=== PATIENT | female | born 1965 | race Caucasian/White ===

== ENCOUNTER 2016-06-22 09:59 | Emergency (ER) | payer MEDICAID ==
[2016-06-22] MEDS ORDERED: MAG HYDROX/AL HYDROX/SIMETH 30 ML, HYOSCYAMINE ELIXIR 10 ML, CIMETIDINE HCL 300 MG, LID... PO STA ×4 (10:24)
[2016-06-22] MEDS ORDERED: PANTOPRAZOLE 40 MG/10 ML VIAL IVP STA (10:24)
[2016-06-22] MEDS ORDERED: SODIUM CHLORIDE 0.9% 1,000 ML IV STA (10:24)
--- NOTE | 2016-06-22 10:50 | ED ---
General Adult HPI - General Chief complaint: Abdominal Pain Stated complaint: heartburn, ulcer hx, sent by dr alcaraz Time Seen by Provider: 06/22/16 10:13 Source: patient, family, RN notes reviewed Mode of arrival: ambulatory Limitations: no limitations - History of Present Illness Initial comments: Chief complaint history of present illness is a 51-year-old female complaint of epigastric pain ongoing for 24 hours without relief. She has been taking omeprazole. She also has a history of arthritis she's been taking Motrin very frequently. No nausea no vomiting. - Related Data Home Medications Medication Instructions Recorded Confirmed Albuterol Sulfate [Proair Hfa] 1 - 2 puff INHALATION RT-Q6H PRN 02/04/14 Omeprazole [PriLOSEC] 20 mg PO BID 02/04/14 06/22/16 Bismuth Subsalicylate 524 mg PO BID PRN 06/22/16 06/22/16 [Pepto-Bismol] Calcium Carbonate [Tums Ultra 4,708 mg PO BID PRN 06/22/16 06/22/16 Strength] Sodium Bicarbonate Tab 650 mg PO BID PRN 06/22/16 06/22/16 Allergies Allergy/AdvReac Type Severity Reaction Status Date / Time oxycodone HCl [From Percocet] Allergy Rash/Hives Verified 06/22/16 10:07 peanut Allergy Wheezing Verified 06/22/16 12:08 Review of Systems ROS Statement: Those systems with pertinent positive or pertinent negative responses have been documented in the HPI. Review of systems. No complaint of headache or visual acuity changes no chest pain or shortness of breath. She has epigastric discomfort and pain with palpation. States she wasn't able to sleep last night. No back pain. No nausea no vomiting. She has not noticed any change in the color of the stool but she also admits she has not looked directly to find it. She is also taking Pepto-Bismol which could make the stool black. Patient denying any numbness or tingling to the extremities. All systems are reviewed. Past medical problems include asthma, GERD and history of ulcers she was told she has 3 ulcers on scoping. She has osteoarthritis for which she is taking Motrin. I explained to her this could be causing part of the problem as well. The patient's surgeries include breast reductions, arthroscopic surgery to her knee. And surgical device placed in her toes because of fractures. The patient 's family history significant for breast cancer. The patient has ALLERGIES to oxycodone. She does smoke 2-3 cigarettes per day strongly encouraged to stop. Also drinks alcohol socially. Increased risk of gastritis and ulcers discussed with patient including alcohol and smoking and nonsteroidal anti-inflammatories ROS Other: All systems not noted in ROS Statement are negative. Past Medical History Past Medical History: Asthma, GERD/Reflux, Osteoarthritis (OA) Additional Past Medical History / Comment(s): ulcers History of Any Multi-Drug Resistant Organisms: None Reported Past Surgical History: Orthopedic Surgery Additional Past Surgical History / Comment(s): LEFT KNEE ARTHROSCOPIC, LEFT FOOT SURGERY Past Anesthesia/Blood Transfusion Reactions: No Reported Reaction Past Psychological History: No Psychological Hx Reported Smoking Status: Former smoker Past Alcohol Use History: Occasional Past Drug Use History: None Reported General Exam - General Exam Comments Initial Comments: General: The patient is awake and alert, pain in the epigastric region for 24 hours. Vital signs shows temperature 97.6 pulse 92 respiratory rate 16 pulse ox 96% room air blood pressure 132/77. Eye: Pupils are equal, round and reactive to light, extra-ocular movements are intact ; there is normal conjunctiva bilaterally. No signs of icterus. Ears, nose, mouth and throat: There are moist mucous membranes and no oral lesions. Neck: The neck is supple, there is no tenderness , no anterior cervical lymphadenopathy. Cardiovascular: There is a regular rate and rhythm. No murmur, rub or gallop is appreciated. Respiratory: Lungs are clear to auscultation, respirations are non-labored, breath sounds are equal. No wheezes, stridor, rales, or rhonchi. Gastrointestinal: Patient complains of epigastric pain palpation of the area causes discomfort. Negative Saolmon sign. No pain that radiates straight through to the back. Normal active bowel sounds. No nausea no vomiting or diarrhea. Back: There is no tenderness to palpation in the midline. There is no obvious deformity. No rashes noted. Musculoskeletal: Normal ROM, no tenderness, There is no pedal edema. There is no calf tenderness or swelling. Sensation intact. Pulses equal bilaterally 2+. Neurological: No complaint of any neuro deficits, no evidence of any focal or lateralizing problems. Skin: Skin is warm and dry and no rashes or lesions are noted. Limitations: no limitations Course Vital Signs 06/22/16 10:04 Temperature 97.6 F Pulse Rate 92 Respiratory 16 Rate Blood Pressure 132/77 O2 Sat by Pulse 96 Oximetry Medical Decision Making - Medical Decision Making Medical decision making; patient's white count 10 hemoglobin 14.8 hematocrit of 41. Potassium is 4.4 BUN 10 creatinine 0.70 the GFR greater than 60. Glucose 106. Amylase lipase within normal limits. X-ray of the abdomen was done and reviewed by radiologist his findings are the abdominal gas pattern is normal. There is no evidence of obstruction or free air. No unusual calcifications are seen. Impression; normal abdomen. As read by Dr. Goddard Patient was told to eat frequent small meals. Stop smoking stop alcohol. Stop ibuprofen and Aleve and aspirin. Also advised to use an antacid as needed, one hour after meals and at bedtime. She is to follow-up with her insurance healthcare representative. - Lab Data Result diagrams: 06/22/16 10:35 06/22/16 10:35 Lab Results 06/22/16 06/22/16 Range/Units 10:35 10:35 WBC 10.5 (3.8-10.6) k/uL RBC 4.68 (3.80-5.40) m/uL Hgb 14.1 (11.4-16.0) gm/dL Hct 41.9 (34.0-46.0) % MCV 89.6 (80.0-100.0) fL MCH 30.2 (25.0-35.0) pg MCHC 33.7 (31.0-37.0) g/dL RDW 13.0 (11.5-15.5) % Plt Count 217 (150-450) k/uL Neutrophils % 60 % Lymphocytes % 30 % Monocytes % 4 % Eosinophils % 4 % Basophils % 1 % Neutrophils # 6.3 (1.3-7.7) k/uL Lymphocytes # 3.1 (1.0-4.8) k/uL Monocytes # 0.4 (0-1.0) k/uL Eosinophils # 0.4 (0-0.7) k/uL Basophils # 0.1 (0-0.2) k/uL Sodium 143 (137-145) mmol/L Potassium 4.4 (3.5-5.1) mmol/L Chloride 104 (98-107) mmol/L Carbon Dioxide 27 (22-30) mmol/L Anion Gap 12 mmol/L BUN 10 (7-17) mg/dL Creatinine 0.78 (0.52-1.04) mg/dL Est GFR (MDRD) Af Amer >60 (>60 ml/min/1.73 sqM) Est GFR (MDRD) Non-Af >60 (>60 ml/min/1.73 sqM) Glucose 106 H (74-99) mg/dL Calcium 10.2 (8.4-10.2) mg/dL Total Bilirubin 0.9 (0.2-1.3) mg/dL AST 19 (14-36) U/L ALT 21 (9-52) U/L Alkaline Phosphatase 69 (38-126) U/L Total Protein 8.0 (6.3-8.2) g/dL Albumin 4.7 (3.5-5.0) g/dL Amylase 45 (30-110) U/L Lipase 92 (23-300) U/L Disposition Clinical Impression: Acute gastritis Disposition: HOME SELF-CARE Condition: Fair Instructions: Gastritis (ED), Diet for Stomach Ulcers and Gastritis (ED) Additional Instructions: Take Prilosec as directed. Eat frequent small meals. Use antacids as needed. One hour after meals and at bedtime. Stop all smoking, stop ibuprofen, Aleve and aspirin products. No alcohol use. Don't eat foods attending irritate her stomach. Sleep semi-upright. Follow-up with the insurance healthcare representative. Time of Disposition: 12:23
[2016-06-22 10:55] LABS: Basophils # (A) 0.1 k/uL (0-0.2); Basophils % (A) 1 %; CH 30.6; CHCM 34.2; Eosinophils # (A) 0.4 k/uL (0-0.7); Eosinophils % (A) 4 %; HCT 41.9 % (34.0-46.0); HDW 2.47; HGB 14.1 gm/dL (11.4-16.0); Luc # (Auto) 0.16; Luc % (Auto) 2; Lymphocytes # (A) 3.1 k/uL (1.0-4.8); Lymphocytes % (A) 30 %; MCH 30.2 pg (25.0-35.0); MCHC 33.7 g/dL (31.0-37.0); MCV 89.6 fL (80.0-100.0); Mean Platelet Volume 9.2; Monocytes # (A) 0.4 k/uL (0-1.0); Monocytes % (A) 4 %; Neutrophils # (A) 6.3 k/uL (1.3-7.7); Neutrophils % (A) 60 %; RBC 4.68 m/uL (3.80-5.40); WBC 10.5 k/uL (3.8-10.6); WBC (Perox) 10.44
[2016-06-22 11:05] LABS: ALT 21 U/L (9-52); AST 19 U/L (14-36); Alkaline Phosphatase 69 U/L (38-126); Amylase 45 U/L (30-110); Anion Gap 12 mmol/L; Blood Urea Nitrogen 10 mg/dL (7-17); Calcium 10.2 mg/dL (8.4-10.2); Carbon Dioxide 27 mmol/L (22-30); Chloride 104 mmol/L (98-107); Glucose 106 mg/dL (74-99); Non-African American GFR(MDRD) >60 (>60 ml/min/1.73 sqM); Potassium 4.4 mmol/L (3.5-5.1); Sodium 143 mmol/L (137-145); Total Bilirubin 0.9 mg/dL (0.2-1.3)
--- NOTE | 2016-06-22 11:46 | XR ---
EXAMINATION TYPE: XR abdomen 2V DATE OF EXAM ORDERED: 06/22/2016 11:35 AM HISTORY: Gas pain, ulcers. COMPARISON: None. FINDINGS: The abdominal gas pattern is normal. There is no evidence of obstruction or free air. No u nusual calcifications are seen. IMPRESSION: NORMAL ABDOMEN.
[2016-06-22 13:03] VITALS: BP 131/84; PULSE 78; RESP 18; TEMP 98.3
== END 2016-06-22 12:35 | disposition home or self-care (01) ==
LOC: EC 09:59
DX: K29.00 Acute gastritis without bleeding (principal); K21.9 Gastro-esophageal reflux disease without esophagitis; Z87.891 Personal history of nicotine dependence; Z79.899 Other long term (current) drug therapy; Z91.018 Allergy to other foods; Z88.8 Allergy status to other drugs, medicaments and biological substances
CPT/HCPCS: 36415; 80053; 82150; 83690; 85025; 74020; 99284; 96374; 96361; C9113

== ENCOUNTER → 2016-08-28 | Outpatient (CLI) | payer MEDICAID ==
[2016-08-28 15:15] LABS: Hemoglobin A1C 5.7 % (4.2-6.1)
== END | disposition home or self-care (01) ==
LOC: LABWHC1 12:33
PROVIDERS: ATTEND Family Medicine
DX: E66.9 Obesity, unspecified (principal)
CPT/HCPCS: 36415; 80061; 83036; 84439; 84443

== ENCOUNTER → 2016-10-25 | Outpatient (CLI) | payer MEDICAID ==
[2016-10-25 08:47] LABS: CH 30.9; CHCM 33.5; HCT 37.9 % (34.0-46.0); HDW 2.34; HGB 12.4 gm/dL (11.4-16.0); MCH 30.5 pg (25.0-35.0); MCHC 32.8 g/dL (31.0-37.0); MCV 92.9 fL (80.0-100.0); Mean Platelet Volume 10.6; RBC 4.08 m/uL (3.80-5.40); WBC 8.1 k/uL (3.8-10.6)
[2016-10-25 11:41] LABS: Anion Gap 11 mmol/L; Blood Urea Nitrogen 12 mg/dL (7-17); Calcium 9.9 mg/dL (8.4-10.2); Carbon Dioxide 26 mmol/L (22-30); Chloride 103 mmol/L (98-107); Cholesterol 144 mg/dL (<200); Glucose 93 mg/dL (74-99); HDL Cholesterol 45 mg/dL (40-60); Non-African American GFR(MDRD) >60 (>60 ml/min/1.73 sqM); Potassium 4.4 mmol/L (3.5-5.1); Sodium 140 mmol/L (137-145)
[2016-10-25 13:46] LABS: Hepatitis C Virus IgG Ab Negative (Negative); Hepatitis C Virus IgG Index 0.03
== END | disposition home or self-care (01) ==
LOC: LABWHC1 07:48
PROVIDERS: ATTEND Family Medicine
DX: Z00.00 Encounter for general adult medical examination without abnormal findings (principal); N95.9 Unspecified menopausal and perimenopausal disorder
CPT/HCPCS: 36415; 80048; 80061; 82306; 82670; 83001; 85027; 86803

== ENCOUNTER → 2016-11-12 | Outpatient (CLI) | payer MEDICAID ==
--- NOTE | 2016-11-14 09:43 | MM ---
Reason for exam: screening (asymptomatic). Last mammogram was performed 1 year ago. History: Family history of breast cancer in maternal aunt at age 50 and breast cancer in maternal grandmother at age 60. Reductions of both breasts, 2004. Physical Findings: A clinical breast exam by your physician is recommended on an annual basis and results should be correlated with mammographic findings. MG 3D Screening Mammo W/Cad Bilateral CC and MLO view(s) were taken. Prior study comparison: November 03, 2015, bilateral MG 3d screening mammo w/cad. May 09, 2014, bilateral MG diagnostic mammo w CAD JESUS. January 14, 2013, CAD bilateral diagnostic mammogram. There are scattered fibroglandular densities. No significant changes when compared with prior studies. ASSESSMENT: Benign, BI-RAD 2 RECOMMENDATION: Routine screening mammogram of both breasts in 1 year.
== END | disposition home or self-care (01) ==
LOC: RADMAMWWP 07:25
PROVIDERS: ATTEND Family Medicine
DX: Z12.31 Encounter for screening mammogram for malignant neoplasm of breast (principal)
CPT/HCPCS: 77063; G0202

== ENCOUNTER 2016-11-27 07:44 | Day surgery (SDC) | payer MEDICAID ==
[2016-11-22 11:02] VITALS: BMI 30.7
[~2016-11-27 07:44] MED LIST: LACTATED RINGERS 1,000 ML IV SCH
[2016-11-27 08:12] VITALS: RESP 16; TEMP 97.8
[2016-11-27] MEDS ORDERED: LIDOCAINE 1% 20 ML VIAL (10MG/ML) FOR IV START INTRADERMA ONE (08:21)
[2016-11-27] MEDS ORDERED: GLYCOPYRROLATE 0.2 MG/ML 2 ML VIAL ONE (08:40)
[2016-11-27] MEDS ORDERED: PROPOFOL 10 MG/ML 20 ML VIAL IV ONE (08:40)
[2016-11-27] MEDS ORDERED: LIDOCAINE 1% INJ 10MG/ML (20 ML MDV) ONE (08:40)
--- NOTE | 2016-11-27 09:33 | P.PCN ---
Date of Procedure: 11/27/16 Preoperative Diagnosis: Postoperative Diagnosis: Procedure(s) Performed: Brief history: Patient is a pleasant 51-year-old white female, scheduled for an elective upper endoscopy as well as colonoscopy as a part of evaluation of GERD and screening for colorectal neoplasia. Procedure performed: Esophagogastroduodenoscopy with biopsy Colonoscopy and polypectomy Preoperative diagnosis: GERD Screening for colon cancer Anesthesia: MAC Procedure: After informed consent was obtained from the patient was brought into the endoscopy unit and IV sedation was administered by anesthesia under continuous monitoring. Initially upper endoscopy was done. The Olympus GF 160 video endoscope was inserted inserted into the mouth and esophagus intubated without any difficulty and was gradually advanced into the stomach and duodenum and carefully examined. The bulb and second part of the duodenum appeared normal. The scope was then withdrawn into the stomach adequately insufflated with air and upon careful examination the antrum had mild gastritis and biopsies were done from this area. The body, cardia and fundus appeared normal. The scope was then withdrawn into the esophagus. The GE junction was located at 40 cm to the incisors. It appeared regular with no erythema erosions or ulcerations. biopsies were done from the distal esophagus. Rest of the esophagus appeared normal. Patient tolerated the procedure well. At this time the patient continued to remain sedation. Initial digital rectal examination was normal. Olympus CF 160 video colonoscope was then inserted into the rectum and gradually advanced to the cecum without any difficulty. Careful examination was performed as the scope was gradually being withdrawn. The prep was excellent. The cecum, ascending colon, appeared normal. In the transverse colon there was a 1 m flat polyp that was removed by snare polypectomy. Rest of the transverse colon, descending colon, sigmoid colon and rectum appeared normal. Retroflexion was performed in the rectum and no lesions were noted. Patient tolerated the procedure well. Impression: 1. Upper endoscopy revealed mild antral gastritis but no evidence of esophagitis or Mott's esophagus 2. Colonoscopy revealed 1 cm transverse colon polyp status post polypectomy. rest of the colon appeared normal. Recommendations: Findings of this examination were discussed with the patient as well as her family. She was advised to follow with the biopsy results. If the biopsy shows a tubular adenoma, she can have a repeat colonoscopy in 5 years Implants: Indications for Procedure: Operative Findings: Description of Procedure:
[2016-11-27 09:41] VITALS: BP 115/77; PULSE 66
== END 2016-11-27 10:48 | disposition home or self-care (01) ==
LOC: ORWHC2ENDO 07:44
PROVIDERS: ATTEND Internal Medicine Gastroenterology
DX: K29.50 Unspecified chronic gastritis without bleeding (principal); K63.5 Polyp of colon; J45.909 Unspecified asthma, uncomplicated; F17.200 Nicotine dependence, unspecified, uncomplicated; Z79.899 Other long term (current) drug therapy; Z88.5 Allergy status to narcotic agent; Z91.010 Allergy to peanuts
CPT/HCPCS: 88305; 88342; 45385; 43239; J2001; J2704

== ENCOUNTER → 2017-07-29 | Outpatient (CLI) | payer MEDICAID ==
--- NOTE | 2017-07-30 07:59 | XR ---
EXAMINATION TYPE: XR foot complete LT DATE OF EXAM: 07/29/2017 CLINICAL HISTORY: History of bunion surgery with new pain. TECHNIQUE: Frontal, lateral, and oblique images of the left foot are obtained. COMPARISON: None FINDINGS: There is no acute fracture/dislocation evident in the left foot. There is evidence of heal ed osteotomy distal first metatarsal. Persistent slight hallux valgus deformity is seen. There is oss ific fusion at second PIP joint. Some flexion in second through fifth toes is present The overlying s oft tissue appears unremarkable. IMPRESSION: As above.
== END | disposition home or self-care (01) ==
LOC: RADXRMAIN 09:22
PROVIDERS: ATTEND Podiatrist Foot & Ankle Surgery
DX: M20.12 Hallux valgus (acquired), left foot (principal); M79.672 Pain in left foot

== ENCOUNTER → 2017-10-07 | Outpatient (CLI) | payer MEDICAID ==
--- NOTE | 2017-10-07 22:23 | MR ---
EXAMINATION TYPE: MR brain wo/w con DATE OF EXAM: 10/07/2017 COMPARISON: NONE HISTORY: Sudden onset headache (R 51) per order. TECHNIQUE: Multiplanar, multisequence images of the brain and brainstem is performed without and with IV contras t, utilizing 7.5 mL intravenous Gadavist . FINDINGS: Diffusion weighted images demonstrate no evidence of a recent infarct or other diffusion ab normality. There is no extra-axial fluid collection or significant white matter signal abnormality. The ventricular system and cisternal spaces are normal in size and appearance. The brain volume is age appropriate. Midline structures demonstrate normal morphology. The craniocervical junction appears within normal limits. Post contrast images demonstrate no abnormal enhancement. The dural venous sinuses appear pa tent. There is large mucous retention cyst filling the inferior aspect left maxillary sinus coronal i mage 6. There is small mucous retention cyst or polyp in the inferior right maxillary sinus coronal i mage 5. Nasal septum is deviated to right of midline. Remainder paranasal sinuses are clear. The glob es are intact bilaterally. IMPRESSION: No significant finding is seen to account for patient's symptoms
== END | disposition home or self-care (01) ==
LOC: RADMRIMAIN 20:08
PROVIDERS: ATTEND Psychiatry & Neurology Neurology
DX: R51 Headache (principal)
CPT/HCPCS: 70553; A9581

== ENCOUNTER → 2017-11-04 | Outpatient (CLI) | payer MEDICAID ==
--- NOTE | 2017-11-04 11:30 | FL ---
EXAM TYPE: Modified barium swallow COMPARISON: NONE DATE OF EXAM: 11/04/2017 HISTORY: Dysphasia A number of thin and thick substances were ingested under the care of the department of speech pathol ogy. There is no evidence of aspiration or penetration. There is no evidence of obstruction. Fluoroscopy time 1 minute 15 seconds, 0 images submitted. IMPRESSION: 1. No evidence of aspiration or penetration.
== END | disposition home or self-care (01) ==
LOC: RADFLMAIN 10:31
PROVIDERS: ATTEND Otolaryngology
DX: R13.10 Dysphagia, unspecified (principal)
CPT/HCPCS: 74230

== ENCOUNTER → 2017-11-05 | Outpatient (CLI) | payer MEDICAID ==
--- NOTE | 2017-11-05 09:48 | FL ---
EXAMINATION TYPE: FL barium swallow DATE OF EXAM: 11/05/2017 CLINICAL HISTORY: Headaches, dysphagia especially with solid dry foods. TECHNIQUE: A double contrast esophagram is performed utilizing air and barium. A total of 0.53 aaron panda of fluoroscopic time was utilized during procedure. A total of 44 spot images are saved. COMPARISON: None FINDINGS: The esophagus shows some dysmotility with a few abnormal secondary and tertiary contraction s identified. No intraluminal mass or stricture is present. No evidence of significant hiatal hernia or outpouching. No significant gastroesophageal reflux was seen during real time performance of this study. IMPRESSION: Mild dysmotility otherwise unremarkable study.
== END | disposition home or self-care (01) ==
LOC: RADFLWHC 08:41
PROVIDERS: ATTEND Otolaryngology
DX: K22.4 Dyskinesia of esophagus (principal)
CPT/HCPCS: 74220

== ENCOUNTER → 2017-12-08 | Outpatient (CLI) | payer MEDICAID ==
--- NOTE | 2017-12-09 09:17 | MM ---
Reason for exam: screening (asymptomatic). Last mammogram was performed 1 year and 1 month ago. History: Patient is postmenopausal. Family history of breast cancer in maternal aunt at age 50 and breast cancer in maternal grandmother at age 60. Reductions of both breasts, 2004. Physical Findings: A clinical breast exam by your physician is recommended on an annual basis and results should be correlated with mammographic findings. MG Screening Mammo w CAD Bilateral CC and MLO view(s) were taken. Prior study comparison: November 12, 2016, bilateral MG 3d screening mammo w/cad. November 03, 2015, bilateral MG 3d screening mammo w/cad. There are scattered fibroglandular densities. Finding: There are indeterminate calcifications in the upper outer quadrant of the left breast 13cm from the nipple. New finding since November 12, 2016. ASSESSMENT: Incomplete: need additional imaging evaluation, BI-RAD 0 RECOMMENDATION: Special view mammogram of the left breast. [facility] will attempt to contact patient to return for supplemental views.
== END ==
LOC: RADMAMWWP 11:12
PROVIDERS: ATTEND Family Medicine
DX: Z12.31 Encounter for screening mammogram for malignant neoplasm of breast (principal)
CPT/HCPCS: 77067

== ENCOUNTER 2017-12-17 07:06 | Day surgery (SDC) | payer MEDICAID ==
[2017-12-09 15:37] VITALS: BMI 26.6
[~2017-12-17 07:06] MED LIST changes: +DEXAMETHASONE SOD PHOSPHATE 4 MG/ML 1 ML VIAL IV ONE; +FAMOTIDINE 20 MG/2 ML VIAL IV ONE; +LIDOCAINE 1% 20 ML VIAL (10MG/ML) FOR IV START INTRADERMA PRN; +ONDANSETRON 4 MG/2 ML VIAL IVP ONE; +ceFAZolin 1,000 MG in DEXTROSE/WATER 1 50ML.BAG IV ONE
[2017-12-17] MEDS: OXYMETAZOLINE 0.05% NASL SPRAY 1 SPRAY BOTTLE NASAL ONE ×5 (07:20→07:44)
[2017-12-17] MEDS ORDERED: ONDANSETRON 4 MG/2 ML VIAL IVP ONE (07:38)
[2017-12-17] MEDS ORDERED: DEXAMETHASONE SOD PHOSPHATE 10 MG/ML 1 ML VIAL IV ONE (07:39)
[2017-12-17] MEDS ORDERED: BACITRACIN 500 UNIT/GM OINT 28.4 GM TUBE TOPICAL ONE ×2 (08:16→08:38)
[2017-12-17] MEDS ORDERED: LIDOCAINE 1%-EPI 1:100,000 20 ML VIAL SUBMUCOSAL ONE ×2 (08:16)
[2017-12-17] MEDS ORDERED: LACTATED RINGERS 1,000 ML IV ONE (09:08)
--- NOTE | 2017-12-17 09:13 | P.OP ---
Date of Procedure: 12/17/17 Preoperative Diagnosis: Deviated nasal septum Inferior turbinate hypertrophy Chronic sinusitis Chronic tonsillitis Postoperative Diagnosis: Same Procedure(s) Performed: Septoplasty Outfracture and submucous resection of the inferior turbinates Bilateral endoscopic sinus surgery including bilateral maxillary antrostomy with removal of tissue from the maxillary sinuses Adenotonsillectomy Anesthesia: LEONA Surgeon: Rusty Gilman Estimated Blood Loss (ml): 10 Pathology: other (Nasal septal bone and cartilage, sinus contents, tonsils) Condition: stable Disposition: PACU Indications for Procedure: Is a 52-year-old white female with chronic nasal airway obstruction and also chronic sinusitis with maxillary sinus cysts on MRI. She also has history of recurrent/chronic tonsillitis with tonsillar hypertrophy Operative Findings: Nasal septum deviated to the right with a posterior spur on the left, inferior turbinate hypertrophy bilaterally. Moderate size cysts maxillary sinuses bilaterally. Tonsils +2.5 bilaterally and are cryptic adenoids mildly enlarged Description of Procedure: Patient brought in the operative suite and placed in a supine position. Patient underwent induction of general anesthesia with oral endotracheal intubation without difficulty. The patient was prepped and draped in the usual aseptic fashion with the orbits in the operating field for monitoring throughout the case and computed tomography scan on the computer screen for review throughout the case. 1% lidocaine with 1-100,000 epinephrine was infused submucosally both sides nasal septum as well as lateral nasal wall and anterior tips the middle turbinates bilaterally. All this taking vasoconstrictive effect the inferior turbinates were infractured with Westminster elevator partial submucous resection inferior turbinates was then performed with device thus ablating a portion of the inferior turbinate soft tissue and then outfractured with Westminster elevator. A left hemitransfixion incision was made with the mucoperichondrial decompress the flap on the left elevated. Bony cartilaginous junction was disarticulated and mucoperiosteal flap on the right was elevated. Bony nasal septal deformities were removed Harrison forceps. An inferior cartilaginous strip was removed and caudal strut. Checking intranasally this corrected the nasoseptal deformities and the hemitransfixion incision was closed with a running 4-0 chromic suture. 0 endoscopic examination is performed bilaterally. Beginning on the left the middle turbinate was medialized with the Alpine elevator. Maxillary ostium was located with a ballpoint probe and infundibulotomy was performed followed by uncinectomy with the microdebrider. There was a large cyst in the left maxillary sinus which was removed with Harrison forceps and 30 endoscope was used to visualize this and then checked sinus further. Attention was then turned to the right seizures were followed as they were on the left and medialization middle turbinate infundibulotomy uncinectomy maxillary antrostomy which was performed on the left also to enlarge the maxillary ostium and there was a smaller cyst removed on the right. Once this was completed xerogel nasal dressing was placed in the middle meatus bilaterally under direct visualization and Hodge airway splints coated bacitracin ointment were placed in nasal cavities and sutured transseptal 4-0 Vicryl suture. The McIvor mouth gag was then placed and red Sotomayor catheters placed through the right nasal cavity and pulled through the oropharynx for soft palate retraction. The soft palate was palpated and no submucous cleft was noted. There were mildly enlarged adenoids and therefore these were ablated with suction cautery. The catheter was then removed. There was good hemostasis. The left tonsil was grasped with curved Allis clamp and dissected from tonsillar fossa in a superior to inferior direction using both blunt and electrocautery dissection until the tonsil was removed. Once tonsils removed hemostasis was gained to suction cautery. Hemostasis was obtained with suction cautery. Once hemostasis was obtained attention was turned to the right where the right tonsil was removed exactly as the left had been. Once this tonsils removed hemostasis gained with suction cautery. Once hemostasis was obtained and remained good in both tonsillar fossa patient suctioned in oral gastric fashion the McIvor mouth gag was removed. The patient was allowed to emerge from general anesthesia having tolerated procedure well was excised in the operating suite and transferred postoperative recovery area in satisfactory condition.
[2017-12-17 09:27] VITALS: TEMP 97.5
[2017-12-17] MEDS: HYDROmorphone 1 MG/ML 1 ML SYRINGE IVP PRN ×4 (09:27→10:07)
[2017-12-17] MEDS ORDERED: LABETALOL SYRINGE 5 MG/ML IVP ONE (09:51)
[2017-12-17] MEDS ORDERED: HYDROcodone/APAP 15 ML SOLUTION PO ONE (10:45)
[2017-12-17 14:08] VITALS: BP 138/78; PULSE 70; RESP 18
== END 2017-12-17 14:05 | disposition home or self-care (01) ==
LOC: OR 07:06
PROVIDERS: ATTEND Otolaryngology
DX: J32.0 Chronic maxillary sinusitis (principal); J34.2 Deviated nasal septum; J34.3 Hypertrophy of nasal turbinates; J35.01 Chronic tonsillitis; J34.1 Cyst and mucocele of nose and nasal sinus; J45.909 Unspecified asthma, uncomplicated; E78.00 Pure hypercholesterolemia, unspecified; E78.5 Hyperlipidemia, unspecified; K21.9 Gastro-esophageal reflux disease without esophagitis; G43.909 Migraine, unspecified, not intractable, without status migrainosus; Z79.899 Other long term (current) drug therapy; Z91.010 Allergy to peanuts; Z91.09 Other allergy status, other than to drugs and biological substances; F17.200 Nicotine dependence, unspecified, uncomplicated
CPT/HCPCS: 81025; 88304; 88305; 88300; 30520; 30140; 31267; 42821; J1100; J2405; J1170; J0690

== ENCOUNTER → 2018-01-05 | Outpatient (CLI) | payer MEDICAID ==
--- NOTE | 2018-01-06 08:24 | MM ---
Reason for exam: additional evaluation requested from abnormal screening. Last mammogram was performed 1 month ago. History: Patient is postmenopausal. Family history of breast cancer in maternal aunt at age 50 and breast cancer in maternal grandmother at age 60. Reductions of both breasts, 2004. Physical Findings: Nurse did not find any significant physical abnormalities on exam. MG 3D Work Up W/Cad LT CC with magnification, ML with magnification, and ML view(s) were taken of the left breast. Prior study comparison: December 08, 2017, bilateral MG screening mammo w CAD. November 12, 2016, bilateral MG 3d screening mammo w/cad. There are scattered fibroglandular densities. The questioned posterior upper outer quadrant calcifications are punctate to round in morphology and number approximately 3. These have overall benign appearance. These results were verbally communicated with the patient and result sheet given to the patient on 01/05/18. ASSESSMENT: Probably benign, BI-RAD 3 RECOMMENDATION: Follow-up diagnostic mammogram of the left breast in 6 months.
== END | disposition home or self-care (01) ==
LOC: RADMAMWWP 14:40
PROVIDERS: ATTEND Family Medicine
DX: R92.8 Other abnormal and inconclusive findings on diagnostic imaging of breast (principal)
CPT/HCPCS: 77061; 77065

== ENCOUNTER → 2018-01-09 | Outpatient (CLI) | payer MEDICAID ==
[2018-01-09 09:33] LABS: HCT 38.2 % (34.0-46.0); HGB 12.4 gm/dL (11.4-16.0); MCH 30.8 pg (25.0-35.0); MCHC 32.6 g/dL (31.0-37.0); MCV 94.4 fL (80.0-100.0); Mean Platelet Volume 8.1; Platelet Count 231 k/uL (150-450); RBC 4.05 m/uL (3.80-5.40); RDW 13.2 % (11.5-15.5)
[2018-01-09 09:39] LABS: ALT 65 U/L (9-52); AST 44 U/L (14-36); Alkaline Phosphatase 100 U/L (38-126); Anion Gap 6 mmol/L; Appearance,Urine Cloudy (Clear); Bilirubin,Urine Negative (Negative); Blood Urea Nitrogen 17 mg/dL (7-17); Blood,Urine Trace (Negative); Calcium 9.7 mg/dL (8.4-10.2); Calcium Oxalate Crystals,Urine Few /hpf; Carbon Dioxide 28 mmol/L (22-30); Chloride 109 mmol/L (98-107); Cholesterol 175 mg/dL (<200); Color,Urine Yellow; Glucose 111 mg/dL (74-99); Glucose,Urine (UA) Negative (Negative); HDL Cholesterol 47 mg/dL (40-60); Ketones,Urine Negative (Negative); LDL Cholesterol,Calculated 95 mg/dL (0-99); Leukocyte Esterase,Urine Small (Negative); Mucus,Urine Occasional /hpf; Nitrite,Urine Negative (Negative); Potassium 4.4 mmol/L (3.5-5.1); Protein,Urine Trace (Negative); RBC,Urine 2 /hpf (0-5); Sodium 143 mmol/L (137-145); Specific Gravity,Urine 1.026 (1.001-1.035); Squamous Epithelial Cell,Urine 2 /hpf (0-4); Total Bilirubin 0.4 mg/dL (0.2-1.3); Total Protein 7.3 g/dL (6.3-8.2); Triglycerides 165 mg/dL (<150); Urobilinogen,Urine <2.0 mg/dL (<2.0)
[2018-01-09 16:42] LABS: Hemoglobin A1C 5.9 % (4.0-6.0)
== END | disposition home or self-care (01) ==
LOC: LABWHC1 08:45
PROVIDERS: ATTEND Family Medicine
DX: Z00.00 Encounter for general adult medical examination without abnormal findings (principal)
CPT/HCPCS: 36415; 80053; 80061; 81001; 82306; 83036; 84443; 85027; 87086

== ENCOUNTER → 2018-02-03 | Outpatient (CLI) | payer MEDICAID ==
--- NOTE | 2018-02-03 20:18 | CONS ---
CONSULTATION REASON FOR CONSULTATION: Waking up tired, bad headaches. HISTORY OF PRESENT ILLNESS: This is a 53-year-old male female patient was referred to me by Dr. Khan. 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 She works locally at [employer]. She works between 10 pm and 7:00 am in the morning. After she comes home, she runs errands and then she does household activity and she ultimately goes to bed around 4:00 pm, waking up 9:00 pm and within an hour she gets ready to go back to work. Upon arousals, she does have headaches and she has had headaches on and off during the day. She had difficulty in functioning at work. For that reason, she has been drinking coffee and taking energy drinks throughout the night. She drinks Monster energy drinks. After she comes home in the morning, she is wired and she cannot fall easily to sleep and she continues doing household activities. Whenever she wakes up at 9:00 pm from sleep, she is waking up tired and she has difficulty with memory and concentration and she feels lethargic. Cabins Score is at 20. She also snores. PAST MEDICAL HISTORY: 1. Hyperlipidemia. 2. Headache. 3. Acid reflux. SURGICAL HISTORY: Includes left knee surgery. Left foot surgery, sinus surgery and removal of polyps, tonsillectomy and breast reduction surgery. DRUG ALLERGIES: SHE IS ALLERGIC TO PEANUTS AND ANIMAL DANDER. OUTPATIENT MEDICATION LIST: Includes Topamax 50 mg p.o. daily, Ambien p.r.n. 5 mg, Celebrex 100 mg 2 tablets as needed, Flexeril 10 mg as needed. Lexapro 20 mg in the morning. Lipitor 10 mg p.o. daily. Protonix 40 mg twice a day. SOCIAL HISTORY: Nonsmoker. No history of alcohol. No history of IV drugs. FAMILY HISTORY: Noncontributory. REVIEW OF SYSTEMS: 12-point review of system was done. No sleep paralysis. No hallucinations. No cataplexy. She has heartburn and she has occasional grinding of the teeth. She does snore. Her current Cabins score of 20. No history of motor vehicle accident because of feeling drowsy or sleepy. PHYSICAL EXAMINATION: BP is 132/88, pulse 72, respirations 16, temperature 16, temp 97.1, saturation 95% on room air. Weight is 182. Height is 5 feet 5 inches, neck size 14 inches. General appearance: Calm and comfortable. Head is atraumatic, normocephalic. NECK: Supple. There is no JVD. No goiter or neck masses. Mallampati class IV. LUNGS: Clear to auscultation. HEART: Sounds regular rate and rhythm. Normal S1, S2. No S3. No murmurs. ABDOMEN: Soft, nontender. No organomegaly. EXTREMITIES: No edema. No cyanosis or clubbing. 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 2. Poor sleep hygiene measures. 3. Suspected obstructive sleep apnea. 4. Insufficient sleep syndrome as the patient is averaging less than 5 hours of sleep. 5. Chronic headaches. 6. Hyperlipidemia. 7. Degenerative arthritis. PLAN: Would like to regulate the patient's sleep schedule. I would like to extend the patient's sleep hours. Would like to improve the patient's sleep hygiene measures in general. First of all, I asked the patient to eliminate the energy drinks and caffeinated beverages after 1:00 am. I would like the patient to have no significant stimulating agents in her system whenever she gets home at around 7:00 am. My advice for this patient to go to sleep between 8-9 a.m. in the morning and wake up between 3-4 pm. This would be ideal for her and if needed she can take another power nap prior to going to work. I have advised her wearing sun glasses or eye shades on the way home from work and avoid any light or sunlight stimulation. As mentioned all stimulants need to be discontinued after 1 or 2:00 am. Ambien at low dose 5 mg can be used for sleep induction in the morning. She will extend her sleep hours at an average of 6-7 hours if possible. Her home situation is not ideal. However, necessary changes will be done to help this patient induce and maintain sleep. In terms of sleep quality, we will do a morning time polysomnogram at a later stage once the patient is able to regulate her sleep/wake cycle. Advised taking Lexapro in the evening. Advised taking Flexeril in the morning just prior to her going to sleep. We will continue to follow. MMODL / IJN: [id number] /
== END | disposition home or self-care (01) ==
LOC: SLEEP 14:48
PROVIDERS: ATTEND Internal Medicine Critical Care Medicine
DX: G47.9 Sleep disorder, unspecified (principal); R51 Headache; E78.5 Hyperlipidemia, unspecified; M19.90 Unspecified osteoarthritis, unspecified site; Z79.1 Long term (current) use of non-steroidal anti-inflammatories (NSAID); Z79.899 Other long term (current) drug therapy; Z88.8 Allergy status to other drugs, medicaments and biological substances; Z91.010 Allergy to peanuts
CPT/HCPCS: 99211

== ENCOUNTER → 2018-02-06 | Outpatient (CLI) | payer MEDICAID ==
[2018-02-06 11:52] LABS: ALT 27 U/L (8-44); AST 25 U/L (13-35)
== END ==
LOC: LABWHC1 07:31
PROVIDERS: ATTEND Family Medicine
DX: R74.8 Abnormal levels of other serum enzymes (principal)
CPT/HCPCS: 36415; 84450; 84460

== ENCOUNTER → 2018-02-09 | Outpatient (CLI) | payer MEDICAID ==
[2018-02-10 12:34] LABS: Crab IgE <0.35 kU/L (<0.35); Crab IgE Class CLASS 0; Lobster IgE 0.47 kU/L (<0.35); Lobster IgE Class CLASS I; Salmon IgE <0.35 kU/L (<0.35); Salmon IgE Class CLASS 0
[2018-02-10 16:48] LABS: Peanut IgE 0.15 kU/L
[2018-02-10 16:49] LABS: Shrimp IgE <0.10 kU/L; Walnut IgE (Food) <0.10 kU/L
== END ==
LOC: LABWHC1 09:28
PROVIDERS: ATTEND Otolaryngology
DX: J30.89 Other allergic rhinitis (principal)
CPT/HCPCS: 36415; 86003

== ENCOUNTER 2018-03-06 09:38 | Day surgery (SDC) | payer MEDICAID ==
[2018-03-05 09:03] VITALS: BMI 29.0
[~2018-03-06 09:38] MED LIST changes: -DEXAMETHASONE SOD PHOSPHATE 4 MG/ML 1 ML VIAL IV ONE; -FAMOTIDINE 20 MG/2 ML VIAL IV ONE; +MIDAZOLAM (PF) 2 MG/2 ML VIAL IV PRN; -ONDANSETRON 4 MG/2 ML VIAL IVP ONE; -ceFAZolin 1,000 MG in DEXTROSE/WATER 1 50ML.BAG IV ONE
[2018-03-06 10:05] VITALS: RESP 16; TEMP 98.4
[2018-03-06] MEDS ORDERED: PROPOFOL 10 MG/ML 20 ML VIAL IV ONE (12:37)
[2018-03-06] MEDS ORDERED: LIDOCAINE 1% INJ 10MG/ML (20 ML MDV) ONE (12:37)
--- NOTE | 2018-03-06 12:41 | P.GSHP ---
History of Present Illness H&P Date: 03/06/18 Chief Complaint: GERD, dysphagia This is a 53-year-old female who presents safer EGD. She's had issues with GERD and dysphagia. She's had a previous esophagram which shows evidence of dysmotility. Past Medical History Past Medical History: Asthma, GERD/Reflux, Osteoarthritis (OA) Additional Past Medical History / Comment(s): ulcers History of Any Multi-Drug Resistant Organisms: None Reported Past Surgical History: Adenoidectomy, Orthopedic Surgery, Tonsillectomy Additional Past Surgical History / Comment(s): LEFT KNEE ARTHROSCOPIC, LEFT FOOT SURGERY, SINUS SX-REMOVED POLYPS, COLONOSCOPY, EGD Past Anesthesia/Blood Transfusion Reactions: No Reported Reaction Smoking Status: Former smoker - Past Family History Mother Family Medical History: No Reported History Medications and Allergies Home Medications Medication Instructions Recorded Confirmed Type Pantoprazole Sodium [Protonix] 20 mg PO BID 12/09/17 03/06/18 History Allergies Allergy/AdvReac Type Severity Reaction Status Date / Time oxycodone HCl [From Percocet] Allergy Rash/Hives Verified 03/06/18 09:56 peanut Allergy Wheezing Verified 03/06/18 09:56 shellfish derived [Lobster] Allergy Unknown Verified 03/06/18 09:56 DUST MITES Allergy Rash/Hives Uncoded 03/06/18 09:56 Surgical - Exam Vital Signs Temp Pulse Resp BP Pulse Ox 98.4 F 66 16 135/68 95 03/06/18 10:03 03/06/18 10:03 03/06/18 10:03 03/06/18 10:03 03/06/18 10:03 - General well developed, no distress - Eyes PERRL - ENT normal pinna - Neck no masses - Respiratory normal expansion - Cardiovascular Rhythm: regular - Abdomen Abdomen: soft, non tender Assessment and Plan Assessment: GERD, dysmotility. We'll perform EGD.
--- NOTE | 2018-03-06 12:47 | P.OP ---
Date of Procedure: 03/06/18 Preoperative Diagnosis: GERD, dysphagia Procedure(s) Performed: EGD Anesthesia: MAC Surgeon: Jaiden Tyler Pathology: other (Antrum, esophagus) Condition: stable Disposition: PACU Description of Procedure: The patient's placed on the endoscopy table in the lateral position. She received IV sedation. The gastroscope placed oropharynx passed in the esophagus and stomach. Scope was then placed through the pylorus. The first and second portion duodenum appeared normal. Scope was then brought back the antrum this. Mildly inflamed. A biopsies performed. The scope was then retroflexed and the remainder of the stomach appeared normal. There was no significant hiatal hernia. The GE junction was at 47 is. The distal esophagus was mildly inflamed a biopsies performed. The proximal esophagus appeared normal. Scope was withdrawn for patient.
[2018-03-06] MEDS ORDERED: LACTATED RINGERS 1,000 ML IV ONE (12:54)
[2018-03-06 13:15] VITALS: BP 123/84; PULSE 52
== END 2018-03-06 13:39 | disposition home or self-care (01) ==
LOC: ORWHC2ENDO 09:38
PROVIDERS: ATTEND Surgery
DX: K29.50 Unspecified chronic gastritis without bleeding (principal); K21.9 Gastro-esophageal reflux disease without esophagitis; M19.90 Unspecified osteoarthritis, unspecified site; J45.909 Unspecified asthma, uncomplicated; Z79.899 Other long term (current) drug therapy; Z91.010 Allergy to peanuts; Z91.013 Allergy to seafood; Z91.09 Other allergy status, other than to drugs and biological substances; Z88.5 Allergy status to narcotic agent; Z87.891 Personal history of nicotine dependence
CPT/HCPCS: 88305; 43239; J2001; J2704

== ENCOUNTER → 2018-04-09 | Outpatient (CLI) | payer MEDICAID ==
[2018-04-09 11:04] LABS: Basophils # (A) 0.1 k/uL (0-0.2); Basophils % (A) 1 %; Eosinophils # (A) 0.3 k/uL (0-0.7); Eosinophils % (A) 6 %; HCT 39.7 % (34.0-46.0); HGB 12.4 gm/dL (11.4-16.0); Lymphocytes # (A) 2.5 k/uL (1.0-4.8); Lymphocytes % (A) 49 %; MCH 28.6 pg (25.0-35.0); MCHC 31.1 g/dL (31.0-37.0); MCV 92.1 fL (80.0-100.0); Mean Platelet Volume 7.8; Monocytes # (A) 0.2 k/uL (0-1.0); Monocytes % (A) 4 %; Neutrophils # (A) 1.9 k/uL (1.3-7.7); Neutrophils % (A) 38 %; Platelet Count 209 k/uL (150-450); RBC 4.31 m/uL (3.80-5.40); RDW 13.1 % (11.5-15.5); WBC 5.1 k/uL (3.8-10.6)
[2018-04-09 11:31] LABS: Potassium 4.5 mmol/L (3.5-5.1)
== END | disposition home or self-care (01) ==
LOC: LABPAT 10:18
PROVIDERS: ATTEND Orthopaedic Surgery
DX: Z01.812 Encounter for preprocedural laboratory examination (principal); M23.92 Unspecified internal derangement of left knee
CPT/HCPCS: 80051; 85025

== ENCOUNTER → 2018-04-13 | Outpatient (CLI) | payer MEDICAID ==
[2018-04-13 10:01] LABS: HCT 39.9 % (34.0-46.0); HGB 13.1 gm/dL (11.4-16.0); MCHC 32.7 g/dL (31.0-37.0); MCV 91.6 fL (80.0-100.0); Mean Platelet Volume 8.4; Platelet Count 222 k/uL (150-450); RBC 4.35 m/uL (3.80-5.40); RDW 13.1 % (11.5-15.5); WBC 6.9 k/uL (3.8-10.6)
[2018-04-13 10:45] LABS: Appearance,Urine Clear (Clear); Bilirubin,Urine Negative (Negative); Blood,Urine Negative (Negative); Color,Urine Yellow; Glucose,Urine (UA) Negative (Negative); Ketones,Urine Negative (Negative); Leukocyte Esterase,Urine Negative (Negative); Nitrite,Urine Negative (Negative); Protein,Urine Negative (Negative); Specific Gravity,Urine 1.016 (1.001-1.035); Urobilinogen,Urine <2.0 mg/dL (<2.0)
[2018-04-13 17:15] LABS: Albumin 4.5 g/dL (3.80-4.90); Albumin/Globulin Ratio 1.73 (1.20-2.10); Anion Gap 8.3 mmol/L (4.00-12.00); Calcium 9.5 mg/dL (8.7-10.3); Carbon Dioxide 26.7 mmol/L (21.6-31.8); Globulin 2.6 g/dL (1.6-3.3); Potassium 4.4 mmol/L (3.5-5.5); Total Bilirubin 0.3 mg/dL (0.3-1.2); Total Protein 7.1 g/dL (6.2-8.2)
[2018-04-13 18:18] LABS: Hemoglobin A1C 5.5 % (4.0-6.0)
== END | disposition home or self-care (01) ==
LOC: LABWHC1 08:50
PROVIDERS: ATTEND Family Medicine
DX: Z00.00 Encounter for general adult medical examination without abnormal findings (principal); E66.3 Overweight
CPT/HCPCS: 36415; 80053; 80061; 81003; 82306; 83036; 84443; 85027

== ENCOUNTER 2018-04-16 14:18 | Day surgery (SDC) | payer MEDICAID ==
[2018-04-13 10:32] VITALS: BMI 29.8
--- NOTE | 2018-04-15 17:28 | HP ---
HISTORY AND PHYSICAL REASON FOR ADMISSION: Surgery date scheduled for 04/16/2018 HISTORY OF PRESENT ILLNESS: Jasmyn Jean is a 53-year-old patient seen with progressive left knee pain. Treatment options discussed. She elected to proceed with left knee arthroscopy. Consent obtained. PAST MEDICAL HISTORY: Asthma. PAST SURGICAL HISTORY: Left knee arthroscopy. MEDICATIONS: Vitamins, Prilosec. ALLERGIES: PERCOCET. SOCIAL HISTORY: She denies current tobacco use. PHYSICAL EXAMINATION: Evaluation of the left knee range of motion is -6 to 120 degrees. There is tenderness along the medial joint line. Crepitus medial and patellofemoral compartments with range of motion. Ligaments are stable. Hip rotation without pain. Distal neurovascular exam is intact. RADIOGRAPHS: Left knee radiographs revealed osteoarthritic changes. IMPRESSION: Internal derangement, left knee with meniscal tear versus osteochondral tear. PLAN: Left knee arthroscopy with partial meniscectomy versus chondroplasty and debridement. Surgery scheduled 04/16/2018. MMODL / IJN: [id number] /
[~2018-04-16 14:18] MED LIST changes: +DEXAMETHASONE SOD PHOSPHATE 10 MG/ML 1 ML VIAL IV ONE; +HYDROmorphone 0.5 MG/0.5 ML SYRINGE IVP PRN; -MIDAZOLAM (PF) 2 MG/2 ML VIAL IV PRN; +MIDAZOLAM 2 MG/2 ML VIAL IV PRN; +ONDANSETRON 4 MG/2 ML VIAL IVP ONE; +SCOPOLAMINE 1.5MG/72HR PATCH TRANSDERM ONE; +ceFAZolin IN SWFI 2 GM/20 ML SYRINGE IVP ONE
[2018-04-16] MEDS ORDERED: LIDOCAINE 1% INJ 10MG/ML (20 ML MDV) ONE (17:18)
[2018-04-16] MEDS ORDERED: MIDAZOLAM 2 MG/2 ML VIAL ONE (17:18)
[2018-04-16] MEDS ORDERED: PROPOFOL 10 MG/ML 20 ML VIAL IV ONE (17:18)
[2018-04-16] MEDS ORDERED: fentaNYL (PF) 50 MCG/ML 2 ML AMP ONE (17:18)
[2018-04-16] MEDS ORDERED: SUCCINYLCHOLINE CHLORIDE 100 MG/5 ML SYR IV ONE (17:18)
[2018-04-16] MEDS ORDERED: BUPIVACAIN-EPI 0.25%-1:200,000 30 ML VIAL INTRAARTIC ONE (17:50)
[2018-04-16 18:14] VITALS: TEMP 97.4
--- NOTE | 2018-04-16 18:15 | P.OP ---
Date of Procedure: 04/16/18 Preoperative Diagnosis: Internal derangement left knee Postoperative Diagnosis: 1. Tear medial meniscus left knee 2. Grade 2/3 chondromalacia medial femoral condyle left knee 3. Grade 2/3 chondromalacia lateral femoral condyle left knee 4. Reactive synovitis medial, lateral and suprapatellar compartments left knee Procedure(s) Performed: 1. Arthroscopic partial medial meniscectomy left knee 2. Arthroscopic chondroplasty medial femoral condyle left knee 3. Arthroscopic chondroplasty lateral femoral condyle left knee 4. Arthroscopic partial synovectomy medial, lateral and suprapatellar compartments left knee Anesthesia: GETA, local Surgeon: Gagandeep Lozada Estimated Blood Loss (ml): 5 Pathology: none sent Condition: stable Disposition: PACU Indications for Procedure: 53-year-old patient seen with progressive left knee pain. We discussed treatment options, she elected to proceed with arthroscopy. Operative Findings: See description of procedure Description of Procedure: Patient was taken to the operative suite. Patient underwent a general anesthetic by the department of anesthesia. Patient was given preoperative antibiotics. The left lower extremity was placed in a well-padded arthroscopic leg rocha. The left leg was prepped and draped in the normal sterile orthopedic fashion. A lateral parapatellar and suprapatellar incision was made. Trochars were inserted. Arthroscopy was initiated. Suprapatellar pouch revealed diffuse thick reactive synovitis. The patellofemoral joint appeared to articulate congruently. There grade 1 chondromalacia of the patella with some osteochondral tears present. The scope was guided into the medial gutter. No loose bodies or plica were identified. The scope was then guided into the medial compartment. A medial parapatellar incision was made. Trocar inserted followed by probe. There was a radial tear posterior horn medial meniscus. There were grade 2/3 chondromalacia changes of the medial femoral condyle with osteochondral tears present. There was thick reactive synovitis anteriorly. A partial medial meniscectomy down to stable tissue. I performed a chondroplasty of the medial femoral condyle down to stable tissue. I performed a partial synovectomy decompressing the reactive synovitis. The residual meniscus was stable. The residual osteochondral surface of the femoral condyle was stable. There was good decompression of the synovitis. Scope and probe were then guided into the intercondylar notch. Cruciates were identified, probed and found to be stable. The scope and probe were then guided into lateral compartment. Lateral meniscus had some mild superficial fraying in the midbody. There were grade 2/3 chondromalacia changes of the femoral condyle with osteochondral tears present. There was thick reactive synovitis anteriorly. I introduced a motorized shaver and debrided that superficial fraying of the lateral meniscus. I performed a chondroplasty of the lateral femoral condyle down to stable osteochondral tissue. I performed a partial synovectomy decompressing the reactive synovitis. Shaver was removed. The residual osteochondral surface was stable. There was good decompression of the synovitis The scope was in guided back into the suprapatellar compartment. I introduced a motorized shaver into the suprapatellar compartment. I debrided some piecemeal fragments of meniscus I encountered. I performed a partial synovectomy decompressing the reactive synovitis. The shaver was removed. I took one more look around the entire knee, no residual debris. Instruments were now removed from the joint. The joint was infiltrated with .25% Marcaine. Steri-Strips were applied to the portal sites. Sterile dressings were applied. The patient was placed into a URBANO hose. No tourniquet was utilized. The patient was awakened, transferred to a bed and taken to recovery stable satisfactory condition.
[2018-04-16] MEDS ORDERED: HYDROmorphone 1 MG/ML 1 ML SYRINGE IVP ONE ×2 (18:19→18:31)
[2018-04-16] MEDS ORDERED: LACTATED RINGERS 1,000 ML IV ONE (21:05)
[2018-04-16 21:18] VITALS: BP 115/74; PULSE 95; RESP 18
== END 2018-04-16 21:21 | disposition home or self-care (01) ==
LOC: OR 14:18
PROVIDERS: ATTEND Orthopaedic Surgery
DX: S83.242A Other tear of medial meniscus, current injury, left knee, initial encounter (principal); X58.XXXA Exposure to other specified factors, initial encounter; M22.42 Chondromalacia patellae, left knee; M65.862 Other synovitis and tenosynovitis, left lower leg; J45.909 Unspecified asthma, uncomplicated; F32.9 Major depressive disorder, single episode, unspecified; K21.9 Gastro-esophageal reflux disease without esophagitis; Z79.899 Other long term (current) drug therapy; Z88.5 Allergy status to narcotic agent
CPT/HCPCS: 29881; J2250; J1100; J2405; J2001; J3010; J1170 ×2; J0330; J2704; J0690

== ENCOUNTER → 2018-05-04 | Outpatient (CLI) | payer MEDICAID ==
[2018-05-04 22:15] LABS: T4, Free (Free Thyroxine) 0.8 ng/dL (0.80-1.80)
== END | disposition home or self-care (01) ==
LOC: LABWHC1 13:51
PROVIDERS: ATTEND Otolaryngology
DX: E06.9 Thyroiditis, unspecified (principal); J30.89 Other allergic rhinitis
CPT/HCPCS: 36415; 84439; 84443; 86001; 86376

== ENCOUNTER → 2018-06-12 | Outpatient (CLI) | payer MEDICAID ==
[2018-06-12 19:44] LABS: ALT 22 U/L (8-44); AST 20 U/L (13-35); GGT 48 U/L (0-38)
== END ==
LOC: LABWHC1 12:19
PROVIDERS: ATTEND Family Medicine
DX: R94.5 Abnormal results of liver function studies (principal)
CPT/HCPCS: 36415; 82977; 84450; 84460

== ENCOUNTER → 2018-07-07 | Outpatient (CLI) | payer MEDICAID ==
--- NOTE | 2018-07-07 22:58 | CT ---
EXAMINATION TYPE: CT soft tissue neck w con DATE OF EXAM: 07/07/2018 HISTORY: Throat tenderness COMPARISON: Neck ultrasound June 18, 2018. CT DLP: 441.8 mGycm. Automated Exposure Control for Dose Reduction was Utilized. TECHNIQUE: CT scan of the neck is performed with IV Contrast, patient injected with 100 mL of Isovue 300, axial images are obtained, coronal and sagittal reformatted images are reviewed. FINDINGS: Airway: Incidental 4 mm right thyroid nodule anteriorly upper to mid pole level axial image 35. Parotid/submandibular glands: No gross abnormality seen. Carotid/Vascular Structures: No significant plaque or stenosis at carotid bulb level. Codominant vert ebrobasilar system. Osseous Structures: Some loss of normal cervical curvature with mild disc space narrowing C5-C6 level . Other: There are scattered subcentimeter lymph nodes seen throughout the neck bilaterally. No suspici ous greater than 1 cm adenopathy. IMPRESSION: No suspicious adenopathy. Patent airway noted.
== END ==
LOC: RADCTMAIN 16:27
PROVIDERS: ATTEND Family Medicine
DX: R22.0 Localized swelling, mass and lump, head (principal)
CPT/HCPCS: 70491; Q9967

== ENCOUNTER → 2018-07-10 | Outpatient (CLI) | payer MEDICAID ==
--- NOTE | 2018-07-10 08:44 | MM ---
Reason for exam: follow-up at short interval from prior study. Last mammogram was performed 6 months ago. History: Patient is postmenopausal. Family history of breast cancer in maternal aunt at age 50 and breast cancer in maternal grandmother at age 60. Reductions of both breasts, 2004. Physical Findings: Nurse did not find any significant physical abnormalities on exam. MG 3D Diag Mammo W/Cad LT CC and MLO view(s) were taken of the left breast. Prior study comparison: January 05, 2018, left breast MG 3d work up w/cad LT. December 08, 2017, bilateral MG screening mammo w CAD. There are scattered fibroglandular densities. There is only one stable left calcification at posterior depth in the upper outer quadrant identified. Post surgical changes on the left. These results were verbally communicated with the patient and result sheet given to the patient on 07/10/18. ASSESSMENT: Benign, BI-RAD 2 RECOMMENDATION: Return to routine screening mammogram schedule for both breasts. Back on schedule for November 2018.
== END | disposition home or self-care (01) ==
LOC: RADMAMWWP 07:23
PROVIDERS: ATTEND Family Medicine
DX: R92.8 Other abnormal and inconclusive findings on diagnostic imaging of breast (principal)
CPT/HCPCS: 77061; 77065

== ENCOUNTER → 2018-10-07 | Outpatient (CLI) | payer MEDICAID ==
[2018-10-07 13:18] LABS: Basophils # (A) 0.1 k/uL (0-0.2); Basophils % (A) 1 %; Eosinophils # (A) 0.3 k/uL (0-0.7); Eosinophils % (A) 4 %; HGB 11.5 gm/dL (11.4-16.0); Lymphocytes # (A) 2.9 k/uL (1.0-4.8); Lymphocytes % (A) 47 %; MCH 28.6 pg (25.0-35.0); MCHC 31.9 g/dL (31.0-37.0); MCV 89.5 fL (80.0-100.0); Mean Platelet Volume 8.4; Monocytes # (A) 0.2 k/uL (0-1.0); Monocytes % (A) 3 %; Neutrophils # (A) 2.7 k/uL (1.3-7.7); Neutrophils % (A) 43 %; Platelet Count 248 k/uL (150-450); RBC 4.02 m/uL (3.80-5.40); RDW 15.1 % (11.5-15.5); WBC 6.3 k/uL (3.8-10.6)
--- NOTE | 2018-10-07 13:20 | XR ---
EXAMINATION TYPE: XR lumbosacral spine min 4V DATE OF EXAM: 10/07/2018 CLINICAL HISTORY: pain COMPARISON: NONE TECHNIQUE: Frontal, lateral, and oblique images of the lumbar spine are obtained. FINDINGS: There are 5 lumbar type vertebral bodies identified. The lumbar spine shows satisfactory alignment without evidence of acute fracture or dislocation. Vertebral body heights are within normal limits. Mild degenerative narrowing L4-5 and L5-S1. Moderate facet joint arthropathy noted. The ov erlying soft tissue appears unremarkable. IMPRESSION: No acute fracture or dislocation is seen in the lumbar spine.ICD 10 NO FRACTURE, INITIAL EVALUATION
[2018-10-07 15:23] LABS: Erythrocyte Sedimentation Rate 15 mm/hr (0-20)
[2018-10-07 18:22] LABS: African American GFR (CKD) 97.6 (60.0-200.0); Anion Gap 10.1 mmol/L (4.00-12.00); BUN/Creat Ratio 17.5 Ratio (12.00-20.00); C Reactive Protein 0.4 mg/dL (0.0-0.8); Calcium 9.8 mg/dL (8.7-10.3); Carbon Dioxide 25.9 mmol/L (21.6-31.8); Potassium 4.1 mmol/L (3.5-5.5); Rheumatoid Factor <4 IU/mL (0-15); Uric Acid 4.2 mg/dL (2.9-7.7)
[2018-10-07 19:38] LABS: Anti-DNA, DS unit <1.0 IU/mL; DNA Double-Stranded NEGATIVE (NEGATIVE)
[2018-10-07 19:39] LABS: Cyclic Citrull Pep IgG Unit <0.5 U/mL; Cyclic Citrullinated Pep IgG NEGATIVE (NEGATIVE)
== END | disposition home or self-care (01) ==
LOC: LABWHC1 12:39
PROVIDERS: ATTEND Family Medicine
DX: M54.5 Low back pain (principal); M35.3 Polymyalgia rheumatica; M25.50 Pain in unspecified joint; R94.5 Abnormal results of liver function studies
CPT/HCPCS: 36415; 72110; 80048; 82550; 82977; 84450; 84460; 84550; 85025; 85652; 86038; 86140; 86200; 86225; 86431

== ENCOUNTER → 2018-10-29 | Outpatient (CLI) | payer MEDICAID ==
[2018-10-29 16:20] LABS: Basophils # (A) 0.1 k/uL (0-0.2); Basophils % (A) 1 %; Eosinophils # (A) 0.3 k/uL (0-0.7); Eosinophils % (A) 5 %; HCT 36.2 % (34.0-46.0); HGB 11.8 gm/dL (11.4-16.0); Lymphocytes # (A) 3.6 k/uL (1.0-4.8); Lymphocytes % (A) 57 %; MCH 29.9 pg (25.0-35.0); MCHC 32.5 g/dL (31.0-37.0); MCV 92.1 fL (80.0-100.0); Mean Platelet Volume 8.7; Monocytes # (A) 0.2 k/uL (0-1.0); Monocytes % (A) 3 %; Neutrophils % (A) 32 %; Platelet Count 208 k/uL (150-450); RBC 3.93 m/uL (3.80-5.40); WBC 6.4 k/uL (3.8-10.6)
--- NOTE | 2018-10-29 16:33 | XR ---
EXAMINATION TYPE: XR knee complete bilateral DATE OF EXAM: 10/29/2018 COMPARISON: NONE HISTORY: Pain TECHNIQUE: Four views are submitted. FINDINGS: Severe narrowing the medial compartment of the knee joint with hypertrophic spurring bilaterally as w ell as the patellofemoral joint on the right. Bilateral suprapatellar bursal fluid collections. No er osive changes. IMPRESSION: 1. Severe osteoarthritis.
--- NOTE | 2018-10-29 16:34 | XR ---
EXAMINATION TYPE: XR cervical spine comp DATE OF EXAM: 10/29/2018 COMPARISON: NONE HISTORY: Pain TECHNIQUE: Four views are submitted. FINDINGS: The odontoid is intact. There are no compression deformities. The prevertebral soft tissue structur es are within normal limits. There is a 3 mm anterolisthesis of C2 relative to C3 and loss of the no rmal cervical lordosis with multilevel degenerative disc disease and hypertrophic spurring. Multileve l facet arthropathy. Foraminal encroachment at multiple levels bilaterally. IMPRESSION: 1. Multilevel degenerative disc disease with 3 mm anterolisthesis C2 on C3. MRI recommended..
--- NOTE | 2018-10-29 16:35 | XR ---
EXAM TYPE: LUMBAR SPINE X RAY SERIES COMPARISON: 10/07/2018 HISTORY: Low back pain TECHNIQUE: 4 views are submitted. FINDINGS: Alignment is anatomic. The pedicles are intact. The transverse processes are intact. There is no s pondylolysis or spondylolisthesis. Facet arthropathy L4-5 and L5-S1 with degenerative disc disease. Mild diffuse osteopenia. IMPRESSION: 1. Degenerative disc disease L4-5 and L5-S1 with facet arthropathy..
--- NOTE | 2018-10-29 16:36 | XR ---
EXAMINATION TYPE: XR pelvis AP view DATE OF EXAM: 10/29/2018 COMPARISON: NONE HISTORY: Pain The osseous structures are intact and the joint spaces are preserved. No acute fracture is seen. Vi sualized bowel gas pattern is nonspecific. Hypertrophic change of the acetabulum. Calcifications in the pelvis are nonspecific. IMPRESSION: 1. No acute fracture. Hypertrophic change of the acetabulum can be seen with femoral acetabular impin gement.
--- NOTE | 2018-10-29 16:37 | XR ---
EXAMINATION TYPE: XR foot complete bilateral DATE OF EXAM: 10/29/2018 COMPARISON: NONE HISTORY: Pain TECHNIQUE: Three views are submitted. FINDINGS: The osseous structures are intact. There is no acute fracture or dislocation. There is arthropathy of the first MTP joint bilaterally. Small calcaneal spurs are noted.. IMPRESSION: 1. No acute fracture or dislocation. If symptoms persist, follow-up exam in 7 to 10 days could be ob tained. 2. First MTP joint hypertrophic arthropathy bilaterally. 3. Small calcaneal spurs.
--- NOTE | 2018-10-29 16:39 | XR ---
EXAMINATION TYPE: XR ankle complete bilateral DATE OF EXAM: 10/29/2018 COMPARISON: NONE HISTORY: Pain TECHNIQUE: 3 views each ankle FINDINGS: There are bilateral mild calcaneal spurs. I see no fracture nor dislocation. Ankle mortise is intact bilaterally. There is mild soft tissue swelling over the right side lateral malleolus. Join t spaces are fairly normal. IMPRESSION: Mild right side lateral soft tissue swelling. Mild calcaneal spurring. Normal joint space s.
[2018-10-29 17:26] LABS: Erythrocyte Sedimentation Rate 15 mm/hr (0-20)
[2018-10-29 23:28] LABS: African American GFR (CKD) 97.6 (60.0-200.0); Anion Gap 7.1 mmol/L (4.00-12.00); BUN/Creat Ratio 16.25 Ratio (12.00-20.00); C Reactive Protein 0.7 mg/dL (0.0-0.8); Calcium 9.3 mg/dL (8.7-10.3); Carbon Dioxide 27.9 mmol/L (21.6-31.8); Potassium 3.8 mmol/L (3.5-5.5); Uric Acid 4.9 mg/dL (2.9-7.7)
[2018-10-29 23:44] LABS: Vitamin D 25 Hydroxy 22.9 ng/mL (30.0-100.0)
[2018-10-30 00:05] LABS: T4, Free (Free Thyroxine) 0.8 ng/dL (0.80-1.80)
[2018-10-30 01:07] LABS: Rheumatoid Factor <4 IU/mL (0-15)
[2018-10-30 02:07] LABS: Cyclic Citrull Pep IgG Unit <0.5 U/mL; Cyclic Citrullinated Pep IgG NEGATIVE (NEGATIVE)
[2018-10-30 10:28] LABS: Angiotensin-1 Converting Enz. 53 U/L (8-52)
[2018-10-30 11:24] LABS: HLA B27 NEGATIVE
== END | disposition home or self-care (01) ==
LOC: LABWHC1 15:13
PROVIDERS: ATTEND Physician Assistant
DX: M17.12 Unilateral primary osteoarthritis, left knee (principal); M50.31 Other cervical disc degeneration, high cervical region; M43.12 Spondylolisthesis, cervical region; M51.37 Other intervertebral disc degeneration, lumbosacral region; M46.97 Unspecified inflammatory spondylopathy, lumbosacral region; M77.31 Calcaneal spur, right foot; M19.072 Primary osteoarthritis, left ankle and foot; M19.071 Primary osteoarthritis, right ankle and foot; M79.89 Other specified soft tissue disorders
CPT/HCPCS: 36415; 72050; 72100; 72170; 80048; 82164; 82306; 82550; 84439; 84443; 84450; 84460; 84550; 85025; 85652; 86038; 86140; 86200; 86431; 86812

== ENCOUNTER → 2018-12-08 | Outpatient (CLI) | payer MEDICAID ==
--- NOTE | 2018-12-08 13:49 | US ---
EXAMINATION TYPE: US thyroid st tissue head/neck DATE OF EXAM: 12/08/2018 COMPARISON: NONE CLINICAL HISTORY: E04.1 Thyroid Nodule. choked twice since tonsillectomy GLAND SIZE: Right Lobe: 5.0 x 1.3 x 1.6 cm Overall Parenchyma: homogenous Left Lobe: 4.7 x 1.1 x 1.3 cm Overall Parenchyma: heterogeneous Isthmus Thickness: 0.2 cm NODULES RIGHT: # of nodules measured on right: 0 LEFT: # of nodules measured on left: 2 1. 0.9 X 0.7 x 0.5 cm mixed nodule at the upper pole with well-defined margins. This nodule is wid er than tall and shows no intranodular vascularity. Prior size: KILN FURNITURE SAW TENDER 2. 1.2 X 1.0 x 0.6 cm mixed nodule at the lower pole with well-defined margins. This nodule is wide r than tall and shows intranodular vascularity. Prior size: KILN FURNITURE SAW TENDER ISTHMUS: # of nodules measured in the isthmus: 0 Bilateral neck scanned, no evidence of lymphadenopathy. There is overall normal sized slightly heterogeneous thyroid with bilateral mixed solid and cystic no dules IMPRESSION: As above.
== END | disposition home or self-care (01) ==
LOC: RADUSWWP 11:38
PROVIDERS: ATTEND Family Medicine
DX: E04.1 Nontoxic single thyroid nodule (principal)
CPT/HCPCS: 76536

== ENCOUNTER → 2019-01-14 | Outpatient (CLI) | payer MEDICAID ==
--- NOTE | 2019-01-14 10:03 | FL ---
ESOPHOGRAM. HISTORY: Dysphagia Esophagram was performed per the air contrast technique. The patient swallowed barium and effervesce nt crystals without difficulty or delay. Esophageal peristalsis and motility appear to be within normal limits. There is no evidence for filling defect, mass or diverticulum. No hiatal hernia seen. Subsequently single contrast cervical esophagram was performed which fails demonstrate evidence for a spiration penetration or mass. IMPRESSION: Unremarkable study.
== END | disposition home or self-care (01) ==
LOC: RADUSWWP 08:50
PROVIDERS: ATTEND Internal Medicine
DX: R13.10 Dysphagia, unspecified (principal)
CPT/HCPCS: 74220

== ENCOUNTER → 2019-01-14 | Outpatient (CLI) | payer MEDICAID ==
--- NOTE | 2019-01-15 09:26 | MM ---
Reason for exam: screening (asymptomatic). Last mammogram was performed 6 months ago. History: Patient is postmenopausal. Family history of breast cancer in maternal aunt at age 50 and breast cancer in maternal grandmother at age 60. Reductions of both breasts, 2004. Physical Findings: A clinical breast exam by your physician is recommended on an annual basis and results should be correlated with mammographic findings. MG 3D Screening Mammo W/Cad Bilateral CC and MLO view(s) were taken. Prior study comparison: July 10, 2018, left breast MG 3d diag mammo w/cad LT. January 05, 2018, left breast MG 3d work up w/cad LT. The breast tissue is heterogeneously dense. This may lower the sensitivity of mammography. There is chronic nodularity in the right breast, stable. No significant changes when compared with prior studies. ASSESSMENT: Benign, BI-RAD 2 RECOMMENDATION: Routine screening mammogram of both breasts in 1 year.
== END | disposition home or self-care (01) ==
LOC: RADMAMWWP 08:55
PROVIDERS: ATTEND Family Medicine
DX: Z12.31 Encounter for screening mammogram for malignant neoplasm of breast (principal)
CPT/HCPCS: 77063; 77067

== ENCOUNTER → 2019-02-26 | Outpatient (CLI) | payer MEDICAID ==
--- NOTE | 2019-02-26 14:22 | CT ---
EXAMINATION TYPE: CT abdomen wo/w con DATE OF EXAM: 02/26/2019 HISTORY: Rt renal mass, outside abnormal MRI CT DLP: 1349.1mGycm Automated Exposure Control for Dose Reduction was Utilized. CONTRAST: CT scan of the abdomen is performed without oral and without and with IV Contrast, patient injected w ith 100 mL of Isovue 300. COMPARISON: None. FINDINGS: LUNG BASES: No significant abnormality is appreciated. LIVER/GB: No significant abnormality is appreciated. PANCREAS: No significant abnormality is seen. SPLEEN: No significant abnormality is seen. ADRENALS: No significant abnormality is seen. KIDNEYS: Noncontrast images show no renal calculi bilaterally. Postcontrast images show symmetric cor tical medullary uptake and excretion without hydronephrosis seen bilaterally. There are small subcent imeter hypodense lesions bilaterally, 4 lesions in the right kidney and single lesion in the left ki dney. Lesions are too small to further characterize but presumed benign. BOWEL: There is likely low lying cecum into the pelvis. LYMPH NODES: No greater than 1cm abdominal lymph nodes are appreciated. OSSEOUS STRUCTURES: No significant abnormality is seen. OTHER: No significant additional abnormality is seen. IMPRESSION: No worrisome solid or cystic renal mass identified on this study.
== END | disposition home or self-care (01) ==
LOC: RADCTMAIN 12:49
PROVIDERS: ATTEND Urology
DX: D41.01 Neoplasm of uncertain behavior of right kidney (principal); Z91.09 Other allergy status, other than to drugs and biological substances; Z91.013 Allergy to seafood; Z91.010 Allergy to peanuts; Z91.038 Other insect allergy status
CPT/HCPCS: 82565; 84520; 74170; 36415; Q9967

== ENCOUNTER → 2019-07-27 | Outpatient (CLI) | payer MEDICAID ==
--- NOTE | 2019-07-27 14:56 | US ---
EXAMINATION TYPE: US thyroid st tissue head/neck DATE OF EXAM: 07/27/2019 COMPARISON: Most recent ultrasound December 08, 2018. Prior CT July 07, 2018 CLINICAL HISTORY: E04.2 nontoxic multinodular goiter. No thyroid meds. Follow up nodules GLAND SIZE: Right Lobe: 5.0 x 1.7 x 1.8 cm Overall Parenchyma: homogenous Left Lobe: 4.3 x 1.4 x 1.4 cm Overall Parenchyma: homogeneous Isthmus Thickness: 0.2 cm NODULES RIGHT: # of nodules measured on right: 0 LEFT: # of nodules measured on left: 2 1. 0.6 X 0.5 x 0.3 cm mixed nodule at the upper pole with well-defined margins. This nodule is wid er than tall and shows no intranodular vascularity. Prior size: 0.9 x 0.7 x 0.5 cm 2. 1.2 X 0.9 x 0.6 cm mixed nodule at the lower pole with well-defined margins. This nodule is wide r than tall and shows intranodular vascularity. Prior size: 1.2 x 1.0 x 0.6 cm ISTHMUS: # of nodules measured in the isthmus: 0 Bilateral neck scanned. Right lymph node appearing nodule seen superior to thyroid = 1.8 x 0.7 x 0.5 cm Persistent normal-sized fairly homogeneous thyroid with stable left-sided nodules. Technologist madison a subcentimeter lymph node in the right neck. IMPRESSION: No new or enlarging greater than 1 cm thyroid nodules.
== END | disposition home or self-care (01) ==
LOC: RADUSMAIN 14:02
PROVIDERS: ATTEND Family Medicine
DX: E04.1 Nontoxic single thyroid nodule (principal)
CPT/HCPCS: 76536

== ENCOUNTER → 2019-08-27 | Outpatient (CLI) | payer MEDICAID ==
--- NOTE | 2019-08-27 10:19 | US ---
EXAMINATION TYPE: US thyroid st tissue head/neck DATE OF EXAM: 08/27/2019 COMPARISON: Reason ultrasound one month ago. Prior CT neck July 07, 2018 CLINICAL HISTORY: R59.0 Enlarged lymph nodes. Follow up right lymph node that was visualized on recen t thyroid ultrasound Lymph nodes noted right neck with largest = 2.3 x 0.4 x 1.2cm Fairly stable appearing lymph node superior to the right thyroid lobe. While difficult to identify no rmal fatty hilum on this or prior study it remain subcentimeter short axis and is strongly favored be nign. IMPRESSION: As above.
== END | disposition home or self-care (01) ==
LOC: RADUSWWP 09:27
PROVIDERS: ATTEND Family Medicine
DX: R59.0 Localized enlarged lymph nodes (principal)
CPT/HCPCS: 76536

== ENCOUNTER → 2019-08-27 | Outpatient (CLI) | payer MEDICAID | END | disposition home or self-care (01) | LOC: LABWHC1 09:49 | PROVIDERS: ATTEND Orthopaedic Surgery | DX: Z01.812 Encounter for preprocedural laboratory examination (principal) | CPT/HCPCS: 87070 ==

== ENCOUNTER → 2019-08-30 | Outpatient (CLI) | payer MEDICAID | END | disposition home or self-care (01) | LOC: LABWHC1 11:03 | PROVIDERS: ATTEND Family Medicine | DX: Z20.828 Contact with and (suspected) exposure to other viral communicable diseases (principal) | CPT/HCPCS: 36415; 86769 ==

== ENCOUNTER → 2019-09-29 | Outpatient (CLI) | payer MEDICAID ==
[2019-09-29 16:04] LABS: Basophils # (A) 0.1 k/uL (0-0.2); Basophils % (A) 1 %; Eosinophils # (A) 0.3 k/uL (0-0.7); Eosinophils % (A) 5 %; HCT 37.1 % (34.0-46.0); HGB 11.9 gm/dL (11.4-16.0); Hypochromasia Slight; Lymphocytes # (A) 3.3 k/uL (1.0-4.8); Lymphocytes % (A) 54 %; MCH 30.9 pg (25.0-35.0); MCV 96.4 fL (80.0-100.0); Mean Platelet Volume 9.9; Monocytes # (A) 0.3 k/uL (0-1.0); Monocytes % (A) 5 %; Neutrophils # (A) 2.1 k/uL (1.3-7.7); Neutrophils % (A) 34 %; Platelet Count 216 k/uL (150-450); RBC 3.84 m/uL (3.80-5.40); WBC 6.2 k/uL (3.8-10.6)
[2019-09-29 16:12] LABS: Appearance,Urine Cloudy (Clear); Bilirubin,Urine Negative (Negative); Blood,Urine Negative (Negative); Calcium Oxalate Crystals,Urine Many /hpf; Color,Urine Yellow; Glucose,Urine (UA) Negative (Negative); Hyaline Casts,Urine 1 /lpf (0-2); Ketones,Urine Negative (Negative); Leukocyte Esterase,Urine Small (Negative); Mucus,Urine Occasional /hpf; Nitrite,Urine Negative (Negative); Protein,Urine Negative (Negative); RBC,Urine 1 /hpf (0-5); Specific Gravity,Urine 1.015 (1.001-1.035); Squamous Epithelial Cell,Urine 2 /hpf (0-4); Urobilinogen,Urine <2.0 mg/dL (<2.0); WBC,Urine 4 /hpf (0-5)
[2019-09-29 23:05] LABS: INR 0.93 (0.90-1.11)
[2019-09-29 23:10] LABS: Albumin 4.3 g/dL (3.80-4.90); Albumin/Globulin Ratio 1.79 (1.60-3.17); Anion Gap 7.6 mmol/L (4.00-12.00); Calcium 9.5 mg/dL (8.7-10.3); Carbon Dioxide 25.4 mmol/L (21.6-31.8); Globulin 2.4 g/dL (1.6-3.3); Non-African American GFR(CKD) 63.8 (60.0-200.0); Potassium 4.1 mmol/L (3.5-5.5); Total Bilirubin 0.5 mg/dL (0.3-1.2); Total Protein 6.7 g/dL (6.2-8.2)
== END | disposition home or self-care (01) ==
LOC: LABWHC1 13:15
PROVIDERS: ATTEND Family Medicine
DX: Z01.818 Encounter for other preprocedural examination (principal); E55.9 Vitamin D deficiency, unspecified
CPT/HCPCS: 36415; 80053; 81001; 82306; 85025; 85610

== ENCOUNTER 2019-10-04 08:21 | Inpatient (IN) | payer MEDICAID ==
[2019-10-01 10:04] VITALS: BMI 34.4
--- NOTE | 2019-10-03 11:12 | HP ---
HISTORY AND PHYSICAL Jasmyn Felipe is a 54-year-old patient seen with symptomatic left knee osteoarthritis. We discussed options of left total knee arthroplasty. Consent was obtained. Medical clearance was by Dr. Jerad Alvarez. PAST MEDICAL HISTORY: Asthma, osteoarthritis. PAST SURGICAL HISTORY: Bunionectomy, arthroscopy, mammoplasty, colonoscopy. DAILY MEDICATIONS: Naprosyn, Lexapro, Protonix, Topamax, Zanaflex. ALLERGIES: NICKEL, COBALT, PEANUT. SOCIAL HISTORY: She denies tobacco use. PHYSICAL EXAMINATION: Evaluation of the left knee range of motion is -2/3-90. There is tenderness on the medial joint line. There is crepitus along the medial patellofemoral compartments with range of motion. There is pain with patellofemoral compression. Ligaments stable. Hip rotation without pain. Her distal neurovascular exam is intact. RADIOGRAPHS: Radiographs of the left knee reveal severe osteoarthritic changes. IMPRESSION: Left knee osteoarthritis, gastroesophageal reflux disease, asthma. NICKEL AND COBALT allergies. PLAN: Left total knee arthroplasty. Scheduled for 10/04/2019. MMODL / IJN: [id number] /
[~2019-10-04 08:21] MED LIST changes: +ACETAMINOPHEN TAB 500 MG TAB PO ONE; -DEXAMETHASONE SOD PHOSPHATE 10 MG/ML 1 ML VIAL IV ONE; -LACTATED RINGERS 1,000 ML IV SCH; +LIDOCAINE 1% (10MG/ML) FOR IV START INTRADERMA PRN; -LIDOCAINE 1% 20 ML VIAL (10MG/ML) FOR IV START INTRADERMA PRN; +MELOXICAM 7.5 MG TAB PO ONE; -MIDAZOLAM 2 MG/2 ML VIAL IV PRN; -ONDANSETRON 4 MG/2 ML VIAL IVP ONE; -SCOPOLAMINE 1.5MG/72HR PATCH TRANSDERM ONE; +TRANEXAMIC ACID 1,000 MG in SODIUM CHLORIDE 0.9% 100 ML IVPB ONE; -ceFAZolin IN SWFI 2 GM/20 ML SYRINGE IVP ONE
[2019-10-04] MEDS ORDERED: ONDANSETRON 4 MG/2 ML VIAL ONE (08:56)
[2019-10-04] MEDS ORDERED: ACETAMINOPHEN TAB 500 MG TAB ONE (08:56)
[2019-10-04] MEDS: LACTATED RINGERS 1,000 ML IV SCH ×5 (09:07→23:13)
[2019-10-04] MEDS ORDERED: MIDAZOLAM 2 MG/2 ML VIAL IV ONE (09:25)
[2019-10-04] MEDS ORDERED: fentaNYL (PF) 50 MCG/ML 2 ML AMP IV ONE (09:27)
[2019-10-04] MEDS ORDERED: DEXAMETHASONE SOD PHOSPHATE 10 MG/ML 1 ML VIAL IV ONE (09:40)
[2019-10-04] MEDS ORDERED: PROPOFOL 10 MG/ML 20 ML VIAL IV ONE (10:07)
[2019-10-04] MEDS ORDERED: MIDAZOLAM 2 MG/2 ML VIAL ONE (10:07)
[2019-10-04] MEDS ORDERED: fentaNYL (PF) 50 MCG/ML 2 ML AMP ONE (10:07)
[2019-10-04] MEDS ORDERED: SODIUM CHLORIDE 0.9% 100 ML BAG ONE (10:07)
[2019-10-04] MEDS ORDERED: TRANEXAMIC ACID 1,000 MG/10 ML VIAL ONE (10:07)
[2019-10-04] MEDS: ROPIVACAINE 246.25 MG, EPINEPHrine 0.5 MG, KETOROLAC 30 MG, cloNIDine HCL/PF 80 MCG, WA... MISCELLANE ONE ×10 (10:40→11:10)
[2019-10-04] MEDS ORDERED: LACTATED RINGERS 1,000 ML IV ONE (11:06)
[2019-10-04] MEDS ORDERED: ceFAZolin 3,000 MG in SODIUM CHLORIDE 0.9% IRRIGATIO 3,000 ML IRRIGATION ONE (11:09)
[2019-10-04] MEDS ORDERED: ROPIVACAINE 0.2%-NS ON-Q PUMP 1,090 MG, EMPTY PAIN BALL 1 EACH MISCELLANE PRN (11:36)
[2019-10-04] MEDS ORDERED: NALOXONE 0.4 MG/ML 1 ML VIAL IV PRN (12:11)
[2019-10-04] MEDS ORDERED: ONDANSETRON 4 MG/2 ML VIAL IVP PRN (12:11)
[2019-10-04] MEDS ORDERED: HYDROcodone/APAP 5-325MG 1 EACH TAB PO PRN (12:11)
[2019-10-04] MEDS ORDERED: HYDROmorphone 0.5 MG/0.5 ML SYRINGE IVP PRN ×2 (12:11)
--- NOTE | 2019-10-04 12:11 | P.OP ---
Date of Procedure: 10/04/19 Preoperative Diagnosis: Left knee osteoarthritis Postoperative Diagnosis: Left knee osteoarthritis Procedure(s) Performed: Left total knee arthroplasty Implants: 1. Aesculap ES Cooper CR size 5 left narrow cemented femur 2. Aesculap ES Cooper CR/PS size T2 cemented tibial baseplate 3. Aesculap Cooper CR DD size 2 10 mm poly-thin tibial insert 4. Aesculap size 3 polyethylene cemented patella Anesthesia: regional (Adductor canal catheter), local, spinal Surgeon: Gagandeep Lozada Workforce Staffing Advisor #1: Haroldo Mckeon Estimated Blood Loss (ml): 40 Pathology: other (Bone) Condition: stable Disposition: PACU Indications for Procedure: 54-year-old patient seen with progressive symptomatic left knee osteoarthritis. After treatment options were discussed she elected to proceed with total knee arthroplasty Operative Findings: See description of procedure Description of Procedure: Patient was taken to the operative suite after having an adductor canal catheter placed by the department of anesthesia. Patient underwent a spinal anesthetic by the department of anesthesia. Patient was given preoperative IV intake antibiotics and TXA. A well-padded tourniquet was placed about the left lower extremity. The lower extremity was then prepped and draped in the normal sterile orthopedic fashion. The extremity was elevated, a tourniquet was insufflated to 300. A standard anterior incision was made sharply through skin. Dissection was taken down through the subcutaneous soft tissues down to the extensor mechanism. A medial arthrotomy was performed, patella was everted and knee was flexed. There was advanced osteoarthritis noted. I introduced my distal intramedullary femoral drill. I then introduced the distal femoral cutting jig. Gregor PAUL secured the cutting jig with 2 pins. I held retractors in position while Gregor PAUL performed the distal femoral resection through the guide area we now removed her distal femoral cutting guide. We now placed our 4-in-1 femoral cutting block and positioned and it was secured with 2 pins by Gregor PAUL while I held the block in position. The distal femoral finishing was now completed. A proximal tibial cutting guide was positioned. I held the guide in the appropriate position with both hands well Gregor PAUL inserted stabilizing pins into the guide. Proximal tibial cut was made. We now placed a trial femoral component into position, along with an appropriate size tibial tray and insert. We now took the knee through range of motion and had full extension good flexion and good overall soft tissue balance noted. The patella was everted and stabilized with 2 towel clips held by Gregor PAUL while I performed a flush with patellar quad tendon utilizing a fresh sawblade. We templated the patella, appropriate drill holes were made. An appropriate trial patella was positioned, knee was taken through full range of motion with the patella tracking very nicely. The trial patella was removed. Drill holes were made through the femoral component. All trial components were removed after marking off the appropriate rotation of the tibia. Retractors were now positioned along the proximal tibia. An appropriate keel punch was made with the appropriate size tibial guide by myself on Gregor PAUL assisted by holding retractors. At this point appropriate size implants were chosen and opened. The joint was irrigated copiously with pulse lavage mechanical irrigation. The posterior capsule was infiltrated with local analgesic. The wound was irrigated with pulse lavage mechanical irrigation. We mixed antibiotic methylmethacrylate. We placed the knee into flexion. We placed multiple retractors assisted by Gregor PAUL to expose the proximal tibia. Once the methyl methacrylate was ready, the tibial component was cemented into place removing any excess methylmethacrylate form by both myself and Gregor PUAL. The femoral component was cemented into place removing the removing any excess methylmethacrylate performed by both myself and Gregor PAUL. We then inserted the appropriate size polyethylene tibial insert. We made sure that it was locked into position. We took the knee into full extension, and then back in a flexion making sure we had removed any excess methylmethacrylate. The patellar component was then cemented down and secured with clamp. Excess methylmethacrylate removed. We kept the knee in full extension, patellar clamp in position until methylmethacrylate had hardened. Once it had hardened the patellar clamp was removed. The knee was taken through full range of motion. The patella tracked nicely. There was good soft tissue balancing. The tourniquet was now released. Additional hemostasis was achieved via electrocautery. A second gram of TXA was given. The wound again was irrigated with pulse lavage mechanical irrigation. The superficial soft tissues were infiltrated local analgesic. The extensor mechanism was repaired with Vicryl. We checked the repair with range of motion and it was stable. The subcutaneous soft tissues were repaired with Vicryl in layers. The skin was approximated with pernio/Dermabond. Sterile dressings were applied followed by loose web roll and Gilmar bandage. The patient was transferred to a bed, and taken to recovery in stable and satisfactory condition. Gregor PAUL assisted with this complex procedure.
[2019-10-04] MEDS ORDERED: HYDROmorphone 0.5 MG/0.5 ML SYRINGE IVP ONE (12:45)
--- NOTE | 2019-10-04 13:04 | XR ---
Left knee HISTORY: Status post left knee arthroplasty 2 views of the left knee Patient is status post left knee arthroplasty. There is anatomic alignment. Lucency is present in the soft tissues. IMPRESSION: Orthopedic follow-up.
[2019-10-04] MEDS: HYDROcodone/APAP 7.5-325MG 1 EACH TAB PO PRN (15:46)
[2019-10-04] MEDS ORDERED: MECLIZINE 25 MG TAB PO PRN (17:25)
[2019-10-04] MEDS: HYDROmorphone 1 MG/ML 1 ML SYRINGE IVP PRN ×2 (17:34→20:29)
[2019-10-04] MEDS: PANTOPRAZOLE 40 MG TABLET PO SCH (17:51)
[2019-10-04] MEDS: tiZANidine 4 MG TAB PO SCH (20:29)
[2019-10-04] MEDS: ENOXAPARIN 30 MG/0.3 ML SYRINGE SQ SCH (20:29)
[2019-10-04] MEDS: SENNOSIDES-DOCUSATE SODIUM 1 EACH TAB PO SCH (20:29)
[2019-10-04] MEDS: TOPIRAMATE 100 MG TAB PO SCH (20:29)
[2019-10-05] MEDS: HYDROmorphone 1 MG/ML 1 ML SYRINGE IVP PRN ×4 (01:09→12:58)
[2019-10-05] MEDS: LACTATED RINGERS 1,000 ML IV SCH ×3 (05:44→19:56)
--- NOTE | 2019-10-05 06:19 | P.PN ---
Progress Note - Text 10/04 54-year-old female status post total knee replacement by Dr. Lozada. Patient has an On-Q pump for postop pain control with the solution running at 8 mL an hour patient seen to be laying comfortably in bed and sleeping, or when I asked her the pain score she gave me a score of 9. She is also received IV medication during the night from the nurse. Plan to continue On-Q pump infusion
--- NOTE | 2019-10-05 06:34 | P.ANPRN ---
Procedure Note - Anesthesia - Nerve Block Performed Left Adductor Canal Infusion Time Out Performed: Yes Date of Procedure: 10/04/19 Procedure Start Time: :25 Procedure Stop Time: :36 Location of Patient: PreOp Indication: Acute Post-Operative Pain, Requested by Surgeon Sedation Type: Sedate with meaningful contact maintained Preparation: Sterile Prep, Sterile Dressing Position: Supine Catheter: Indwelling Needle Types: Pajunk Needle Gauge: 21 Ultrasound used to visualize needle placement: Yes Ultrasound used to observe medication spread: Yes Blood Aspirated: No Pain Paresthesia on Injection Noted: No Resistance on Injection: Normal Image Stored and Saved: Yes Events: Uneventful and Well Tolerated (Ropivacaine 0.5% 20 mL plus dexamethasone 4mg)
[2019-10-05] MEDS: PANTOPRAZOLE 40 MG TABLET PO SCH ×2 (07:56→16:16)
[2019-10-05] MEDS: ENOXAPARIN 30 MG/0.3 ML SYRINGE SQ SCH ×2 (07:57→20:09)
[2019-10-05] MEDS: tiZANidine 4 MG TAB PO SCH ×2 (07:57→20:09)
[2019-10-05] MEDS: MELOXICAM 7.5 MG TAB PO SCH (07:57)
[2019-10-05] MEDS: ESCITALOPRAM 20 MG TAB PO SCH (07:57)
[2019-10-05] MEDS: TOPIRAMATE 100 MG TAB PO SCH ×2 (07:57→20:09)
[2019-10-05] MEDS: HYDROcodone/APAP 7.5-325MG 1 EACH TAB PO PRN ×2 (07:58→16:16)
[2019-10-05 07:59] LABS: Basophils % (A) 0 %; Eosinophils % (A) 0 %; HGB 10.8 gm/dL (11.4-16.0); Lymphocytes # (A) 1.8 k/uL (1.0-4.8); Lymphocytes % (A) 13 %; MCH 29.6 pg (25.0-35.0); MCHC 31.7 g/dL (31.0-37.0); MCV 93.5 fL (80.0-100.0); Mean Platelet Volume 8.9; Monocytes # (A) 0.6 k/uL (0-1.0); Monocytes % (A) 4 %; Neutrophils # (A) 11.8 k/uL (1.3-7.7); Neutrophils % (A) 83 %; Platelet Count 238 k/uL (150-450); RBC 3.64 m/uL (3.80-5.40); WBC 14.4 k/uL (3.8-10.6)
--- NOTE | 2019-10-05 10:22 | P.PN ---
Subjective Progress Note Date: 10/05/19 Principal diagnosis: Status post left total knee arthroplasty patient is examined today bedside, she is resting in her hospital chair. She does have some increasing pain today, she has required some IV pain medication. She denies any chest pain or shortness of breath. She is waiting to get up with physical therapy and ambulate. Objective - Vital Signs Vital signs: Vital Signs Temp 98.1 F 10/05/19 07:00 Pulse 70 10/05/19 07:00 Resp 17 10/05/19 07:00 BP 112/74 10/05/19 07:00 Pulse Ox 93 L 10/05/19 07:00 Intake & Output 10/04/19 10/05/19 10/05/19 18:59 06:59 18:59 Intake Total 1451 Output Total 40 Balance 1411 Weight 91.1 kg Intake: IV 1451 Output: Estimated Blood Loss 40 Other: Voiding Method Toilet Bedside Commode # Voids 1 - Exam Left lower extremity: Incision is clean, dry, and intact. The optifoam is in good condition. There is minimal soft tissue swelling and ecchymosis surrounding the medial and lateral aspects of the incision. Calf is soft, no tenderness with palpation. Plantar flexion, dorsiflexion, EHL, FHL are intact. Sensory exam to light touch throughout the extremity is intact, dorsal pedis pulses 2+. - Labs CBC & Chem 7: 10/05/19 07:17 Labs: Abnormal Lab Results - Last 24 Hours (Table) 10/05/19 Range/Units 07:17 WBC 14.4 H (3.8-10.6) k/uL RBC 3.64 L (3.80-5.40) m/uL Hgb 10.8 L (11.4-16.0) gm/dL Neutrophils # 11.8 H (1.3-7.7) k/uL Assessment and Plan Assessment: status post left total knee arthroplasty Plan: Pain control, will try to trend off of IV pain medication at this time GI and DVT prophylaxis, continue current meds Ice and elevate often Physical therapy evaluation Medical recommendations We'll keep patient one additional night, she's been changed inpatient status Time with Patient: Less than 30
[2019-10-05] MEDS: SENNOSIDES-DOCUSATE SODIUM 1 EACH TAB PO SCH (20:09)
--- NOTE | 2019-10-06 00:20 | P.CONS ---
History of Present Illness - Reason for Consult Consult date: 10/05/19 Medical Management - Chief Complaint Left TKA - History of Present Illness Patient is a 54-year-old female with a known history of asthma, GERD, osteoarthritis and recent history of COVID-19 in June 2019, history of gastric ulcers, anxiety/depression and previous history of smoking was admitted to hospital for elective left total knee arthroplasty. Patient tolerated the procedure well. Was able to ambulate with walker. Patient is currently on nerve block, placed by anesthesia.. Otherwise denied any complaints of chest pain or shortness of breath. Pain is controlled with medications. No fever no chills. Laboratory data showed WBC 14.4, hemoglobin 10.8 Absolute neutrophil count 11.8 Patient is hemodynamically stable otherwise. Postoperatively blood pressure is elevated and patient was tachycardic. Controlled now. Review of Systems Constitutional: Patient denies any fever or chills . No generalized weakness or weight loss. Abdomen: Patient denied nausea vomiting and diarrhea and abdominal pain. Cardiovascular: Patient denies any chest pain or short of breath no palpitations. Respiratory: patient denied any cough is from production. No shortness of breath Neurologic: Patient denied any numbness or tingling headache. Musculoskeletal: Patient denies any complaints of joint swelling or deformity. Skin: Negative Psychiatric: Negative Endocrine: No heat or cold intolerance. No recent weight gain. Genitourinary: No dysuria or hematuria. All other 14 point ROS negative except the above Past Medical History Past Medical History: Asthma, GERD/Reflux, Osteoarthritis (OA) Additional Past Medical History / Comment(s): STOMACH ULCERS, DDD, COVID-19 (JUNE 2019), VERTIGO History of Any Multi-Drug Resistant Organisms: None Reported Past Surgical History: Adenoidectomy, Orthopedic Surgery, Tonsillectomy Additional Past Surgical History / Comment(s): LEFT KNEE ARTHROSCOPIC, LEFT FOOT SURGERY, SINUS SX-REMOVED POLYPS, COLONOSCOPY, EGD, BACK INJECTIONS, RFA BILAT SIDES OF NECK, BILATERAL BREAST REDUCTION Past Anesthesia/Blood Transfusion Reactions: Previous Problems w/ Anesthesia Additional Past Anesthesia/Blood Transfusion Reaction / Comm: SLOW TO COME OUT OF ANESTHESIA Past Psychological History: Anxiety, Depression Past Alcohol Use History: Occasional Additional Past Alcohol Use History / Comment(s): QUIT SMOKING 2017 Past Drug Use History: None Reported - Past Family History Mother Family Medical History: No Reported History Medications and Allergies Home Medications Medication Instructions Recorded Confirmed Type Escitalopram [Lexapro] 20 mg PO DAILY 04/16/18 10/04/19 History Meclizine [Antivert] 25 mg PO TID PRN 09/30/19 10/04/19 History Pantoprazole Sodium [Protonix] 40 mg PO BID 09/30/19 10/04/19 History Topiramate [Topamax] 100 mg PO BID 09/30/19 10/04/19 History tiZANidine HCL [Zanaflex] 4 mg PO BID 09/30/19 10/04/19 History traMADol HCl [Ultram] 50 - 100 mg PO Q6HR PRN 09/30/19 10/04/19 History Allergies Allergy/AdvReac Type Severity Reaction Status Date / Time cobalt Allergy POSITIVE Verified 10/04/19 08:43 ON ALLERGY TEST nickel Allergy POSITIVE Verified 10/04/19 08:43 ON ALLERGY TEST oxycodone HCl [From Percocet] Allergy Rash/Hives Verified 10/04/19 08:43 peanut Allergy Wheezing Verified 10/04/19 08:43 shellfish derived [Lobster] Allergy POSITIVE Verified 10/04/19 08:43 ON ALLERGY TEST DUST MITES Allergy Rash/Hives Uncoded 10/04/19 08:43 Physical Exam Vitals: Vital Signs Temp Pulse Resp BP Pulse Ox 10/05/19 07:00 98.1 F 70 17 112/74 93 L 10/05/19 01:03 98.0 F 78 115/72 92 L 10/04/19 21:10 92 L 10/04/19 19:10 97.8 F 83 14 112/72 94 L 10/04/19 17:15 85 127/79 10/04/19 17:00 82 123/77 10/04/19 16:45 88 124/75 10/04/19 16:30 83 120/79 10/04/19 16:15 86 118/76 10/04/19 16:00 73 114/75 10/04/19 15:45 81 118/78 10/04/19 15:15 82 112/75 10/04/19 15:00 98.2 F 88 16 113/74 96 10/04/19 14:30 90 16 115/61 97 10/04/19 14:00 85 17 117/64 97 10/04/19 13:30 85 16 113/60 97 07/13/20 13:15 90 17 117/56 98 10/04/19 13:00 84 16 110/57 97 10/04/19 12:47 83 16 109/57 97 10/04/19 12:32 98.8 F 103 H 16 158/65 97 Intake and Output 10/04/19 10/05/19 10/05/19 22:59 06:59 14:59 Other: Voiding Method Toilet Toilet Bedside Commode Bedside Commode # Voids 1 1 Weight 91.1 kg PHYSICAL EXAMINATION: Patient is lying in the bed comfortably, no acute distress, awake alert and oriented.. HEENT: Normocephalic. Neck is supple. Pupils reactive. Nostrils clear. Oral cavity is moist. Ears reveal no drainage. Neck reveals no JVD, carotid bruits, or thyromegaly. CHEST EXAMINATION: Trachea is central. Symmetrical expansion. Lung walls clear to auscultation and percussion. CARDIAC: Normal S1, S2 with no gallops. No murmurs ABDOMEN: Soft. Bowel sounds normal. No organomegaly. No abdominal bruits. Extremities: reveal no edema. No clubbing or cyanosis Neurologically awake, alert, oriented x3 with well-coordinated movements. No focal deficits noted Skin: No rash or skin lesions. Psychiatric: Coperative. Nonsuicidal Musculoskeletal: No joint swelling or deformity. Normal range of motion. Left knee surgical site is intact.. Results CBC & Chem 7: 10/05/19 07:17 Labs: Abnormal Lab Results - Last 24 Hours (Table) 10/05/19 Range/Units 07:17 WBC 14.4 H (3.8-10.6) k/uL RBC 3.64 L (3.80-5.40) m/uL Hgb 10.8 L (11.4-16.0) gm/dL Neutrophils # 11.8 H (1.3-7.7) k/uL Assessment and Plan Assessment: Osteoarthritis status post left total knee arthroplasty. POD 1 Anxiety/depression Occasional smoking GERD Asthma stable Degenerative disc disease COVID-19 in June 2019 History of vertigo DVT prophylaxis currently on Lovenox. Plan: Patient will be continued on pain management and also on nerve block. Continue with incentive spirometry and encourage ambulation. Bowel regimen. Continue the home medications including antidepressants, Lexapro. Breathing treatments as needed. GI and DVT prophylaxis. Discussed with the patient and her at bedside in detail. Further recommendations based on clinical course. We will follow with you. Thank you for your consult.
[2019-10-06] MEDS: LACTATED RINGERS 1,000 ML IV SCH ×2 (01:59→11:54)
[2019-10-06] MEDS: HYDROcodone/APAP 7.5-325MG 1 EACH TAB PO PRN ×2 (02:01→05:17)
[2019-10-06 02:35] VITALS: TEMP 98.3
[2019-10-06] MEDS: HYDROmorphone 1 MG/ML 1 ML SYRINGE IVP PRN (07:35)
[2019-10-06] MEDS: TOPIRAMATE 100 MG TAB PO SCH (07:39)
[2019-10-06] MEDS: ESCITALOPRAM 20 MG TAB PO SCH ×2 (07:39→07:44)
[2019-10-06] MEDS: PANTOPRAZOLE 40 MG TABLET PO SCH (07:39)
[2019-10-06] MEDS: MELOXICAM 7.5 MG TAB PO SCH (07:39)
[2019-10-06] MEDS: ENOXAPARIN 30 MG/0.3 ML SYRINGE SQ SCH (07:41)
[2019-10-06] MEDS: tiZANidine 4 MG TAB PO SCH (07:41)
[2019-10-06 07:58] VITALS: BP 143/71; PULSE 64; RESP 19
[2019-10-06] MEDS ORDERED: HYDROcodone/APAP 7.5-325MG 1 EACH TAB PO PRN (10:34)
[2019-10-06] MEDS ORDERED: traMADol 50 MG TAB PO PRN (12:29)
--- NOTE | 2019-10-06 12:44 | P.PN ---
Subjective Progress Note Date: 10/06/19 Principal diagnosis: Status post left total knee arthroplasty patient is examined today bedside, she is resting in her hospital chair. She denies any chest pain or shortness of breath. Objective - Vital Signs Vital signs: Vital Signs Temp 98.3 F 10/06/19 07:00 Pulse 64 10/06/19 07:00 Resp 19 10/06/19 07:00 BP 143/71 10/06/19 07:00 Pulse Ox 96 10/06/19 07:00 Intake & Output 10/05/19 10/06/19 10/06/19 18:59 06:59 18:59 Intake Total 300 Balance 300 Intake: Intake, IV Titration 300 Amount Lactated Ringers 1,000 ml 300 @ 100 mls/hr IV .Q10H [facility] Rx#:[id number] Other: Voiding Method Toilet Toilet Bedside Commode Bedside Commode # Voids 2 1 - Exam Left lower extremity: Incision is clean, dry, and intact. The optifoam is in good condition. There is minimal soft tissue swelling and ecchymosis surrounding the medial and lateral aspects of the incision. Calf is soft, no tenderness with palpation. Plantar flexion, dorsiflexion, EHL, FHL are intact. Sensory exam to light touch throughout the extremity is intact, dorsal pedis pulses 2+. - Labs CBC & Chem 7: 10/05/19 07:17 Assessment and Plan Assessment: status post left total knee arthroplasty Plan: Pain control, discharge home on oral medication GI and DVT prophylaxis, aspirin 81 mg twice a day Ice and elevate often Physical therapy evaluation Medical recommendations Plan for discharge home today Time with Patient: Less than 30
--- NOTE | 2019-10-06 12:46 | P.DS ---
Providers Date of admission: 10/04/2019 Expected date of discharge: 10/06/19 Attending physician: Gagandeep Lozada Consults: 10/04/19 12:11 Consult Physician Routine Consulting Provider: Jerad Alvarez Reason/Comments: Medical management Do you want consulting provider notified?: Yes Primary care physician: Jerad Alvarez [facility] Course: Date of admission: 10/04/2019 Date of discharge: 10/06/2019 Admission diagnosis: Status post left total knee arthroplasty Discharge diagnosis: Same Attending physician: Dr. Lozada Surgical procedures: Left total knee arthroplasty Brief history: Patient is a 54-year-old female with a history of Progressive primary left knee osteoarthritis. At this point patient has failed conservative treatment measures and has opted to proceed with a elective Left total knee arthroplasty Hospital course: Details of patient's surgery can be found in operative report. Patient tolerated the procedure well and was subsequently transported to orthopedic floor. Patient's orthopeidc and medical care was provided daily. Patient had daily laboratory tests performed for evaluation of overall blood counts. Patient had daily physical therapy to include strengthening range of motion as well as education with walker ambulation. Patient was treated with Lovenox for their postoperative DVT prophylaxis during their inpatient stay. Chaka joya was noted to have a relatively uneventful postoperative course. Patient reported satisfactory pain control with oral pain medications by postoperative day 1. Patient showed satisfactory progress with physical therapy. Patient moved steadily through the program and had no difficulty meeting the goals by postoperative day 2. Given patient's otherwise satisfactory course and having met physical therapy goals, plan is to discharge patient home on postoperative day 2. Discharge condition/disposition: Patient will be discharged home in stable condition. Discharge medications: Instructions are given on resumption of patient's normal daily medications per primary care recommendation, in addition patient will be prescribed Alsey 7.5 mg/325 mg, aspirin 81 mg. Discharge instructions: 1. Wound care and infection precautions, keep incision dry and covered while showering, no lotions, creams, moisturizers. No soaking, tubs, pools, hottubs. Do not scrub over the incision. 2. Weight-bear as tolerated with walker / cane until follow-up. 3. Ice and elevate when necessary. Do not exceed 20 minutes per hour with ice pack. 4. Utilize compression sleeve until seen at first follow up appointment. 5. Visiting nursing care. 6. Home physical therapy including home CPM. 7. Pain meds and anticoagulants per prescription. 8. Pain medication has potential to cause constipation. Increase oral fluid and fiber intake. Contact primary care provider if you have not had a bowel movement within 48 hours after discharge 9. No anti-inflammatory medication until discussed at first post operative visit, this including Motrin, Aleve, Mobic, Diclofenac, Aspirin. 10. Follow up in office at 2 weeks postop with Gregor Mckeon PA-C 11. Follow up with your primary care doctor 7-10 days after discharge. 12. Contact [facility] with any questions, . Procedures: Left total knee arthroplasty Plan - Discharge Summary Discharge Rx Participant: Yes New Discharge Prescriptions: New RX: Aspirin [Adult Low Dose Aspirin EC] 81 mg PO BID #60 tablet. HYDROcodone/APAP 7.5-325MG [Alsey 7.5] 1 - 2 each PO Q6HR PRN #56 tab PRN Reason: Pain Continue RX: Escitalopram [Lexapro] 20 mg PO DAILY RX: traMADol HCl [Ultram] 50 - 100 mg PO Q6HR PRN PRN Reason: Pain RX: Topiramate [Topamax] 100 mg PO BID RX: Meclizine [Antivert] 25 mg PO TID PRN PRN Reason: DIZZINESS RX: tiZANidine HCL [Zanaflex] 4 mg PO BID RX: Pantoprazole Sodium [Protonix] 40 mg PO BID Discharge Medication List RX: Escitalopram [Lexapro] 20 mg PO DAILY 04/16/18 [History] RX: Meclizine [Antivert] 25 mg PO TID PRN 09/30/19 [History] RX: Pantoprazole Sodium [Protonix] 40 mg PO BID 09/30/19 [History] RX: Topiramate [Topamax] 100 mg PO BID 09/30/19 [History] RX: tiZANidine HCL [Zanaflex] 4 mg PO BID 09/30/19 [History] RX: traMADol HCl [Ultram] 50 - 100 mg PO Q6HR PRN 09/30/19 [History] HYDROcodone/APAP 7.5-325MG [Alsey 7.5] 1 - 2 each PO Q6HR PRN #56 tab 10/06/19 [Rx] RX: Aspirin [Adult Low Dose Aspirin EC] 81 mg PO BID #60 tablet. 10/06/19 [Rx] Follow up Appointment(s)/Referral(s): [facility],Equipment [NON-STAFF] - As Needed (Continuous Passive Motion knee machine) [facility], [NON-STAFF] - As Needed Haroldo Mckeon, YURY [PHYSICIAN GREASE REFINING SUPERVISOR] - 10/20/19 3:20 pm Activity/Diet/Wound Care/Special Instructions: Orthopedic Discharge Instructions: 1. Wound care and infection precautions, [keep incision dry and covered while showering], no lotions, creams, moisturizers. No soaking, pools, hot tubs. Do not scrub over incision. 2. Weight-bear [as tolerated] with walker / cane until follow-up. 3. Ice and elevate when necessary. Do not exceed 20 minutes per hour with ice pack. 4. Utilize compression sleeve until seen at first follow up appointment. 5. Pain meds and anticoagulants per prescription. 6. Pain medication has potential to cause constipation. Increase oral fluid and fiber intake. Contact primary care provider if you have not had a bowel movement within 48 hours after discharge. 7. No anti-inflammatory medication until discussed at first post operative visit, this including Motrin, Aleve, Mobic, Diclofenac, [Aspirin]. 8. Follow up in office at 2 weeks postop with Gregor Mckeon PA-C 9. Follow up with your primary care doctor 7-10 days after discharge. 10. Contact [facility] with any questions, . Discharge Disposition: HOME WITH HOME HEALTH SERVICES
[2019-10-06] MEDS ORDERED: traMADol 50 MG TAB PO SCH (13:00)
== END 2019-10-06 15:17 | disposition home health service (06) | DRG 470 ==
LOC: OR 08:21 → 4SSUR 12:00 → OR 23:50 → 4SSUR 23:51 → OBSVTOIN 10-05 10:20
PROVIDERS: ADMIT Orthopaedic Surgery; ATTEND Orthopaedic Surgery
PROC: 0SRD0J9 Replacement of Left Knee Joint with Synthetic Substitute, Cemented, Open Approach (ICD-10-PCS; principal; 2019-10-04 10:05)
DX: M17.12 Unilateral primary osteoarthritis, left knee (principal); J45.909 Unspecified asthma, uncomplicated; K21.9 Gastro-esophageal reflux disease without esophagitis; D72.829 Elevated white blood cell count, unspecified; F32.9 Major depressive disorder, single episode, unspecified; F41.9 Anxiety disorder, unspecified; R03.0 Elevated blood-pressure reading, without diagnosis of hypertension; R00.0 Tachycardia, unspecified; Z98.890 Other specified postprocedural states; Z79.899 Other long term (current) drug therapy; Z91.048 Other nonmedicinal substance allergy status; Z86.19 Personal history of other infectious and parasitic diseases; Z87.891 Personal history of nicotine dependence; Z87.11 Personal history of peptic ulcer disease; Z86.010 Personal history of colon polyps; Z91.010 Allergy to peanuts
CPT/HCPCS: 64448; 76942; 85025; 88300; 94760

== ENCOUNTER → 2019-12-17 | Outpatient (CLI) | payer MEDICAID ==
--- NOTE | 2019-12-17 17:21 | US ---
EXAMINATION TYPE: US thyroid st tissue head/neck DATE OF EXAM: 12/17/2019 COMPARISON: NONE CLINICAL HISTORY: R59.0 CERVICAL LYMPHADENOPATHY. follow up lymph node right lymph nodes right neck with largest = 2.3 x 0.5 x 1.2cm Previous exam measurements of the largest was 2.3 x 0.4 x 1.2 cm IMPRESSION: 1. Stable Lymphadenopathy within the right neck
== END | disposition home or self-care (01) ==
LOC: RADUSWWP 13:41
PROVIDERS: ATTEND Otolaryngology
DX: R59.1 Generalized enlarged lymph nodes (principal)
CPT/HCPCS: 76536

== ENCOUNTER 2020-01-05 12:55 | Day surgery (SDC) | payer MEDICAID ==
[2020-01-05] MEDS ORDERED: ALPRAZolam 0.5 MG TAB PO ONE (13:12)
[2020-01-05 13:18] VITALS: TEMP 98.4
--- NOTE | 2020-01-05 14:34 | US ---
ULTRASOUND GUIDED FNA NECK LYMPH NODE BIOPSY: CLINICAL HISTORY: Request for right neck lymph node biopsy FINDINGS: The procedure was explained to the patient. The risks, complications, benefits and alternatives were discussed and any questions were answered. Informed consent was obtained. Patient was placed supin e on the ultrasound table and prepped and draped in the usual sterile fashion. Utilizing a 25 gauge needle, five passes were made into the requested right neck lymph node. Patient was stable throughout the procedure. Pathology is pending. All elements of maximal barrier technique were utilized. IMPRESSION: 1. Successful ultrasound guided FNA right neck lymph node biopsy.
[2020-01-05 14:42] VITALS: BP 118/61; PULSE 61; RESP 18
== END 2020-01-05 14:51 | disposition home or self-care (01) ==
LOC: RADPROMAIN 12:55
PROVIDERS: ATTEND Otolaryngology
DX: R59.0 Localized enlarged lymph nodes (principal)
CPT/HCPCS: 10005; 88173; 88305

== ENCOUNTER 2020-02-28 23:24 | Emergency (ER) | payer MEDICAID ==
[2020-02-29] MEDS ORDERED: HYDROmorphone 0.5 MG/0.5 ML SYRINGE IM STA ×2 (00:06→01:04)
--- NOTE | 2020-02-29 00:11 | ED ---
General Adult HPI - General Chief complaint: Fall Stated complaint: Fall, shoulder injury Time Seen by Provider: 02/28/20 23:36 Source: patient, RN notes reviewed Mode of arrival: wheelchair Limitations: no limitations - History of Present Illness Initial comments: D5-year-old female presents to the emergency room for a chief complaint of fall. Patient reports that she was folding of blankets and there were [place]ns pillows and toys on the floor. States she tripped over a bees and fell. Patient states she has several injuries. Patient is complaining of left hip pain as well as lower back pain. States she started to notice the hip pain after she got to the ER. Patient is requesting x-ray of the left knee because she had surgery on this in September. Patient also complaining of right forearm and wrist pain. States it is painful to move her fingers. She did not hit her head. She does not take blood thinners.Patient has no other complaints at this time including shortness of breath, chest pain, abdominal pain, nausea or vomiting, headache, or visual changes. - Related Data Home Medications Medication Instructions Recorded Confirmed Escitalopram [Lexapro] 20 mg PO QAM 04/16/18 02/11/20 Meclizine [Antivert] 25 mg PO TID PRN 09/30/19 02/11/20 Topiramate [Topamax] 100 mg PO BID 09/30/19 02/11/20 tiZANidine HCL [Zanaflex] 4 mg PO BID 09/30/19 02/11/20 traMADol HCl [Ultram] 50 - 100 mg PO Q6HR PRN 09/30/19 02/11/20 Docusate [Colace] 100 mg PO DAILY 12/28/19 02/11/20 Esomeprazole Magnesium [NexIUM] 40 mg PO BID 12/28/19 02/11/20 Naproxen [Naprosyn] 500 mg PO BID PRN 12/28/19 02/11/20 Cyclobenzaprine [Flexeril] 10 mg PO TID 02/11/20 02/11/20 Allergies Allergy/AdvReac Type Severity Reaction Status Date / Time cobalt Allergy POSITIVE Verified 02/28/20 23:31 ON ALLERGY TEST nickel Allergy POSITIVE Verified 02/28/20 23:31 ON ALLERGY TEST oxycodone HCl [From Percocet] Allergy Rash/Hives Verified 02/28/20 23:31 peanut Allergy Wheezing Verified 02/28/20 23:31 pollen extracts Allergy Dyspnea Verified 02/28/20 23:31 shellfish derived [Lobster] Allergy POSITIVE Verified 02/28/20 23:31 ON ALLERGY TEST tree and shrub pollen Allergy Dyspnea Verified 02/28/20 23:31 DUST MITES Allergy Rash/Hives Uncoded 02/28/20 23:31 Review of Systems ROS Statement: Those systems with pertinent positive or pertinent negative responses have been documented in the HPI. ROS Other: All systems not noted in ROS Statement are negative. Past Medical History Past Medical History: Asthma, GERD/Reflux, Memory Impairment, Musculoskeletal Disorder, Osteoarthritis (OA) Additional Past Medical History / Comment(s): HX STOMACH ULCERS, DDD, COVID-19 (JUNE 2019), VERTIGO, right neck mass. History of Any Multi-Drug Resistant Organisms: None Reported Past Surgical History: Adenoidectomy, Breast Surgery, Orthopedic Surgery, Tonsillectomy Additional Past Surgical History / Comment(s): LEFT KNEE ARTHROSCOPY, LEFT FOOT SURGERY, SINUS SX-REMOVED POLYPS, COLONOSCOPY, EGD, BACK INJECTIONS, FNA BILAT SIDES OF NECK, BILATERAL BREAST REDUCTION. Past Anesthesia/Blood Transfusion Reactions: No Reported Reaction Additional Past Anesthesia/Blood Transfusion Reaction / Comment(s): "Woke up during a foot surgery, they gave her more medication and then she took a long time to wake up after." Past Psychological History: Anxiety, Depression Smoking Status: Former smoker Past Alcohol Use History: Rare Past Drug Use History: None Reported - Past Family History Mother Family Medical History: Cancer General Exam - General Exam Comments Initial Comments: Extremities exam: Right lower extremity: No trauma. Full range of motion. Left lower extremity: she is able to flex the left knee to 90 in the left hip to 90. DP pulses 2+. Capillary refill less than 2 seconds. Minimal tenderness to the lateral aspect of the left hip. Left upper extremity: Nontraumatic, full range of motion, no obvious injury. Right upper extremity: Patient has limited range of motion of the elbow and wrist. Full range of motion of the shoulder. She is able to move fingers over this does elicit pain. Radial pulses 2+. Capillary refill less than 2 seconds. Tenderness noted to the distal forearm. Limitations: no limitations General appearance: alert, in no apparent distress Head exam: Present: atraumatic, normocephalic, normal inspection Eye exam: Present: normal appearance, PERRL, EOMI. Absent: scleral icterus, conjunctival injection, periorbital swelling ENT exam: Present: normal exam, mucous membranes moist Neck exam: Present: normal inspection, full ROM. Absent: tenderness, meningismus, lymphadenopathy Respiratory exam: Present: normal lung sounds bilaterally. Absent: respiratory distress, wheezes, rales, rhonchi, stridor Cardiovascular Exam: Present: regular rate, normal rhythm, normal heart sounds. Absent: systolic murmur, diastolic murmur, rubs, gallop, clicks GI/Abdominal exam: Present: soft, normal bowel sounds. Absent: distended, tenderness, guarding, rebound, rigid Back exam: Present: vertebral tenderness (generalized lumbar spine tenderness). Absent: CVA tenderness (R), CVA tenderness (L) Neurological exam: Present: alert Course Vital Signs 02/28/20 23:27 Temperature 98.5 F Pulse Rate 89 Respiratory 20 Rate Blood Pressure 146/87 O2 Sat by Pulse 97 Oximetry Procedures - Orthopedic Splinting/Casting Injury #1 Side: right Upper Extremity Injury Location: short arm Upper Extremity Immobilizer: volar splint Additional Comments: Neurovascular status intact after splint applied. Medical Decision Making - Medical Decision Making Patient presents for mechanical fall. Patient did have several complaints, therefore multiple x-rays were obtained. X-ray of the lumbosacral spine was normal. No fracture. Hip and pelvis findings showed no acute fracture. Knee x-ray showed normal left knee exams. No pain or he hardware loosening. Right forearm and wrist x-rays however did show acute fracture of the distal radius with intra-articular extension, no significant displacement. Acute fracture of ulnar styloid also noted. All images were reviewed by myself. Patient was placed in a volar wrist splint. Upon placement she started to complain of pain in the right humerus as well. Therefore x-rays were obtained. These were also negative. [facility]. She will follow up with them tomorrow. She will return for any worsening symptoms. Disposition Clinical Impression: Wrist fracture, right Disposition: HOME SELF-CARE Condition: Good Instructions (If sedation given, give patient instructions): Wrist Fracture in Adults (ED) Additional Instructions: Please take Tylenol for pain. Please follow-up with your orthopedic physician. If you have any worsening symptoms return to the emergency room. Is patient prescribed a controlled substance at d/c from ED?: No Referrals: Jerad Alvarez DO [Primary Care Provider] - 1-2 days Gagandeep Lozada DO [Doctor of Osteopathic Medicine] - 1-2 days Time of Disposition: 01:07
--- NOTE | 2020-02-29 00:39 | XR ---
EXAM: XR Lumbosacral Spine, 2 or 3 Views CLINICAL HISTORY: ITS.REASON XR Reason: pain TECHNIQUE: Frontal and lateral views of the lumbar spine and sacrum. COMPARISON: No relevant prior studies available. FINDINGS: Vertebrae: Unremarkable. No acute fracture. Normal alignment. Sacrum/coccyx: Unremarkable as visualized. No acute fracture. Disc spaces: No acute findings. No significant narrowing. Soft tissues: Unremarkable. IMPRESSION: Normal lumbar spine x-rays.
--- NOTE | 2020-02-29 00:40 | XR ---
EXAM: XR Left Hip With Pelvis When Performed, 2 or 3 Views CLINICAL HISTORY: ITS.REASON XR Reason: pain TECHNIQUE: Two or three views of the left hip with pelvis when performed. COMPARISON: No relevant prior studies available. FINDINGS: Bones/joints: Unremarkable. Soft tissues: Unremarkable. Vasculature: Phleboliths within the pelvis. IMPRESSION: No acute findings in the left hip.
--- NOTE | 2020-02-29 00:41 | XR ---
EXAM: XR Left Knee, 3 Views CLINICAL HISTORY: ITS.REASON XR Reason: pain TECHNIQUE: Three views of the left knee. COMPARISON: No relevant prior studies available. FINDINGS: Bones/joints: Total knee arthroplasty. No colton-hardware loosening. No acute fracture. No dislocation. Soft tissues: Unremarkable. IMPRESSION: Normal left knee x-rays.
--- NOTE | 2020-02-29 00:44 | XR ---
EXAM: XR Right Forearm, 2 Views CLINICAL HISTORY: ITS.REASON XR Reason: pain TECHNIQUE: Frontal and lateral views of the right forearm. COMPARISON: No relevant prior studies available. FINDINGS: Bones/joints: Acute fracture of the distal radius with intra-articular extension. No significant displacement. Acute fracture of the ulnar styloid. No dislocation. Soft tissues: Mild edema noted about the fracture. IMPRESSION: 1. Acute fracture of the distal radius with intra-articular extension. No significant displacement. 2. Acute fracture of the ulnar styloid.
--- NOTE | 2020-02-29 00:46 | XR ---
EXAM: XR Right Wrist Complete, 3 or More Views CLINICAL HISTORY: ITS.REASON XR Reason: pain TECHNIQUE: Frontal, lateral and oblique views of the right wrist. COMPARISON: No relevant prior studies available. FINDINGS: Bones/joints: Acute fracture the distal radius with intra-articular extension. No significant displacement. Fracture of the ulnar styloid. No dislocation. Soft tissues: Unremarkable. No radiopaque foreign body. IMPRESSION: 1. Acute non-displaced fracture of the distal radius with intra- articular extension. 2. Acute non-displaced fracture of the ulnar styloid.
--- NOTE | 2020-02-29 01:23 | XR ---
EXAM: XR Right Humerus, 2 or More Views CLINICAL HISTORY: ITS.REASON XR Reason: pain TECHNIQUE: Frontal and lateral views of the right humerus. COMPARISON: No relevant prior studies available. FINDINGS: Bones/joints: Unremarkable. No acute fracture. No dislocation. Soft tissues: Unremarkable. IMPRESSION: Normal right humerus x-rays.
[2020-02-29 01:49] VITALS: BP 148/89; PULSE 71; RESP 16; TEMP 98
== END 2020-02-29 01:53 | disposition home or self-care (01) ==
LOC: EC 23:24
DX: S52.571A Other intraarticular fracture of lower end of right radius, initial encounter for closed fracture (principal); S52.614A Nondisplaced fracture of right ulna styloid process, initial encounter for closed fracture; K21.9 Gastro-esophageal reflux disease without esophagitis; M19.90 Unspecified osteoarthritis, unspecified site; F41.9 Anxiety disorder, unspecified; F32.9 Major depressive disorder, single episode, unspecified; Z79.899 Other long term (current) drug therapy; Z91.048 Other nonmedicinal substance allergy status; Z91.010 Allergy to peanuts; Z91.013 Allergy to seafood; Z88.5 Allergy status to narcotic agent; Z91.09 Other allergy status, other than to drugs and biological substances; Z87.891 Personal history of nicotine dependence; W18.09XA Striking against other object with subsequent fall, initial encounter; Y93.89 Activity, other specified
CPT/HCPCS: 72100; 73502; 73060; 73090; 73110; 73562; 99283; 29125; 96372 ×2; J1170

== ENCOUNTER 2020-03-02 09:57 | Day surgery (SDC) | payer MEDICAID ==
[2020-02-29 15:13] VITALS: BMI 32.3
--- NOTE | 2020-03-01 18:06 | HP ---
HISTORY AND PHYSICAL DATE OF SURGERY: 03/02/2020 Jasmyn Felipe is a 55-year-old patient seen with a displaced right distal radius fracture. Recommended open reduction, internal fixation. She was agreeable. Consent was obtained. PAST MEDICAL HISTORY: Asthma. PAST SURGICAL HISTORY: Total knee arthroplasty, knee arthroscopy. DAILY MEDICATIONS: Topamax, Naprosyn, Redford. ALLERGIES: PERCOCET. SOCIAL HISTORY: She denies current tobacco use. PHYSICAL EVALUATION OF THE RIGHT WRIST: Tenderness along the distal radius. Some diffuse ecchymosis and swelling. No open wounds. Able to move fingers with minimal pain. Good perfusion and sensation distally. RIGHT WRIST RADIOGRAPHS: Right wrist radiographs revealed a displaced distal radius fracture. IMPRESSION: 1. Displaced right distal radius fracture. 2. Hypertension. 3. History of left total knee arthroplasty. PLAN: Open reduction, internal fixation, right distal radius fracture. MMODL / IJN: [id number] /
[~2020-03-02 09:57] MED LIST changes: -ACETAMINOPHEN TAB 500 MG TAB PO ONE; +DEXAMETHASONE SOD PHOSPHATE 4 MG/ML 1 ML VIAL IV ONE; -HYDROmorphone 0.5 MG/0.5 ML SYRINGE IVP PRN; +LACTATED RINGERS 1,000 ML IV SCH; -MELOXICAM 7.5 MG TAB PO ONE; +MIDAZOLAM 2 MG/2 ML VIAL IV PRN; +ONDANSETRON 4 MG/2 ML VIAL IVP ONE; -TRANEXAMIC ACID 1,000 MG in SODIUM CHLORIDE 0.9% 100 ML IVPB ONE
[2020-03-02 10:27] VITALS: RESP 16; TEMP 97.6
[2020-03-02 10:32] LABS: Basophils # (A) 0.1 k/uL (0-0.2); Basophils % (A) 1 %; Eosinophils # (A) 0.4 k/uL (0-0.7); Eosinophils % (A) 6 %; HCT 38.6 % (34.0-46.0); HGB 12.4 gm/dL (11.4-16.0); Lymphocytes # (A) 3.7 k/uL (1.0-4.8); Lymphocytes % (A) 55 %; MCH 29.1 pg (25.0-35.0); MCHC 32.2 g/dL (31.0-37.0); MCV 90.4 fL (80.0-100.0); Mean Platelet Volume 8.6; Monocytes # (A) 0.2 k/uL (0-1.0); Monocytes % (A) 3 %; Neutrophils # (A) 2.2 k/uL (1.3-7.7); Neutrophils % (A) 33 %; Platelet Count 240 k/uL (150-450); RBC 4.27 m/uL (3.80-5.40); RDW 14.1 % (11.5-15.5); WBC 6.7 k/uL (3.8-10.6)
[2020-03-02] MEDS ORDERED: SCOPOLAMINE 1.5MG/72HR PATCH TRANSDERM ONE (10:32)
[2020-03-02 10:42] LABS: Potassium 4.3 mmol/L (3.5-5.1)
[2020-03-02] MEDS ORDERED: MIDAZOLAM 2 MG/2 ML VIAL IV ONE (10:50)
[2020-03-02] MEDS ORDERED: DEXAMETHASONE SOD PHOSPHATE 4 MG/ML 1 ML VIAL ONE (11:15)
[2020-03-02] MEDS ORDERED: LIDOCAINE 1% INJ 10MG/ML (20 ML MDV) ONE (11:15)
[2020-03-02] MEDS ORDERED: MIDAZOLAM 2 MG/2 ML VIAL ONE (11:15)
[2020-03-02] MEDS ORDERED: ROPIVACAINE 5 MG/ML 30 ML VIAL ONE (11:15)
[2020-03-02] MEDS ORDERED: fentaNYL (PF) 50 MCG/ML 2 ML AMP ONE (11:15)
[2020-03-02] MEDS ORDERED: SUCCINYLCHOLINE CHLORIDE 100 MG/5 ML SYR IV ONE (11:15)
[2020-03-02] MEDS ORDERED: PROPOFOL 10 MG/ML 20 ML VIAL IV ONE (11:15)
[2020-03-02] MEDS ORDERED: ceFAZolin 1,000 MG in SODIUM CHLORIDE 0.9% 1,000 ML IRRIGATION ONE (11:42)
--- NOTE | 2020-03-02 12:19 | P.OP ---
Date of Procedure: 03/02/20 Preoperative Diagnosis: Displaced right distal radius fracture Postoperative Diagnosis: Same Procedure(s) Performed: Open reduction and internal fixation right distal radius fracture Implants: Arthrex distal volar wrist plate with appropriate length 3.5 proximal cortical screws and distal locking peg screws Anesthesia: GETA, regional (Interscalene block) Surgeon: Gagandeep Lozada Lifter Driver #1: Haroldo Mckeon Estimated Blood Loss (ml): 15 Pathology: none sent Condition: stable Disposition: PACU Indications for Procedure: 55-year-old patient seen with a displaced right distal radius fracture. I recommended open reduction internal fixation. Patient was agreeable and consent was obtained. Operative Findings: See description of procedure Description of Procedure: The patient was taken to the operative suite. She did undergo a interscalene block by the department of anesthesia for postoperative pain management. The patient received preoperative IV antibiotics. The patient underwent general anesthetic by the department of anesthesia. Well-padded tourniquet placed proximal right upper extremity. Right upper extremity prepped and draped in the normal sterile orthopedic fashion. Extremity elevated and tourniquet insufflated to 250. This interval incision was made sharply through skin. We carefully dissected down for the muscular interval and dissected down to the volar aspect of the distal radius. Hemarthrosis evacuated. Blunt retractors positioned to protect the nerves. The fracture was identified. The fracture was reduced. Gregor PAUL held the fracture an appropriate reduction line applied the plate and secured it proximally. C-arm was brought into the operative field confirming adequate position her for platelet and the fracture alignment. I now made appropriate drill holes to the distal peg areas introduced for distal locking pegs. I now drilled one more holes the proximal part of plate introduced a locking 3.5 cortical screw. We now brought the C-arm back into the operative field. We noted good reduction of the fracture with adequate positioning of the internal fixation. Spot films repeated document that. The wound was irrigated copiously. We had good hemostasis. The subcu soft tissues were approximated with 2-0 Vicryl. A running subcutaneous suture was utilized to approximate the skin followed by skin glue. Sterile dressings were applied. Tourniquet released and immediate capillary refill noted of all digits. A volar wrist splint was placed into position the patient was awakened and transferred to a bed and recovery stable condition. Gregor PAUL assisted with all aspect of the procedure.
--- NOTE | 2020-03-02 12:40 | XR ---
EXAMINATION TYPE: XR wrist limited RT DATE OF EXAM: 03/02/2020 COMPARISON: 02/29/2020 HISTORY: Postop TECHNIQUE: 2 intraoperative images submitted. FINDINGS: Postsurgical changes appear in near anatomic alignment. Fractures involving the distal radi us and ulna noted. IMPRESSION: Postoperative change
--- NOTE | 2020-03-02 12:47 | FL ---
EXAMINATION TYPE: FL guidance operating room DATE OF EXAM: 03/02/2020 CLINICAL HISTORY: Right wrist fracture. TECHNIQUE: Fluoroscopy. COMPARISON: Right wrist x-ray 2 days ago. FINDINGS: Fluoroscopic guidance was provided during open reduction internal fixation procedure perfo rmed by Dr. Lozada. A total of 16 seconds of fluoroscopic time was utilized during the procedure and 3 spot intraoperative images are acquired. Images obtained show placement of dorsal fixating plate comminuted intra-articular fracture distal ra dial meta-epiphysis. Satisfactory alignment is seen on the intraoperative images obtained after reduc tion and fixation. IMPRESSION: As Above.
[2020-03-02] MEDS: HYDROmorphone 0.5 MG/0.5 ML SYRINGE IVP PRN ×4 (12:55→13:33)
[2020-03-02] MEDS ORDERED: LACTATED RINGERS 1,000 ML IV ONE ×2 (13:33)
[2020-03-02 15:13] VITALS: BP 117/80; PULSE 90
--- NOTE | 2020-03-02 19:26 | P.ANPRN ---
Procedure Note - Anesthesia - Nerve Block Performed Left Supraclavicular Single Time Out Performed: Yes Date of Procedure: 03/02/20 Procedure Start Time: 10:49 Procedure Stop Time: 10:54 Location of Patient: PreOp Indication: Acute Post-Operative Pain, Requested by Surgeon Sedation Type: Sedate with meaningful contact maintained Preparation: Sterile Prep Position: Supine Needle Types: Pajunk Needle Gauge: 21 Ultrasound used to visualize needle placement: Yes Ultrasound used to observe medication spread: Yes Blood Aspirated: No Pain Paresthesia on Injection Noted: No Resistance on Injection: Normal Image Stored and Saved: Yes Events: Uneventful and Well Tolerated (ropi .5% 20cc plus dexamethasone 4mg)
== END 2020-03-02 16:17 | disposition home or self-care (01) ==
LOC: OR 09:57
PROVIDERS: ATTEND Orthopaedic Surgery
DX: S52.501A Unspecified fracture of the lower end of right radius, initial encounter for closed fracture (principal); X58.XXXA Exposure to other specified factors, initial encounter; J45.909 Unspecified asthma, uncomplicated; I10 Essential (primary) hypertension; F32.9 Major depressive disorder, single episode, unspecified; Z96.652 Presence of left artificial knee joint; Z98.890 Other specified postprocedural states; Z79.1 Long term (current) use of non-steroidal anti-inflammatories (NSAID); Z79.891 Long term (current) use of opiate analgesic; Z79.899 Other long term (current) drug therapy; Z88.5 Allergy status to narcotic agent
CPT/HCPCS: 64415; 76942; 80051; 85025; 73100; 25607; C1713; J2250; J1100; J2405; J0690; J2001; J3010; J2795; J0330; J2704; J1170

== ENCOUNTER → 2020-03-21 | Outpatient (CLI) | payer MEDICAID ==
--- NOTE | 2020-03-22 14:35 | MM ---
Reason for exam: screening (asymptomatic). Last mammogram was performed 1 year and 2 months ago. History: Patient is postmenopausal. Family history of breast cancer in maternal aunt at age 50 and breast cancer in maternal grandmother at age 60. Reductions of both breasts, 2004. Physical Findings: A clinical breast exam by your physician is recommended on an annual basis and results should be correlated with mammographic findings. MG 3D Screening Mammo W/Cad Bilateral CC and MLO view(s) were taken. Prior study comparison: January 14, 2019, bilateral MG 3d screening mammo w/cad. July 10, 2018, left breast MG 3d diag mammo w/cad LT. There are scattered fibroglandular densities. Focal asymmetry right breast. No significant changes when compared with prior studies. ASSESSMENT: Benign, BI-RAD 2 RECOMMENDATION: Routine screening mammogram of both breasts in 1 year.
== END | disposition home or self-care (01) ==
LOC: RADMAMWWP 09:50
PROVIDERS: ATTEND Family Medicine
DX: Z12.31 Encounter for screening mammogram for malignant neoplasm of breast (principal)
CPT/HCPCS: 77063; 77067

== ENCOUNTER 2020-04-05 07:11 | Day surgery (SDC) | payer MEDICAID ==
[2020-04-03 14:47] VITALS: BMI 32.3
[~2020-04-05 07:11] MED LIST changes: +FAMOTIDINE 20 MG/2 ML VIAL IV PRN; -LIDOCAINE 1% (10MG/ML) FOR IV START INTRADERMA PRN; -MIDAZOLAM 2 MG/2 ML VIAL IV PRN; +ONDANSETRON 4 MG/2 ML VIAL IVP PRN; +fentaNYL (PF) 50 MCG/ML 2 ML AMP IV PRN
--- NOTE | 2020-04-05 08:09 | US ---
EXAMINATION TYPE: US thyroid st tissue head/neck DATE OF EXAM: 04/05/2020 COMPARISON: Ultrasound December 17, 2019 CLINICAL HISTORY: R22.1 SWELLING, LUMP, MASS. Patient has palpable lump that she is having surgically removed today. Doctor wanted ed on that area right neck. Patient had this area sampled 01/05/2020 and it came back inconclusive At the patient's area of palpable lump, there are two possible lymph nodes visualized, largest measur ing 1.4 x 0.4 x 1.1 cm No significant change from prior ultrasound. Persistently globally elongated lesion subcentimeter in short axis without fatty hilum clearly seen to suggest benign lymph node. Lesion still favored benign in etiology because of oval shaped well-circumscribed margins measuring 4 mm short axis and no significant interval growth. No new masses or fluid collection evident. IMPRESSION: As above.
[2020-04-05] MEDS ORDERED: PROPOFOL 10 MG/ML 20 ML VIAL IV ONE (09:10)
[2020-04-05] MEDS ORDERED: fentaNYL (PF) 50 MCG/ML 2 ML AMP ONE (09:10)
[2020-04-05] MEDS ORDERED: KETOROLAC 15 MG/ML 1 ML VIAL ONE (09:10)
[2020-04-05] MEDS ORDERED: MIDAZOLAM 2 MG/2 ML VIAL ONE (09:10)
[2020-04-05] MEDS ORDERED: LIDOCAINE 1% INJ 10MG/ML (20 ML MDV) ONE (09:10)
[2020-04-05] MEDS ORDERED: SUCCINYLCHOLINE CHLORIDE 100 MG/5 ML SYR IV ONE (09:10)
[2020-04-05] MEDS ORDERED: LIDOCAINE 1%-EPI 1:100,000 20 ML VIAL SQ ONE ×2 (09:34)
[2020-04-05] MEDS ORDERED: BACITRACIN ZINC 500 UNIT/GM OINT 28.4 GM TUBE TOPICAL ONE (10:05)
--- NOTE | 2020-04-05 10:17 | P.OP ---
Date of Procedure: 04/05/20 Preoperative Diagnosis: Right cervical lymphadenopathy Postoperative Diagnosis: Same Procedure(s) Performed: Excisional biopsy right cervical lymph node Anesthesia: LEONA Surgeon: Rusty Gilman Estimated Blood Loss (ml): 3 Pathology: other (Right cervical lymph node) Condition: stable Disposition: PACU Indications for Procedure: Is a 55-year-old white female with a persistent right cervical lymph node. On ultrasound has measured upwards of 2.3 cm. The fine-needle aspiration showed a monotonous population of cells and therefore it was felt that he note itself be removed for further evaluation Operative Findings: Approximate 1 cm nodular lesion just deep to the platysma anterior the sternocleidomastoid muscle-there was some fatty tissue overlying this which was removed also for access. Description of Procedure: The patient was brought in after she may supine position. Patient underwent induction of general anesthesia with oral endotracheal intubation went difficulty. Patient prepped and draped in usual aseptic fashion. Note that the surgical site was marked with ultrasound preoperatively earlier this morning. 1% lidocaine with [id number] epinephrine was infused subcutaneously transversely right mid neck overlying the marked site. A transverse cervical incision was made with the in a skin crease overlying the marked site and was carried sharply through the skin and subcutaneous tissue as well as platysma layer. The sternal jugular vein was identified and left intact. The facial artery was noted to course overlying the nodular area and was dissected but left intact. Approximate 1 cm portion of tissue which appeared consistent more with fatty tissue was excised overlying the nodular palpable area which was then excised separately but sent together. The deeper specimen which was anterior to the sternocleidomastoid muscle and appearance of a small lymph node. Hemostasis was noted to be good. There Were no other palpable or visible lesions noted. The wound was copiously irrigated with sterile normal saline and the wound closed in the platysma and subcutaneous layer with inverted interrupted 3-0 Vicryl suture and skin closed with running locking 4-0 Prolene suture. Bacitracin ointment a nd sterile dressings were placed. Patient tolerated procedure well was extubated in the operating suite and transferred postoperative recovery area in satisfactory condition.
[2020-04-05 10:23] VITALS: TEMP 97.2
[2020-04-05] MEDS ORDERED: HYDROmorphone 0.5 MG/0.5 ML SYRINGE IVP ONE ×3 (10:30→10:52)
[2020-04-05 11:58] VITALS: RESP 16
[2020-04-05 12:14] VITALS: BP 122/70; PULSE 77
== END 2020-04-05 12:53 | disposition home or self-care (01) ==
LOC: OR 07:11
PROVIDERS: ATTEND Otolaryngology
DX: R59.0 Localized enlarged lymph nodes (principal); K21.9 Gastro-esophageal reflux disease without esophagitis; J45.909 Unspecified asthma, uncomplicated; E78.00 Pure hypercholesterolemia, unspecified; G43.909 Migraine, unspecified, not intractable, without status migrainosus; L98.9 Disorder of the skin and subcutaneous tissue, unspecified; F32.9 Major depressive disorder, single episode, unspecified; Z88.5 Allergy status to narcotic agent; Z87.891 Personal history of nicotine dependence; Z79.899 Other long term (current) drug therapy; Z79.891 Long term (current) use of opiate analgesic; Z91.09 Other allergy status, other than to drugs and biological substances; Z79.1 Long term (current) use of non-steroidal anti-inflammatories (NSAID); Z78.0 Asymptomatic menopausal state; Z82.5 Family history of asthma and other chronic lower respiratory diseases; Z82.3 Family history of stroke; Z82.49 Family history of ischemic heart disease and other diseases of the circulatory system; Z82.61 Family history of arthritis; Z80.3 Family history of malignant neoplasm of breast; Z81.1 Family history of alcohol abuse and dependence; Z83.79 Family history of other diseases of the digestive system; Z83.3 Family history of diabetes mellitus; Z83.42 Family history of familial hypercholesterolemia
CPT/HCPCS: 88307; 76536; 38510; C1763; J2250; J1100; J2405; J0690; J2001; J3010; J1885; J0330; J2704; J1170

== ENCOUNTER 2020-05-08 06:22 | Day surgery (SDC) | payer MEDICAID ==
[2020-05-05 10:25] VITALS: BMI 32.3
[~2020-05-08 06:22] MED LIST changes: +ACETAMINOPHEN TAB 500 MG TAB PO PRN; -FAMOTIDINE 20 MG/2 ML VIAL IV PRN; +HEPARIN SODIUM,PORCINE 5,000 UNIT/ML 1 ML VIAL SQ PRN; +MIDAZOLAM 2 MG/2 ML VIAL IV PRN; -ONDANSETRON 4 MG/2 ML VIAL IVP PRN; +Pre Op ABX Message 1 EACH MISC MISCELLANE ONE; +SCOPOLAMINE 1.5MG/72HR PATCH TRANSDERM ONE; -fentaNYL (PF) 50 MCG/ML 2 ML AMP IV PRN
[2020-05-08] MEDS ORDERED: fentaNYL (PF) 50 MCG/ML 2 ML AMP IV PRN (07:00)
[2020-05-08] MEDS ORDERED: LIDOCAINE 1% (10MG/ML) FOR IV START INTRADERMA ONE (07:00)
[2020-05-08] MEDS ORDERED: PROPOFOL 10 MG/ML 20 ML VIAL IV ONE (07:51)
[2020-05-08] MEDS ORDERED: MIDAZOLAM 2 MG/2 ML VIAL ONE (07:51)
[2020-05-08] MEDS ORDERED: SUCCINYLCHOLINE CHLORIDE 100 MG/5 ML SYR IV ONE (07:51)
[2020-05-08] MEDS ORDERED: fentaNYL (PF) 50 MCG/ML 2 ML AMP ONE (07:51)
[2020-05-08] MEDS ORDERED: LIDOCAINE 1% INJ 10MG/ML (20 ML MDV) ONE (07:51)
[2020-05-08] MEDS ORDERED: SODIUM CHLORIDE 0.9% 50 ML with ceFAZolin 2,000 MG IV ONE ×2 (08:15)
[2020-05-08] MEDS ORDERED: BUPIVACAINE (PF) 0.5% 30 ML VIAL SQ ONE (08:23)
--- NOTE | 2020-05-08 08:48 | P.GSHP ---
History of Present Illness H&P Date: 05/08/20 Chief Complaint: Lipoma of back 2 This 55-year-old female who presents today for excision of back lipoma. Patient has 2 lipomas on her lumbar back on the right left side. The lipomas measured prostate 5 cm diameter. Past Medical History Past Medical History: Asthma, GERD/Reflux, Osteoarthritis (OA) Additional Past Medical History / Comment(s): current fx rt wrist-brace on, hx of migraine, HX STOMACH ULCERS, DDD, VERTIGO, right neck mass, lymph node rt cervical History of Any Multi-Drug Resistant Organisms: None Reported Past Surgical History: Adenoidectomy, Breast Surgery, Joint Replacement, Orthopedic Surgery, Tonsillectomy Additional Past Surgical History / Comment(s): LEFT KNEE ARTHROSCOPY, left knee replacement, LEFT FOOT SURGERY, SINUS SX-REMOVED POLYPS, COLONOSCOPY, EGD, BACK INJECTIONS, biopsy BILAT SIDES OF NECK, BILATERAL BREAST REDUCTION. surgery rt arm for fx 03/02/20 Past Anesthesia/Blood Transfusion Reactions: Previous Problems w/ Anesthesia Additional Past Anesthesia/Blood Transfusion Reaction / Comment(s): "Woke up during a foot surgery, they gave her more medication and then she took a long time to wake up after." Smoking Status: Former smoker - Past Family History Mother Family Medical History: Cancer Medications and Allergies Home Medications Medication Instructions Recorded Confirmed Type Escitalopram [Lexapro] 20 mg PO HS 04/16/18 05/08/20 History Meclizine [Antivert] 25 mg PO TID PRN 09/30/19 05/08/20 History tiZANidine HCL [Zanaflex] 4 mg PO BID 09/30/19 05/08/20 History traMADol HCl [Ultram] 50 - 100 mg PO Q6HR PRN 09/30/19 05/08/20 History Docusate [Colace] 100 mg PO DAILY 12/28/19 05/08/20 History Esomeprazole Magnesium [NexIUM] 40 mg PO BID 12/28/19 05/08/20 History Naproxen [Naprosyn] 500 mg PO BID PRN 12/28/19 05/08/20 History Cyclobenzaprine [Flexeril] 10 mg PO TID PRN 02/11/20 05/08/20 History Ibuprofen 800 mg PO Q8H PRN #40 tab 03/02/20 05/08/20 Rx Albuterol Sulfate [Proair Hfa] 1 - 2 puff INHALATION DIRECTED 04/03/20 05/08/20 History PRN Allergies Allergy/AdvReac Type Severity Reaction Status Date / Time cobalt Allergy POSITIVE Verified 05/08/20 06:55 ON ALLERGY TEST nickel Allergy POSITIVE Verified 05/08/20 06:55 ON ALLERGY TEST oxycodone HCl [From Percocet] Allergy Rash/Hives Verified 05/08/20 06:55 peanut Allergy Wheezing Verified 05/08/20 06:55 pollen extracts Allergy Dyspnea Verified 05/08/20 06:55 shellfish derived [Lobster] Allergy POSITIVE Verified 05/08/20 06:55 ON ALLERGY TEST tree and shrub pollen Allergy Dyspnea Verified 05/08/20 06:55 DUST MITES Allergy Rash/Hives Uncoded 05/08/20 06:55 Surgical - Exam Vital Signs Temp Pulse Resp BP Pulse Ox 96.8 F L 89 18 146/96 99 05/08/20 07:12 05/08/20 07:12 05/08/20 07:12 05/08/20 07:12 05/08/20 07:12 - General well developed, well nourished, no distress - Eyes PERRL - ENT normal pinna - Neck no masses - Respiratory normal expansion - Cardiovascular Rhythm: regular - Abdomen Abdomen: soft, non tender - Integumentary 5 cm lipoma on right and left lumbar back Assessment and Plan Assessment: Back lipoma 2. We'll perform excision.
--- NOTE | 2020-05-08 08:51 | P.OP ---
Date of Procedure: 05/08/20 Preoperative Diagnosis: Back lipoma 2 Postoperative Diagnosis: Back lipoma 2 Procedure(s) Performed: Excision of lumbar back lipoma 2 Anesthesia: LEONA Surgeon: Jaiden Tyler Estimated Blood Loss (ml): 10 Pathology: other (Back lipoma 2) Condition: stable Disposition: PACU Description of Procedure: The patient's placed on the operative table in the prone position. She received general anesthesia. Her back was prepped and draped usual sterile fashion. The right lumbar lipoma was excised first. The skin was incised with a 15 blade and using blunt and sharp dissection with cautery the lumbar lipoma was excised. The lipoma measured prostate 5x 5 x 8 cm. The Bovie hemostasis. Skin was closed interrupted 3-0 Monocryl suture. Dermabond was applied. Next the left lumbar lipoma was excised. Skin was incised in the left cautery lipoma was excised. The specimen measured 5 x 6 x 10 cm. Hemostasis was achieved. Skin was closed interrupted 3-0 Monocryl suture. Dermabond was applied. Patient top she will was sent to recovery room stable condition.
[2020-05-08 09:00] VITALS: TEMP 97.2
[2020-05-08 09:55] VITALS: RESP 20
[2020-05-08] MEDS ORDERED: HYDROcodone/APAP 5-325MG 1 EACH TAB PO STA (09:55)
[2020-05-08] MEDS ORDERED: HYDROmorphone 0.5 MG/0.5 ML SYRINGE IVP STA (10:18)
[2020-05-08] MEDS ORDERED: HYDROmorphone 0.5 MG/0.5 ML SYRINGE IVP ONE (10:20)
[2020-05-08 11:31] VITALS: BP 133/78; PULSE 88
== END 2020-05-08 12:10 | disposition home or self-care (01) ==
LOC: OR 06:22
PROVIDERS: ATTEND Surgery
DX: D17.1 Benign lipomatous neoplasm of skin and subcutaneous tissue of trunk (principal); M19.90 Unspecified osteoarthritis, unspecified site; J45.909 Unspecified asthma, uncomplicated; K21.9 Gastro-esophageal reflux disease without esophagitis; G43.909 Migraine, unspecified, not intractable, without status migrainosus; Z79.1 Long term (current) use of non-steroidal anti-inflammatories (NSAID); Z91.09 Other allergy status, other than to drugs and biological substances; Z91.010 Allergy to peanuts; Z88.5 Allergy status to narcotic agent; Z91.013 Allergy to seafood; Z79.899 Other long term (current) drug therapy; Z98.890 Other specified postprocedural states; Z87.11 Personal history of peptic ulcer disease; Z96.652 Presence of left artificial knee joint; Z87.891 Personal history of nicotine dependence; Z80.9 Family history of malignant neoplasm, unspecified
CPT/HCPCS: 88304; 21931 ×2; J2250; J1644; J1100; J2405; J0690; J2001; J3010; J0330; J2704; J1170

== ENCOUNTER → 2020-06-01 | Outpatient (CLI) | payer MEDICAID ==
[2020-06-01 22:02] LABS: Basophils # (A) 0.04 X 10*3/uL (0.00-0.10); Basophils % (A) 0.6 %; Eosinophils # (A) 0.55 X 10*3/uL (0.04-0.35); Eosinophils % (A) 8.3 %; HGB 11.8 g/dL (12.0-15.0); Lymphocytes # (A) 3.04 X 10*3/uL (0.90-5.00); Lymphocytes % (A) 45.9 %; MCH 28.9 pg (27.0-32.0); MCHC 31.1 g/dL (32.0-37.0); MCV 92.9 fL (80.0-97.0); Mean Platelet Volume 12.2 fL (9.5-12.2); Monocytes # (A) 0.41 X 10*3/uL (0.20-1.00); Monocytes % (A) 6.2 %; Neutrophils # (A) 2.58 X 10*3/uL (1.80-7.70); Neutrophils % (A) 38.8 %; Platelet Count 255 X 10*3/uL (140-440); RBC 4.09 X 10*6/uL (4.10-5.20); RDW 13.2 % (11.5-14.5); WBC 6.63 X 10*3/uL (4.50-10.00)
[2020-06-02 03:50] LABS: African American GFR (CKD) 83.4 (60.0-200.0); Anion Gap 12.1 mmol/L (4.00-12.00); BUN/Creat Ratio 15.56 Ratio (12.00-20.00); Calcium 10.2 mg/dL (8.7-10.3); Carbon Dioxide 24.9 mmol/L (21.6-31.8); Potassium 4.6 mmol/L (3.5-5.5)
[2020-06-02 04:00] LABS: Follicle Stimulating Hormone 67.3 mIU/mL
[2020-06-02 04:06] LABS: T4, Free (Free Thyroxine) 0.9 ng/dL (0.80-1.80)
== END | disposition home or self-care (01) ==
LOC: LABWHC1 11:33
PROVIDERS: ATTEND Family Medicine
DX: E89.41 Symptomatic postprocedural ovarian failure (principal); R68.89 Other general symptoms and signs; E66.9 Obesity, unspecified
CPT/HCPCS: 36415; 80048; 82306; 82672; 83001; 83036; 84439; 84443; 84450; 84460; 85025

== ENCOUNTER 2020-06-22 06:55 | Observation (INO) | payer MEDICAID ==
[2020-06-20 14:11] VITALS: BMI 32.3
[~2020-06-22 06:55] MED LIST changes: -LACTATED RINGERS 1,000 ML IV SCH; -MIDAZOLAM 2 MG/2 ML VIAL IV PRN; -Pre Op ABX Message 1 EACH MISC MISCELLANE ONE; -SCOPOLAMINE 1.5MG/72HR PATCH TRANSDERM ONE
[2020-06-22] MEDS: LACTATED RINGERS 1,000 ML IV SCH (07:44)
[2020-06-22] MEDS ORDERED: MIDAZOLAM 2 MG/2 ML VIAL IVP ONE (07:51)
[2020-06-22] MEDS ORDERED: fentaNYL (PF) 50 MCG/ML 2 ML AMP IVP ONE (07:53)
--- NOTE | 2020-06-22 08:29 | P.GSHP ---
History of Present Illness H&P Date: 06/22/20 Chief Complaint: Panniculus This is a 55-year-old female who presents today for panniculus. Patient lifetime problem obesity. She has developed a well-formed pannus. She's had issues with chronic skin irritation. Past Medical History Past Medical History: Asthma, GERD/Reflux, Osteoarthritis (OA) Additional Past Medical History / Comment(s): , hx of migraine, HX STOMACH ULCERS, DDD, VERTIGO, right neck mass, lymph node rt cervical History of Any Multi-Drug Resistant Organisms: None Reported Past Surgical History: Adenoidectomy, Breast Surgery, Joint Replacement, Orthopedic Surgery, Tonsillectomy Additional Past Surgical History / Comment(s): LEFT KNEE ARTHROSCOPY, left knee replacement, LEFT FOOT SURGERY, SINUS SX-REMOVED POLYPS, COLONOSCOPY, EGD, BACK INJECTIONS, biopsy BILAT SIDES OF NECK, BILATERAL BREAST REDUCTION. surgery rt arm for fx 03/02/20, neck mass/lymph node removed Past Anesthesia/Blood Transfusion Reactions: Previous Problems w/ Anesthesia Additional Past Anesthesia/Blood Transfusion Reaction / Comment(s): "Woke up during a foot surgery, they gave her more medication and then she took a long time to wake up after." Smoking Status: Former smoker - Past Family History Mother Family Medical History: Cancer Medications and Allergies Home Medications Medication Instructions Recorded Confirmed Type Escitalopram [Lexapro] 20 mg PO HS 04/16/18 06/20/20 History Meclizine [Antivert] 25 mg PO TID PRN 09/30/19 06/20/20 History tiZANidine HCL [Zanaflex] 4 mg PO BID 09/30/19 06/20/20 History traMADol HCl [Ultram] 50 - 100 mg PO Q6HR PRN 09/30/19 06/20/20 History Esomeprazole Magnesium [NexIUM] 40 mg PO BID 12/28/19 06/22/20 History Naproxen [Naprosyn] 500 mg PO BID PRN 12/28/19 06/20/20 History Cyclobenzaprine [Flexeril] 10 mg PO TID PRN 02/11/20 06/20/20 History Albuterol Sulfate [Proair Hfa] 1 - 2 puff INHALATION DIRECTED 04/03/20 06/22/20 History PRN Acetaminophen Tab [Tylenol] 650 mg PO Q6H #30 tab 05/08/20 06/20/20 Rx Ibuprofen [Motrin] 600 mg PO Q6HR PRN #40 tab 05/08/20 06/20/20 Rx Linaclotide [Linzess] 72 mcg PO DAILY PRN 06/20/20 06/20/20 History Allergies Allergy/AdvReac Type Severity Reaction Status Date / Time cobalt Allergy POSITIVE Verified 06/22/20 07:17 ON ALLERGY TEST nickel Allergy POSITIVE Verified 06/22/20 07:17 ON ALLERGY TEST oxycodone HCl [From Percocet] Allergy Rash/Hives Verified 06/22/20 07:17 peanut Allergy Wheezing Verified 06/22/20 07:17 pollen extracts Allergy Dyspnea Verified 06/22/20 07:17 shellfish derived [Lobster] Allergy POSITIVE Verified 06/22/20 07:17 ON ALLERGY TEST tree and shrub pollen Allergy Dyspnea Verified 06/22/20 07:17 DUST MITES Allergy Rash/Hives Uncoded 06/22/20 07:17 Surgical - Exam Vital Signs Temp Pulse Resp BP Pulse Ox 97 F L 96 17 145/74 98 06/22/20 07:21 06/22/20 07:21 06/22/20 07:21 06/22/20 07:21 06/22/20 07:21 - General well developed, well nourished, no distress - Eyes PERRL - ENT normal pinna - Neck no masses - Respiratory normal expansion - Cardiovascular Rhythm: regular - Abdomen Well-formed panniculus with evidence of chronic skin irritation Abdomen: soft, non tender Assessment and Plan Assessment: Panniculus. We'll perform panniculectomy patient's where the risks of surgery including wound infection, bleeding. She's also aware the stenotic cosmetic procedure however procedure present skin and fat. She is also aware the possible need for revisional surgery for cosmesis.
--- NOTE | 2020-06-22 08:36 | P.ANPRN ---
Procedure Note - Anesthesia - Nerve Block Performed Bilateral Erector Spinae Date of Procedure: 06/22/20 Procedure Start Time: 07:50 Procedure Stop Time: 08:01 Location of Patient: PreOp Indication: Acute Post-Operative Pain, Requested by Surgeon Specifically requested for management of pain by DrEmily: Jaiden Tyler Sedation Type: Sedate with meaningful contact maintained Preparation: Sterile Prep Position: Prone Needle Gauge: 21 Ultrasound used to visualize needle placement: Yes Ultrasound used to observe medication spread: Yes Injectate: 0.5% Ropivacaine (see comment for volume) Blood Aspirated: No Pain Paresthesia on Injection Noted: No Resistance on Injection: Normal (total of 30 ml of LA given)
[2020-06-22] MEDS ORDERED: LIDOCAINE 1% INJ 10MG/ML (20 ML MDV) ONE (08:56)
[2020-06-22] MEDS ORDERED: SUCCINYLCHOLINE CHLORIDE 100 MG/5 ML SYR IV ONE (08:56)
[2020-06-22] MEDS ORDERED: GLYCOPYRROLATE 0.2 MG/ML 2 ML VIAL ONE (08:56)
[2020-06-22] MEDS ORDERED: MIDAZOLAM 2 MG/2 ML VIAL ONE (08:56)
[2020-06-22] MEDS ORDERED: KETOROLAC 15 MG/ML 1 ML VIAL ONE (08:56)
[2020-06-22] MEDS ORDERED: ROCURONIUM 10 MG/ML (5 ML VIAL) IV ONE (08:56)
[2020-06-22] MEDS ORDERED: PROPOFOL 10 MG/ML 20 ML VIAL IV ONE (08:56)
[2020-06-22] MEDS ORDERED: fentaNYL (PF) 50 MCG/ML 2 ML AMP ONE (08:56)
[2020-06-22] MEDS ORDERED: NEOSTIGMINE 1 MG/ML 10 ML VIAL ONE (08:56)
[2020-06-22] MEDS ORDERED: ROPIVACAINE 5 MG/ML 30 ML VIAL ONE (08:56)
[2020-06-22] MEDS ORDERED: LACTATED RINGERS 1,000 ML IV ONE ×4 (09:31→12:15)
[2020-06-22] MEDS ORDERED: NALOXONE 0.4 MG/ML 1 ML VIAL IV PRN (11:00)
[2020-06-22] MEDS ORDERED: ONDANSETRON 4 MG/2 ML VIAL IVP PRN (11:00)
--- NOTE | 2020-06-22 11:00 | P.OP ---
Date of Procedure: 06/22/20 Preoperative Diagnosis: Panniculus Postoperative Diagnosis: Panniculus Procedure(s) Performed: Panniculectomy Anesthesia: LEONA Surgeon: Jaiden Tyler Estimated Blood Loss (ml): 50 Pathology: other (Skin for disposal) Condition: stable Disposition: PACU Description of Procedure: PROCEDURE: The patient was placed on the operating table in supine position and received general anesthetic. The abdomen was prepped and draped in the usual sterile fashion. The lower skin incision was then made after the skin was marked with a marker. The incision ran from the pubic area to the level of the anterosuperior iliac spine. Using blunt and sharp dissection and electrocautery the subcutaneous tissues were then dissected down to the level of the fascia external oblique. N. Following this the dissection was then made from the inferior pannicular incision cephalad. The xiphoid and costal margins were the limits of the dissection. Several small perforating vessels were ligated and cautery was used to maintain hemostasis. Once the dissection was performed the panniculus was then divided in the midline from the level of the umbilicus towards the pubic area. Downward and lateral traction was then placed on the abdominal wall and the skin was suitably marked for transection of the umbilicus. The skin was then incised and the Bovie was used for dissection of the pannicular flap. Next, 2 10-Citizen Of [place] ANUSHA drains were placed in the wound and brought out through separate stab incisions at the level of the pubic area. The drains were secured to the skin using 3-0 nylon. After the ANUSHA drains were secured, Fidencio's fascia was closed with interrupted 0 Vicryl sutures and then the skin was closed with running 3-0 Monocryl sutures. Prior to closure of the abdominal wall care was taken to ensure that both the abdominal wall and the abdominal wall flap were hemostatic. At this point the drains were placed to suction. The abdomen was cleaned and then sterile tape was placed over top of the incisions. Abdominal binder was then placed. The patient tolerated the procedure well. The patient was sent to recovery room in stable condition.
[2020-06-22] MEDS: HYDROmorphone 0.5 MG/0.5 ML SYRINGE IVP PRN ×6 (11:28→23:43)
[2020-06-22] MEDS: KETOROLAC 15 MG/ML 1 ML VIAL IVP SCH ×2 (14:01→20:18)
[2020-06-22] MEDS ORDERED: ALBUTEROL HFA INHALER INHALATION PRN (14:38)
[2020-06-22] MEDS ORDERED: MECLIZINE 25 MG TAB PO PRN (14:38)
[2020-06-22] MEDS ORDERED: traMADol 50 MG TAB PO PRN (14:38)
[2020-06-22] MEDS ORDERED: CYCLOBENZAPRINE 10 MG TAB PO PRN (14:38)
[2020-06-22] MEDS: ACETAMINOPHEN TAB 325 MG TAB PO SCH ×2 (14:49→20:21)
--- NOTE | 2020-06-22 17:59 | P.CONS ---
History of Present Illness - Reason for Consult Asthma - History of Present Illness Patient is a 50-year-old obese female is admitted for elective Panniculectomy. Patient has 2 ANUSHA drains denied any fever chills denied any shortness of breath does have history of asthma not wheezing at this time. Patient did not pass gas yet patient is still having lots of pain patient is presently on anti- inflammatory medications as well as opiates for pain. Review of Systems REVIEW OF SYSTEMS: CONSTITUTIONAL: No fever, no malaise, no fatigue. HEENT: No recent visual problems or hearing problems. Denied any sore throat. CARDIOVASCULAR: No chest pain, orthopnea, PND, no palpitations, no syncope. PULMONARY: No shortness of breath, no cough, no hemoptysis. GASTROINTESTINAL: Pain in the surgical site area NEUROLOGICAL: No headaches, no weakness, no numbness. HEMATOLOGICAL: Denies any bleeding or petechiae. GENITOURINARY: Denies any burning micturition, frequency, or urgency. MUSCULOSKELETAL/RHEUMATOLOGICAL: Denies any joint pain, swelling, or any muscle pain. ENDOCRINE: Denies any polyuria or polydipsia. The rest of the 14-point review of systems is negative. Past Medical History Past Medical History: Asthma, GERD/Reflux, Osteoarthritis (OA) Additional Past Medical History / Comment(s): , hx of migraine, HX STOMACH ULCERS, DDD, VERTIGO, right neck mass, lymph node rt cervical History of Any Multi-Drug Resistant Organisms: None Reported Past Surgical History: Adenoidectomy, Breast Surgery, Joint Replacement, Orthopedic Surgery, Tonsillectomy Additional Past Surgical History / Comment(s): LEFT KNEE ARTHROSCOPY, left knee replacement, LEFT FOOT SURGERY, SINUS SX-REMOVED POLYPS, COLONOSCOPY, EGD, BACK INJECTIONS, biopsy BILAT SIDES OF NECK, BILATERAL BREAST REDUCTION. surgery rt arm for fx 03/02/20, neck mass/lymph node removed Past Anesthesia/Blood Transfusion Reactions: Previous Problems w/ Anesthesia Additional Past Anesthesia/Blood Transfusion Reaction / Comm: "Woke up during a foot surgery, they gave her more medication and then she took a long time to wak e up after." Smoking Status: Former smoker - Past Family History Mother Family Medical History: Cancer Medications and Allergies Home Medications Medication Instructions Recorded Confirmed Type Escitalopram [Lexapro] 20 mg PO HS 04/16/18 06/20/20 History Meclizine [Antivert] 25 mg PO TID PRN 09/30/19 06/20/20 History tiZANidine HCL [Zanaflex] 4 mg PO BID 09/30/19 06/20/20 History traMADol HCl [Ultram] 50 - 100 mg PO Q6HR PRN 09/30/19 06/20/20 History Esomeprazole Magnesium [NexIUM] 40 mg PO BID 12/28/19 06/22/20 History Naproxen [Naprosyn] 500 mg PO BID PRN 12/28/19 06/20/20 History Cyclobenzaprine [Flexeril] 10 mg PO TID PRN 02/11/20 06/20/20 History Albuterol Sulfate [Proair Hfa] 1 - 2 puff INHALATION DIRECTED 04/03/20 06/22/20 History PRN Acetaminophen Tab [Tylenol] 650 mg PO Q6H #30 tab 05/08/20 06/20/20 Rx Ibuprofen [Motrin] 600 mg PO Q6HR PRN #40 tab 05/08/20 06/20/20 Rx Linaclotide [Linzess] 72 mcg PO DAILY PRN 06/20/20 06/20/20 History Allergies Allergy/AdvReac Type Severity Reaction Status Date / Time cobalt Allergy POSITIVE Verified 06/22/20 07:17 ON ALLERGY TEST nickel Allergy POSITIVE Verified 06/22/20 07:17 ON ALLERGY TEST oxycodone HCl [From Percocet] Allergy Rash/Hives Verified 06/22/20 07:17 peanut Allergy Wheezing Verified 06/22/20 07:17 pollen extracts Allergy Dyspnea Verified 06/22/20 07:17 shellfish derived [Lobster] Allergy POSITIVE Verified 06/22/20 07:17 ON ALLERGY TEST tree and shrub pollen Allergy Dyspnea Verified 06/22/20 07:17 DUST MITES Allergy Rash/Hives Uncoded 06/22/20 07:17 Physical Exam Vitals: Vital Signs Temp Pulse Resp BP Pulse Ox 06/22/20 14:05 100 16 107/80 93 L 06/22/20 13:50 108 H 16 95/86 94 L 06/22/20 13:35 105 H 16 113/68 93 L 06/22/20 13:20 97.9 F 108 H 14 108/55 90 L 04/01/21 12:37 104 H 16 119/90 97 06/22/20 12:22 102 H 15 120/67 98 06/22/20 12:07 99 14 103/73 98 06/22/20 11:52 88 16 120/66 96 06/22/20 11:37 83 16 133/69 99 06/22/20 11:22 82 16 138/68 99 06/22/20 11:07 79 16 119/63 98 06/22/20 10:52 96.9 F L 72 16 114/68 99 06/22/20 08:07 79 17 150/84 98 06/22/20 07:21 97 F L 96 17 145/74 98 Intake and Output 06/22/20 06/22/20 06/22/20 06:59 14:59 22:59 Intake Total 2100 Output Total 490 Balance 1610 Intake: IV 2100 Output: Drainage 40 #1 left 10 #2 right 30 Urine 350 Estimated Blood Loss 100 Other: Weight 92.4 kg PHYSICAL EXAMINATION: GENERAL: The patient is alert and oriented x3, not in any acute distress. Well developed, well nourished. HEENT: Pupils are round and equally reacting to light. EOMI. No scleral icterus. No conjunctival pallor. Normocephalic, atraumatic. No pharyngeal erythema. No thyromegaly. CARDIOVASCULAR: S1 and S2 present. No murmurs, rubs, or gallops. PULMONARY: Chest is clear to auscultation, no wheezing or crackles. ABDOMEN: Patient has an abdominal binder in place sluggish bowel sounds MUSCULOSKELETAL: No joint swelling or deformity. EXTREMITIES: No cyanosis, clubbing, or pedal edema. NEUROLOGICAL: Gross neurological examination did not reveal any focal deficits. SKIN: No rashes. Assessment and Plan Plan: -Panniculectomy: Postoperatively patient is still having significant pain which is being treated with nonsteroidal anti-inflammatory medicine opiates. Continue with IV fluids -Asthma without any acute exacerbation patient has mild intermittent asthma history -Gastroesophageal reflux disease -Depression -Chronic low back pain Above-mentioned chronic medical problems patient will be resumed on appropriate medications
[2020-06-22] MEDS: ESCITALOPRAM 20 MG TAB PO SCH (23:39)
[2020-06-22] MEDS: tiZANidine 4 MG TAB PO SCH (23:40)
[2020-06-22] MEDS: PANTOPRAZOLE 40 MG TABLET PO SCH (23:41)
[2020-06-23] MEDS: KETOROLAC 15 MG/ML 1 ML VIAL IVP SCH ×5 (00:16→23:52)
[2020-06-23] MEDS: ACETAMINOPHEN TAB 325 MG TAB PO SCH ×4 (02:33→20:19)
[2020-06-23] MEDS: LACTATED RINGERS 1,000 ML IV SCH ×2 (06:23→23:57)
[2020-06-23 06:34] LABS: Basophils % (A) 0 %; Eosinophils % (A) 0 %; HCT 30.4 % (34.0-46.0); HGB 9.9 gm/dL (11.4-16.0); Lymphocytes % (A) 26 %; MCH 29.3 pg (25.0-35.0); MCHC 32.6 g/dL (31.0-37.0); MCV 89.9 fL (80.0-100.0); Mean Platelet Volume 8.7; Monocytes # (A) 0.3 k/uL (0-1.0); Monocytes % (A) 4 %; Neutrophils # (A) 5.4 k/uL (1.3-7.7); Neutrophils % (A) 69 %; Platelet Count 229 k/uL (150-450); RBC 3.38 m/uL (3.80-5.40); RDW 13.9 % (11.5-15.5); WBC 7.8 k/uL (3.8-10.6)
[2020-06-23 06:36] LABS: African American GFR (CKD) >90 (>60 ml/min/1.73 sqM); Anion Gap 3 mmol/L; Blood Urea Nitrogen 12 mg/dL (7-17); Calcium 9.3 mg/dL (8.4-10.2); Carbon Dioxide 30 mmol/L (22-30); Chloride 104 mmol/L (98-107); Glucose 129 mg/dL (74-99); Non-African American GFR(CKD) >90 (>60 ml/min/1.73 sqM); Potassium 4.5 mmol/L (3.5-5.1); Sodium 137 mmol/L (137-145)
[2020-06-23] MEDS: HYDROmorphone 0.5 MG/0.5 ML SYRINGE IVP PRN (07:35)
[2020-06-23] MEDS: PANTOPRAZOLE 40 MG TABLET PO SCH ×2 (09:56→20:18)
[2020-06-23] MEDS: ENOXAPARIN 40 MG/0.4 ML SYRINGE SQ SCH (09:56)
[2020-06-23] MEDS: tiZANidine 4 MG TAB PO SCH ×2 (09:57→20:17)
[2020-06-23] MEDS: HYDROcodone/APAP 5-325MG 1 EACH TAB PO PRN ×2 (14:25→20:35)
--- NOTE | 2020-06-23 16:15 | P.PN ---
Progress Note - Text Progress Note Date: 06/23/20 Patient is resting in bed. She has complaints of incisional pain. Her Garcia catheter came out this morning. On exam vital signs are stable. Abdomen soft. Patient will stay overnight for pain control. We be discharged home tomorrow.
--- NOTE | 2020-06-23 16:16 | P.PN ---
Subjective Progress Note Date: 06/23/20 - Reason for Consult Asthma - History of Present Illness Patient is a 50-year-old obese female is admitted for elective Panniculectomy. Patient has 2 ANUSHA drains denied any fever chills denied any shortness of breath does have history of asthma not wheezing at this time. Patient did not pass gas yet patient is still having lots of pain patient is presently on anti- inflammatory medications as well as opiates for pain. 06/23/2020 Patient is seen and evaluated and follow-up and is being closely monitored. Following closely with surgery as patient recently underwent panniculectomy. Patient is tolerating diet with no reports of nausea or vomiting noted. Patient is passing gas although no reports of bowel movement at this time. Patient has been up and urinating with no reports of dysuria or retention. Review of systems: Constitutional: Reports fatigue, no reports of fever, or chills Cardiovascular: No reports of chest pain or palpitations Respiratory: No reports of shortness of breath or cough GI: No reports of nausea, vomiting, or diarrhea : No reports of dysuria or retention Neurovascular: No reports of weakness or numbness All medications have been reviewed Objective - Vital Signs Vital signs: Vital Signs Temp 97.8 F 06/23/20 08:03 Pulse 63 06/23/20 08:03 Resp 16 06/23/20 08:03 BP 99/58 06/23/20 08:03 Pulse Ox 98 06/23/20 08:03 Intake & Output 06/22/20 06/23/20 06/23/20 18:59 06:59 18:59 Intake Total 2100 240 Output Total 820 635 440 Balance 1280 -395 -440 Weight 92.4 kg Intake: IV 2100 Oral 240 Output: Drainage 70 60 40 #1 left 20 30 20 #2 right 50 30 20 Urine 650 575 400 Uretheral (Garcia) 400 Estimated Blood Loss 100 Other: Voiding Method Indwelling Catheter Indwelling Catheter - Exam GENERAL: The patient is alert and oriented x3, not in any acute distress. Well developed, well nourished. HEENT: Pupils are round and equally reacting to light. EOMI. No scleral icterus. No conjunctival pallor. Normocephalic, atraumatic. No pharyngeal erythema. No thyromegaly. CARDIOVASCULAR: S1 and S2 present. No murmurs, rubs, or gallops. PULMONARY: Chest is clear to auscultation, no wheezing or crackles. ABDOMEN: Patient has an abdominal binder in place, bowel sounds noted MUSCULOSKELETAL: No joint swelling or deformity. EXTREMITIES: No cyanosis, clubbing, or pedal edema. NEUROLOGICAL: Gross neurological examination did not reveal any focal deficits. SKIN: No rashes. - Labs CBC & Chem 7: 06/23/20 05:34 06/23/20 05:34 Labs: Abnormal Lab Results - Last 24 Hours (Table) 06/23/20 06/23/20 Range/Units 05:34 05:34 RBC 3.38 L (3.80-5.40) m/uL Hgb 9.9 L (11.4-16.0) gm/dL Hct 30.4 L (34.0-46.0) % Glucose 129 H (74-99) mg/dL Assessment and Plan Assessment: -Panniculectomy: Postoperatively patient continues to have abdominal discomfort and has been using Toradol and [place] for pain. -Asthma without any acute exacerbation patient has mild intermittent asthma history -Gastroesophageal reflux disease -Depression -Chronic low back pain Above-mentioned chronic medical problems patient will be resumed on appropriate medications Plan: Continue with current medications, and pain management per primary service. Instructed the patient to increase activity as tolerated. Patient is tolerating regular diet with no reports of nausea or vomiting noted. Will add incentive spirometer and instructed the patient to continue using at least 10 times every hour while awake. Will continue to follow along with surgery during hospitalization. Thank you for this consultation.
[2020-06-23 20:11] VITALS: RESP 16
[2020-06-23] MEDS: ESCITALOPRAM 20 MG TAB PO SCH (20:18)
[2020-06-24] MEDS: ACETAMINOPHEN TAB 325 MG TAB PO SCH ×3 (01:44→15:00)
[2020-06-24] MEDS: HYDROcodone/APAP 5-325MG 1 EACH TAB PO PRN ×3 (02:43→15:00)
[2020-06-24] MEDS: KETOROLAC 15 MG/ML 1 ML VIAL IVP SCH (05:53)
[2020-06-24] MEDS: tiZANidine 4 MG TAB PO SCH (08:36)
[2020-06-24] MEDS: PANTOPRAZOLE 40 MG TABLET PO SCH (08:36)
[2020-06-24] MEDS: ENOXAPARIN 40 MG/0.4 ML SYRINGE SQ SCH (08:36)
[2020-06-24] MEDS ORDERED: IBUPROFEN 600 MG TAB PO PRN (13:37)
--- NOTE | 2020-06-24 14:27 | P.DS ---
Providers Date of admission: 06/22/20 20:18 Expected date of discharge: 06/24/20 Attending physician: Jaiden Tyler Consults: 06/22/20 11:00 Consult Physician Routine Consulting Provider: Sammy Ivan Consult Reason/Comments: Medical management Do you want consulting provider notified?: Yes Primary care physician: [facility] Hospital Course: Gen. female underwent panniculectomy. Patient did well postop. She had some issues of postoperative pain. Please see hospital chart for details. Procedures: P panniculectomy Patient Condition at Discharge: Good Plan - Discharge Summary Discharge Rx Participant: Yes New Discharge Prescriptions: New Ibuprofen [Motrin] 600 mg PO Q6HR PRN #40 tab PRN Reason: Pain Docusate [Colace] 100 mg PO BID #20 capsule oxyCODONE HCL [OxyIR] 5 mg PO Q6H PRN 3 Days #10 tab PRN Reason: Pain Acetaminophen Tab [Tylenol] 650 mg PO Q6H #30 tab No Action Escitalopram [Lexapro] 20 mg PO HS traMADol HCl [Ultram] 50 - 100 mg PO Q6HR PRN PRN Reason: Pain Meclizine [Antivert] 25 mg PO TID PRN PRN Reason: DIZZINESS tiZANidine HCL [Zanaflex] 4 mg PO BID Naproxen [Naprosyn] 500 mg PO BID PRN PRN Reason: Pain Esomeprazole Magnesium [NexIUM] 40 mg PO BID Cyclobenzaprine [Flexeril] 10 mg PO TID PRN PRN Reason: Pain Albuterol Sulfate [Proair Hfa] 1 - 2 puff INHALATION DIRECTED PRN PRN Reason: sob Ibuprofen [Motrin] 600 mg PO Q6HR PRN #40 tab PRN Reason: Pain Acetaminophen Tab [Tylenol] 650 mg PO Q6H #30 tab Linaclotide [Linzess] 72 mcg PO DAILY PRN PRN Reason: Constipation Discharge Medication List Escitalopram [Lexapro] 20 mg PO HS 04/16/18 [History] Meclizine [Antivert] 25 mg PO TID PRN 09/30/19 [History] tiZANidine HCL [Zanaflex] 4 mg PO BID 09/30/19 [History] traMADol HCl [Ultram] 50 - 100 mg PO Q6HR PRN 09/30/19 [History] Esomeprazole Magnesium [NexIUM] 40 mg PO BID 12/28/19 [History] Naproxen [Naprosyn] 500 mg PO BID PRN 12/28/19 [History] Cyclobenzaprine [Flexeril] 10 mg PO TID PRN 02/11/20 [History] Albuterol Sulfate [Proair Hfa] 1 - 2 puff INHALATION DIRECTED PRN 04/03/20 [History] Acetaminophen Tab [Tylenol] 650 mg PO Q6H #30 tab 05/08/20 [Rx] Ibuprofen [Motrin] 600 mg PO Q6HR PRN #40 tab 05/08/20 [Rx] Linaclotide [Linzess] 72 mcg PO DAILY PRN 06/20/20 [History] Acetaminophen Tab [Tylenol] 650 mg PO Q6H #30 tab 06/24/20 [Rx] Docusate [Colace] 100 mg PO BID #20 capsule 06/24/20 [Rx] Ibuprofen [Motrin] 600 mg PO Q6HR PRN #40 tab 06/24/20 [Rx] oxyCODONE HCL [OxyIR] 5 mg PO Q6H PRN 3 Days #10 tab 06/24/20 [Rx] Follow up Appointment(s)/Referral(s): Jaiden Tyler MD [STAFF PHYSICIAN] - 1 Week Discharge Disposition: HOME SELF-CARE
[2020-06-24 14:30] VITALS: BP 104/64; PULSE 72; TEMP 98
--- NOTE | 2020-06-24 16:10 | P.PN ---
Subjective Patient is still having some pain in the surgical site area although doing much better compared to yesterday passing gas did not move her bowel yet patient is being discharged today. Objective - Vital Signs Vital signs: Vital Signs Temp 98.0 F 06/24/20 14:15 Pulse 72 06/24/20 14:15 Resp 16 06/24/20 14:15 BP 104/64 06/24/20 14:15 Pulse Ox 96 06/24/20 14:15 Intake & Output 06/23/20 06/24/20 06/24/20 18:59 06:59 18:59 Intake Total 240 520 Output Total 1385 1192 1690 Balance -3455 -672 -1690 Intake: Oral 240 520 Output: Drainage 85 92 50 #1 left 45 52 30 #2 right 40 40 20 Urine 1300 1100 1640 Uretheral (Garcia) 400 Other: Voiding Method Indwelling Catheter # Voids 1 1 1 - Exam GENERAL: The patient is alert and oriented x3, not in any acute distress. Well developed, well nourished. HEENT: Pupils are round and equally reacting to light. EOMI. No scleral icterus. No conjunctival pallor. Normocephalic, atraumatic. No pharyngeal erythema. No thyromegaly. CARDIOVASCULAR: S1 and S2 present. No murmurs, rubs, or gallops. PULMONARY: Chest is clear to auscultation, no wheezing or crackles. ABDOMEN: Patient has an abdominal binder in place, bowel sounds noted MUSCULOSKELETAL: No joint swelling or deformity. EXTREMITIES: No cyanosis, clubbing, or pedal edema. NEUROLOGICAL: Gross neurological examination did not reveal any focal deficits. SKIN: No rashes. - Labs CBC & Chem 7: 06/23/20 05:34 06/23/20 05:34 Assessment and Plan Plan: -Panniculectomy: Doing bit better patient is being discharged on [place] and morphine for pain -Asthma without any acute exacerbation patient has mild intermittent asthma history -Gastroesophageal reflux disease -Depression -Chronic low back pain Above-mentioned chronic medical problems patient will be resumed on appropriate medications
== END 2020-06-24 16:00 | disposition home or self-care (01) ==
LOC: OR 06:55 → 6PED 10:52 → OR 20:18 → 6PED 20:18
PROVIDERS: ADMIT Surgery; ATTEND Surgery
DX: E65 Localized adiposity (principal); E66.9 Obesity, unspecified; Z68.32 Body mass index [BMI] 32.0-32.9, adult; K21.9 Gastro-esophageal reflux disease without esophagitis; F32.9 Major depressive disorder, single episode, unspecified; G89.29 Other chronic pain; M54.5 Low back pain; J45.20 Mild intermittent asthma, uncomplicated; M19.90 Unspecified osteoarthritis, unspecified site; G43.909 Migraine, unspecified, not intractable, without status migrainosus; R42 Dizziness and giddiness; Z90.49 Acquired absence of other specified parts of digestive tract; R22.1 Localized swelling, mass and lump, neck; Z96.652 Presence of left artificial knee joint; Z87.11 Personal history of peptic ulcer disease; Z86.010 Personal history of colon polyps; Z87.891 Personal history of nicotine dependence; Z79.899 Other long term (current) drug therapy; Z79.1 Long term (current) use of non-steroidal anti-inflammatories (NSAID); Z79.891 Long term (current) use of opiate analgesic; Z88.5 Allergy status to narcotic agent; Z91.010 Allergy to peanuts; Z91.013 Allergy to seafood; Z91.048 Other nonmedicinal substance allergy status; Z80.9 Family history of malignant neoplasm, unspecified
CPT/HCPCS: 15830; 94640; 64999; 76942; 80048; 85025; G0378 ×2; J2250; J1644; J1100; J2710; J0690; J2405; J2001; J1650 ×2; J3010; J2795; J1885 ×3; J0330; J2704; J1170 ×2

== ENCOUNTER → 2021-02-08 | Outpatient (CLI) | payer MEDICAID | END | disposition home or self-care (01) | LOC: LABWHC1 10:57 | PROVIDERS: ATTEND Physician Assistant | DX: I49.9 Cardiac arrhythmia, unspecified (principal); R94.31 Abnormal electrocardiogram [ECG] [EKG] | CPT/HCPCS: 93005 ==

== ENCOUNTER → 2021-04-24 | Outpatient (CLI) | payer MEDICAID ==
[2021-04-24 17:43] LABS: Appearance,Urine Clear (Clear); Bacteria,Urine Rare /hpf; Bilirubin,Urine Negative (Negative); Blood,Urine Negative (Negative); Color,Urine Yellow; Glucose,Urine (UA) Negative (Negative); Hyaline Casts,Urine 26 /lpf (0-2); Ketones,Urine Negative (Negative); Leukocyte Esterase,Urine Trace (Negative); Mucus,Urine Occasional /hpf; Nitrite,Urine Negative (Negative); Protein,Urine Negative (Negative); RBC,Urine <1 /hpf (0-5); Specific Gravity,Urine 1.019 (1.001-1.035); Squamous Epithelial Cell,Urine 2 /hpf (0-4); Urobilinogen,Urine <2.0 mg/dL (<2.0); WBC,Urine 1 /hpf (0-5)
[2021-04-25 00:46] LABS: African American GFR (CKD) 86.1 (60.0-200.0); Albumin 4.3 g/dL (3.8-4.9); Albumin/Globulin Ratio 1.41 (1.60-3.17); Anion Gap 14.1 mmol/L (10.00-18.00); BUN/Creat Ratio 17.66 Ratio (12.00-20.00); Blood Urea Nitrogen 15.4 mg/dL (9.0-27.0); Calcium 9.5 mg/dL (8.7-10.3); Carbon Dioxide 24.2 mmol/L (20.0-27.5); Globulin 3.1 g/dL (1.6-3.3); Non-African American GFR(CKD) 74.3 (60.0-200.0); Potassium 4.2 mmol/L (3.5-5.5); T4, Free (Free Thyroxine) 0.89 ng/dL (0.800-1.800); Total Bilirubin 0.3 mg/dL (0.30-1.20); Total Protein 7.4 g/dL (6.2-8.2)
[2021-04-25 01:07] LABS: Basophils # (A) 0.06 X 10*3/uL (0.00-0.10); Basophils % (A) 0.6 %; Eosinophils # (A) 0.43 X 10*3/uL (0.04-0.35); Eosinophils % (A) 4.4 %; HCT 39.8 % (37.2-46.3); HGB 12.5 g/dL (12.0-15.0); Lymphocytes # (A) 4.44 X 10*3/uL (0.90-5.00); Lymphocytes % (A) 45.2 %; MCH 28.3 pg (27.0-32.0); MCHC 31.4 g/dL (32.0-37.0); MCV 90.2 fL (80.0-97.0); Mean Platelet Volume 12.2 fL (9.5-12.2); Monocytes # (A) 0.51 X 10*3/uL (0.20-1.00); Monocytes % (A) 5.2 %; Neutrophils # (A) 4.36 X 10*3/uL (1.80-7.70); Neutrophils % (A) 44.4 %; Platelet Count 264 X 10*3/uL (140-440); RBC 4.41 X 10*6/uL (4.10-5.20); RDW 13.6 % (11.5-14.5); WBC 9.82 X 10*3/uL (4.50-10.00)
== END | disposition home or self-care (01) ==
LOC: LABWHC1 16:30
PROVIDERS: ATTEND Family Medicine
DX: E66.9 Obesity, unspecified (principal)
CPT/HCPCS: 36415; 80053; 81001; 82306; 83036; 84439; 84443; 85025

== ENCOUNTER 2021-05-21 19:00 | Inpatient (IN) | payer MEDICAID ==
[2021-05-21] MEDS ORDERED: ONDANSETRON 4 MG/2 ML VIAL IVP STA (19:39)
[2021-05-21] MEDS ORDERED: HYDROmorphone 1 MG/ML 1 ML SYRINGE IVP STA ×2 (19:39→21:02)
[2021-05-21 20:06] LABS: Basophils # (A) 0.1 k/uL (0-0.2); Basophils % (A) 1 %; Eosinophils # (A) 0.3 k/uL (0-0.7); Eosinophils % (A) 2 %; HCT 42.8 % (34.0-46.0); HGB 13.8 gm/dL (11.4-16.0); Lymphocytes # (A) 6.2 k/uL (1.0-4.8); Lymphocytes % (A) 34 %; MCH 29.5 pg (25.0-35.0); MCHC 32.4 g/dL (31.0-37.0); MCV 91.1 fL (80.0-100.0); Mean Platelet Volume 8.8; Monocytes # (A) 0.5 k/uL (0-1.0); Monocytes % (A) 3 %; Neutrophils # (A) 10.6 k/uL (1.3-7.7); Neutrophils % (A) 59 %; Platelet Count 318 k/uL (150-450); RDW 14.3 % (11.5-15.5)
[2021-05-21 20:16] LABS: ALT 32 U/L (4-34); AST 30 U/L (14-36); African American GFR (CKD) >90 (>60 ml/min/1.73 sqM); Albumin 4.6 g/dL (3.5-5.0); Alkaline Phosphatase 105 U/L (38-126); Anion Gap 13 mmol/L; Blood Urea Nitrogen 12 mg/dL (7-17); Calcium 9.9 mg/dL (8.4-10.2); Carbon Dioxide 21 mmol/L (22-30); Chloride 105 mmol/L (98-107); Glucose 126 mg/dL (74-99); Non-African American GFR(CKD) 87 (>60 ml/min/1.73 sqM); Sodium 139 mmol/L (137-145); Total Bilirubin 0.7 mg/dL (0.2-1.3)
[2021-05-21 20:22] LABS: INR 0.9 (<1.2); Partial Thromboplastin Time 20.7 sec (22.0-30.0); Prothrombin Time 10.2 sec (9.0-12.0)
--- NOTE | 2021-05-21 20:54 | CT ---
EXAMINATION TYPE: CT angio thor/abd pel aorta DATE OF EXAM: 05/21/2021 COMPARISON: None HISTORY: bad pain r/o disection CT DLP: 2451.8 mGycm Automated exposure control for dose reduction was used. CONTRAST: Performed with IV Contrast, patient injected with 100 mL of Isovue 370. Images obtained from the thoracic inlet to the floor of the pelvis without and subsequently with IV c ontrast. There are 3-D post processed images. The lungs are clear of infiltrate. There is no evidence of a pulmonary mass. There is no pleural effu fawn. Heart size is normal. There is no pericardial effusion. There is no mediastinal adenopathy. The re are no hilar masses. Noncontrast images show no evidence of a renal calculus. There is normal contrast opacification of the pulmonary arteries. There are no filling defects. There is normal opacification of the thoracic aorta. There is no aneurysm or dissection. The ascending aor ta measures 3 cm. The liver spleen and stomach pancreas gallbladder appear normal. The bile ducts are not dilated. Ther e is no adrenal mass. Kidneys show satisfactory contrast opacification. There is no hydronephrosis. T here is no retroperitoneal adenopathy. Bladder distends smoothly. There is no inguinal hernia. Uterus is anteverted. There is no evidence of a pelvic mass. There is no free fluid in the pelvis. There is some distention of the appendix with fat stranding and fluid. Appendix measures up to 11 mm in diameter. There is normal contrast opacification of the abdominal aorta. There is arterial flow in the celiac a rtery and superior mesenteric artery and both renal arteries. There is arterial flow in the iliac and femoral arteries. No evidence of arterial aneurysm or dissection. No evidence of stenosis. No eviden ce of any significant plaque formation. There is no evidence of contrast extravasation. No evidence o f GI bleeding. The thoracic and lumbar vertebra appear intact. There is no significant compression deformity. The st ernum is intact. The bony pelvis is intact. Hip joints are intact. There is no hip dysplasia. IMPRESSION: Negative CT angiogram of the chest abdomen pelvis. No evidence of pulmonary embolism. No evidence of arterial aneurysm or dissection. Acute appendicitis with dilated fluid-filled appendix and surrounding edema.
[2021-05-21] MEDS ORDERED: PANTOPRAZOLE 40 MG/10 ML VIAL IVP STA (21:02)
[2021-05-21] MEDS ORDERED: NALOXONE 0.4 MG/ML 1 ML VIAL IV PRN (21:26)
[2021-05-21] MEDS ORDERED: ACETAMINOPHEN TAB 325 MG TAB PO PRN (21:26)
[2021-05-21] MEDS ORDERED: IBUPROFEN 400 MG TAB PO PRN (21:26)
--- NOTE | 2021-05-21 21:26 | ED ---
Abdominal Pain HPI - General Chief Complaint: Abdominal Pain Stated Complaint: Abdominal Pain Source: patient Mode of arrival: ambulatory - History of Present Illness Initial Comments: 56 year old female past history of peptic ulcer disease, asthma presents emergency department with epigastric pain. The pain radiates to the umbilical area and then straight through to the patient's back. Symptoms started around 4 PM. Denies any provocative factors. Has associated nausea without vomiting. No changes in her bowel or bladder habits. Denies any chest pain or shortness of breath. No other alleviating, precipitating or modifying factors - Related Data Home Medications Medication Instructions Recorded Confirmed Escitalopram [Lexapro] 20 mg PO DAILY 04/16/18 05/21/21 Meclizine [Antivert] 25 mg PO TID PRN 09/30/19 05/21/21 tiZANidine HCL [Zanaflex] 4 mg PO TID PRN 09/30/19 05/21/21 Esomeprazole Magnesium [NexIUM] 40 mg PO BID 12/28/19 05/21/21 Pregabalin [Lyrica] 75 mg PO BID 05/21/21 05/21/21 Verapamil HCl [Verapamil ER] 180 mg PO DAILY 05/21/21 05/21/21 Allergies Allergy/AdvReac Type Severity Reaction Status Date / Time cobalt Allergy POSITIVE Verified 05/21/21 20:59 ON ALLERGY TEST nickel Allergy POSITIVE Verified 05/21/21 20:59 ON ALLERGY TEST oxycodone HCl [From Percocet] Allergy Rash/Hives Verified 05/21/21 20:59 peanut Allergy Wheezing Verified 05/21/21 20:59 pollen extracts Allergy Dyspnea Verified 05/21/21 20:59 shellfish derived [Lobster] Allergy POSITIVE Verified 05/21/21 20:59 ON ALLERGY TEST tree and shrub pollen Allergy Dyspnea Verified 05/21/21 20:59 DUST MITES Allergy Rash/Hives Uncoded 05/21/21 19:19 Review of Systems ROS Statement: Those systems with pertinent positive or pertinent negative responses have been documented in the HPI. ROS Other: All systems not noted in ROS Statement are negative. Past Medical History Past Medical History: Asthma, GERD/Reflux, Osteoarthritis (OA) Additional Past Medical History / Comment(s): , hx of migraine, HX STOMACH ULCERS, DDD, VERTIGO, right neck mass, lymph node rt cervical History of Any Multi-Drug Resistant Organisms: None Reported Past Surgical History: Adenoidectomy, Breast Surgery, Joint Replacement, Orthopedic Surgery, Tonsillectomy Additional Past Surgical History / Comment(s): LEFT KNEE ARTHROSCOPY, left knee replacement, LEFT FOOT SURGERY, SINUS SX-REMOVED POLYPS, COLONOSCOPY, EGD, BACK INJECTIONS, biopsy BILAT SIDES OF NECK, BILATERAL BREAST REDUCTION. surgery rt arm for fx 03/02/20, neck mass/lymph node removed Past Anesthesia/Blood Transfusion Reactions: Previous Problems w/ Anesthesia Additional Past Anesthesia/Blood Transfusion Reaction / Comment(s): "Woke up during a foot surgery, they gave her more medication and then she took a long time to wake up after." Past Psychological History: Depression Smoking Status: Former smoker Past Alcohol Use History: None Reported Past Drug Use History: None Reported - Past Family History Mother Family Medical History: Cancer Course Vital Signs 05/21/21 05/21/21 05/21/21 19:14 20:30 21:30 Temperature 99 F Pulse Rate 100 80 85 Respiratory 19 16 16 Rate Blood Pressure 161/125 132/77 124/83 O2 Sat by Pulse 98 98 95 Oximetry Medical Decision Making - Medical Decision Making Upon arrival patient was placed into room 1. She does arrive in extremist, screaming in pain. IV is established and she is given a milligram of Dilaudid and informal grams of Zofran. Laboratory studies were conducted which demonstrated white count of 18. She is immediately taken over for a CT of her abdomen and pelvis without waiting for labs as there is concern for dissection. It demonstrates acute appendicitis with dilated fluid-filled appendix and surrounding edema. Upper ultrasound was performed as the patient does describe most of her pain as epigastric and demonstrates multiple large gallstones. I called and spoke with Dr. Tyler who agreed to admit the patient. Zosyn, pain medications and nausea medications ordered. - Lab Data Result diagrams: 05/21/21 19:45 05/21/21 19:45 Lab Results 05/21/21 05/21/21 05/21/21 Range/Units 19:45 19:45 19:45 WBC 18.0 H (3.8-10.6) k/uL RBC 4.70 (3.80-5.40) m/uL Hgb 13.8 (11.4-16.0) gm/dL Hct 42.8 (34.0-46.0) % MCV 91.1 (80.0-100.0) fL MCH 29.5 (25.0-35.0) pg MCHC 32.4 (31.0-37.0) g/dL RDW 14.3 (11.5-15.5) % Plt Count 318 (150-450) k/uL MPV 8.8 Neutrophils % 59 % Lymphocytes % 34 % Monocytes % 3 % Eosinophils % 2 % Basophils % 1 % Neutrophils # 10.6 H (1.3-7.7) k/uL Lymphocytes # 6.2 H (1.0-4.8) k/uL Monocytes # 0.5 (0-1.0) k/uL Eosinophils # 0.3 (0-0.7) k/uL Basophils # 0.1 (0-0.2) k/uL PT 10.2 (9.0-12.0) sec INR 0.9 (<1.2) APTT 20.7 L (22.0-30.0) sec D-Dimer 0.60 H (<0.60) mg/L FEU Sodium 139 (137-145) mmol/L Potassium 4.0 (3.5-5.1) mmol/L Chloride 105 (98-107) mmol/L Carbon Dioxide 21 L (22-30) mmol/L Anion Gap 13 mmol/L BUN 12 (7-17) mg/dL Creatinine 0.77 (0.52-1.04) mg/dL Est GFR (CKD-EPI)AfAm >90 (>60 ml/min/1.73 sqM) Est GFR (CKD-EPI)NonAf 87 (>60 ml/min/1.73 sqM) Glucose 126 H (74-99) mg/dL Calcium 9.9 (8.4-10.2) mg/dL Magnesium 2.0 (1.6-2.3) mg/dL Total Bilirubin 0.7 (0.2-1.3) mg/dL AST 30 (14-36) U/L ALT 32 (4-34) U/L Alkaline Phosphatase 105 (38-126) U/L Troponin I (0.000-0.034) ng/mL Total Protein 8.0 (6.3-8.2) g/dL Albumin 4.6 (3.5-5.0) g/dL 05/21/21 Range/Units 19:45 WBC (3.8-10.6) k/uL RBC (3.80-5.40) m/uL Hgb (11.4-16.0) gm/dL Hct (34.0-46.0) % MCV (80.0-100.0) fL MCH (25.0-35.0) pg MCHC (31.0-37.0) g/dL RDW (11.5-15.5) % Plt Count (150-450) k/uL MPV Neutrophils % % Lymphocytes % % Monocytes % % Eosinophils % % Basophils % % Neutrophils # (1.3-7.7) k/uL Lymphocytes # (1.0-4.8) k/uL Monocytes # (0-1.0) k/uL Eosinophils # (0-0.7) k/uL Basophils # (0-0.2) k/uL PT (9.0-12.0) sec INR (<1.2) APTT (22.0-30.0) sec D-Dimer (<0.60) mg/L FEU Sodium (137-145) mmol/L Potassium (3.5-5.1) mmol/L Chloride (98-107) mmol/L Carbon Dioxide (22-30) mmol/L Anion Gap mmol/L BUN (7-17) mg/dL Creatinine (0.52-1.04) mg/dL Est GFR (CKD-EPI)AfAm (>60 ml/min/1.73 sqM) Est GFR (CKD-EPI)NonAf (>60 ml/min/1.73 sqM) Glucose (74-99) mg/dL Calcium (8.4-10.2) mg/dL Magnesium (1.6-2.3) mg/dL Total Bilirubin (0.2-1.3) mg/dL AST (14-36) U/L ALT (4-34) U/L Alkaline Phosphatase (38-126) U/L Troponin I <0.012 (0.000-0.034) ng/mL Total Protein (6.3-8.2) g/dL Albumin (3.5-5.0) g/dL - EKG Data EKG Comments: EKG demonstrates sinus rhythm with a rate of 87.. Irritable 198. QRS 92. QTC 407. No acute ST segment elevations. Inverted T-wave in V1 through V6 Disposition Clinical Impression: Acute abdominal pain, Acute appendicitis, Leukocytosis Disposition: ADMITTED IP TO THIS HOSP Condition: Stable Is patient prescribed a controlled substance at d/c from ED?: No Decision to Admit Reason: Admit from EC Decision Date: 05/21/21 Decision Time: 21:26
--- NOTE | 2021-05-21 21:47 | US ---
EXAMINATION TYPE: US gallbladder DATE OF EXAM: 05/21/2021 COMPARISON: CT today CLINICAL HISTORY: epigastric pain. Epigastric pain; RLQ pain. CT today shows appendicitis. EXAM MEASUREMENTS: Liver Length: 18.6 cm Gallbladder Wall: 0.17 cm CBD: 0.49 cm Right Kidney: 10.6 x 3.8 x 5.2 cm Pancreas: Tail obscured by overlying bowel gas Liver: Increased echogenicity; hepatomegaly. Possible focal fatty sparing adjacent to gallbladder se en in images 27-30. Gallbladder: Echogenic foci seen with posterior shadowing Evidence for sonographic Salomon's sign: No CBD: Appears wnl Right Kidney: Echogenic focus with twinkle artifact seen inferior pole measuring 0.38 cm. IMPRESSION: There are multiple large gallstones. No evidence of pancreatic mass. There is a 4 mm echogenic area l ower pole of the right kidney that could be a small lipoma. No dilated ducts.
[2021-05-21] MEDS: SODIUM CHLORIDE 0.9% 1,000 ML IV SCH (21:58)
[2021-05-21] MEDS: PIPERACILLIN-TAZOBACTAM 3.375 GM in SODIUM CHLORIDE 0.9% 100 ML IVPB SCH (22:30)
[2021-05-22] MEDS: HYDROmorphone 1 MG/ML 1 ML SYRINGE IVP PRN ×6 (00:03→21:50)
[2021-05-22] MEDS: ONDANSETRON 4 MG/2 ML VIAL IVP PRN (03:45)
[2021-05-22] MEDS: SODIUM CHLORIDE 0.9% 1,000 ML IV SCH ×3 (03:47→20:15)
[2021-05-22] MEDS: PIPERACILLIN-TAZOBACTAM 3.375 GM in SODIUM CHLORIDE 0.9% 100 ML IVPB SCH ×3 (05:33→21:45)
[2021-05-22] MEDS: PANTOPRAZOLE 40 MG TABLET PO SCH ×2 (07:53→20:14)
[2021-05-22] MEDS: PREGABALIN 75 MG CAP PO SCH ×2 (07:54→20:14)
[2021-05-22] MEDS: VERAPAMIL SR 180 MG TABLET.ER PO SCH (07:54)
[2021-05-22] MEDS: ESCITALOPRAM 20 MG TAB PO SCH (07:54)
[2021-05-22 08:00] LABS: Basophils # (A) 0.1 k/uL (0-0.2); Basophils % (A) 0 %; Eosinophils % (A) 0 %; HCT 38.4 % (34.0-46.0); HGB 12.5 gm/dL (11.4-16.0); Lymphocytes % (A) 13 %; MCH 29.7 pg (25.0-35.0); MCHC 32.5 g/dL (31.0-37.0); MCV 91.3 fL (80.0-100.0); Mean Platelet Volume 8.8; Monocytes # (A) 0.5 k/uL (0-1.0); Monocytes % (A) 3 %; Neutrophils # (A) 12.2 k/uL (1.3-7.7); Neutrophils % (A) 82 %; Platelet Count 246 k/uL (150-450); RBC 4.21 m/uL (3.80-5.40); WBC 14.8 k/uL (3.8-10.6)
[2021-05-22 08:34] LABS: African American GFR (CKD) >90 (>60 ml/min/1.73 sqM); Anion Gap 7 mmol/L; Blood Urea Nitrogen 11 mg/dL (7-17); Carbon Dioxide 24 mmol/L (22-30); Chloride 108 mmol/L (98-107); Glucose 135 mg/dL (74-99); Non-African American GFR(CKD) >90 (>60 ml/min/1.73 sqM); Potassium 4.3 mmol/L (3.5-5.1); Sodium 139 mmol/L (137-145)
[2021-05-22] MEDS ORDERED: tiZANidine 4 MG TAB PO PRN (09:00)
--- NOTE | 2021-05-22 09:46 | P.GSHP ---
<Shayna Azevedo - Last Filed: 05/22/21 09:41> History of Present Illness H&P Date: 05/22/21 CHIEF COMPLAINT: Abdominal pain HISTORY OF PRESENT ILLNESS: This is a 56-year-old female who presented to the hospital with complaints of epigastric abdominal pain right sided abdominal pain and right lower quadrant abdominal pain. She reports the pain started yesterday evening around 4:00. Patient reports the pain came on suddenly and was very sharp. She does have a history of peptic ulcer disease. Last EGD was 5 years ago. Past surgical history includes panic colectomy. Denies any cardiac history. Denies any bone changes. She has been having hot and cold sweats with nausea and vomiting. CTA of the chest was negative for PE and aortic dissection as well as aneurysm. Did reveal evidence of acute appendicitis. Ultrasound of the gallbladder has shown multiple large gallstones. PAST MEDICAL HISTORY: Peptic ulcer disease, asthma, GERD, arthritis PAST SURGICAL HISTORY: Panniculectomy MEDICATIONS: See list. ALLERGIES: See list. SOCIAL HISTORY: No illicit drug use. REVIEW OF SYSTEMS: CONSTITUTIONAL: Denies fever or chills. HEENT: Denies blurred vision, vision changes, or eye pain. Denies hemoptysis CARDIOVASCULAR: Denies chest pain or pressure. RESPIRATORY: No shortness of breath. GASTROINTESTINAL: See HPI for pertinent findings HEMATOLOGIC: Denies bleeding disorders. GENITOURINARY: Denies any blood in urine or increased urinary frequency. SKIN: Denies pruitis. Denies rash. PHYSICAL EXAM: VITAL SIGNS: Reviewed GENERAL: Well-developed in no acute distress. HEENT: No sclera icterus. Extraocular movements grossly intact. Moist buccal mucosa. Head is atraumatic, normocephalic. No nasal drainage. ABDOMEN: Soft. Obese. Nondistended. Tenderness with palpation of the epigastric area and extreme tenderness to palpation of the right lower quadrant with guarding. NEUROLOGIC: Alert and oriented. Cranial nerves II through XII grossly intact. LABORATORY DATA: WBC 18 down to 14.8 hemoglobin 12.5 platelets 246 Sodium 139 potassium 4.3 creatinine 0.70 LFTs normal IMAGING: CTA of the chest negative for pulmonary embolism and no evidence of a chill aneurysm or dissection. Acute appendicitis with dilated fluid filled appendix and surrounding edema Gallbladder ultrasound there are multiple large gallstones. No evidence of pancreatic mass. There is a 4 mm echogenic area lower pole of the right kidney that could be a small lipoma. No dilated ducts. ASSESSMENT: 1. Acute appendicitis 2. Cholelithiasis noted on ultrasound PLAN: -Patient scheduled for laparoscopic appendectomy today with Dr. vegas -Patient nothing by mouth -Continue antibiotics -Continue IV fluids -Continue pain medication and antiemetics as needed Physician [place] note has been reviewed by physician. Signing provider agrees with the documented findings, assessment, and plan of care. Past Medical History Past Medical History: Asthma, GERD/Reflux, Osteoarthritis (OA) Additional Past Medical History / Comment(s): , hx of migraine, HX STOMACH ULCERS, DDD, VERTIGO, right neck mass, lymph node rt cervical History of Any Multi-Drug Resistant Organisms: None Reported Past Surgical History: Adenoidectomy, Breast Surgery, Joint Replacement, Orthopedic Surgery, Tonsillectomy Additional Past Surgical History / Comment(s): LEFT KNEE ARTHROSCOPY, left knee replacement, LEFT FOOT SURGERY, SINUS SX-REMOVED POLYPS, COLONOSCOPY, EGD, BACK INJECTIONS, biopsy BILAT SIDES OF NECK, BILATERAL BREAST REDUCTION. surgery rt arm for fx 03/02/20, neck mass/lymph node removed Past Anesthesia/Blood Transfusion Reactions: Previous Problems w/ Anesthesia Additional Past Anesthesia/Blood Transfusion Reaction / Comment(s): "Woke up during a foot surgery, they gave her more medication and then she took a long time to wake up after." Past Psychological History: Depression Smoking Status: Former smoker Past Alcohol Use History: None Reported Past Drug Use History: None Reported - Past Family History Mother Family Medical History: Cancer Medications and Allergies Home Medications Medication Instructions Recorded Confirmed Type Escitalopram [Lexapro] 20 mg PO DAILY 04/16/18 05/21/21 History Meclizine [Antivert] 25 mg PO TID PRN 09/30/19 05/21/21 History tiZANidine HCL [Zanaflex] 4 mg PO TID PRN 09/30/19 05/21/21 History Esomeprazole Magnesium [NexIUM] 40 mg PO BID 12/28/19 05/21/21 History Pregabalin [Lyrica] 75 mg PO BID 05/21/21 05/21/21 History Verapamil HCl [Verapamil ER] 180 mg PO DAILY 05/21/21 05/21/21 History Allergies Allergy/AdvReac Type Severity Reaction Status Date / Time cobalt Allergy POSITIVE Verified 05/22/21 10:27 ON ALLERGY TEST nickel Allergy POSITIVE Verified 05/22/21 10:27 ON ALLERGY TEST oxycodone HCl [From Percocet] Allergy Rash/Hives Verified 05/22/21 10:27 peanut Allergy Wheezing Verified 05/22/21 10:27 pollen extracts Allergy Dyspnea Verified 05/22/21 10:27 shellfish derived [Lobster] Allergy POSITIVE Verified 05/22/21 10:27 ON ALLERGY TEST tree and shrub pollen Allergy Dyspnea Verified 05/22/21 10:27 DUST MITES Allergy Rash/Hives Uncoded 05/22/21 10:27 Surgical - Exam Vital Signs Temp Pulse Resp BP Pulse Ox 99 F 100 19 161/125 98 05/21/21 19:14 05/21/21 19:14 05/21/21 19:14 05/21/21 19:14 05/21/21 19:14 Results - Labs 05/22/21 07:30 05/22/21 07:30 Abnormal Lab Results - Last 24 Hours (Table) 05/21/21 05/21/21 05/21/21 Range/Units 19:45 19:45 19:45 WBC 18.0 H (3.8-10.6) k/uL Neutrophils # 10.6 H (1.3-7.7) k/uL Lymphocytes # 6.2 H (1.0-4.8) k/uL APTT 20.7 L (22.0-30.0) sec D-Dimer 0.60 H (<0.60) mg/L FEU Chloride (98-107) mmol/L Carbon Dioxide 21 L (22-30) mmol/L Glucose 126 H (74-99) mg/dL 05/22/21 05/22/21 Range/Units 07:30 07:30 WBC 14.8 H (3.8-10.6) k/uL Neutrophils # 12.2 H (1.3-7.7) k/uL Lymphocytes # (1.0-4.8) k/uL APTT (22.0-30.0) sec D-Dimer (<0.60) mg/L FEU Chloride 108 H (98-107) mmol/L Carbon Dioxide (22-30) mmol/L Glucose 135 H (74-99) mg/dL Diabetes panel 05/21/21 05/22/21 Range/Units 19:45 07:30 Sodium 139 139 (137-145) mmol/L Potassium 4.0 4.3 (3.5-5.1) mmol/L Chloride 105 108 H (98-107) mmol/L Carbon Dioxide 21 L 24 (22-30) mmol/L BUN 12 11 (7-17) mg/dL Creatinine 0.77 0.70 (0.52-1.04) mg/dL Glucose 126 H 135 H (74-99) mg/dL Calcium 9.9 9.0 (8.4-10.2) mg/dL AST 30 (14-36) U/L ALT 32 (4-34) U/L Alkaline Phosphatase 105 (38-126) U/L Total Protein 8.0 (6.3-8.2) g/dL Albumin 4.6 (3.5-5.0) g/dL Calcium panel 05/21/21 05/22/21 Range/Units 19:45 07:30 Calcium 9.9 9.0 (8.4-10.2) mg/dL Albumin 4.6 (3.5-5.0) g/dL Pituitary panel 05/21/21 05/22/21 Range/Units 19:45 07:30 Sodium 139 139 (137-145) mmol/L Potassium 4.0 4.3 (3.5-5.1) mmol/L Chloride 105 108 H (98-107) mmol/L Carbon Dioxide 21 L 24 (22-30) mmol/L BUN 12 11 (7-17) mg/dL Creatinine 0.77 0.70 (0.52-1.04) mg/dL Glucose 126 H 135 H (74-99) mg/dL Calcium 9.9 9.0 (8.4-10.2) mg/dL Adrenal panel 05/21/21 05/22/21 Range/Units 19:45 07:30 Sodium 139 139 (137-145) mmol/L Potassium 4.0 4.3 (3.5-5.1) mmol/L Chloride 105 108 H (98-107) mmol/L Carbon Dioxide 21 L 24 (22-30) mmol/L BUN 12 11 (7-17) mg/dL Creatinine 0.77 0.70 (0.52-1.04) mg/dL Glucose 126 H 135 H (74-99) mg/dL Calcium 9.9 9.0 (8.4-10.2) mg/dL Total Bilirubin 0.7 (0.2-1.3) mg/dL AST 30 (14-36) U/L ALT 32 (4-34) U/L Alkaline Phosphatase 105 (38-126) U/L Total Protein 8.0 (6.3-8.2) g/dL Albumin 4.6 (3.5-5.0) g/dL <Jaiden Vegas - Last Filed: 05/22/21 11:54> Surgical - Exam Vital Signs Temp Pulse Resp BP Pulse Ox 99 F 100 19 161/125 98 05/21/21 19:14 05/21/21 19:14 05/21/21 19:14 05/21/21 19:14 05/21/21 19:14 Results - Labs 05/22/21 07:30 05/22/21 07:30 Abnormal Lab Results - Last 24 Hours (Table) 05/21/21 05/21/21 05/21/21 Range/Units 19:45 19:45 19:45 WBC 18.0 H (3.8-10.6) k/uL Neutrophils # 10.6 H (1.3-7.7) k/uL Lymphocytes # 6.2 H (1.0-4.8) k/uL APTT 20.7 L (22.0-30.0) sec D-Dimer 0.60 H (<0.60) mg/L FEU Chloride (98-107) mmol/L Carbon Dioxide 21 L (22-30) mmol/L Glucose 126 H (74-99) mg/dL 05/22/21 05/22/21 Range/Units 07:30 07:30 WBC 14.8 H (3.8-10.6) k/uL Neutrophils # 12.2 H (1.3-7.7) k/uL Lymphocytes # (1.0-4.8) k/uL APTT (22.0-30.0) sec D-Dimer (<0.60) mg/L FEU Chloride 108 H (98-107) mmol/L Carbon Dioxide (22-30) mmol/L Glucose 135 H (74-99) mg/dL Diabetes panel 05/21/21 05/22/21 Range/Units 19:45 07:30 Sodium 139 139 (137-145) mmol/L Potassium 4.0 4.3 (3.5-5.1) mmol/L Chloride 105 108 H (98-107) mmol/L Carbon Dioxide 21 L 24 (22-30) mmol/L BUN 12 11 (7-17) mg/dL Creatinine 0.77 0.70 (0.52-1.04) mg/dL Glucose 126 H 135 H (74-99) mg/dL Calcium 9.9 9.0 (8.4-10.2) mg/dL AST 30 (14-36) U/L ALT 32 (4-34) U/L Alkaline Phosphatase 105 (38-126) U/L Total Protein 8.0 (6.3-8.2) g/dL Albumin 4.6 (3.5-5.0) g/dL Calcium panel 05/21/21 05/22/21 Range/Units 19:45 07:30 Calcium 9.9 9.0 (8.4-10.2) mg/dL Albumin 4.6 (3.5-5.0) g/dL Pituitary panel 05/21/21 05/22/21 Range/Units 19:45 07:30 Sodium 139 139 (137-145) mmol/L Potassium 4.0 4.3 (3.5-5.1) mmol/L Chloride 105 108 H (98-107) mmol/L Carbon Dioxide 21 L 24 (22-30) mmol/L BUN 12 11 (7-17) mg/dL Creatinine 0.77 0.70 (0.52-1.04) mg/dL Glucose 126 H 135 H (74-99) mg/dL Calcium 9.9 9.0 (8.4-10.2) mg/dL Adrenal panel 05/21/21 05/22/21 Range/Units 19:45 07:30 Sodium 139 139 (137-145) mmol/L Potassium 4.0 4.3 (3.5-5.1) mmol/L Chloride 105 108 H (98-107) mmol/L Carbon Dioxide 21 L 24 (22-30) mmol/L BUN 12 11 (7-17) mg/dL Creatinine 0.77 0.70 (0.52-1.04) mg/dL Glucose 126 H 135 H (74-99) mg/dL Calcium 9.9 9.0 (8.4-10.2) mg/dL Total Bilirubin 0.7 (0.2-1.3) mg/dL AST 30 (14-36) U/L ALT 32 (4-34) U/L Alkaline Phosphatase 105 (38-126) U/L Total Protein 8.0 (6.3-8.2) g/dL Albumin 4.6 (3.5-5.0) g/dL Assessment and Plan Plan: the patient the patient is exquisitely tender right lower quadrant. She has peritoneal signs are quadrant. Patient has acute appendicitis. She'll undergo laparoscopic appendectomy.
[2021-05-22] MEDS ORDERED: IV FLUID CONTINUATION 150 ML IV ONE (10:10)
[2021-05-22] MEDS ORDERED: DEXAMETHASONE SOD PHOSPHATE 4 MG/ML 1 ML VIAL IV ONE (11:10)
[2021-05-22] MEDS ORDERED: ONDANSETRON 4 MG/2 ML VIAL IVP ONE (11:11)
[2021-05-22] MEDS ORDERED: SUGAMMADEX SODIUM 500 MG/5 ML SDV IV ONE (12:15)
[2021-05-22] MEDS ORDERED: LIDOCAINE 1% INJ 10MG/ML (20 ML MDV) ONE (12:15)
[2021-05-22] MEDS ORDERED: PROPOFOL 10 MG/ML 20 ML VIAL IV ONE (12:15)
[2021-05-22] MEDS ORDERED: HYDROmorphone (PF) 1 MG/ML ONE (12:15)
[2021-05-22] MEDS ORDERED: MIDAZOLAM 2 MG/2 ML VIAL ONE (12:15)
[2021-05-22] MEDS ORDERED: fentaNYL (PF) 50 MCG/ML 2 ML AMP ONE (12:15)
[2021-05-22] MEDS ORDERED: SUCCINYLCHOLINE CHLORIDE 100 MG/5 ML SYR IV ONE (12:15)
[2021-05-22] MEDS ORDERED: ROCURONIUM 10 MG/ML (5 ML VIAL) IV ONE (12:15)
[2021-05-22] MEDS ORDERED: SODIUM CHLORIDE 0.9% 50 ML with ceFAZolin 2,000 MG IV ONE ×2 (12:30)
[2021-05-22] MEDS ORDERED: LACTATED RINGERS 1,000 ML IV ONE (12:30)
[2021-05-22] MEDS ORDERED: BUPIVACAIN-EPI 0.25%-1:200,000 30 ML VIAL SQ ONE (12:46)
--- NOTE | 2021-05-22 12:56 | P.OP ---
Date of Procedure: 05/22/21 Preoperative Diagnosis: Acute appendicitis Postoperative Diagnosis: Acute appendicitis Procedure(s) Performed: Laparoscopic appendectomy Anesthesia: LEONA Surgeon: Jaiden Tyler Estimated Blood Loss (ml): 5 Pathology: other (Appendix) Condition: stable Disposition: PACU Description of Procedure: HarThe patient's placed on the operating table in the supine position. The patient received general anesthesia. The abdomen was prepped and draped in the usual sterile fashion. The skin was anesthetized 1% local Xylocaine at the trocar sites. Using an 11 blade the skin was incised at the umbilicus. The umbilicus was grasped with a [place] clamp and then a Veress needle was placed into the peritoneal cavity. Position of the Veress needle was confirmed with positive drop test. After adequate insufflation a 5 mm trocar was placed into the peritoneal cavity. The abdomen was further insufflated. And then the laparoscope was placed in the peritoneal cavity. Next a 5 mm trocar was placed in the midline suprapubic position. And then a 10 mm trocar was placed in the midline epigastric position. The patient was rotated with the right side up and in Trendelenburg. The appendix was visualized. The appendix appeared to be inflamed. The appendix was grasped and then using the Harmonic scissors the mesoappendix was divided. A PDS Endoloop was then placed around the base of the appendix. And then the appendix was divided using Harmonic scissors. The appendix was placed into an Endo Catch and brought out through the 10 mm trocar site. The abdomen was irrigated. There is no bleeding seen. The trochars withdrawn. The skin was closed interrupted 3-0 Monocryl suture. Dermabond dressing was applied. Patient was sent to recovery room in stable condition.
--- NOTE | 2021-05-22 23:36 | P.CONS ---
History of Present Illness - Reason for Consult Consult date: 05/22/21 Medical management Requesting physician: Jaiden Tyler - Chief Complaint Abdominal pain - History of Present Illness This is a 56-year-old patient who follows with Dr. Alvarez. Chronic stable medical conditions include asthma, GERD, prostatitis, peptic ulcer disease. History patient started having abdominal pain which started initially the upper abdomen that went down to the right lower quadrant. Patient did complain of chills. Had some vomiting after she arrived to the hospital. Pain remains significant. After that Eliceo did show multiple gallstones. Earlier today patient is taken to the OR patient underwent appendectomy. Per the patient gallstones will be dealt at the later date. Diet has been advanced. Has some abdominal pain. No change in bowel pattern. Review of systems: GEN.: Tired EYES: None HEENT: None NECK: None RESPIRATORY: None CARDIOVASCULAR: None GASTROINTESTINAL: As above GENITOURINARY: None MUSCULOSKELETAL: None LYMPHATICS: None HEMATOLOGICAL: None PSYCHIATRY: None NEUROLOGICAL: None Past medical history to include: Asthma, GERD, osteoarthritis, stomach ulcer, vertigo, right neck mass, Social history: . Alcohol occasionally. Still smoking over 10 years ago. Was a very light smoker. Family history: Cancer Physical examination: VITAL SIGNS: 98.8, 77, 16, 123/77, 96% room air GENERAL: BMI 35.5, laying but awake, but tired. EYES: Pupils equal. Conjunctiva normal. HEENT: External appearance of nose and ears normal, oral cavity grossly normal. NECK: JVD not raised; masses not palpable. HEART: First and second heart sounds are normal; no edema. LUNGS: Respiratory rate normal; clear to auscultation. ABDOMEN: Soft, upper abdominal tenderness, no guarding rigidity, liver spleen not palpable, no masses palpable. PSYCH: Alert and oriented x3; mood and affect normal. MUSCULOSKELETAL:No Clubbing/cyanosis;muscles-grossly intact NEUROLOGICAL: Cranial nerves grossly intact; no facial asymmetry, power and sensation grossly intact. LYMPHATICS: No lymph nodes palpable in the axilla and neck INVESTIGATIONS, reviewed in the clinical context: May 22: White count 14.8 hemoglobin 12.5 platelets 246 potassium 4.3 creatinine 0.7 Admission labs: White count 18 Computed tomography scan abdomen: Acute appendicitis with dilated fluid-filled appendix and surrounding edema. EKG tracing personally reviewed by me-normal sinus rhythm. Nonspecific T-wave changes. Abdominal ultrasound: Multiple large gallstones. No dilated ducts. Assessment and plan: -Acute appendicitis with possible phlegmon Status post appendectomy -Obesity BMI 35.5 -Essential hypertension Verapamil ER 180 mg a day -Asymptomatic large multiple gallstones -GERD Nexium 40 mg twice a day -Depression Lexapro 20 mg a day Patient status post appendectomy. Home medications resumed. IV Zosyn. IV fluids. Patient been advanced to regular diet by surgery. Care was discussed with the patient. Questions answered. Lovenox for DVT prophylaxis Thank you Dr. Tyler Past Medical History Past Medical History: Asthma, GERD/Reflux, Osteoarthritis (OA) Additional Past Medical History / Comment(s): , hx of migraine, HX STOMACH ULCERS, DDD, VERTIGO, right neck mass, lymph node rt cervical History of Any Multi-Drug Resistant Organisms: None Reported Past Surgical History: Adenoidectomy, Breast Surgery, Joint Replacement, Orthopedic Surgery, Tonsillectomy Additional Past Surgical History / Comment(s): LEFT KNEE ARTHROSCOPY, left knee replacement, LEFT FOOT SURGERY, SINUS SX-REMOVED POLYPS, COLONOSCOPY, EGD, BACK INJECTIONS, biopsy BILAT SIDES OF NECK, BILATERAL BREAST REDUCTION. surgery rt arm for fx 03/02/20, neck mass/lymph node removed Past Anesthesia/Blood Transfusion Reactions: Previous Problems w/ Anesthesia Additional Past Anesthesia/Blood Transfusion Reaction / Comm: "Woke up during a foot surgery, they gave her more medication and then she took a long time to wake up after." Past Psychological History: Depression Smoking Status: Former smoker Past Alcohol Use History: None Reported Past Drug Use History: None Reported - Past Family History Mother Family Medical History: Cancer Medications and Allergies Home Medications Medication Instructions Recorded Confirmed Type Escitalopram [Lexapro] 20 mg PO DAILY 04/16/18 05/21/21 History Meclizine [Antivert] 25 mg PO TID PRN 09/30/19 05/21/21 History tiZANidine HCL [Zanaflex] 4 mg PO TID PRN 09/30/19 05/21/21 History Esomeprazole Magnesium [NexIUM] 40 mg PO BID 12/28/19 05/21/21 History Pregabalin [Lyrica] 75 mg PO BID 05/21/21 05/21/21 History Verapamil HCl [Verapamil ER] 180 mg PO DAILY 05/21/21 05/21/21 History Allergies Allergy/AdvReac Type Severity Reaction Status Date / Time cobalt Allergy POSITIVE Verified 05/22/21 10:27 ON ALLERGY TEST nickel Allergy POSITIVE Verified 05/22/21 10:27 ON ALLERGY TEST oxycodone HCl [From Percocet] Allergy Rash/Hives Verified 05/22/21 10:27 peanut Allergy Wheezing Verified 05/22/21 10:27 pollen extracts Allergy Dyspnea Verified 05/22/21 10:27 shellfish derived [Lobster] Allergy POSITIVE Verified 05/22/21 10:27 ON ALLERGY TEST tree and shrub pollen Allergy Dyspnea Verified 05/22/21 10:27 DUST MITES Allergy Rash/Hives Uncoded 05/22/21 10:27 Physical Exam Vitals: Vital Signs Temp Pulse Pulse Resp BP BP Pulse Ox 05/22/21 19:38 98.8 F 77 16 123/77 96 05/22/21 16:15 76 18 121/79 95 05/22/21 15:45 79 18 127/79 79 L 05/22/21 15:15 79 18 128/82 79 L 05/22/21 15:05 76 18 124/78 91 L 05/22/21 14:45 83 18 104/71 90 L 05/22/21 14:30 83 18 123/81 85 L 05/22/21 14:15 98 F 79 18 121/78 92 L 05/22/21 14:00 76 18 95/54 94 L 05/22/21 13:46 79 18 101/55 92 L 05/22/21 13:32 81 18 110/54 92 L 05/22/21 13:17 79 16 102/60 95 05/22/21 13:09 97.9 F 82 16 100/64 98 05/22/21 10:11 97.4 F L 78 18 143/86 95 05/22/21 07:00 98.2 F 99 18 115/78 94 L 05/22/21 01:19 98.2 F 106 H 18 128/86 96 Intake and Output 05/22/21 05/22/21 05/23/21 14:59 22:59 06:59 Intake Total 1150 Output Total 5 Balance 1145 Intake: IV 1150 Output: Estimated Blood Loss 5 Other: # Voids 1 1 Results CBC & Chem 7: 05/22/21 07:30 05/22/21 07:30 Labs: Abnormal Lab Results - Last 24 Hours (Table) 05/22/21 05/22/21 Range/Units 07:30 07:30 WBC 14.8 H (3.8-10.6) k/uL Neutrophils # 12.2 H (1.3-7.7) k/uL Chloride 108 H (98-107) mmol/L Glucose 135 H (74-99) mg/dL
[2021-05-23] MEDS: HYDROmorphone 1 MG/ML 1 ML SYRINGE IVP PRN ×3 (01:43→15:02)
[2021-05-23] MEDS: PIPERACILLIN-TAZOBACTAM 3.375 GM in SODIUM CHLORIDE 0.9% 100 ML IVPB SCH ×3 (05:53→22:01)
[2021-05-23] MEDS: SODIUM CHLORIDE 0.9% 1,000 ML IV SCH ×3 (05:54→20:30)
[2021-05-23] MEDS: PANTOPRAZOLE 40 MG TABLET PO SCH ×2 (09:12→20:30)
[2021-05-23] MEDS: VERAPAMIL SR 180 MG TABLET.ER PO SCH (09:12)
[2021-05-23] MEDS: ESCITALOPRAM 20 MG TAB PO SCH (09:12)
[2021-05-23] MEDS: PREGABALIN 75 MG CAP PO SCH ×2 (09:12→20:30)
[2021-05-23] MEDS: ENOXAPARIN 40 MG/0.4 ML SYRINGE SQ SCH (09:12)
[2021-05-23 09:38] LABS: Basophils % (A) 0 %; Eosinophils % (A) 0 %; HCT 34.7 % (34.0-46.0); Lymphocytes # (A) 2.7 k/uL (1.0-4.8); Lymphocytes % (A) 25 %; MCH 29.6 pg (25.0-35.0); MCHC 31.7 g/dL (31.0-37.0); MCV 93.1 fL (80.0-100.0); Mean Platelet Volume 9.6; Monocytes # (A) 0.3 k/uL (0-1.0); Monocytes % (A) 3 %; Neutrophils # (A) 7.7 k/uL (1.3-7.7); Neutrophils % (A) 72 %; Platelet Count 225 k/uL (150-450); RBC 3.73 m/uL (3.80-5.40); RDW 14.1 % (11.5-15.5); WBC 10.8 k/uL (3.8-10.6)
--- NOTE | 2021-05-23 14:51 | P.PN ---
Subjective Progress Note Date: 05/23/21 CHIEF COMPLAINT: Acute appendicitis HISTORY OF PRESENT ILLNESS: Patient is postop day #1 status post laparoscopic appendectomy. She is complaining of abdominal pain after eating with some nausea. Unable to tolerate the regular diet. Was given full liquid diet this afternoon with improvement. She's afebrile. White count is down to 10.8. She was able to pass a small amount of gas. PHYSICAL EXAM: VITAL SIGNS: Reviewed. GENERAL: Well-developed in no acute distress. HEENT: No sclera icterus. Extraocular movements grossly intact. Moist buccal mucosa. Head is atraumatic, normocephalic. ABDOMEN: Soft. Nondistended. Tender incision sites. Incision sites clean dry and intact NEUROLOGIC: Alert and oriented. Cranial nerves II through XII grossly intact. ASSESSMENT: 1. Acute appendicitis status post laparoscopic appendectomy PLAN: -Continue pain management -Downgrade diet to full liquids -Continue supportive care -Encourage patient to ambulate -Encourage patient to use incentive spirometer -Possible discharge tomorrow Physician Terminal Computer Operator note has been reviewed by physician. Signing provider agrees with the documented findings, assessment, and plan of care. Objective - Vital Signs Vital signs: Vital Signs Temp 98.5 F 05/23/21 07:00 Pulse 82 05/23/21 07:00 Resp 16 05/23/21 07:00 BP 124/76 05/23/21 07:00 Pulse Ox 91 L 05/23/21 07:00 Intake & Output 05/22/21 05/23/21 05/23/21 18:59 06:59 18:59 Intake Total 1150 480 Output Total 5 Balance 1145 480 Intake: IV 1150 Oral 480 Output: Estimated Blood Loss 5 Other: # Voids 1 1 - Labs CBC & Chem 7: 05/23/21 09:17 05/22/21 07:30 Labs: Abnormal Lab Results - Last 24 Hours (Table) 05/23/21 Range/Units 09:17 WBC 10.8 H (3.8-10.6) k/uL RBC 3.73 L (3.80-5.40) m/uL Hgb 11.0 L (11.4-16.0) gm/dL Microbiology - Last 24 Hours (Table) 05/21/21 21:55 Blood Culture - Preliminary Blood No Growth after 24 hours 02/28/22 21:40 Blood Culture - Preliminary Blood No Growth after 24 hours
--- NOTE | 2021-05-23 15:35 | P.PN ---
Progress Note - Text Progress Note Date: 05/23/21 - Chief Complaint Abdominal pain This is a 56-year-old patient who follows with Dr. Alvarez. Chronic stable medical conditions include asthma, GERD, prostatitis, peptic ulcer disease. History patient started having abdominal pain which started initially the upper abdomen that went down to the right lower quadrant. Patient did complain of chills. Had some vomiting after she arrived to the hospital. Pain remains significant. After that Eliceo did show multiple gallstones. Earlier today patient is taken to the OR patient underwent appendectomy. Per the patient gallstones will be dealt at the later date. Diet has been advanced. Has some abdominal pain. No change in bowel pattern. May 23: at the bedside. Tolerated liquid. Passed flatus. Up to the bathroom. Having abdominal pain. No nausea vomiting. Active Medications Acetaminophen (Acetaminophen Tab 325 Mg Tab) 650 mg PO Q6HR PRN PRN Reason: Mild Pain or Fever > 100.5 Hydrocodone Bitart/Acetaminophen (Hydrocodone/Apap 5-325mg 1 Each Tab) 1 each PO Q4HR PRN PRN Reason: Pain Enoxaparin Sodium (Enoxaparin 40 Mg/0.4 Ml Syringe) 40 mg SQ DAILY [facility] Last Admin: 05/23/21 09:12 Dose: 40 mg Documented by: Escitalopram Oxalate (Escitalopram 20 Mg Tab) 20 mg PO DAILY [facility] Last Admin: 05/23/21 09:12 Dose: 20 mg Documented by: Hydromorphone HCl (Hydromorphone 1 Mg/Ml 1 Ml Syringe) 1 mg IVP Q3HR PRN PRN Reason: Severe Pain Last Admin: 05/23/21 15:02 Dose: 1 mg Documented by: Piperacillin Sod/Tazobactam (Sod 3.375 gm/ Sodium Chloride) 100 mls @ 25 mls/hr IVPB Q8H [facility]; Protocol Last Admin: 05/23/21 15:03 Dose: 25 mls/hr Documented by: Sodium Chloride (Saline 0.9%) 1,000 mls @ 130 mls/hr IV .Q7H42M [facility] Last Admin: 05/23/21 05:54 Dose: 130 mls/hr Documented by: Ibuprofen (Ibuprofen 400 Mg Tab) 400 mg PO Q6HR PRN PRN Reason: Mild Pain or Fever > 100.5 Naloxone HCl (Naloxone 0.4 Mg/Ml 1 Ml Vial) 0.2 mg IV Q2M PRN PRN Reason: Opioid Reversal Ondansetron HCl (Ondansetron 4 Mg/2 Ml Vial) 4 mg IVP Q8HR PRN PRN Reason: Nausea And Vomiting Last Admin: 05/22/21 03:45 Dose: 4 mg Documented by: Pantoprazole Sodium (Pantoprazole 40 Mg Tablet) 40 mg PO BID [facility] Last Admin: 05/23/21 09:12 Dose: 40 mg Documented by: Pregabalin (Pregabalin 75 Mg Cap) 75 mg PO BID [facility] Last Admin: 05/23/21 09:12 Dose: 75 mg Documented by: Tizanidine HCl (Tizanidine 4 Mg Tab) 4 mg PO TID PRN PRN Reason: Muscle Pain Verapamil HCl (Verapamil Sr 180 Mg Tablet.Er) 180 mg PO DAILY [facility] Last Admin: 05/23/21 09:12 Dose: 180 mg Documented by: Past medical history to include: Asthma, GERD, osteoarthritis, stomach ulcer, vertigo, right neck mass, Social history: . Alcohol occasionally. Still smoking over 10 years ago. Was a very light smoker. Family history: Cancer Physical examination: VITAL SIGNS: 99, 75, 16, 112/72, 95% room air GENERAL: Planning in bed, awake EYES: Pupils equal. Conjunctiva normal. HEENT: External appearance of nose and ears normal, oral cavity grossly normal. NECK: JVD not raised; masses not palpable. HEART: First and second heart sounds are normal; no edema. LUNGS: Respiratory rate normal; clear to auscultation. ABDOMEN: Soft, upper abdominal tenderness, no guarding rigidity, liver spleen not palpable, no masses palpable. PSYCH: Alert and oriented x3; mood and affect normal. MUSCULOSKELETAL:No Clubbing/cyanosis;muscles-grossly intact INVESTIGATIONS, reviewed in the clinical context: May 23: White count 10.8 hemoglobin 11 platelets 225 May 22: White count 14.8 hemoglobin 12.5 platelets 246 potassium 4.3 creatinine 0.7 Admission labs: White count 18 Computed tomography scan abdomen: Acute appendicitis with dilated fluid-filled appendix and surrounding edema. EKG tracing personally reviewed by me-normal sinus rhythm. Nonspecific T-wave changes. Abdominal ultrasound: Multiple large gallstones. No dilated ducts. Assessment and plan: -Acute appendicitis with possible phlegmon Status post appendectomy, May [address] Tyler. IV Zosyn -Obesity BMI 35.5 -Acute postprocedure blood loss anemia expected from surgery Add ferrous sulfate -Essential hypertension Verapamil ER 180 mg a day -Asymptomatic large multiple gallstones -GERD Nexium 40 mg twice a day -Depression Lexapro 20 mg a day Activity as tolerated. Add ferrous sulfate. Advance to full liquid diet per surgery. Care discussed Thank you Dr. Tyler
[2021-05-23] MEDS: FERROUS SULFATE 325 MG TAB PO SCH (18:35)
[2021-05-23] MEDS: HYDROcodone/APAP 5-325MG 1 EACH TAB PO PRN (20:28)
[2021-05-24] MEDS: SODIUM CHLORIDE 0.9% 1,000 ML IV SCH ×2 (03:31→11:42)
[2021-05-24] MEDS: PIPERACILLIN-TAZOBACTAM 3.375 GM in SODIUM CHLORIDE 0.9% 100 ML IVPB SCH ×2 (06:00→16:16)
[2021-05-24] MEDS: HYDROcodone/APAP 5-325MG 1 EACH TAB PO PRN (08:10)
[2021-05-24 09:13] LABS: Basophils # (A) 0.04 X 10*3/uL (0.00-0.10); Basophils % (A) 0.5 %; Eosinophils # (A) 0.29 X 10*3/uL (0.04-0.35); Eosinophils % (A) 3.7 %; HCT 34.5 % (37.2-46.3); HGB 10.7 g/dL (12.0-15.0); Immature Grans, Automated 0.1 %; Lymphocytes # (A) 3.81 X 10*3/uL (0.90-5.00); Lymphocytes % (A) 48.1 %; MCH 28.6 pg (27.0-32.0); MCV 92.2 fL (80.0-97.0); Mean Platelet Volume 11.6 fL (9.5-12.2); Monocytes % (A) 6.3 %; NRBC Per 100 WBC 0 /100 WBCS (0.0-0.0); Neutrophils # (A) 3.27 X 10*3/uL (1.80-7.70); Neutrophils % (A) 41.3 %; Platelet Count 198 X 10*3/uL (140-440); RBC 3.74 X 10*6/uL (4.10-5.20); RDW 14.4 % (11.5-14.5); WBC 7.92 X 10*3/uL (4.50-10.00)
[2021-05-24] MEDS: ONDANSETRON 4 MG/2 ML VIAL IVP PRN (09:16)
[2021-05-24] MEDS: ESCITALOPRAM 20 MG TAB PO SCH (09:43)
[2021-05-24] MEDS: FERROUS SULFATE 325 MG TAB PO SCH (09:51)
[2021-05-24] MEDS: VERAPAMIL SR 180 MG TABLET.ER PO SCH (09:51)
[2021-05-24] MEDS: PANTOPRAZOLE 40 MG TABLET PO SCH (09:52)
[2021-05-24] MEDS: PREGABALIN 75 MG CAP PO SCH (09:52)
[2021-05-24] MEDS: ENOXAPARIN 40 MG/0.4 ML SYRINGE SQ SCH (09:53)
[2021-05-24] MEDS ORDERED: METOCLOPRAMIDE 5 MG/ML 2 ML VIAL IVP SCH (12:00)
[2021-05-24 14:38] VITALS: BP 116/69; PULSE 80; RESP 16; TEMP 98.1
--- NOTE | 2021-05-24 15:08 | P.DS ---
Providers Date of admission: 05/23/21 15:56 Expected date of discharge: 05/24/21 Attending physician: Jaiden Tyler Consults: 05/22/21 10:50 Consult Physician Routine Consulting Provider: Sammy Ivan Consult Reason/Comments: medical management Do you want consulting provider notified?: Yes Primary care physician: [facility] Course: Discharge diagnosis 1. Acute appendicitis status post laparoscopic appendectomy 2. Cholelithiasis Hospital course This is a 56-year-old female who presented to the hospital with complaints of epigastric abdominal pain right sided abdominal pain and right lower quadrant abdominal pain. Patient reports the pain came on suddenly and was very sharp. CTA of the chest was negative for PE and aortic dissection as well as aneurysm. Did reveal evidence of acute appendicitis. Ultrasound of the gallbladder has shown multiple large gallstones. Patient is status post laparoscopic appendectomy for acute cystitis. She tolerated surgery well. Her pain is controlled. She is tolerating diet. She is up and ambulating. She's afebrile. She is stable for discharge. Patient will have further workup on her cholelithiasis outpatient. Please refer to chart for any further details. Physician Stitcher Feeder note has been reviewed by physician. Signing provider agrees with the documented findings, assessment, and plan of care. Patient Condition at Discharge: Stable Plan - Discharge Summary Discharge Rx Participant: No New Discharge Prescriptions: New Docusate [Colace] 100 mg PO BID #30 capsule HYDROcodone/APAP 5-325MG [[place] 5-325] 1 tab PO Q6HR PRN 3 Days #12 tab PRN Reason: Pain Continue Escitalopram [Lexapro] 20 mg PO DAILY Meclizine [Antivert] 25 mg PO TID PRN PRN Reason: Vertigo tiZANidine HCL [Zanaflex] 4 mg PO TID PRN PRN Reason: Muscle Pain Esomeprazole Magnesium [NexIUM] 40 mg PO BID Pregabalin [Lyrica] 75 mg PO BID Verapamil HCl [Verapamil ER] 180 mg PO DAILY Discharge Medication List Escitalopram [Lexapro] 20 mg PO DAILY 04/16/18 [History] Meclizine [Antivert] 25 mg PO TID PRN 09/30/19 [History] tiZANidine HCL [Zanaflex] 4 mg PO TID PRN 09/30/19 [History] Esomeprazole Magnesium [NexIUM] 40 mg PO BID 12/28/19 [History] Pregabalin [Lyrica] 75 mg PO BID 05/21/21 [History] Verapamil HCl [Verapamil ER] 180 mg PO DAILY 05/21/21 [History] Docusate [Colace] 100 mg PO BID #30 capsule 05/24/21 [Rx] HYDROcodone/APAP 5-325MG [[place] 5-325] 1 tab PO Q6HR PRN 3 Days #12 tab 05/24/21 [Rx] Follow up Appointment(s)/Referral(s): Jerad Alvarez DO [Primary Care Provider] - 1-2 days [facility], [NON-STAFF] - 1-2 Days Jaiden Tyler MD [STAFF PHYSICIAN] - 1 Week Patient Instructions/Handouts: Abdominal Pain (GEN), Laparoscopic Appendectomy (DC) Activity/Diet/Wound Care/Special Instructions: Medicine service to complete discharge med rec No driving while taking [place] No lifting over 10 pounds You may shower. No soaking or tub baths for 2 weeks Very light activity until you are reevaluated at your follow up appointment with your surgeon Advance diet as tolerated Discharge Disposition: HOME SELF-CARE
--- NOTE | 2021-05-24 16:54 | P.PN ---
Progress Note - Text Progress Note Date: 05/24/21 - Chief Complaint Abdominal pain This is a 56-year-old patient who follows with Dr. Alvarez. Chronic stable medical conditions include asthma, GERD, prostatitis, peptic ulcer disease. History patient started having abdominal pain which started initially the upper abdomen that went down to the right lower quadrant. Patient did complain of chills. Had some vomiting after she arrived to the hospital. Pain remains significant. After that Eliceo did show multiple gallstones. Earlier today patient is taken to the OR patient underwent appendectomy. Per the patient gallstones will be dealt at the later date. Diet has been advanced. Has some abdominal pain. No change in bowel pattern. May 23: at the bedside. Tolerated liquid. Passed flatus. Up to the bathroom. Having abdominal pain. No nausea vomiting. May 24: Diet advanced by surgery. Abdominal pain better. Did ambulate. Overall feeling much better. No nausea vomiting. No fever no chills. Current medications reviewed Past medical history to include: Asthma, GERD, osteoarthritis, stomach ulcer, vertigo, right neck mass, Social history: . Alcohol occasionally. Still smoking over 10 years ago. Was a very light smoker. Family history: Cancer Physical examination: VITAL SIGNS: 98.2, 70, 18, 124/78, 98% room air GENERAL: Declining in bed, awake EYES: Pupils equal. Conjunctiva normal. HEENT: External appearance of nose and ears normal, oral cavity grossly normal. NECK: JVD not raised; masses not palpable. HEART: First and second heart sounds are normal; no edema. LUNGS: Respiratory rate normal; clear to auscultation. ABDOMEN: Soft, mild abdominal tenderness, no guarding rigidity, liver spleen not palpable, no masses palpable. PSYCH: Alert and oriented x3; mood and affect normal. MUSCULOSKELETAL:No Clubbing/cyanosis;muscles-grossly intact INVESTIGATIONS, reviewed in the clinical context: Partial third: White count 7.9 hemoglobin 10.7 May 23: White count 10.8 hemoglobin 11 platelets 225 May 22: White count 14.8 hemoglobin 12.5 platelets 246 potassium 4.3 creatinine 0.7 Admission labs: White count 18 Computed tomography scan abdomen: Acute appendicitis with dilated fluid-filled appendix and surrounding edema. EKG tracing personally reviewed by me-normal sinus rhythm. Nonspecific T-wave changes. Abdominal ultrasound: Multiple large gallstones. No dilated ducts. Assessment and plan: -Acute appendicitis with possible phlegmon Status post appendectomy, May [address] Tyler. IV Zosyn -Obesity BMI 35.5 -Acute postprocedure blood loss anemia expected from surgery ferrous sulfate -Essential hypertension Verapamil ER 180 mg a day -Asymptomatic large multiple gallstones -GERD Nexium 40 mg twice a day -Depression Lexapro 20 mg a day Continue current medication treatment plan. Diet to be addressed with surgery. If discharged to follow-up with PCP Thank you Dr. Tyler
== END 2021-05-24 17:40 | disposition home or self-care (01) | DRG 343 ==
LOC: EC 19:00 → 6NMEDSUR 21:26 → OBSVTOIN 05-23 15:56
PROVIDERS: ADMIT Surgery; ATTEND Surgery
PROC: 0DTJ4ZZ Resection of Appendix, Percutaneous Endoscopic Approach (ICD-10-PCS; principal; 2021-05-22 07:30)
DX: K35.80 Unspecified acute appendicitis (principal); D50.0 Iron deficiency anemia secondary to blood loss (chronic); E66.9 Obesity, unspecified; F32.A Depression, unspecified; K21.9 Gastro-esophageal reflux disease without esophagitis; I10 Essential (primary) hypertension; J45.909 Unspecified asthma, uncomplicated; M19.90 Unspecified osteoarthritis, unspecified site; K80.20 Calculus of gallbladder without cholecystitis without obstruction; R42 Dizziness and giddiness; Z96.652 Presence of left artificial knee joint; F17.200 Nicotine dependence, unspecified, uncomplicated; Z68.35 Body mass index [BMI] 35.0-35.9, adult; Z87.11 Personal history of peptic ulcer disease; Z98.890 Other specified postprocedural states; Z79.899 Other long term (current) drug therapy; Z80.9 Family history of malignant neoplasm, unspecified
CPT/HCPCS: 36415; 71275; 74174; 76705; 80048; 80053; 83735; 84484; 85025; 85379; 85610; 85730; 87040; 88304; 93005; 96374; 96375; 96376; 99285

== ENCOUNTER → 2021-07-31 | Outpatient (CLI) | payer MEDICAID ==
[2021-07-31 14:28] LABS: African American GFR (CKD) 93.1 (60.0-200.0); Anion Gap 9.9 mmol/L (10.00-18.00); BUN/Creat Ratio 19.95 Ratio (12.00-20.00); Blood Urea Nitrogen 16.3 mg/dL (9.0-27.0); Calcium 9.1 mg/dL (8.7-10.3); Carbon Dioxide 25.8 mmol/L (20.0-27.5); Non-African American GFR(CKD) 80.4 (60.0-200.0)
== END | disposition home or self-care (01) ==
LOC: LABWHC1 08:51
PROVIDERS: ATTEND Family Medicine
DX: E11.9 Type 2 diabetes mellitus without complications (principal)
CPT/HCPCS: 36415; 80048

== ENCOUNTER → 2021-11-02 | Outpatient (CLI) | payer MEDICAID | END | disposition home or self-care (01) | LOC: LABWHC1 11:01 | PROVIDERS: ATTEND Psychiatry & Neurology Neurology | DX: I49.9 Cardiac arrhythmia, unspecified (principal) | CPT/HCPCS: 36415; 93005 ==

== ENCOUNTER → 2021-11-07 | Outpatient (CLI) | payer MEDICAID ==
[2021-11-07 19:02] LABS: Appearance,Urine Clear (Clear); Bilirubin,Urine Negative (Negative); Blood,Urine Negative (Negative); Color,Urine Yellow (Yellow); Ketones,Urine Trace mg/dL (Negative); Nitrite,Urine Negative (Negative); Specific Gravity,Urine 1.025 (1.001-1.030)
[2021-11-07 19:14] LABS: HCT 38.2 % (37.2-46.3); HGB 13.1 g/dL (12.0-15.0); MCH 31.3 pg (27.0-32.0); MCHC 34.3 g/dL (32.0-37.0); MCV 91.2 fL (80.0-97.0); Mean Platelet Volume 12.2 fL (9.5-12.2); NRBC Per 100 WBC 0 /100 WBCS (0.0-0.0); Platelet Count 243 X 10*3/uL (140-440); RBC 4.19 X 10*6/uL (4.10-5.20); RDW 13.2 % (11.5-14.5); WBC 8.35 X 10*3/uL (4.50-10.00)
[2021-11-07 19:17] LABS: Bacteria,Urine None Seen /HPF (None Seen)
[2021-11-07 20:17] LABS: African American GFR (CKD) 90.3 (60.0-200.0); Albumin 4.4 g/dL (3.8-4.9); Albumin/Globulin Ratio 1.45 (1.60-3.17); Anion Gap 11.3 mmol/L (10.00-18.00); BUN/Creat Ratio 15.27 Ratio (12.00-20.00); Blood Urea Nitrogen 12.8 mg/dL (9.0-27.0); Calcium 9.6 mg/dL (8.7-10.3); Carbon Dioxide 25.7 mmol/L (20.0-27.5); HDL Cholesterol 42.4 mg/dL (40.00-60.00); Non-African American GFR(CKD) 77.9 (60.0-200.0); Potassium 4.2 mmol/L (3.5-5.5); Total Bilirubin 0.4 mg/dL (0.30-1.20); Total Protein 7.5 g/dL (6.2-8.2)
[2021-11-07 20:28] LABS: Chol/HDL Ratio 6.77 Ratio
== END | disposition home or self-care (01) ==
LOC: LABWHC1 12:28
PROVIDERS: ATTEND Family Medicine
DX: Z00.00 Encounter for general adult medical examination without abnormal findings (principal); E11.9 Type 2 diabetes mellitus without complications
CPT/HCPCS: 36415; 80053; 80061; 81001; 82043; 82306; 82570; 83036; 83721; 85027

== ENCOUNTER → 2021-12-20 | Outpatient (CLI) | payer MEDICAID ==
--- NOTE | 2021-12-20 13:25 | P.GSHP ---
History of Present Illness H&P Date: 12/20/21 Chief Complaint: left axillary node enlarged Jasmyn is a 56 year old whtie female seen in consultation for Dr. Alvarez regarding a left axillary swelling. She had a bilateral mammogram on 03-27-21 which was BIRAD 2. She had a left breast ultrasound done on 11-09-21 which showed a 2.1 cm benign appearing lymph node. The patient noted this over the past 6 months. It has increased in size. It is uncomfortable for her. She has not noted any lumps masses or nodules in either breast. She does not complain of any nipple discharge or skin changes. She has not had any recent trauma or infection in the breast. She had bilateral breast reduction done about 17 years ago. Caffiene: 3 cups/day nicotine: none stopped 8 years ago, used to smoke 5 cig/day chocolate: daily BCP: as a teen; stopped at 18 Family History: maternal grandmother: breast cancer 70's maternal aunts (2): form breast cancer in their 50's NO genetic testing done Hormonal History: menarche: 16 , breast fed: yes, age at first : 21 menopause: 53 hormones: none Surgical History: toes left knee replacement bilateral breast reduction gallbladder ? abdominal surgery not sure what Medical History: back pain disc disease diabetic boarderline insomina high cholesterol anxiety headaches chronic GERD depression ( daughter recently ) Social History: nicotine: stopped 8 years ago alcohol: occasional, wine holidays drugs: none - Constitutional Constitutional: Reports sweats - EENT Eyes: bilateral pain Ears: bilateral: tinnitus, deny: decreased hearing Ears, nose, mouth and throat: Reports headache - Breasts Breasts: bilateral: as per HPI - Cardiovascular Cardiovascular: Denies chest pain, Denies shortness of breath - Respiratory Comment: asthma - Gastrointestinal Comment: GERD, constipation 1 time a month Gastrointestinal: Reports as per HPI - Genitourinary (Female) Genitourinary: Denies dysuria, Denies hematuria - Menstruation Menstruation: Reports postmenopausal - Musculoskeletal Musculoskeletal: Reports as per HPI - Integumentary Comment: itching on her arm left - Neurological Neurological: Reports numbness - Psychiatric Psychiatric: Reports anxiety, Reports depression - Endocrine Endocrine: Reports as per HPI, Reports fatigue, Reports weight change - Hematologic/Lymphatic Comment: none - Allergic/Immunologic Allergic/Immunologic: Reports seasonal allergies Past Medical History Past Medical History: Asthma, Diabetes Mellitus, GERD/Reflux, Osteoarthritis (OA) Additional Past Medical History / Comment(s): , hx of migraine, HX STOMACH ULCERS, DDD, VERTIGO, right neck mass, lymph node rt cervical History of Any Multi-Drug Resistant Organisms: None Reported Past Surgical History: Adenoidectomy, Appendectomy, Breast Surgery, Joint Replacement, Orthopedic Surgery, Tonsillectomy Additional Past Surgical History / Comment(s): LEFT KNEE ARTHROSCOPY, left knee replacement, LEFT FOOT SURGERY, SINUS SX-REMOVED POLYPS, COLONOSCOPY, EGD, BACK INJECTIONS, biopsy BILATERAL SIDES OF NECK, BILATERAL BREAST REDUCTION. surgery rt arm for fx 03/02/20, neck mass/lymph node removed Past Anesthesia/Blood Transfusion Reactions: Previous Problems w/ Anesthesia Additional Past Anesthesia/Blood Transfusion Reaction / Comment(s): "Woke up during a foot surgery, they gave her more medication and then she took a long time to wake up after." Smoking Status: Former smoker - Past Family History Mother Family Medical History: Cancer Medications and Allergies Home Medications Medication Instructions Recorded Confirmed Type Escitalopram [Lexapro] 20 mg PO DAILY 04/16/18 06/26/21 History tiZANidine HCL [Zanaflex] 4 mg PO TID PRN 09/30/19 06/26/21 History Esomeprazole Magnesium [NexIUM] 40 mg PO DAILY 12/28/19 06/26/21 History Pregabalin [Lyrica] 75 mg PO BID 05/21/21 06/26/21 History Verapamil HCl [Verapamil ER] 180 mg PO DAILY 05/21/21 06/26/21 History Ibuprofen 800 mg PO Q8H 06/22/21 06/26/21 History traMADol HCL [Ultram] 50 mg PO TID 06/22/21 06/26/21 History Acetaminophen Tab [Tylenol] 650 mg PO Q6H #30 tab 06/26/21 Rx Docusate [Colace] 100 mg PO BID #20 capsule 06/26/21 Rx Atorvastatin [Lipitor] 10 mg PO DAILY 12/20/21 12/20/21 History Eszopiclone 3 mg PO DIRECTED PRN 12/20/21 12/20/21 History LORazepam [Ativan] 1 mg PO DIRECTED PRN 12/20/21 12/20/21 History Venlafaxine HCl ER [Effexor XR] 37.5 mg PO DIRECTED 12/20/21 12/20/21 History metFORMIN HCL 500 mg PO DAILY 12/20/21 12/20/21 History Allergies Allergy/AdvReac Type Severity Reaction Status Date / Time cobalt Allergy POSITIVE Verified 12/20/21 13:05 ON ALLERGY TEST nickel Allergy POSITIVE Verified 12/20/21 13:05 ON ALLERGY TEST oxycodone HCl [From Percocet] Allergy Rash/Hives Verified 12/20/21 13:05 peanut Allergy Wheezing Verified 12/20/21 13:05 pollen extracts Allergy Dyspnea Verified 12/20/21 13:05 shellfish derived [Lobster] Allergy POSITIVE Verified 12/20/21 13:05 ON ALLERGY TEST tree and shrub pollen Allergy Dyspnea Verified 12/20/21 13:05 DUST MITES Allergy Rash/Hives Uncoded 12/20/21 13:05 Surgical - Exam - General no distress - Eyes normal ocular movement - Neck trachea midline - Respiratory normal respiratory effort, clear to auscultation - Cardiovascular Rhythm: regular Heart Sounds: normal: S1, S2 - Abdomen Abdomen: soft, non tender, no guarding, no rigid, no rebound - Integumentary normal turgor - Neurologic no disoriented, no combative - Musculoskeletal normal gait, normal posture - Psychiatric oriented to time, oriented to person, oriented to place, speech is normal, memory intact Breast Exam: BRA: 44D inspection: bilateral grade 2 ptosis palpation: right breast: Multi-positional exam fibrocystic changes no dominant masses or nodules of concern Right axilla: No adenopathy of concern Left breast: Multiple positional exam increased in the breast tissue fullness lateral aspect of breast approximately 5 x 3 cm in size extending towards the axilla, no other dominant masses or nodules of concern Left axilla: Uncertain if the lesion in the lateral left breast represents a xillary tissue or left breast tissue, this area is approximate 5 x 3 cm in size extending towards the axilla it is only felt the patient is laying on her right side Results Mammogram and ultrasound results reviewed Assessment and Plan Assessment: Impression: back pain disc disease diabetic boarderline insomina high cholesterol anxiety headaches chronic GERD depression ( daughter recently ) Performed list lateral left breast/axilla Plan: Ultrasound lateral left breast/axilla with particular attention to the area that the patient palpates Probable core biopsy of the area which is palpable CC: Dr. Alvarez
[2021-12-20 14:24] VITALS: BP 141/90; PULSE 69; RESP 17; TEMP 97.8
== END | disposition home or self-care (01) ==
LOC: WWCWWP 12:55
PROVIDERS: ATTEND Surgery
DX: Z53.9 Procedure and treatment not carried out, unspecified reason (principal)

== ENCOUNTER → 2022-01-10 | Outpatient (CLI) | payer MEDICAID ==
[2022-01-10 11:33] VITALS: BP 120/83; PULSE 85; RESP 16; TEMP 98.3
== END | disposition home or self-care (01) ==
LOC: WWCWWP 09:56
PROVIDERS: ATTEND Surgery
DX: Z53.9 Procedure and treatment not carried out, unspecified reason (principal)

== ENCOUNTER → 2022-01-10 | Outpatient (CLI) | payer MEDICAID ==
--- NOTE | 2022-01-10 11:13 | USB ---
Reason for Exam: Clinical finding. Patient History: Menarche at age 16. First Full-Term at age 19. Postmenopausal. 2003, Bilateral Reduction. Maternal grandmother had breast cancer, age 60. Maternal aunt had breast cancer, age 50. Risk Values: Estrella 5 year model risk: 0.8%. NCI Lifetime model risk: 5.3%. Technique: Method: Targeted. Prior Study Comparison: 01/14/2019 Bilateral Screening Mammogram, [facility]. 03/21/2020 Bilateral Screening Mammogram, [facility]. 03/27/2021 Bilateral Screening Mammogram, [facility]. Findings: The upper outer quadrant of the left breast, the area of palpable concern of the left breast, the axilla of the left breast and the retroareolar of the left breast were scanned. There is redemonstration of a prominent but benign-appearing left axillary lymph node measuring 2.8 x 1.0 x 1.5 cm at 2:00 position 16 cm distance from nipple similar in size and appearance to prior study with retention of central fatty hilum and no eccentric cortical thickening. Overall Assessment: Benign, BI-RAD 2 Management: Screening Mammogram of both breasts in 3 months. Return to routine follow. ??Results were given to the patient verbally at the time of exam. Electronically signed and approved by: Mani Watkins M.D.
--- NOTE | 2022-01-10 11:54 | P.PN ---
Subjective Progress Note Date: 01/10/22 Jasmyn is a 56 year old whtie female seen in consultation for Dr. Alvarez regarding a left axillary swelling. She had a bilateral mammogram on 03-27-21 which was BIRAD 2. She had a left breast ultrasound done on 11-09-21 which showed a 2.1 cm benign appearing lymph node. The patient noted this over the past 6 months. It has increased in size. It is uncomfortable for her. She has not noted any lumps masses or nodules in either breast. She does not complain of any nipple discharge or skin changes. She has not had any recent trauma or infection in the breast. She had bilateral breast reduction done about 17 years ago. She had a left breast ultrasound done on 01-10-22; this revealed a benign- appearing left axillary lymph node measuring 2.8 x 1 x 1.5 cm in size. No discrete lesions were noted in the breast. The patient states she can still feel the area of fullness and nodularity in the lateral aspect of the left breast. It was painful for the patient. Caffiene: 3 cups/day nicotine: none stopped 8 years ago, used to smoke 5 cig/day chocolate: daily BCP: as a teen; stopped at 18 Family History: maternal grandmother: breast cancer 70's maternal aunts (2): form breast cancer in their 50's NO genetic testing done Hormonal History: menarche: 16 , breast fed: yes, age at first : 21 menopause: 53 hormones: none Surgical History: toes left knee replacement bilateral breast reduction gallbladder ? abdominal surgery not sure what Medical History: back pain disc disease diabetic boarderline insomina high cholesterol anxiety headaches chronic GERD depression ( daughter recently ) Social History: nicotine: stopped 8 years ago alcohol: occasional, wine holidays drugs: none - Constitutional Constitutional: Reports sweats - EENT Eyes: bilateral pain Ears: bilateral: tinnitus, deny: decreased hearing Ears, nose, mouth and throat: Reports headache - Breasts Breasts: bilateral: as per HPI - Cardiovascular Cardiovascular: Denies chest pain, Denies shortness of breath - Respiratory Comment: asthma - Gastrointestinal Comment: GERD, constipation 1 time a month Gastrointestinal: Reports as per HPI - Genitourinary (Female) Genitourinary: Denies dysuria, Denies hematuria - Menstruation Menstruation: Reports postmenopausal - Musculoskeletal Musculoskeletal: Reports as per HPI - Integumentary Comment: itching on her arm left - Neurological Neurological: Reports numbness - Psychiatric Psychiatric: Reports anxiety, Reports depression - Endocrine Endocrine: Reports as per HPI, Reports fatigue, Reports weight change - Hematologic/Lymphatic Comment: none - Allergic/Immunologic Allergic/Immunologic: Reports seasonal allergies Past Medical History Past Medical History: Asthma, Diabetes Mellitus, GERD/Reflux, Osteoarthritis ( OA) Additional Past Medical History / Comment(s): , hx of migraine, HX STOMACH ULCERS, DDD, VERTIGO, right neck mass, lymph node rt cervical History of Any Multi-Drug Resistant Organisms: None Reported Past Surgical History: Adenoidectomy, Appendectomy, Breast Surgery, Joint Replacement, Orthopedic Surgery, Tonsillectomy Additional Past Surgical History / Comment(s): LEFT KNEE ARTHROSCOPY, left knee replacement, LEFT FOOT SURGERY, SINUS SX-REMOVED POLYPS, COLONOSCOPY, EGD, BACK INJECTIONS, biopsy BILATERAL SIDES OF NECK, BILATERAL BREAST REDUCTION. surgery rt arm for fx 03/02/20, neck mass/lymph node removed Past Anesthesia/Blood Transfusion Reactions: Previous Problems w/ Anesthesia Additional Past Anesthesia/Blood Transfusion Reaction / Comment(s): "Woke up during a foot surgery, they gave her more medication and then she took a long t fernando to wake up after." Smoking Status: Former smoker - Past Family History Mother Family Medical History: Cancer Medications and Allergies Home Medications Medication Instructions Recorded Confirmed Type Escitalopram [Lexapro] 20 mg PO DAILY 04/16/18 06/26/21 History tiZANidine HCL [Zanaflex] 4 mg PO TID PRN 09/30/19 06/26/21 History Esomeprazole Magnesium [NexIUM] 40 mg PO DAILY 12/28/19 06/26/21 History Pregabalin [Lyrica] 75 mg PO BID 05/21/21 06/26/21 History Verapamil HCl [Verapamil ER] 180 mg PO DAILY 05/21/21 06/26/21 History Ibuprofen 800 mg PO Q8H 06/22/21 06/26/21 History traMADol HCL [Ultram] 50 mg PO TID 06/22/21 06/26/21 History Acetaminophen Tab [Tylenol] 650 mg PO Q6H #30 tab 06/26/21 Rx Docusate [Colace] 100 mg PO BID #20 capsule 06/26/21 Rx Atorvastatin [Lipitor] 10 mg PO DAILY 12/20/21 12/20/21 History Eszopiclone 3 mg PO DIRECTED PRN 12/20/21 12/20/21 History LORazepam [Ativan] 1 mg PO DIRECTED PRN 12/20/21 12/20/21 History Venlafaxine HCl ER [Effexor XR] 37.5 mg PO DIRECTED 12/20/21 12/20/21 History metFORMIN HCL 500 mg PO DAILY 12/20/21 12/20/21 History Allergies Allergy/AdvReac Type Severity Reaction Status Date / Time cobalt Allergy POSITIVE Verified 12/20/21 13:05 ON ALLERGY TEST nickel Allergy POSITIVE Verified 12/20/21 13:05 ON ALLERGY TEST oxycodone HCl [From Percocet] Allergy Rash/Hives Verified 12/20/21 13:05 peanut Allergy Wheezing Verified 12/20/21 13:05 pollen extracts Allergy Dyspnea Verified 12/20/21 13:05 shellfish derived [Lobster] Allergy POSITIVE Verified 12/20/21 13:05 ON ALLERGY TEST tree and shrub pollen Allergy Dyspnea Verified 12/20/21 13:05 DUST MITES Allergy Rash/Hives Uncoded 12/20/21 13:05 Objective - Constitutional General appearance: Present: cooperative - EENT Eyes: Present: EOMI ENT: Present: hearing grossly normal - Neck Neck: Present: normal ROM - Respiratory Respiratory: bilateral: CTA - Cardiovascular Heart sounds: normal: S1, S2 - Gastrointestinal General gastrointestinal: Present: soft - Integumentary Integumentary: Present: normal turgor - Musculoskeletal Musculoskeletal: Present: gait normal - Psychiatric Psychiatric: Present: A&O x's 3, appropriate affect, intact judgment & insight - Additional findings Additional findings: Left breast examination repeated: Left breast a multi-positional exam fullness in the upper quadrant appears to be more consistent with tenderness on the chest wall/muscle than a discrete mass in the breast; in conjunction with the fact that an ultrasound did not show any lesions in this site is most likely tenderness related to the underlying pectoralis muscle Left axilla: Soft axillary node approximately 2.5 cm noted which is consistent with that which was seen on ultrasound Assessment and Plan Assessment: Impression: Patient continues to complain of fullness in the left breast in the upper-outer quadrant region which is not clearly palpable on today's exam Ultrasound of the area of concern reveals a benign-appearing lymph node Plan: Attempt an MRI to further evaluate the fullness in the left breast in the upper outer quadrant region Ultrasound of the area of concern in 3 months with physician exam at that time Patient will utilize Motrin for the tenderness at this time At this time there is nothing specific to warrant an interventional biopsy CC: Dr. Alvarez
== END | disposition home or self-care (01) ==
LOC: RADUSWWP 09:57
PROVIDERS: ATTEND Surgery
DX: E11.9 Type 2 diabetes mellitus without complications (principal); Z78.0 Asymptomatic menopausal state; Z80.3 Family history of malignant neoplasm of breast

== ENCOUNTER → 2022-01-30 | Outpatient (CLI) | payer MEDICAID ==
--- NOTE | 2022-01-30 09:31 | BMR ---
EXAMINATION TYPE: MR breast BILAT wo/w con DATE OF EXAM: 01/30/2022 COMPARISON: Tomogram screening mammogram March 27, 2021 BI-RADS 2. Ultrasound left axilla November 09, 2021. Ultrasound left breast January 10, 2022 BI-RADS 2. CTA aorta May 21, 2021 HISTORY: LEFT BREAST LUMP AND MASS TECHNIQUE: A series of fat and water weighted images in the long and short axis views of both breasts are obtained in conjunction with dynamic contrast MRI with subtraction technique. The patient was i njected with 9 mL intravenous Gadavist gadolinium contrast. Three-dimensional and additional postpr ocessing imaging is created on independent workstation and reviewed during official interpretation of this study. FINDINGS: Scattered fibroglandular tissue bilaterally is redemonstrated. Benign-appearing bilateral a xillary lymph nodes are again seen slightly more numerous in the left axilla versus right but not sig nificantly changed from prior CT in April. Left axillary findings correlate with most recent ultra sounds. No new axillary adenopathy noted. No suspicious focal fluid collection or cystic lesions in e ither breast. Dynamic postcontrast imaging shows mild background enhancement. There is no suspicious skin thickening seen bilaterally. No pathologic enhancement or enhancing rasheed s are noted. The chest wall appears intact bilaterally. IMPRESSION: No MRI evidence for invasive malignancy in either breast. BI-RADS 1 negative study Recommendation: Bilateral breast mammogram March 2022 to be back on annual schedule. Manage left-si ded palpable on a clinical basis.
== END | disposition home or self-care (01) ==
LOC: RADMRIMAIN 05:53
PROVIDERS: ATTEND Surgery
DX: N63.20 Unspecified lump in the left breast, unspecified quadrant (principal)
CPT/HCPCS: 77049; A9585

== ENCOUNTER → 2022-02-22 | Outpatient (CLI) | payer MEDICAID ==
[2022-02-22 19:34] LABS: ALT 46 U/L (8-44); AST 22 U/L (13-35); Chol/HDL Ratio 4.54 Ratio; LDL Cholesterol,Calculated 91.4 mg/dL (0.0-131.0)
== END | disposition home or self-care (01) ==
LOC: LABWHC1 10:35
PROVIDERS: ATTEND Family Medicine
DX: E78.5 Hyperlipidemia, unspecified (principal)
CPT/HCPCS: 36415; 80061; 84450; 84460

== ENCOUNTER → 2022-06-25 | Outpatient (CLI) | payer MEDICAID ==
[2022-06-25 16:08] LABS: ALT 28 U/L (8-44); AST 18 U/L (13-35); Albumin 4.3 g/dL (3.8-4.9); Albumin/Globulin Ratio 1.43 (1.60-3.17); Alkaline Phosphatase 92 U/L (41-126); Bilirubin, Conjugated <0.20 mg/dL (0.20-0.40); Total Protein 7.3 g/dL (6.2-8.2)
== END | disposition home or self-care (01) ==
LOC: LABWHC1 09:17
PROVIDERS: ATTEND Family Medicine
DX: R89.9 Unspecified abnormal finding in specimens from other organs, systems and tissues (principal)
CPT/HCPCS: 36415; 80076

== ENCOUNTER 2022-08-25 08:01 | Emergency (ER) | payer MEDICAID ==
[2022-08-25 08:08] VITALS: TEMP 98
[2022-08-25] MEDS ORDERED: SODIUM CHLORIDE 0.9% 1,000 ML IV STA (08:17)
[2022-08-25] MEDS ORDERED: METOCLOPRAMIDE 5 MG/ML 2 ML VIAL IVP STA ×2 (08:17→12:06)
[2022-08-25] MEDS ORDERED: HYDROmorphone 0.5 MG/0.5 ML SYRINGE IVP STA ×2 (08:18→11:12)
--- NOTE | 2022-08-25 08:28 | ED ---
Abdominal Pain HPI - General Chief Complaint: Abdominal Pain Stated Complaint: nausea,lethargic Time Seen by Provider: 08/25/22 08:03 Source: patient, RN notes reviewed Mode of arrival: ambulatory Limitations: no limitations - History of Present Illness Initial Comments: This is a 57-year-old female who presents to the emergency department for abdominal pain and nausea. States that this started 3-4 days ago. The abdominal pain is in the epigastric to mid abdominal region. She has nausea but has not had any vomiting. She went to urgent care yesterday and was given a prescription for Zofran. States that this has not been effective. She reports a history of stomach ulcers and reflux, but states that this does not feel the same. Denies any changes in bowel habits. Also reports feeling very weak and fatigued. Denies any fevers, chills, sore throat, cough, dyspnea, chest pain, palpitations, vomiting, diarrhea, back pain, or headaches. MD Complaint: abdominal pain Onset/Timin -: days(s) Location: epigastric - Related Data Home Medications Medication Instructions Recorded Confirmed tiZANidine HCL [Zanaflex] 4 mg PO TID PRN 09/30/19 01/10/22 Esomeprazole Magnesium [NexIUM] 40 mg PO DAILY 12/28/19 01/10/22 Pregabalin [Lyrica] 75 mg PO BID 05/21/21 01/10/22 Verapamil HCl [Verapamil ER] 180 mg PO DAILY 05/21/21 01/10/22 Ibuprofen 800 mg PO Q8H PRN 06/22/21 01/10/22 traMADol HCL [Ultram] 50 mg PO TID 06/22/21 01/10/22 Atorvastatin [Lipitor] 10 mg PO DAILY 12/20/21 01/10/22 Eszopiclone 3 mg PO DIRECTED PRN 12/20/21 01/10/22 Venlafaxine HCl ER [Effexor XR] 37.5 mg PO DIRECTED 12/20/21 01/10/22 metFORMIN HCL 500 mg PO DAILY 12/20/21 01/10/22 Acetaminophen Tab [Tylenol] 650 mg PO Q6H PRN 01/10/22 01/10/22 Previous Rx's Medication Instructions Recorded Docusate [Colace] 100 mg PO BID #20 capsule 06/26/21 Metoclopramide [Reglan] 10 mg PO Q6H PRN #15 tab 08/25/22 Allergies Allergy/AdvReac Type Severity Reaction Status Date / Time cobalt Allergy POSITIVE Verified 08/25/22 08:08 ON ALLERGY TEST nickel Allergy POSITIVE Verified 08/25/22 08:08 ON ALLERGY TEST oxycodone HCl [From Percocet] Allergy Rash/Hives Verified 08/25/22 08:08 peanut Allergy Wheezing Verified 08/25/22 08:08 pollen extracts Allergy Dyspnea Verified 08/25/22 08:08 shellfish derived [Lobster] Allergy POSITIVE Verified 08/25/22 08:08 ON ALLERGY TEST tree and shrub pollen Allergy Dyspnea Verified 08/25/22 08:08 DUST MITES Allergy Rash/Hives Uncoded 08/25/22 08:08 Review of Systems ROS Statement: Those systems with pertinent positive or pertinent negative responses have been documented in the HPI. ROS Other: All systems not noted in ROS Statement are negative. Past Medical History Past Medical History: Asthma, Diabetes Mellitus, GERD/Reflux, Osteoarthritis (OA) Additional Past Medical History / Comment(s): , hx of migraine, HX STOMACH ULCERS, DDD, VERTIGO, right neck mass, lymph node rt cervical History of Any Multi-Drug Resistant Organisms: None Reported Past Surgical History: Adenoidectomy, Appendectomy, Breast Surgery, Joint Replacement, Orthopedic Surgery, Tonsillectomy Additional Past Surgical History / Comment(s): LEFT KNEE ARTHROSCOPY, left knee replacement, LEFT FOOT SURGERY, SINUS SX-REMOVED POLYPS, COLONOSCOPY, EGD, BACK INJECTIONS, biopsy BILATERAL SIDES OF NECK, BILATERAL BREAST REDUCTION. surgery rt arm for fx 03/02/20, neck mass/lymph node removed Past Anesthesia/Blood Transfusion Reactions: Previous Problems w/ Anesthesia Additional Past Anesthesia/Blood Transfusion Reaction / Comment(s): "Woke up during a foot surgery, they gave her more medication and then she took a long time to wake up after." Past Psychological History: Depression Smoking Status: Former smoker Past Alcohol Use History: Rare Past Drug Use History: None Reported - Past Family History Mother Family Medical History: Cancer General Exam Limitations: no limitations General appearance: alert, in no apparent distress Head exam: Present: atraumatic, normocephalic, normal inspection Respiratory exam: Present: normal lung sounds bilaterally. Absent: respiratory distress, wheezes, rales, rhonchi, stridor Cardiovascular Exam: Present: regular rate, normal rhythm, normal heart sounds. Absent: systolic murmur, diastolic murmur, rubs, gallop, clicks GI/Abdominal exam: Present: soft, tenderness (diffuse), normal bowel sounds. Absent: distended Neurological exam: Present: alert, oriented X3, CN II-XII intact Psychiatric exam: Present: normal affect, normal mood Skin exam: Present: warm, dry, intact, normal color. Absent: rash Course Vital Signs 08/25/22 08/25/22 08/25/22 08:05 12:14 13:40 Temperature 98 F Pulse Rate 90 61 57 L Respiratory 20 18 16 Rate Blood Pressure 130/80 111/60 98/57 O2 Sat by Pulse 96 97 95 Oximetry Medical Decision Making - Medical Decision Making This is a 57-year-old female who presents to the emergency department for a bdominal pain and nausea. Was pt. sent in by a medical professional or institution? @ -No Did you speak to anyone other than the patient for history? @ -No Did you review nursing and triage notes? @ -Yes, and I agree, it is accurate with regards to the patient's symptoms. Were old charts reviewed? @ -No Differential Diagnosis? @ -Differential Abdominal Pain Women: Diverticulosis, ischemic bowel, pancreatitis, hepatitis, UTI, gastroenteritis, AAA, incarcerated hernia, bowel obstruction, constipation, inflammatory bowel, hepatitis, peptic ulcer disease, splenic infarction, perforated viscus, vulvit is, ovarian torsion, PID, kidney stone, placenta abruption, this is not meant to be an all-inclusive list EKG interpreted by me (3pts min.)? @ -EKG interpreted by me demonstrating the following: Sinus rhythm. Ventricular rate 78 bpm, OR interval 182 ms, QRS duration 78 ms, QTC 428 ms. X-rays interpreted by me (1pt min.)? @ -Not obtained CT interpreted by me (1pt min.)? @ -Computed tomography scan of the abdomen and pelvis obtained. My interpretation identifies no evidence of bowel wall thickening or free air. U/S interpreted by me (1pt. min.)? @ -Not obtained What testing was considered but not performed? (CT, X-rays, U/S, labs)? Why? @ -None What meds were considered but not given? Why? @ -None Did you discuss the management of the patient with other professionals? @ -No Did you reconcile home meds? @ -No Was smoking cessation discussed for >3mins.? @ -No Was critical care preformed (if so, how long)? @ -No Were there social determinants of health that impacted care today? How? (Homel essness, low income, unemployed, alcoholism, drug addiction, transportation, low edu. Level, literacy, decrease access to med. care, detention, rehab)? @ -No Was there de-escalation of care discussed even if they declined? (Discuss DNR or withdrawal of care, Hospice)? @ -No What co-morbidities impacted this encounter? (DM, HTN, Smoking, COPD, CAD, Cancer, CVA, Hep., AIDS, mental health diagnosis, sleep apnea, morbid obesity)? @ -DM, GERD Was patient admitted / discharged? @ -Discharged. Lab work obtained and found the nonactionable. Computed tomography scan of the abdomen and pelvis obtained revealing an upper abdominal midline fat-containing hernia. Urinalysis negative for signs of infection. Reglan was used to control her nausea, which she states was more effective than the Zofran she received yesterday. Pain was well controlled with Dilaudid. Patient overall felt better and stable for discharge home. Advised she follow- up with Dr. Tyler regarding the hernia to discuss further treatment options, in the event this is what is causing her pain. Otherwise advised supportive care with Tylenol for additional pain relief. Prescription for Reglan provided with dosing instructions reviewed for any additional nausea. Undiagnosed new problem with uncertain prognosis? @ -None Drug Therapy requiring intensive monitoring for toxicity (Heparin, Nitro, Insulin, Cardizem)? @ -None Were any procedures done? @ -None Diagnosis/symptom? @ -Abdominal pain, abdominal hernia Acute, or Chronic, or Acute on Chronic? @ -Acute Uncomplicated (without systemic symptoms) or Complicated (systemic symptoms)? @ -Uncomplicated Side effects of treatment? @ -No Exacerbation, Progression, or Severe Exacerbation] @ -Not applicable Poses a threat to life or bodily function? @ -No Return precautions reviewed in depth, the patient is instructed to return to the emergency department with any new, worsening, or concerning symptoms. Patient verbalized understanding. This case was discussed in detail with the attending ED physician, Dr. Rodriguez. Presentation, findings, and treatment plan discussed in detail as well. - Lab Data Result diagrams: 08/25/22 08:17 08/25/22 08:17 Lab Results 08/25/22 08/25/22 08/25/22 Range/Units 08:17 08:17 08:17 WBC 7.7 (3.8-10.6) k/uL RBC 4.71 (3.80-5.40) m/uL Hgb 14.0 (11.4-16.0) gm/dL Hct 42.7 (34.0-46.0) % MCV 90.7 (80.0-100.0) fL MCH 29.8 (25.0-35.0) pg MCHC 32.8 (31.0-37.0) g/dL RDW 13.8 (11.5-15.5) % Plt Count 210 (150-450) k/uL MPV 9.9 Neutrophils % 53 % Lymphocytes % 37 % Monocytes % 4 % Eosinophils % 4 % Basophils % 0 % Neutrophils # 4.1 (1.3-7.7) k/uL Lymphocytes # 2.8 (1.0-4.8) k/uL Monocytes # 0.3 (0-1.0) k/uL Eosinophils # 0.3 (0-0.7) k/uL Basophils # 0.0 (0-0.2) k/uL Sodium 139 (137-145) mmol/L Potassium 4.3 (3.5-5.1) mmol/L Chloride 104 (98-107) mmol/L Carbon Dioxide 26 (22-30) mmol/L Anion Gap 9 mmol/L BUN 10 (7-17) mg/dL Creatinine 0.75 (0.52-1.04) mg/dL Est GFR (CKD-EPI)AfAm >90 (>60 ml/min/1.73 sqM) Est GFR (CKD-EPI)NonAf 89 (>60 ml/min/1.73 sqM) Glucose 115 H (74-99) mg/dL Plasma Lactic Acid Yeyo 1.0 (0.7-2.0) mmol/L Calcium 9.2 (8.4-10.2) mg/dL Total Bilirubin 0.8 (0.2-1.3) mg/dL AST 34 (14-36) U/L ALT 48 H (4-34) U/L Alkaline Phosphatase 79 (38-126) U/L Troponin I (0.000-0.034) ng/mL Total Protein 7.5 (6.3-8.2) g/dL Albumin 4.3 (3.5-5.0) g/dL Amylase 45 (30-110) U/L Lipase 93 (23-300) U/L Urine Color Urine Appearance (Clear) Urine pH (5.0-8.0) Ur Specific Jefferson (1.001-1.035) Urine Protein (Negative) Urine Glucose (UA) (Negative) Urine Ketones (Negative) Urine Blood (Negative) Urine Nitrite (Negative) Urine Bilirubin (Negative) Urine Urobilinogen (<2.0) mg/dL Ur Leukocyte Esterase (Negative) 08/25/22 08/25/22 Range/Units 08:17 13:49 WBC (3.8-10.6) k/uL RBC (3.80-5.40) m/uL Hgb (11.4-16.0) gm/dL Hct (34.0-46.0) % MCV (80.0-100.0) fL MCH (25.0-35.0) pg MCHC (31.0-37.0) g/dL RDW (11.5-15.5) % Plt Count (150-450) k/uL MPV Neutrophils % % Lymphocytes % % Monocytes % % Eosinophils % % Basophils % % Neutrophils # (1.3-7.7) k/uL Lymphocytes # (1.0-4.8) k/uL Monocytes # (0-1.0) k/uL Eosinophils # (0-0.7) k/uL Basophils # (0-0.2) k/uL Sodium (137-145) mmol/L Potassium (3.5-5.1) mmol/L Chloride (98-107) mmol/L Carbon Dioxide (22-30) mmol/L Anion Gap mmol/L BUN (7-17) mg/dL Creatinine (0.52-1.04) mg/dL Est GFR (CKD-EPI)AfAm (>60 ml/min/1.73 sqM) Est GFR (CKD-EPI)NonAf (>60 ml/min/1.73 sqM) Glucose (74-99) mg/dL Plasma Lactic Acid Yeyo (0.7-2.0) mmol/L Calcium (8.4-10.2) mg/dL Total Bilirubin (0.2-1.3) mg/dL AST (14-36) U/L ALT (4-34) U/L Alkaline Phosphatase (38-126) U/L Troponin I <0.012 (0.000-0.034) ng/mL Total Protein (6.3-8.2) g/dL Albumin (3.5-5.0) g/dL Amylase (30-110) U/L Lipase (23-300) U/L Urine Color Yellow Urine Appearance Clear (Clear) Urine pH 5.5 (5.0-8.0) Ur Specific Jefferson >1.050 H (1.001-1.035) Urine Protein Trace H (Negative) Urine Glucose (UA) Negative (Negative) Urine Ketones Negative (Negative) Urine Blood Negative (Negative) Urine Nitrite Negative (Negative) Urine Bilirubin Negative (Negative) Urine Urobilinogen <2.0 (<2.0) mg/dL Ur Leukocyte Esterase Negative (Negative) - Radiology Data Radiology results: report reviewed, image reviewed Disposition Clinical Impression: Abdominal hernia Disposition: HOME SELF-CARE Instructions (If sedation given, give patient instructions): Ventral Hernia (ED) Additional Instructions: Return to the emergency department with any new, worsening, or concerning symptoms. You can take the Reglan up to every 6 hours as needed for nausea and vomiting. Take Tylenol as needed for pain relief. Contact Dr. Tyler for a follow-up appointment regarding the abdominal hernia. Follow up with your primary care provider in 1-2 days. Prescriptions: Metoclopramide [Reglan] 10 mg PO Q6H PRN #15 tab PRN Reason: Nausea And Vomiting Is patient prescribed a controlled substance at d/c from ED?: No Referrals: Jerad Alvarez DO [Primary Care Provider] - 1-2 days Jaiden Tyler MD [STAFF PHYSICIAN] - 1-2 days
[2022-08-25 09:27] LABS: Basophils % (A) 0 %; Eosinophils # (A) 0.3 k/uL (0-0.7); Eosinophils % (A) 4 %; HCT 42.7 % (34.0-46.0); Lymphocytes # (A) 2.8 k/uL (1.0-4.8); Lymphocytes % (A) 37 %; MCH 29.8 pg (25.0-35.0); MCHC 32.8 g/dL (31.0-37.0); MCV 90.7 fL (80.0-100.0); Mean Platelet Volume 9.9; Monocytes # (A) 0.3 k/uL (0-1.0); Monocytes % (A) 4 %; Neutrophils # (A) 4.1 k/uL (1.3-7.7); Neutrophils % (A) 53 %; Platelet Count 210 k/uL (150-450); RBC 4.71 m/uL (3.80-5.40); RDW 13.8 % (11.5-15.5); WBC 7.7 k/uL (3.8-10.6)
[2022-08-25 09:42] LABS: ALT 48 U/L (4-34); AST 34 U/L (14-36); African American GFR (CKD) >90 (>60 ml/min/1.73 sqM); Albumin 4.3 g/dL (3.5-5.0); Alkaline Phosphatase 79 U/L (38-126); Amylase 45 U/L (30-110); Anion Gap 9 mmol/L; Blood Urea Nitrogen 10 mg/dL (7-17); Calcium 9.2 mg/dL (8.4-10.2); Carbon Dioxide 26 mmol/L (22-30); Chloride 104 mmol/L (98-107); Glucose 115 mg/dL (74-99); Lipase 93 U/L (23-300); Non-African American GFR(CKD) 89 (>60 ml/min/1.73 sqM); Potassium 4.3 mmol/L (3.5-5.1); Sodium 139 mmol/L (137-145); Total Bilirubin 0.8 mg/dL (0.2-1.3); Total Protein 7.5 g/dL (6.3-8.2)
--- NOTE | 2022-08-25 10:21 | CT ---
EXAMINATION TYPE: CT abdomen pelvis w con DATE OF EXAM: 08/25/2022 COMPARISON: 02/26/2019 HISTORY: Upper abdominal pain CT DLP: 1143.4 mGycm CONTRAST: CT scan of the abdomen and pelvis is performed without Oral Contrast and with IV Contrast, patient in jected with 100 mL of Isovue 300. FINDINGS: LUNG BASES-: No visible nodule. No infiltrate. LIVER/GB: The gallbladder is surgically absent. No space occupying hepatic lesion. Biliary tree is of normal caliber. Mild hepatic steatosis suggested. PANCREAS: No inflammation. No distinct mass. SPLEEN: No splenic enlargement. No lesion seen. ADRENALS: No nodule. No thickening. KIDNEYS/BLADDER: No hydronephrosis. No nephrolithiasis. No distinct renal mass. Wall thickening of the urinary bladder may be secondary to poor distention versus cystitis. Correlate clinically. BOWEL: Postoperative changes of prior appendectomy. Normal bowel caliber. No inflammation. GENITAL ORGANS: No gross abnormality. LYMPH NODES: No greater than 1cm abdominal or pelvic lymph nodes are appreciated. AORTA: No significant abnormality. OSSEOUS STRUCTURES: No significant abnormality is seen. OTHER: Upper abdominal midline fat-containing hernia measuring 4.5 x 2.0 cm. IMPRESSION: 1. Upper abdominal midline fat-containing hernia measuring 4.5 x 2.0 cm. 2.. Wall thickening of the urinary bladder may be secondary to poor distention versus cystitis. Corre late clinically.
[2022-08-25] MEDS ORDERED: MAG HYDROX/AL HYDROX/SIMETH 30 ML, HYOSCYAMINE ELIXIR 10 ML, LIDOCAINE 2% GLYDO JELLY 1... PO STA ×3 (10:38)
[2022-08-25] MEDS ORDERED: KETOROLAC 15 MG/ML 1 ML VIAL IVP STA (11:12)
[2022-08-25] MEDS ORDERED: PANTOPRAZOLE 40 MG/10 ML VIAL IVP STA (12:00)
[2022-08-25] MEDS ORDERED: HYDROmorphone 1 MG/ML 1 ML SYRINGE IVP STA (12:00)
[2022-08-25 13:42] VITALS: BP 98/57; PULSE 57; RESP 16
[2022-08-25 14:14] LABS: Appearance,Urine Clear (Clear); Bilirubin,Urine Negative (Negative); Blood,Urine Negative (Negative); Color,Urine Yellow; Glucose,Urine (UA) Negative (Negative); Ketones,Urine Negative (Negative); Leukocyte Esterase,Urine Negative (Negative); Nitrite,Urine Negative (Negative); PH, Urine 5.5 (5.0-8.0); Protein,Urine Trace (Negative); Urobilinogen,Urine <2.0 mg/dL (<2.0)
[2022-08-25 14:16] LABS: Specific Gravity,Urine >1.050 (1.001-1.035)
== END 2022-08-25 14:47 | disposition home or self-care (01) ==
LOC: EC 08:01
DX: K46.9 Unspecified abdominal hernia without obstruction or gangrene (principal); J45.909 Unspecified asthma, uncomplicated; E11.9 Type 2 diabetes mellitus without complications; K21.9 Gastro-esophageal reflux disease without esophagitis; M19.90 Unspecified osteoarthritis, unspecified site; F32.A Depression, unspecified; Z87.891 Personal history of nicotine dependence; Z79.84 Long term (current) use of oral hypoglycemic drugs; Z79.899 Other long term (current) drug therapy; Z79.1 Long term (current) use of non-steroidal anti-inflammatories (NSAID); Z91.013 Allergy to seafood; Z91.010 Allergy to peanuts; Z88.8 Allergy status to other drugs, medicaments and biological substances
CPT/HCPCS: 36415; 93005; 80053; 82150; 83605; 83690; 84484; 85025; 81003; 74177; 99285; 96374; 96375 ×3; 96376 ×3; 96361 ×2; J2765; J1170 ×2; J1885; C9113; Q9967; 96372; 99283

== ENCOUNTER 2022-10-14 11:48 | Day surgery (SDC) | payer MEDICAID ==
[2022-10-09 14:01] VITALS: BMI 32.3
[~2022-10-14 11:48] MED LIST changes: -ACETAMINOPHEN TAB 500 MG TAB PO PRN; -DEXAMETHASONE SOD PHOSPHATE 4 MG/ML 1 ML VIAL IV ONE; -HEPARIN SODIUM,PORCINE 5,000 UNIT/ML 1 ML VIAL SQ PRN; +LACTATED RINGERS 1,000 ML IV SCH; -ONDANSETRON 4 MG/2 ML VIAL IVP ONE
[2022-10-14 12:19] VITALS: TEMP 97
[2022-10-14 12:29] LABS: Glucose,Whole Blood 106 mg/dL (70-110)
[2022-10-14] MEDS ORDERED: LIDOCAINE 2% INJ 20 MG/ML (2 ML VIAL) ONE (12:56)
[2022-10-14] MEDS ORDERED: PROPOFOL 10 MG/ML 20 ML VIAL IV ONE (12:56)
[2022-10-14 13:22] VITALS: BP 115/61; PULSE 72; RESP 18
--- NOTE | 2022-10-14 13:40 | P.GSHP ---
History of Present Illness H&P Date: 10/14/22 Chief Complaint: GERD This a 57-year-old female who has some issues with GERD and some cervical dysphasia. Patient states she chokes when she tries to swallow food sometimes. She's had some complaints of some mild epigastric pain. She presents today for EGD. Past Medical History Past Medical History: Asthma, Diabetes Mellitus, GERD/Reflux, Osteoarthritis (OA) Additional Past Medical History / Comment(s): , hx of migraine, HX STOMACH ULCERS, DDD, VERTIGO, right neck mass, lymph node rt cervical History of Any Multi-Drug Resistant Organisms: None Reported Past Surgical History: Adenoidectomy, Appendectomy, Breast Surgery, Cholecystectomy, Joint Replacement, Orthopedic Surgery, Tonsillectomy Additional Past Surgical History / Comment(s): LEFT KNEE ARTHROSCOPY, left knee replacement, LEFT FOOT SURGERY, SINUS SX-REMOVED POLYPS, COLONOSCOPY, EGD, BACK INJECTIONS, biopsy BILATERAL SIDES OF NECK, BILATERAL BREAST REDUCTION. surgery rt arm for fx 03/02/20, neck mass/lymph node removed, HERNIA REPAIR AT [facility] IN JULY 2022, Past Anesthesia/Blood Transfusion Reactions: Previous Problems w/ Anesthesia Additional Past Anesthesia/Blood Transfusion Reaction / Comment(s): "Woke up during a foot surgery, they gave her more medication and then she took a long time to wake up after." Smoking Status: Former smoker - Past Family History Mother Family Medical History: Cancer Medications and Allergies Home Medications Medication Instructions Recorded Confirmed Type tiZANidine HCL [Zanaflex] 4 mg PO TID PRN 09/30/19 10/14/22 History Esomeprazole Magnesium [NexIUM] 40 mg PO DAILY 12/28/19 10/14/22 History Pregabalin [Lyrica] 75 mg PO BID 05/21/21 10/14/22 History Verapamil HCl [Verapamil ER] 180 mg PO DAILY 05/21/21 10/14/22 History Ibuprofen 800 mg PO Q8H PRN 06/22/21 10/14/22 History traMADol HCL [Ultram] 50 mg PO TID 06/22/21 10/14/22 History Docusate [Colace] 100 mg PO BID #20 capsule 06/26/21 10/14/22 Rx Atorvastatin [Lipitor] 10 mg PO DAILY 12/20/21 10/14/22 History Eszopiclone 3 mg PO HS PRN 12/20/21 10/14/22 History metFORMIN HCL 500 mg PO DAILY 12/20/21 10/14/22 History Acetaminophen Tab [Tylenol] 650 mg PO Q6H PRN 01/10/22 10/14/22 History Metoclopramide [Reglan] 10 mg PO Q6H PRN #15 tab 08/25/22 10/14/22 Rx Venlafaxine HCl ER [Effexor Xr] 75 mg PO DAILY 10/09/22 10/14/22 History Allergies Allergy/AdvReac Type Severity Reaction Status Date / Time cobalt Allergy POSITIVE Verified 10/14/22 12:17 ON ALLERGY TEST nickel Allergy POSITIVE Verified 10/14/22 12:17 ON ALLERGY TEST oxycodone HCl [From Percocet] Allergy Rash/Hives Verified 10/14/22 12:17 peanut Allergy Wheezing Verified 10/14/22 12:17 pollen extracts Allergy Dyspnea Verified 10/14/22 12:17 shellfish derived [Lobster] Allergy POSITIVE Verified 10/14/22 12:17 ON ALLERGY TEST tree and shrub pollen Allergy Dyspnea Verified 10/14/22 12:17 DUST MITES Allergy Rash/Hives Uncoded 10/14/22 12:17 Surgical - Exam Vital Signs Temp Pulse Resp BP Pulse Ox 97.0 F L 96 17 109/63 95 10/14/22 12:18 10/14/22 12:18 10/14/22 12:18 10/14/22 12:18 10/14/22 12:18 - General well developed, well nourished, no distress - Eyes PERRL - ENT normal pinna - Neck no masses - Respiratory normal expansion - Cardiovascular Rhythm: regular - Abdomen Abdomen: soft, non tender Assessment and Plan Assessment: GERD. We'll perform EGD.
--- NOTE | 2022-10-14 13:42 | P.OP ---
Date of Procedure: 10/14/22 Preoperative Diagnosis: GERD Postoperative Diagnosis: Antral gastritis Procedure(s) Performed: EGD Anesthesia: MAC Surgeon: Jaiden Tyler Pathology: other (Antrum) Condition: stable Disposition: PACU Description of Procedure: The patient's placed on the endoscopy table in the lateral position. It IV se dation. The gastro-/oropharynx passed in the esophagus and stomach. Scope then placed through the pylorus. The first and second portion of the duodenum appeared normal. Scope was then brought back the antrum this. Minimally inflamed. Biopsies performed. The scope was then retroflexed and remainder the stomach appeared normal. There is no significant hiatal hernia. The GE junction was at 40 cm. The distal esophagus appeared normal. The proximal esophagus appeared normal. Scope withdrawn for patient.
== END 2022-10-14 13:59 | disposition home or self-care (01) ==
LOC: ORWHC2ENDO 11:48
PROVIDERS: ATTEND Surgery
DX: K29.50 Unspecified chronic gastritis without bleeding (principal); K21.9 Gastro-esophageal reflux disease without esophagitis; R13.10 Dysphagia, unspecified; J45.909 Unspecified asthma, uncomplicated; E11.9 Type 2 diabetes mellitus without complications; M19.90 Unspecified osteoarthritis, unspecified site; Z87.891 Personal history of nicotine dependence; Z80.9 Family history of malignant neoplasm, unspecified; I10 Essential (primary) hypertension; G43.909 Migraine, unspecified, not intractable, without status migrainosus; Z96.652 Presence of left artificial knee joint; Z90.49 Acquired absence of other specified parts of digestive tract; Z98.890 Other specified postprocedural states; Z79.84 Long term (current) use of oral hypoglycemic drugs; Z79.891 Long term (current) use of opiate analgesic; Z79.899 Other long term (current) drug therapy; Z88.5 Allergy status to narcotic agent; Z91.010 Allergy to peanuts; Z91.013 Allergy to seafood; Z91.09 Other allergy status, other than to drugs and biological substances; Z87.11 Personal history of peptic ulcer disease
CPT/HCPCS: 88305; 83036; 43239; J2704; J2001

== ENCOUNTER → 2022-11-27 | Outpatient (CLI) | payer MEDICAID ==
--- NOTE | 2022-11-28 17:55 | MM ---
Reason for Exam: Screening (asymptomatic). Last mammogram was performed 1 year(s) and 8 month(s) ago. Patient History: Menarche at age 16. First Full-Term at age 19. Postmenopausal. 2003, Bilateral Reduction. Maternal grandmother had breast cancer, age 60. Maternal aunt had breast cancer, age 50. Maternal aunt had breast cancer. Risk Values: Estrella 5 year model risk: 0.8%. NCI Lifetime model risk: 5.2%. Prior Study Comparison: 01/14/2019 Bilateral Screening Mammogram, [facility]. 03/21/2020 Bilateral Screening Mammogram, [facility]. 03/27/2021 Bilateral Screening Mammogram, [facility]. Tissue Density: The breast tissue is heterogeneously dense. This may lower the sensitivity of mammography. Findings: Analyzed By CAD. Pattern appears symmetrical and stable. Chronic nodularity is within normal right breast. No significant interval changes are evident. No suspicious groups of microcalcifications, spiculated or lobular masses, architectural distortion or other secondary signs of malignancy are mammographically apparent.Pattern appears symmetrical and stable. Chronic nodularity is within normal right breast. No significant interval changes are evident. At the area marked as a palpable abnormality by the patient no discrete mammographic abnormality is evident. Recommend ultrasound of this area. No suspicious groups of microcalcifications, spiculated or lobular masses, architectural distortion or other secondary signs of malignancy are mammographically apparent. Overall Assessment: Incomplete: need additional imaging evaluation, BI-RAD 0 Management: Diagnostic Breast Ultrasound of the left breast. A negative mammogram report should not preclude additional follow up of suspicious palpable abnormalities. Patient should continue monthly self breast exam. A clinical breast exam by your physician is recommended on an annual basis and results should be correlated with mammographic findings. Electronically signed and approved by: Jerad Santiago D.O. Radiologis
== END | disposition home or self-care (01) ==
LOC: RADMAMWWP 13:48
PROVIDERS: ATTEND Family Medicine
DX: Z12.31 Encounter for screening mammogram for malignant neoplasm of breast (principal); Z78.0 Asymptomatic menopausal state; Z80.3 Family history of malignant neoplasm of breast
CPT/HCPCS: 77063; 77067

== ENCOUNTER → 2022-12-26 | Outpatient (CLI) | payer MEDICAID ==
[2022-12-26 13:05] LABS: Appearance,Urine Clear (Clear); Bilirubin,Urine Negative (Negative); Blood,Urine Negative (Negative); Color,Urine Yellow; Glucose,Urine (UA) Negative (Negative); Ketones,Urine Negative (Negative); Leukocyte Esterase,Urine Negative (Negative); Nitrite,Urine Negative (Negative); Protein,Urine Trace (Negative); Specific Gravity,Urine 1.027 (1.001-1.035)
[2022-12-26 13:26] LABS: INR 0.9 (<1.2); Prothrombin Time 9.8 sec (9.0-12.0)
[2022-12-26 16:55] LABS: BUN/Creat Ratio 14.44 Ratio (12.00-20.00); Calcium 9.9 mg/dL (8.7-10.3); Carbon Dioxide 28.2 mmol/L (21.6-31.8); Chloride 104 mmol/L (96-109); Glucose 103 mg/dL (70-110); Potassium 5.1 mmol/L (3.5-5.5); Sodium 143 mmol/L (135-145)
[2022-12-26 17:11] LABS: Basophils # (A) 0.05 X 10*3/uL (0.00-0.10); Basophils % (A) 0.6 %; Eosinophils # (A) 0.32 X 10*3/uL (0.04-0.35); Eosinophils % (A) 3.8 %; HCT 40.3 % (37.2-46.3); HGB 12.8 d/dL (12.0-15.0); Lymphocytes % (A) 44.4 %; MCH 29.4 pg (27.0-32.0); MCHC 31.8 d/dL (32.0-37.0); MCV 92.4 FL (80.0-97.0); Mean Platelet Volume 11.7 FL (9.5-12.2); Monocytes # (A) 0.41 X 10*3/uL (0.20-1.00); Monocytes % (A) 4.9 %; NRBC Per 100 WBC 0 X 10*3/uL (0.00-0.01); Neutrophils # (A) 3.84 X 10*3/uL (1.80-7.70); Neutrophils % (A) 46.2 %; Platelet Count 256 X 10*3/uL (140-440); RBC 4.36 X 10*6/uL (4.10-5.20); RDW 13.8 % (11.5-14.5); WBC 8.33 X 10*3/uL (4.50-10.00)
== END | disposition home or self-care (01) ==
LOC: LABWHC1 11:37
PROVIDERS: ATTEND Family Medicine
DX: Z01.812 Encounter for preprocedural laboratory examination (principal); E11.9 Type 2 diabetes mellitus without complications; E55.9 Vitamin D deficiency, unspecified
CPT/HCPCS: 36415; 80048; 81003; 82306; 83036; 85025; 85610; 85730

== ENCOUNTER → 2022-12-31 | Outpatient (CLI) | payer MEDICAID | END | disposition home or self-care (01) | LOC: LABPAT 11:43 | PROVIDERS: ATTEND Orthopaedic Surgery | DX: Z01.812 Encounter for preprocedural laboratory examination (principal); Z22.322 Carrier or suspected carrier of Methicillin resistant Staphylococcus aureus; M17.11 Unilateral primary osteoarthritis, right knee | CPT/HCPCS: 87070 ==

== ENCOUNTER 2023-01-20 13:02 | Observation (INO) | payer MEDICAID ==
--- NOTE | 2023-01-19 12:23 | HP ---
HISTORY AND PHYSICAL DATE OF SCHEDULED SURGERY: 01/20/2023. HISTORY OF PRESENT ILLNESS: Jasmyn Felipe is a 58-year-old patient seen with symptomatic right knee osteoarthritis, failing conservative treatment measures. After treatment options discussed, she elected to proceed with right total knee arthroplasty. Consent was obtained. Medical clearance provided by Dr. Jerad Alvarez. PAST MEDICAL HISTORY: Hypertension, hyperlipidemia, rqh-jizsams-btyoimxdy diabetes, asthma. PAST SURGICAL HISTORY: Left knee arthroscopy, left total knee arthroplasty, left foot surgery. DAILY MEDICATIONS: 1. Atorvastatin. 2. Ibuprofen. 3. Metformin. 4. Tramadol. 5. Verapamil. ALLERGIES: Percocet, marbella, peanuts, cobalt. SOCIAL HISTORY: She denies current tobacco use. PHYSICAL EVALUATION OF THE RIGHT KNEE: Range of motion is -2/3 to 110 degrees. Mild effusion. Tenderness medial joint line. Crepitus medial and patellofemoral compartments with range of motion. Pain with patellofemoral compression. Ligaments stable. Hip rotation without pain. Distal neurovascular exam is intact. RADIOGRAPHS: Right knee radiographs reveal severe osteoarthritic changes. IMPRESSION: 1. Right knee osteoarthritis. 2. Hypertension. 3. Nol-cqtblta-sctecjhmr diabetes. 4. Hyperlipidemia. PLAN: Right total knee arthroplasty. MMODL / IJN: [id number] /
[~2023-01-20 13:02] MED LIST changes: +ACETAMINOPHEN TAB 500 MG TAB PO PRN; +DEXAMETHASONE SOD PHOSPHATE 4 MG/ML 1 ML VIAL IV ONE; +HYDROmorphone 0.5 MG/0.5 ML SYRINGE IVP PRN; -LACTATED RINGERS 1,000 ML IV SCH; +LIDOCAINE 1% (10MG/ML) FOR IV START INTRADERMA PRN; +MELOXICAM 7.5 MG TAB PO PRN; +ONDANSETRON 4 MG/2 ML VIAL IVP ONE; +TRANEXAMIC 1,000 MG/100ML-NACL 1,000 MG in SALINE 1 100ML.BAG IVPB PRN; +droPERidol 5 MG/2 ML VIAL IVP PRN
[2023-01-20 14:07] LABS: Glucose,Whole Blood 102 mg/dL (70-110)
[2023-01-20] MEDS: LACTATED RINGERS 1,000 ML IV SCH ×2 (14:13→21:23)
[2023-01-20] MEDS ORDERED: fentaNYL (PF) 50 MCG/ML 2 ML AMP IVP ONE (14:21)
[2023-01-20] MEDS ORDERED: MIDAZOLAM 2 MG/2 ML VIAL IVP ONE (14:21)
--- NOTE | 2023-01-20 14:53 | P.ANPRN ---
Procedure Note - Anesthesia - Nerve Block Performed Right iPack Single Time Out Performed: Yes ([id number]) Date of Procedure: 01/20/23 Procedure Start Time: 14:28 Procedure Stop Time: :31 Location of Patient: PreOp Indication: Acute Post-Operative Pain, Requested by Surgeon Specifically requested for management of pain by DrEmily: Gagandeep Lozada Sedation Type: Sedate with meaningful contact maintained Preparation: Sterile Prep Position: Supine Catheter: None Needle Types: Pajunk Needle Gauge: 21 Ultrasound used to visualize needle placement: Yes Ultrasound used to observe medication spread: Yes Injectate: 0.5% Ropivacaine (see comment for volume) (15cc + 5cc nacl pf) Blood Aspirated: No Pain Paresthesia on Injection Noted: No Resistance on Injection: Normal Image Stored and Saved: Yes Events: Uneventful and Well Tolerated
--- NOTE | 2023-01-20 14:53 | P.ANPRN ---
Procedure Note - Anesthesia - Nerve Block Performed Right Adductor Canal Infusion Time Out Performed: Yes ([id number]) Date of Procedure: 01/20/23 Procedure Start Time: 14:21 Procedure Stop Time: 14:27 Location of Patient: PreOp Indication: Acute Post-Operative Pain, Requested by Surgeon Specifically requested for management of pain by DrEmily: Gagandeep Lozada Sedation Type: Sedate with meaningful contact maintained Preparation: Sterile Prep, Sterile Dressing Position: Supine Catheter Depth at Skin (cm): 8 Catheter: Indwelling Needle Types: Pajunk Needle Gauge: 18 Ultrasound used to visualize needle placement: Yes Ultrasound used to observe medication spread: Yes Injectate: 0.5% Ropivacaine (see comment for volume) (15cc + 5cc nacl pf) Blood Aspirated: No Pain Paresthesia on Injection Noted: No Resistance on Injection: Normal Image Stored and Saved: Yes Events: Uneventful and Well Tolerated
[2023-01-20] MEDS ORDERED: PROPOFOL 10 MG/ML 20 ML VIAL IV ONE (15:08)
[2023-01-20] MEDS ORDERED: TRANEXAMIC 1,000 MG/100ML-NACL PREMIX BAG ONE (15:08)
[2023-01-20] MEDS ORDERED: fentaNYL (PF) 50 MCG/ML 2 ML AMP ONE (15:08)
[2023-01-20] MEDS ORDERED: MIDAZOLAM 2 MG/2 ML VIAL ONE (15:08)
[2023-01-20] MEDS ORDERED: HYDROmorphone 0.5 MG/0.5 ML SYRINGE IVP PRN ×2 (16:56)
[2023-01-20] MEDS ORDERED: NALOXONE 0.4 MG/ML 1 ML VIAL IV PRN (16:56)
[2023-01-20] MEDS ORDERED: HYDROcodone/APAP 5-325MG 1 EACH TAB PO PRN (16:56)
--- NOTE | 2023-01-20 16:56 | P.OP ---
Date of Procedure: 01/20/23 Preoperative Diagnosis: Right knee osteoarthritis Postoperative Diagnosis: Right knee osteoarthritis( Procedure(s) Performed: Right total knee arthroplasty Implants: 1. Aesculap size 5 narrow right cemented femur 2. Aesculap size T2 cemented baseplate 3. Aesculap size T2 10 millimeter polyethylene tibial insert 4. Aesculap size P4 all polyethylene cemented patella Anesthesia: regional (Erector spinae block), spinal Surgeon: Gagandeep Lozada Brand Designer #1: Haroldo Mckeon Estimated Blood Loss (ml): 50 Pathology: none sent Condition: stable Disposition: PACU Indications for Procedure: 58-year-old patient seen with symptomatic right knee osteoarthritis. After having treatment options discussed, she elected to proceed with total knee arthroplasty. Operative Findings: See description of procedure Description of Procedure: Patient was taken to the operative suite after having an adductor canal catheter placed by the department of anesthesia. Patient underwent a spinal anesthetic by the department of anesthesia. Patient was given preoperative IV intake antibiotics and TXA. A well-padded tourniquet was placed about the right lower extremity. The lower extremity was then prepped and draped in the normal sterile orthopedic fashion. The extremity was elevated, a tourniquet was insufflated to 300. A standard anterior incision was made sharply through skin. Dissection was taken down through the subcutaneous soft tissues down to the extensor mechanism. A medial arthrotomy was performed, patella was everted and knee was flexed. There was advanced osteoarthritis noted. I introduced my distal intramedullary femoral drill. I then introduced the distal femoral cutting jig. Gregor PAUL secured the cutting jig with 2 pins. I held retractors in position while Gregor PAUL performed the distal femoral resection through the guide area we now removed her distal femoral cutting guide. We now placed our 4-in-1 femoral cutting block and positioned and it was secured with 2 pins by Gregor PAUL while I held the block in position. The distal femoral finishing was now completed. A proximal tibial cutting guide was positioned. I held the guide in the appropriate position with both hands well Gregor PAUL inserted stabilizing pins into the guide. Proximal tibial cut was made. We now placed a trial femoral component into position, along with an appropriate size tibial tray and insert. We now took the knee through range of motion and had full extension good flexion and good overall soft tissue balance noted. The patella was everted and stabilized with 2 towel clips held by Gregor PAUL while I performed a flush with patellar quad tendon utilizing a fresh sawblade. We templated the patella, appropriate drill holes were made. An appropriate trial patella was positioned, knee was taken through full range of motion with the patella tracking very nicely. The trial patella was removed. Drill holes were made through the femoral component. All trial components were removed after marking off the appropriate rotation of the tibia. Retractors were now positioned along the proximal tibia. An appropriate keel punch was mad e with the appropriate size tibial guide by myself on Gregor PAUL assisted by holding retractors. At this point appropriate size implants were chosen and opened. The joint was irrigated copiously with pulse lavage mechanical irrigation. The wound was irrigated with pulse lavage mechanical irrigation. We mixed antibiotic methylmethacrylate. We placed the knee into flexion. We placed multiple retractors assisted by Gregor PAUL to expose the proximal tibia. Once the methyl methacrylate was ready, the tibial component was cemented into place removing any excess methylmethacrylate form by both myself and Gregor PAUL. The femoral component was cemented into place removing the removing any excess methylmethacrylate performed by both myself and Gregor PAUL. We then inserted the appropriate size polyethylene tibial insert. We made sure that it was locked into position. We took the knee into full extension, and then back in a flexion making sure we had removed any excess m ethylmethacrylate. The patellar component was then cemented down and secured with clamp. Excess methylmethacrylate removed. We kept the knee in full extension, patellar clamp in position until methylmethacrylate had hardened. Once it had hardened the patellar clamp was removed. The knee was taken through full range of motion. The patella tracked nicely. There was good soft tissue balancing. The tourniquet was now released. Additional hemostasis was achieved via electrocautery. A second gram of TXA was given. The wound again was irrigated with pulse lavage mechanical irrigation. The extensor mechanism was repaired with Ethibond suture. We checked the repair with range of motion and it was stable. The subcutaneous soft tissues were repaired with Vicryl in layers. The skin was approximated with pernio/Dermabond. Sterile dressings were applied followed by loose web roll and Gilmar bandage. The patient was transferred to a bed, and taken to recovery in stable and satisfactory c ondition. Gregor PAUL assisted with this complex procedure.
--- NOTE | 2023-01-20 18:04 | XR ---
EXAMINATION TYPE: XR knee limited RT DATE OF EXAM: 01/20/2023 5:50 PM CLINICAL INDICATION:Female, 58 years old with history of Evaluation for Postop abnormality and alignm ent; [facility] COMPARISON: 10/29/2018 TECHNIQUE: XR knee limited RT; examined in Frontal, lateral projections. FINDINGS: Status post total knee arthroplasty changes with hardware in appropriate alignment and in tact. No evidence of fracture. Subcutaneous lucencies and lucencies within the joint consistent with surgical changes. IMPRESSION: Status post total knee arthroplasty changes with hardware intact and appropriate alignment. No fractu res identified.
[2023-01-20] MEDS ORDERED: ROPIVACAINE 0.2%-NS ON-Q PUMP 2 MG/ML EACH MISCELLANE PRN (18:38)
[2023-01-20] MEDS: HYDROcodone/APAP 7.5-325MG 1 EACH TAB PO PRN (20:14)
[2023-01-20] MEDS: SENNOSIDES-DOCUSATE SODIUM 1 EACH TAB PO SCH (20:14)
[2023-01-20] MEDS ORDERED: ALBUTEROL NEBULIZED 2.5 MG/3 ML INHALATION PRN (20:53)
[2023-01-20] MEDS ORDERED: ZOLPIDEM 5 MG TAB PO PRN (21:00)
[2023-01-20] MEDS: ATORVASTATIN 40 MG TAB PO SCH (21:22)
[2023-01-20] MEDS: HYDROmorphone 1 MG/ML 1 ML SYRINGE IVP PRN (21:22)
[2023-01-20] MEDS: PREGABALIN 100 MG CAP PO SCH (21:22)
--- NOTE | 2023-01-20 21:23 | P.CONS ---
History of Present Illness - Reason for Consult Consult date: 01/20/23 Medical management Requesting physician: Gagandeep Lozada - Chief Complaint Right knee surgery - History of Present Illness This is a pleasant 58-year-old patient follows with Dr. Alvarez. Chronic stable medical conditions include asthma, GERD, osteoarthritis, peptic ulcer disease, diet-controlled diabetes. Patient has undergone right total knee arthroplasty. Pain at the operative site. Some numbness in the right leg. Nurse did inform the surgical team. No nausea vomiting. No chest pain. at the bedside. Review of systems: GEN.: None EYES: None HEENT: None NECK: None RESPIRATORY: None CARDIOVASCULAR: None GASTROINTESTINAL: None GENITOURINARY: None MUSCULOSKELETAL: Joint pains LYMPHATICS: None HEMATOLOGICAL: None PSYCHIATRY: None NEUROLOGICAL: None Past medical history to include: Asthma, diet-controlled diabetes, GERD, osteoarthritis, migraine, stomach ulcers, depression Social history: Alcohol rarely. . Patient smoked for about 30 years stopped in 2011. About 1 pack a week Physical examination: VITAL SIGNS: 84, 16, 145/70, 96% 2 L GENERAL: BMI 35.5, declining with awake slightly uncomfortable. EYES: Pupils equal. Conjunctiva normal. HEENT: External appearance of nose and ears normal, oral cavity grossly normal. NECK: JVD not raised; masses not palpable. HEART: First and second heart sounds are normal; no edema. LUNGS: Respiratory rate normal; clear to auscultation. ABDOMEN: Soft, nontender, liver spleen not palpable, no masses palpable. PSYCH: Alert and oriented x3; mood and affect normal. MUSCULOSKELETAL:No Clubbing/cyanosis;muscles-grossly intact. Dressing over the right knee. NEUROLOGICAL: Cranial nerves grossly intact; no facial asymmetry, power and sensation grossly intact. LYMPHATICS: No lymph nodes palpable in the axilla and neck INVESTIGATIONS, reviewed in the clinical context: White count 8.3 hemoglobin 12.8 platelets 256 sodium 143 potassium 5.1 BUN 13 creatinine 0.9 Assessment and plan: -Right total knee arthroplasty Pain control. Lovenox for DVT prophylaxis -Primary osteoarthritis Pain control as needed -Hyperlipidemia Lipitor 40 mg daily at bedtime -COPD in a prior smoker Symbicort -GERD/peptic ulcer disease Nexium -Chronic insomnia Ambien -Obesity BMI 34.5 Weight loss measures Care was discussed with the patient and the bedside. Home medications resumed. Questions answered Thank you Dr. Lozada Past Medical History Past Medical History: Asthma, Diabetes Mellitus, GERD/Reflux, Musculoskeletal Disorder, Osteoarthritis (OA) Additional Past Medical History / Comment(s): hx of migraine, HX STOMACH ULCERS, DDD, VERTIGO @times, diet controlled diabetes History of Any Multi-Drug Resistant Organisms: None Reported Past Surgical History: Adenoidectomy, Appendectomy, Breast Surgery, Cholecystectomy, Hernia Repair, Joint Replacement, Orthopedic Surgery, Tonsillectomy Additional Past Surgical History / Comment(s): LEFT KNEE ARTHROSCOPY, left knee replacement, LEFT FOOT SURGERY, SINUS SX-REMOVED POLYPS, COLONOSCOPY, EGD, BACK INJECTIONS, biopsy BILATERAL SIDES OF NECK, BILATERAL BREAST REDUCTION. surgery rt arm for fx 03/02/20, neck mass/lymph node removed, HERNIA REPAIR AT [facility] IN JULY 2022, Past Anesthesia/Blood Transfusion Reactions: Previous Problems w/ Anesthesia, Postoperative Nausea & Vomiting (PONV) Additional Past Anesthesia/Blood Transfusion Reaction / Comm: "Woke up during a foot surgery, they gave her more medication and then she took a long time to wake up after." Smoking Status: Former smoker - Past Family History Mother Family Medical History: Cancer Medications and Allergies Home Medications Medication Instructions Recorded Confirmed Type Esomeprazole Magnesium [NexIUM] 40 mg PO DAILY 12/28/19 01/20/23 History Pregabalin [Lyrica] 200 mg PO BID 05/21/21 01/20/23 History Verapamil HCl [Verapamil ER] 180 mg PO QAM 05/21/21 01/20/23 History Ibuprofen 800 mg PO Q8H PRN 06/22/21 01/17/23 History Venlafaxine HCl ER [Effexor Xr] 150 mg PO DAILY 10/09/22 01/20/23 History Albuterol Inhaler [Ventolin Hfa 1 - 2 puff INHALATION Q6H PRN 01/16/23 01/20/23 History Inhaler] Budesonide-Formot 160-4.5 Mcg 2 puff INHALATION BID 01/16/23 01/20/23 History [Symbicort 160-4.5 Mcg Inhaler] Linaclotide [Linzess] 72 mcg PO DAILY PRN 01/16/23 01/20/23 History Zolpidem [Ambien] 10 mg PO HS 01/16/23 01/20/23 History Albuterol Nebulized (Conc) 2.5 mg INHALATION TID PRN 01/17/23 01/20/23 History [Ventolin Nebulized (Conc)] Atorvastatin [Lipitor] 40 mg PO HS 01/17/23 01/20/23 History Cholecalciferol [Vitamin D3 (125 125 mcg PO DAILY 01/17/23 01/17/23 History Mcg = 5000 Iu)] Cyanocobalamin (Vitamin B-12) 1,000 mcg PO DAILY 01/17/23 01/17/23 History [Vitamin B-12] Esomeprazole Magnesium [NexIUM] 40 mg PO DAILY PRN 01/17/23 01/20/23 History Pyridoxine HCl (Vitamin B6) 100 mg PO DAILY 01/17/23 01/17/23 History [Vitamin B-6] tiZANidine [Zanaflex] 4 mg PO Q8HR PRN 01/17/23 01/20/23 History traMADol HCL 50 mg PO Q12HR PRN 01/17/23 01/20/23 History Allergies Allergy/AdvReac Type Severity Reaction Status Date / Time cobalt Allergy POSITIVE Verified 01/20/23 13:35 ON ALLERGY TEST nickel Allergy POSITIVE Verified 01/20/23 13:35 ON ALLERGY TEST oxycodone HCl [From Percocet] Allergy Rash/Hives Verified 01/20/23 13:35 peanut Allergy Wheezing Verified 01/20/23 13:35 pollen extracts Allergy Dyspnea Verified 01/20/23 13:35 shellfish derived [Lobster] Allergy POSITIVE Verified 01/20/23 13:35 ON ALLERGY TEST tree and shrub pollen Allergy Dyspnea Verified 01/20/23 13:35 DUST MITES Allergy Rash/Hives Uncoded 01/20/23 13:35 Physical Exam Vitals: Vital Signs Temp Pulse Pulse Resp BP Pulse Ox 01/20/23 18:48 84 16 145/70 96 01/20/23 18:32 91 16 125/85 96 01/20/23 18:17 87 16 124/63 97 01/20/23 18:02 80 16 127/63 97 01/20/23 17:46 79 16 124/63 96 01/20/23 17:30 71 16 127/63 96 01/20/23 17:15 97 F L 79 18 133/86 96 01/20/23 14:39 80 16 122/69 96 01/20/23 14:03 97.1 F L 79 16 164/88 96 Intake and Output 01/20/23 01/20/23 01/20/23 06:59 14:59 22:59 Intake Total 100 650 Output Total 50 Balance 100 600 Intake: IV 100 650 Output: Estimated Blood Loss 50 Other: Weight 99.9 kg
[2023-01-20] MEDS: SYMBICORT 160-4.5 MCG INHALER INHALATION SCH (21:58)
[2023-01-21] MEDS: ONDANSETRON 4 MG/2 ML VIAL IVP PRN ×2 (00:35→09:12)
[2023-01-21] MEDS: HYDROmorphone 1 MG/ML 1 ML SYRINGE IVP PRN ×5 (00:35→22:42)
[2023-01-21 00:36] LABS: Glucose,Whole Blood 151 mg/dL (70-110)
[2023-01-21] MEDS: HYDROcodone/APAP 7.5-325MG 1 EACH TAB PO PRN ×3 (03:14→23:36)
[2023-01-21] MEDS: ENOXAPARIN 30 MG/0.3 ML SYRINGE SQ SCH ×2 (07:07→20:45)
[2023-01-21] MEDS: SYMBICORT 160-4.5 MCG INHALER INHALATION SCH ×2 (08:20→20:25)
[2023-01-21] MEDS: PYRIDOXINE 50 MG TAB PO SCH (08:25)
[2023-01-21] MEDS: PREGABALIN 100 MG CAP PO SCH ×2 (08:26→20:45)
[2023-01-21] MEDS: VERAPAMIL SR 180 MG TABLET.ER PO SCH (08:26)
[2023-01-21] MEDS: PANTOPRAZOLE 40 MG TABLET PO SCH (08:26)
[2023-01-21] MEDS: VENLAFAXINE HCL ER 75 MG CAP PO SCH (08:27)
[2023-01-21 08:46] LABS: Basophils # (A) 0.03 X 10*3/uL (0.00-0.10); Basophils % (A) 0.3 %; Eosinophils # (A) 0 X 10*3/uL (0.04-0.35); Eosinophils % (A) 0 %; HCT 36.3 % (37.2-46.3); HGB 11.5 d/dL (12.0-15.0); Lymphocytes # (A) 1.82 X 10*3/uL (0.90-5.00); Lymphocytes % (A) 15.7 %; MCHC 31.7 d/dL (32.0-37.0); MCV 91.4 FL (80.0-97.0); Mean Platelet Volume 12.1 FL (9.5-12.2); Monocytes # (A) 0.64 X 10*3/uL (0.20-1.00); Monocytes % (A) 5.5 %; NRBC Per 100 WBC 0 X 10*3/uL (0.00-0.01); Neutrophils # (A) 9.05 X 10*3/uL (1.80-7.70); Neutrophils % (A) 78.1 %; Platelet Count 264 X 10*3/uL (140-440); RBC 3.97 X 10*6/uL (4.10-5.20); WBC 11.59 X 10*3/uL (4.50-10.00)
--- NOTE | 2023-01-21 09:17 | P.PN ---
Progress Note - Text Progress Note Date: 01/21/23 Patient seen ambulating with walker. POD #1 right TKA with pain pump for post op pain management. Complains of nausea and VAS 8-9/10. RN recently unwrapped leg and pain has diminished a small amount. Encouraged oral/IV analgesics as needed. Reports that her right heel feels numb and has some resolution with unwrapping of leg. B/L lower extremity strength intact. Possible discharge to home today or tomorrow. Will follow up as indicated.
--- NOTE | 2023-01-21 11:27 | P.PN ---
Subjective Progress Note Date: 01/21/23 Principal diagnosis: Right knee osteoarthritis Patient was seen at bedside this morning sitting up in chair with legs elevated icing the right knee. Patient says she has been in a moderate amount of pain since surgery yesterday. Patient says she has had multiple bouts of nausea and episodes of vomiting. Patient says when she had her other knee replaced she does in hospital for 2-3 days after surgery and did have the same problems with nausea and vomiting. Patient says she did get up with therapy and move from the bed to the chair, however, patient says it is difficult and was in a lot of pain during this. Patient says she has urinated several times since surgery yest erday. Patient says she has not had bowel movement yet. Patient says she is hoping to stay one more night in the hospital. Patient denies chest pain, fever, shortness of breath, change in vision, loss of bowel/bladder control. Objective - Vital Signs Vital signs: Vital Signs Temp 98.1 F 01/21/23 07:36 Pulse 87 01/21/23 08:00 Resp 18 01/21/23 08:00 BP 113/73 01/21/23 07:36 Pulse Ox 97 01/21/23 08:28 FiO2 Intake & Output 01/20/23 01/21/23 01/21/23 18:59 06:59 18:59 Intake Total 750 Output Total 50 Balance 700 Weight 99.9 kg 99.9 kg Intake: IV 750 Output: Estimated Blood Loss 50 Other: Voiding Method Toilet Toilet # Voids 1 2 - Exam Right knee: Incision is clean, dry, and intact. The silver foam dressing is in good condition. There is minimal soft tissue swelling and ecchymosis surrounding the medial and lateral aspects of the incision. Calf is soft, no tenderness with palpation. Plantar flexion, dorsiflexion, EHL, FHL are intact. Sensory exam to light touch throughout the extremity is intact, dorsal pedis pulses 2+. - Labs CBC & Chem 7: 01/21/23 06:09 Labs: Abnormal Lab Results - Last 24 Hours (Table) 01/21/23 01/21/23 Range/Units 00:34 06:09 WBC 11.59 H (4.50-10.00) X 10*3/uL RBC 3.97 L (4.10-5.20) X 10*6/uL Hgb 11.5 L (12.0-15.0) d/dL Hct 36.3 L (37.2-46.3) % MCHC 31.7 L (32.0-37.0) d/dL Neutrophils # 9.05 H (1.80-7.70) X 10*3/uL Eosinophils # 0 L (0.04-0.35) X 10*3/uL POC Glucose (mg/dL) 151 H (70-110) mg/dL Assessment and Plan Assessment: 1. Right knee osteoarthritis - Postop day #1 status post right total knee arthroplasty Plan: 1. Right knee osteoarthritis - right total knee arthroplasty performed yesterday, 01/20/2023. Patient stable at bedside this morning. Patient has had bouts of nausea and vomiting. Currently Zofran is 1. Reglan ordered for additional control. We will order tramadol for additional pain control at this time. We'll plan to keep patient 1 more night for additional pain control. Weightbearing as tolerated with walker and assistance as necessary. We'll continue to follow patient during her stay in hospital. Plan for discharge home tomorrow with health services. 2. Appreciate medical management 3. Pain management -Dilaudid; tramadol; [place]; Lyrica 4. DVT prophylaxis - Lovenox 5. GI prophylaxis - senna 6. PT/OT - weightbearing as tolerated with walker 7. Encourage incentive spirometer use 8. Discharge planning - Plan for discharge home tomorrow with health services. Time with Patient: Less than 30
[2023-01-21] MEDS: CYANOCOBALAMIN 500 MCG TAB PO SCH (11:36)
[2023-01-21] MEDS: MULTIVITAMINS, THERA 1 EACH TAB PO SCH (13:11)
[2023-01-21] MEDS: METOCLOPRAMIDE 10 MG TAB PO SCH ×2 (13:57→18:08)
[2023-01-21] MEDS: LACTATED RINGERS 1,000 ML IV SCH ×3 (14:07→14:37)
[2023-01-21] MEDS: traMADol 50 MG TAB PO SCH ×2 (16:22→21:00)
--- NOTE | 2023-01-21 19:25 | P.PN ---
Progress Note - Text Progress Note Date: 01/21/23 - Chief Complaint Right knee surgery - History of Present Illness This is a pleasant 58-year-old patient follows with Dr. Alvarez. Chronic stable medical conditions include asthma, GERD, osteoarthritis, peptic ulcer disease, diet-controlled diabetes. Patient has undergone right total knee arthroplasty. Pain at the operative site. Some numbness in the right leg. Nurse did inform the surgical team. No nausea vomiting. No chest pain. at the bedside. January 21: Patient still having significant pain in the right knee. Some numbness in the right leg. Positive nausea vomiting. Diet discussed with the patient. at the bedside. Active Medications Hydrocodone Bitart/Acetaminophen (Hydrocodone/Apap 5-325mg 1 Each Tab) 1 each PO Q6HR PRN PRN Reason: Pain Scale 1 to 5 Stop: 02/19/23 16:57 Hydrocodone Bitart/Acetaminophen (Hydrocodone/Apap 7.5-325mg 1 Each Tab) 1 each PO Q6H PRN PRN Reason: Pain Scale 6 to 10 Stop: 02/19/23 16:57 Last Admin: 01/21/23 14:45 Dose: 1 each Albuterol Sulfate (Albuterol Nebulized 2.5 Mg/3 Ml) 2.5 mg INHALATION TID PRN PRN Reason: Shortness Of Breath Atorvastatin Calcium (Atorvastatin 40 Mg Tab) 40 mg PO HS [facility] Last Admin: 01/20/23 21:22 Dose: 40 mg Budesonide/Formoterol Fumarate (Symbicort 160-4.5 Mcg Inhaler) 2 puff INHALATION BID [facility] Last Admin: 01/21/23 08:20 Dose: 2 puff Cyanocobalamin (Cyanocobalamin 500 Mcg Tab) 1,000 mcg PO DAILY [facility] Last Admin: 01/21/23 11:36 Dose: 1,000 mcg Enoxaparin Sodium (Enoxaparin 30 Mg/0.3 Ml Syringe) 30 mg SQ Q12HR [facility] Stop: 02/19/23 06:01 Last Admin: 01/21/23 07:07 Dose: 30 mg Hydromorphone HCl (Hydromorphone 0.5 Mg/0.5 Ml Syringe) 0.25 mg IVP Q3HR PRN PRN Reason: Pain Scale 1 to 3 Stop: 02/19/23 16:57 Hydromorphone HCl (Hydromorphone 1 Mg/Ml 1 Ml Syringe) 1 mg IVP Q3HR PRN PRN Reason: Pain Scale 7 to 10 Stop: 02/19/23 16:57 Last Admin: 01/21/23 12:16 Dose: 1 mg Hydromorphone HCl (Hydromorphone 0.5 Mg/0.5 Ml Syringe) 0.5 mg IVP Q3HR PRN PRN Reason: Pain Scale 4 to 6 Stop: 02/19/23 16:57 Lactated Ringer's (Lactated Ringers) 1,000 mls @ 20 mls/hr IV .Q24H [facility] Stop: 02/19/23 06:49 Last Admin: 01/21/23 14:08 Dose: Not Given Lactated Ringer's (Lactated Ringers) 1,000 mls @ 100 mls/hr IV .Q10H [facility] Stop: 02/19/23 17:01 Last Admin: 01/21/23 14:37 Dose: Not Given Lidocaine HCl (Lidocaine 1% (10mg/Ml) For Iv Start) 0.1 ml INTRADERMA PER PROTOCOL PRN PRN Reason: IV Start Stop: 02/19/23 06:49 Metoclopramide HCl (Metoclopramide 10 Mg Tab) 10 mg PO AC-TID [facility] Last Admin: 01/21/23 18:08 Dose: Not Given Multivitamins (Multivitamins, Thera 1 Each Tab) 1 each PO DAILY@1200 [facility] Stop: 02/20/23 12:01 Last Admin: 01/21/23 13:11 Dose: 1 each Naloxone HCl (Naloxone 0.4 Mg/Ml 1 Ml Vial) 0.2 mg IV Q2M PRN PRN Reason: Opioid Reversal Stop: 02/19/23 16:57 Ondansetron HCl (Ondansetron 4 Mg/2 Ml Vial) 4 mg IVP Q8HR PRN PRN Reason: Nausea And Vomiting Stop: 02/19/23 16:57 Last Admin: 01/21/23 09:12 Dose: 4 mg Pantoprazole Sodium (Pantoprazole 40 Mg Tablet) 40 mg PO AC-BRKFST [facility] Last Admin: 01/21/23 08:26 Dose: 40 mg Pregabalin (Pregabalin 100 Mg Cap) 200 mg PO BID [facility] Last Admin: 10/31/23 08:26 Dose: 200 mg Pyridoxine HCl (Pyridoxine 50 Mg Tab) 100 mg PO DAILY [facility] Last Admin: 01/21/23 08:25 Dose: 100 mg Ropivacaine (Ropivacaine 0.2%-Ns On-Q Pump 2 Mg/Ml Each) 1,090 mg MISCELLANE Q2H PRN PRN Reason: Breakthrough Pain Last Admin: 01/20/23 18:25 Dose: 1,090 mg Senna/Docusate Sodium (Sennosides-Docusate Sodium 1 Each Tab) 2 each PO HS [facility] Stop: 02/19/23 21:01 Last Admin: 01/20/23 20:14 Dose: 2 each Tizanidine HCl (Tizanidine 4 Mg Tab) 4 mg PO Q8HR PRN PRN Reason: Pain Tramadol HCl (Tramadol 50 Mg Tab) 50 mg PO TID [facility] Last Admin: 01/21/23 16:22 Dose: 50 mg Venlafaxine HCl (Venlafaxine Hcl Er 75 Mg Cap) 150 mg PO DAILY [facility] Last Admin: 01/21/23 08:27 Dose: 150 mg Verapamil HCl (Verapamil Sr 180 Mg Tablet.Er) 180 mg PO QAM [facility] Last Admin: 01/21/23 08:26 Dose: 180 mg Zolpidem Tartrate (Zolpidem 5 Mg Tab) 10 mg PO HS PRN PRN Reason: Insomnia Past medical history to include: Asthma, diet-controlled diabetes, GERD, osteoarthritis, migraine, stomach ulcers, depression Social history: Alcohol rarely. . Patient smoked for about 30 years stopped in 2011. About 1 pack a week Physical examination: VITAL SIGNS: 98.1, 83, 18, 119/82, 91% room air GENERAL: Up in a recliner, uncomfortable EYES: Pupils equal. Conjunctiva normal. HEENT: External appearance of nose and ears normal, oral cavity grossly normal. NECK: JVD not raised; masses not palpable. HEART: First and second heart sounds are normal; no edema. LUNGS: Respiratory rate normal; clear to auscultation. ABDOMEN: Soft, nontender, liver spleen not palpable, no masses palpable. PSYCH: Alert and oriented x3; mood and affect normal. MUSCULOSKELETAL:No Clubbing/cyanosis;muscles-grossly intact. Dressing over the right knee. INVESTIGATIONS, reviewed in the clinical context: October 31: White count 9.5 hemoglobin 11.5 platelets 264 White count 8.3 hemoglobin 12.8 platelets 256 sodium 143 potassium 5.1 BUN 13 creatinine 0.9 Assessment and plan: -Right total knee arthroplasty Pain control. Lovenox for DVT prophylaxis -Primary osteoarthritis Pain control as needed -Hyperlipidemia Lipitor 40 mg daily at bedtime -Acute postprocedure blood loss anemia IV Ferrlecit -COPD in a prior smoker Symbicort -GERD/peptic ulcer disease Nexium -Chronic insomnia Ambien -Obesity BMI 34.5 Weight loss measures IV Ferrlecit. Right knee pain and numbness being followed by orthopedics. Thank you Dr. Lozada
[2023-01-21] MEDS: SODIUM FERRIC GLUCONAT-SUCROSE 125 MG in SODIUM CHLORIDE 0.9% 100 ML IVPB SCH (20:45)
[2023-01-21] MEDS: SENNOSIDES-DOCUSATE SODIUM 1 EACH TAB PO SCH (20:45)
[2023-01-21] MEDS: ATORVASTATIN 40 MG TAB PO SCH (20:45)
[2023-01-22] MEDS: tiZANidine 4 MG TAB PO PRN (01:38)
[2023-01-22] MEDS: LACTATED RINGERS 1,000 ML IV SCH ×4 (02:40→21:47)
[2023-01-22] MEDS: HYDROmorphone 1 MG/ML 1 ML SYRINGE IVP PRN ×2 (04:23→13:13)
[2023-01-22] MEDS: PANTOPRAZOLE 40 MG TABLET PO SCH (06:46)
[2023-01-22] MEDS: HYDROcodone/APAP 7.5-325MG 1 EACH TAB PO PRN ×3 (06:46→19:27)
[2023-01-22] MEDS: METOCLOPRAMIDE 10 MG TAB PO SCH ×3 (06:46→16:39)
[2023-01-22] MEDS: ENOXAPARIN 30 MG/0.3 ML SYRINGE SQ SCH ×2 (08:35→20:26)
[2023-01-22] MEDS: VENLAFAXINE HCL ER 75 MG CAP PO SCH (08:35)
[2023-01-22] MEDS: PREGABALIN 100 MG CAP PO SCH ×2 (08:35→20:26)
[2023-01-22] MEDS: PYRIDOXINE 50 MG TAB PO SCH (08:35)
[2023-01-22] MEDS: CYANOCOBALAMIN 500 MCG TAB PO SCH (08:35)
[2023-01-22] MEDS: VERAPAMIL SR 180 MG TABLET.ER PO SCH (08:36)
[2023-01-22] MEDS: traMADol 50 MG TAB PO SCH ×3 (08:36→21:44)
[2023-01-22] MEDS: SODIUM FERRIC GLUCONAT-SUCROSE 125 MG in SODIUM CHLORIDE 0.9% 100 ML IVPB SCH (08:41)
[2023-01-22] MEDS: SYMBICORT 160-4.5 MCG INHALER INHALATION SCH ×2 (09:15→20:54)
--- NOTE | 2023-01-22 09:47 | P.PN ---
Subjective Progress Note Date: 01/22/23 Principal diagnosis: Status post right total knee arthroplasty Patient evaluated at bedside today, she is resting in her hospital bed. Patient has not been up with physical therapy yesterday. She states the pain is feeling better. She is avoiding the IV pain medication at this time, we'll resume her oral medications. Denies headaches, lightheadedness, chest pain or shortness of breath Objective - Vital Signs Vital signs: Vital Signs Temp 98.7 F 01/22/23 07:42 Pulse 96 01/22/23 07:42 Resp 17 01/22/23 07:42 BP 119/69 01/22/23 07:42 Pulse Ox 93 L 01/22/23 07:42 FiO2 Intake & Output 01/21/23 01/22/23 01/22/23 18:59 06:59 18:59 Other: Voiding Method Toilet Toilet # Voids 1 2 - Exam Right lower extremity: Incision is clean, dry, and intact. The foam dressing is in good condition. There is minimal soft tissue swelling and ecchymosis surrounding the medial and lateral aspects of the incision. Calf is soft, no tenderness with palpation. Plantar flexion, dorsiflexion, EHL, FHL are intact. Sensory exam to light touch throughout the extremity is intact, dorsal pedis pulses 2+. - Labs CBC & Chem 7: 01/21/23 06:09 Assessment and Plan Assessment: Postoperative day #2 status post right total knee arthroplasty Plan: Pain control, discontinue IV pain medication. Resume Lyrica and tramadol, also utilize [place]. DVT prophylaxis, continue subcu medication during hospital stay, aspirin 81 mg twice a day for 30 days Wound care instructions were discussed Continue PT, weight-bear as tolerated with walker Medical recommendations Discharge planning: Planning for discharge home later this afternoon Time with Patient: Less than 30
--- NOTE | 2023-01-22 09:53 | P.DS ---
Providers Date of admission: 01/20/23 17:09 Expected date of discharge: 01/22/23 Attending physician: Gagandeep Lozada Consults: 01/20/23 16:56 Consult Physician Routine Consulting Provider: Sammy vIan Consult Reason/Comments: Medical management Do you want consulting provider notified?: Yes Primary care physician: [facility] Hospital Course: Date of admission: 01/20/2023 Date of discharge: 01/22/2023 Admission diagnosis: Status post right total knee arthroplasty Discharge diagnosis: Same Attending physician: Dr. Lozada Surgical procedures: Right total knee arthroplasty Brief history: Patient is a 58-year-old female with a history of progressive primary right knee osteoarthritis. At this point patient has failed conservative treatment measures and has opted to proceed with a elective right total knee arthroplasty. Hospital course: Details of patient's surgery can be found in operative report. Patient tolerated the procedure well and was subsequently transported to orthopedic floor. Patient's orthopeidc and medical care was provided daily. Patient had daily laboratory tests performed for evaluation of overall blood counts. Patient had daily physical therapy to include strengthening range of motion as well as education with walker ambulation. Patient was treated with Lovenox for their postoperative DVT prophylaxis during their inpatient stay. Patient was noted to have a relatively uneventful postoperative course. Patient reported satisfactory pain control with oral pain medications by postoperative day 2. Patient showed satisfactory progress with physical therapy. Patient moved steadily through the program and had no difficulty meeting the goals by postoperative day 2. Given patient's otherwise satisfactory course and having met physical therapy goals, plan is to discharge patient home on postoperative day 2. Discharge condition/disposition: Patient will be discharged home in stable condition. Discharge medications: Instructions are given on resumption of patient's normal daily medications per primary care recommendation, in addition patient will be prescribed [place] 7.5 mg/325 mg, aspirin 81 mg. Discharge instructions: 1. Wound care and infection precautions, keep incision dry and covered while showering, no lotions, creams, moisturizers. No soaking, tubs, pools, hottubs. Do not scrub over the incision. 2. Weight-bear as tolerated with walker / cane until follow-up. 3. Ice and elevate when necessary. Do not exceed 20 minutes per hour with ice pack. 4. Utilize compression sleeve until seen at first follow up appointment. 5. Visiting nursing care. 6. Home physical therapy. 7. Pain meds and anticoagulants per prescription. 8. Pain medication has potential to cause constipation. Increase oral fluid and fiber intake. Contact primary care provider if you have not had a bowel movement within 48 hours after discharge 9. No anti-inflammatory medication until discussed at first post operative visit, this including Motrin, Aleve, Mobic, Diclofenac. 10. Follow up in office at 2 weeks postop with Gregor Mckeon PA-C/Darryl Lane 11. Follow up with your primary care doctor 7-10 days after discharge. 12. Contact [facility] with any questions, . Wound care instructions: 1. Okay to discontinue bandage on 01/27/2023 2. Okay to shower directly over the incision after removal of dressing Procedures: Right total knee arthroplasty Patient Condition at Discharge: Good Plan - Discharge Summary Discharge Rx Participant: Yes New Discharge Prescriptions: New HYDROcodone/APAP 7.5-325MG [H[place] 7.5] 1 each PO Q6HR PRN #28 tab PRN Reason: Pain Sennosides/Docusate Sodium [Senna-S 8.6-50 mg Tablet] 2 each PO DAILY PRN #30 tablet PRN Reason: Constipation Aspirin [Adult Low Dose Aspirin EC] 81 mg PO BID #60 tab No Action Esomeprazole Magnesium [NexIUM] 40 mg PO DAILY Budesonide-Formot 160-4.5 Mcg [Symbicort 160-4.5 Mcg Inhaler] 2 puff INHALATION BID Albuterol Inhaler [Ventolin Hfa Inhaler] 1 - 2 puff INHALATION Q6H PRN PRN Reason: Shortness Of Breath Linaclotide [Linzess] 72 mcg PO DAILY PRN PRN Reason: Constipation Esomeprazole Magnesium [NexIUM] 40 mg PO DAILY PRN PRN Reason: Heartburn traMADol HCL 50 mg PO Q12HR PRN PRN Reason: Pain Cholecalciferol [Vitamin D3 (125 Mcg = 5000 Iu)] 125 mcg PO DAILY Pyridoxine HCl (Vitamin B6) [Vitamin B-6] 100 mg PO DAILY Cyanocobalamin (Vitamin B-12) [Vitamin B-12] 1,000 mcg PO DAILY Pregabalin [Lyrica] 200 mg PO BID Verapamil HCl [Verapamil ER] 180 mg PO QAM Ibuprofen 800 mg PO Q8H PRN PRN Reason: Pain Venlafaxine HCl ER [Effexor Xr] 150 mg PO DAILY Zolpidem [Ambien] 10 mg PO HS Atorvastatin [Lipitor] 40 mg PO HS Albuterol Nebulized (Conc) [Ventolin Nebulized (Conc)] 2.5 mg INHALATION TID PRN PRN Reason: Shortness Of Breath tiZANidine [Zanaflex] 4 mg PO Q8HR PRN PRN Reason: Pain Discharge Medication List Esomeprazole Magnesium [NexIUM] 40 mg PO DAILY 12/28/19 [History] Pregabalin [Lyrica] 200 mg PO BID 05/21/21 [History] Verapamil HCl [Verapamil ER] 180 mg PO QAM 05/21/21 [History] Ibuprofen 800 mg PO Q8H PRN 06/22/21 [History] Venlafaxine HCl ER [Effexor Xr] 150 mg PO DAILY 10/09/22 [History] Albuterol Inhaler [Ventolin Hfa Inhaler] 1 - 2 puff INHALATION Q6H PRN 01/16/23 [History] Budesonide-Formot 160-4.5 Mcg [Symbicort 160-4.5 Mcg Inhaler] 2 puff INHALATION BID 01/16/23 [History] Linaclotide [Linzess] 72 mcg PO DAILY PRN 01/16/23 [History] Zolpidem [Ambien] 10 mg PO HS 01/16/23 [History] Albuterol Nebulized (Conc) [Ventolin Nebulized (Conc)] 2.5 mg INHALATION TID PRN 01/17/23 [History] Atorvastatin [Lipitor] 40 mg PO HS 01/17/23 [History] Cholecalciferol [Vitamin D3 (125 Mcg = 5000 Iu)] 125 mcg PO DAILY 01/17/23 [History] Cyanocobalamin (Vitamin B-12) [Vitamin B-12] 1,000 mcg PO DAILY 01/17/23 [History] Esomeprazole Magnesium [NexIUM] 40 mg PO DAILY PRN 01/17/23 [History] Pyridoxine HCl (Vitamin B6) [Vitamin B-6] 100 mg PO DAILY 01/17/23 [History] tiZANidine [Zanaflex] 4 mg PO Q8HR PRN 01/17/23 [History] traMADol HCL 50 mg PO Q12HR PRN 01/17/23 [History] Aspirin [Adult Low Dose Aspirin EC] 81 mg PO BID #60 tab 01/22/23 [Rx] HYDROcodone/APAP 7.5-325MG [[place] 7.5] 1 each PO Q6HR PRN #28 tab 01/22/23 [Rx] Sennosides/Docusate Sodium [Senna-S 8.6-50 mg Tablet] 2 each PO DAILY PRN #30 tablet 01/22/23 [Rx] Follow up Appointment(s)/Referral(s): [facility],Equipment [NON-STAFF] - As Needed (Continuous Passive Motion knee machine) [facility], [NON-STAFF] - As Needed Haroldo Mckeon PAC [PHYSICIAN LAWN SPECIALIST] - 02/05/23 1:30 pm Patient Instructions/Handouts: Knee Replacement (DC) Activity/Diet/Wound Care/Special Instructions: Orthopedic Discharge Instructions: 1. Wound care and infection precautions, keep incision dry and covered while showering, no lotions, creams, moisturizers. No soaking, pools, hot tubs. Do not scrub over incision. 2. Weight-bear as tolerated with walker / cane until follow-up. 3. Ice and elevate when necessary. Do not exceed 20 minutes per hour with ice pack. 4. Utilize compression sleeve until seen at first follow up appointment. 5. Pain meds and anticoagulants per prescription. 6. Pain medication has potential to cause constipation. Increase oral fluid and fiber intake. Contact primary care provider if you have not had a bowel movement within 48 hours after discharge. 7. No anti-inflammatory medication until discussed at first post operative visit, this including Motrin, Aleve, Mobic, Diclofenac. 8. Follow up in office at 2 weeks postop with Gregor Mckeon PA-C / Darryl Perez PA-C 9. Follow up with your primary care doctor 7-10 days after discharge. 10. Contact [facility] with any questions, . Keep incision clean, dry, intact. While showering, cover silver foam dressing with saran wrap. Silver foam dressing may be removed beginning Friday, . Okay to shower directly over incision once dressing is removed. Discharge Disposition: HOME WITH HOME HEALTH SERVICES
[2023-01-22] MEDS: MULTIVITAMINS, THERA 1 EACH TAB PO SCH (11:44)
--- NOTE | 2023-01-22 18:52 | P.PN ---
Progress Note - Text Progress Note Date: 01/22/23 - Chief Complaint Right knee surgery - History of Present Illness This is a pleasant 58-year-old patient follows with Dr. Alvarez. Chronic stable medical conditions include asthma, GERD, osteoarthritis, peptic ulcer disease, diet-controlled diabetes. Patient has undergone right total knee arthroplasty. Pain at the operative site. Some numbness in the right leg. Nurse did inform the surgical team. No nausea vomiting. No chest pain. at the bedside. January 21: Patient still having significant pain in the right knee. Some numbness in the right leg. Positive nausea vomiting. Diet discussed with the patient. at the bedside. January 22: Pain is better compared to yesterday. Did tolerate some diet. Nausea better. Orthopedics is planning to discharge today. given IV iron. Questions answered. Diet discussed. Active Medications Hydrocodone Bitart/Acetaminophen (Hydrocodone/Apap 5-325mg 1 Each Tab) 1 each PO Q6HR PRN PRN Reason: Pain Scale 1 to 5 Stop: 02/19/23 16:57 Hydrocodone Bitart/Acetaminophen (Hydrocodone/Apap 7.5-325mg 1 Each Tab) 1 each PO Q6H PRN PRN Reason: Pain Scale 6 to 10 Stop: 02/19/23 16:57 Last Admin: 01/22/23 11:44 Dose: 1 each Albuterol Sulfate (Albuterol Nebulized 2.5 Mg/3 Ml) 2.5 mg INHALATION TID PRN PRN Reason: Shortness Of Breath Atorvastatin Calcium (Atorvastatin 40 Mg Tab) 40 mg PO HS [facility] Last Admin: 01/21/23 20:45 Dose: 40 mg Budesonide/Formoterol Fumarate (Symbicort 160-4.5 Mcg Inhaler) 2 puff INHALATION BID [facility] Last Admin: 01/22/23 09:15 Dose: 2 puff Cyanocobalamin (Cyanocobalamin 500 Mcg Tab) 1,000 mcg PO DAILY [facility] Last Admin: 01/22/23 08:35 Dose: 1,000 mcg Enoxaparin Sodium (Enoxaparin 30 Mg/0.3 Ml Syringe) 30 mg SQ Q12HR [facility] Stop: 02/19/23 06:01 Last Admin: 01/22/23 08:35 Dose: 30 mg Hydromorphone HCl (Hydromorphone 0.5 Mg/0.5 Ml Syringe) 0.25 mg IVP Q3HR PRN PRN Reason: Pain Scale 1 to 3 Stop: 02/19/23 16:57 Hydromorphone HCl (Hydromorphone 0.5 Mg/0.5 Ml Syringe) 0.5 mg IVP Q3HR PRN PRN Reason: Pain Scale 4 to 6 Stop: 02/19/23 16:57 Lactated Ringer's (Lactated Ringers) 1,000 mls @ 20 mls/hr IV .Q24H [facility] Stop: 02/19/23 06:49 Last Admin: 01/22/23 08:21 Dose: Not Given Lactated Ringer's (Lactated Ringers) 1,000 mls @ 100 mls/hr IV .Q10H [facility] Stop: 02/19/23 17:01 Last Admin: 01/22/23 13:13 Dose: Not Given Lidocaine HCl (Lidocaine 1% (10mg/Ml) For Iv Start) 0.1 ml INTRADERMA PER PROTOCOL PRN PRN Reason: IV Start Stop: 02/19/23 06:49 Metoclopramide HCl (Metoclopramide 10 Mg Tab) 10 mg PO AC-TID [facility] Last Admin: 01/22/23 16:39 Dose: 10 mg Multivitamins (Multivitamins, Thera 1 Each Tab) 1 each PO DAILY@1200 [facility] Stop: 02/20/23 12:01 Last Admin: 01/22/23 11:44 Dose: 1 each Naloxone HCl (Naloxone 0.4 Mg/Ml 1 Ml Vial) 0.2 mg IV Q2M PRN PRN Reason: Opioid Reversal Stop: 02/19/23 16:57 Ondansetron HCl (Ondansetron 4 Mg/2 Ml Vial) 4 mg IVP Q8HR PRN PRN Reason: Nausea And Vomiting Stop: 02/19/23 16:57 Last Admin: 01/21/23 09:12 Dose: 4 mg Pantoprazole Sodium (Pantoprazole 40 Mg Tablet) 40 mg PO AC-BRKFST [facility] Last Admin: 01/22/23 06:46 Dose: 40 mg Pregabalin (Pregabalin 100 Mg Cap) 200 mg PO BID [facility] Last Admin: 01/22/23 08:35 Dose: 200 mg Pyridoxine HCl (Pyridoxine 50 Mg Tab) 100 mg PO DAILY [facility] Last Admin: 01/22/23 08:35 Dose: 100 mg Ropivacaine (Ropivacaine 0.2%-Ns On-Q Pump 2 Mg/Ml Each) 1,090 mg MISCELLANE Q2H PRN PRN Reason: Breakthrough Pain Last Admin: 01/20/23 18:25 Dose: 1,090 mg Senna/Docusate Sodium (Sennosides-Docusate Sodium 1 Each Tab) 2 each PO HS [facility] Stop: 02/19/23 21:01 Last Admin: 01/21/23 20:45 Dose: 2 each Tizanidine HCl (Tizanidine 4 Mg Tab) 4 mg PO Q8HR PRN PRN Reason: Pain Last Admin: 01/22/23 01:38 Dose: 4 mg Tramadol HCl (Tramadol 50 Mg Tab) 50 mg PO TID [facility] Last Admin: 01/22/23 16:39 Dose: 50 mg Venlafaxine HCl (Venlafaxine Hcl Er 75 Mg Cap) 150 mg PO DAILY [facility] Last Admin: 01/22/23 08:35 Dose: 150 mg Verapamil HCl (Verapamil Sr 180 Mg Tablet.Er) 180 mg PO QAM [facility] Last Admin: 01/22/23 08:36 Dose: 180 mg Zolpidem Tartrate (Zolpidem 5 Mg Tab) 10 mg PO HS PRN PRN Reason: Insomnia Last Admin: 01/21/23 23:50 Dose: 10 mg Past medical history to include: Asthma, diet-controlled diabetes, GERD, osteoarthritis, migraine, stomach ulcers, depression Social history: Alcohol rarely. . Patient smoked for about 30 years stopped in 2011. About 1 pack a week Physical examination: VITAL SIGNS: 98.7, 96, 17, 119/69, 93% room air GENERAL: Standing in bed, uncomfortable EYES: Pupils equal. Conjunctiva normal. HEENT: External appearance of nose and ears normal, oral cavity grossly normal. NECK: JVD not raised; masses not palpable. HEART: First and second heart sounds are normal; no edema. LUNGS: Respiratory rate normal; clear to auscultation. ABDOMEN: Soft, nontender, liver spleen not palpable, no masses palpable. PSYCH: Alert and oriented x3; mood and affect bit anxious MUSCULOSKELETAL:No Clubbing/cyanosis;muscles-grossly intact. Dressing over the right knee. INVESTIGATIONS, reviewed in the clinical context: January 21: White count 9.5 hemoglobin 11.5 platelets 264 White count 8.3 hemoglobin 12.8 platelets 256 sodium 143 potassium 5.1 BUN 13 creatinine 0.9 Assessment and plan: -Right total knee arthroplasty Pain control. Lovenox for DVT prophylaxis -Primary osteoarthritis Pain control as needed -Hyperlipidemia Lipitor 40 mg daily at bedtime -Acute postprocedure blood loss anemia IV Ferrlecit -COPD in a prior smoker Symbicort -GERD/peptic ulcer disease Nexium -Chronic insomnia Ambien -Obesity BMI 34.5 Weight loss measures IV Ferrlecit.-2 doses received. Discussed with patient. Questions answered. To start taking iron supplement when nausea is improved Thank you Dr. Lozada
[2023-01-22] MEDS: SENNOSIDES-DOCUSATE SODIUM 1 EACH TAB PO SCH (20:26)
[2023-01-22] MEDS: ATORVASTATIN 40 MG TAB PO SCH (20:26)
[2023-01-23] MEDS: tiZANidine 4 MG TAB PO PRN ×2 (00:46→11:26)
[2023-01-23] MEDS: HYDROcodone/APAP 7.5-325MG 1 EACH TAB PO PRN ×2 (05:40→10:40)
[2023-01-23] MEDS: LACTATED RINGERS 1,000 ML IV SCH ×3 (05:59→10:25)
[2023-01-23] MEDS: METOCLOPRAMIDE 10 MG TAB PO SCH ×2 (06:31→11:24)
[2023-01-23] MEDS: PANTOPRAZOLE 40 MG TABLET PO SCH (06:31)
[2023-01-23] MEDS: MULTIVITAMINS, THERA 1 EACH TAB PO SCH (07:38)
[2023-01-23] MEDS: VENLAFAXINE HCL ER 75 MG CAP PO SCH (07:38)
[2023-01-23] MEDS: ENOXAPARIN 30 MG/0.3 ML SYRINGE SQ SCH (07:38)
[2023-01-23] MEDS: PREGABALIN 100 MG CAP PO SCH (07:38)
[2023-01-23] MEDS: traMADol 50 MG TAB PO SCH (07:39)
[2023-01-23] MEDS: CYANOCOBALAMIN 500 MCG TAB PO SCH (07:39)
[2023-01-23] MEDS: VERAPAMIL SR 180 MG TABLET.ER PO SCH (07:40)
[2023-01-23] MEDS: PYRIDOXINE 50 MG TAB PO SCH (07:40)
[2023-01-23 08:27] VITALS: BP 129/74; PULSE 107; RESP 16
[2023-01-23] MEDS: SYMBICORT 160-4.5 MCG INHALER INHALATION SCH (08:28)
[2023-01-23 10:19] VITALS: TEMP 99.2
--- NOTE | 2023-01-23 10:30 | P.PN ---
Subjective Progress Note Date: 01/23/23 Principal diagnosis: Status post right total knee arthroplasty Patient evaluated at bedside today, she is resting in her hospital bed. Patient was not discharged home yesterday due to excessive nausea. Patient states it is better today. She feels that the pain is also better controlled today. She will be working with physical therapy shortly. She denies headaches, lighthe adedness, chest pain or shortness of breath. Objective - Vital Signs Vital signs: Vital Signs Temp 99.2 F 01/23/23 10:12 Pulse 107 H 01/23/23 08:00 Resp 16 01/23/23 08:00 BP 129/74 01/23/23 08:00 Pulse Ox 93 L 01/23/23 08:28 FiO2 Intake & Output 01/22/23 01/23/23 01/23/23 18:59 06:59 18:59 Other: # Voids 2 2 1 - Exam Right lower extremity: Incision is clean, dry, and intact. The foam dressing is in good condition. There is minimal soft tissue swelling and ecchymosis surrounding the medial and lateral aspects of the incision. Calf is soft, no tenderness with palpation. Plantar flexion, dorsiflexion, EHL, FHL are intact. Sensory exam to light touch throughout the extremity is intact, dorsal pedis pulses 2+. - Labs CBC & Chem 7: 01/21/23 06:09 Assessment and Plan Assessment: Postoperative day #3 status post right total knee arthroplasty Plan: Pain control, continue [place] and tramadol as needed DVT prophylaxis, aspirin 81 mg twice a day for 30 days Wound care instructions were discussed Continue PT, weight-bear as tolerated with walker Medical recommendations Discharge planning: stable for discharge today Time with Patient: Less than 30
[2023-01-23 11:13] LABS: Basophils # (A) 0.05 X 10*3/uL (0.00-0.10); Basophils % (A) 0.5 %; Eosinophils # (A) 0.26 X 10*3/uL (0.04-0.35); Eosinophils % (A) 2.7 %; HCT 26.6 % (37.2-46.3); HGB 8.4 d/dL (12.0-15.0); Lymphocytes # (A) 3.07 X 10*3/uL (0.90-5.00); Lymphocytes % (A) 31.8 %; MCH 29.2 pg (27.0-32.0); MCHC 31.6 d/dL (32.0-37.0); MCV 92.4 FL (80.0-97.0); Mean Platelet Volume 12.3 FL (9.5-12.2); Monocytes # (A) 0.67 X 10*3/uL (0.20-1.00); NRBC Per 100 WBC 0.02 X 10*3/uL (0.00-0.01); Neutrophils # (A) 5.56 X 10*3/uL (1.80-7.70); Neutrophils % (A) 57.7 %; Platelet Count 184 X 10*3/uL (140-440); RBC 2.88 X 10*6/uL (4.10-5.20); RDW 14.3 % (11.5-14.5); WBC 9.64 X 10*3/uL (4.50-10.00)
--- NOTE | 2023-01-24 14:00 | P.PN ---
Progress Note - Text Progress Note Date: 01/23/23 - Chief Complaint Right knee surgery - History of Present Illness This is a pleasant 58-year-old patient follows with Dr. Alvarez. Chronic stable medical conditions include asthma, GERD, osteoarthritis, peptic ulcer disease, diet-controlled diabetes. Patient has undergone right total knee arthroplasty. Pain at the operative site. Some numbness in the right leg. Nurse did inform the surgical team. No nausea vomiting. No chest pain. at the bedside. January 21: Patient still having significant pain in the right knee. Some numbness in the right leg. Positive nausea vomiting. Diet discussed with the patient. at the bedside. January 22: Pain is better compared to yesterday. Did tolerate some diet. Nausea better. Orthopedics is planning to discharge today. given IV iron. Questions answered. Diet discussed. January 23: Pain better. Eating a bit better. Discussed with patient and . Medications reviewed. Follow up with PCP upon discharge. Patient to start iron oral supplement when nausea is resolved. Denies any urinary or respiratory symptoms Current medications reviewed Past medical history to include: Asthma, diet-controlled diabetes, GERD, osteoarthritis, migraine, stomach ulcers, depression Social history: Alcohol rarely. . Patient smoked for about 30 years stopped in 2011. About 1 pack a week Physical examination: VITAL SIGNS: 99.2, 107, 16, 129 with 74, 93% room air GENERAL: Comfortable EYES: Pupils equal. Conjunctiva normal. HEENT: External appearance of nose and ears normal, oral cavity grossly normal. NECK: JVD not raised; masses not palpable. HEART: First and second heart sounds are normal; no edema. LUNGS: Respiratory rate normal; clear to auscultation. ABDOMEN: Soft, nontender, liver spleen not palpable, no masses palpable. PSYCH: Alert and oriented x3; mood and affect bit anxious MUSCULOSKELETAL:No Clubbing/cyanosis;muscles-grossly intact. Dressing over the right knee. INVESTIGATIONS, reviewed in the clinical context: January 23: White count 9.6 and 11 8.4 platelets 184 January 21: White count 9.5 hemoglobin 11.5 platelets 264 White count 8.3 hemoglobin 12.8 platelets 256 sodium 143 potassium 5.1 BUN 13 creatinine 0.9 Assessment and plan: -Right total knee arthroplasty Pain control. Lovenox for DVT prophylaxis -Primary osteoarthritis Pain control as needed -Hyperlipidemia Lipitor 40 mg daily at bedtime -Acute postprocedure blood loss anemia IV Ferrlecit received. Patient started oral iron supplement when nausea has settled discussed with the patient. -COPD in a prior smoker Symbicort -GERD/peptic ulcer disease Nexium -Chronic insomnia Ambien -Obesity BMI 34.5 Weight loss measures Discussed with patient . Questions answered. Follow-up with PCP upon discharge. Thank you Dr. Lozada
== END 2023-01-23 12:35 | disposition home health service (06) ==
LOC: OR 13:02 → INTOOBSV 17:09 → OBSVTOIN 17:09 → OR 17:09 → 4SSUR 17:09
PROVIDERS: ADMIT Orthopaedic Surgery; ATTEND Orthopaedic Surgery
DX: M17.11 Unilateral primary osteoarthritis, right knee (principal); D62 Acute posthemorrhagic anemia; K91.89 Other postprocedural complications and disorders of digestive system; R11.2 Nausea with vomiting, unspecified; I10 Essential (primary) hypertension; E78.5 Hyperlipidemia, unspecified; E11.9 Type 2 diabetes mellitus without complications; J44.9 Chronic obstructive pulmonary disease, unspecified; K21.9 Gastro-esophageal reflux disease without esophagitis; G43.909 Migraine, unspecified, not intractable, without status migrainosus; R20.0 Anesthesia of skin; F32.A Depression, unspecified; E66.9 Obesity, unspecified; Z68.34 Body mass index [BMI] 34.0-34.9, adult; F51.04 Psychophysiologic insomnia; Z79.51 Long term (current) use of inhaled steroids; Z79.84 Long term (current) use of oral hypoglycemic drugs; Z79.899 Other long term (current) drug therapy; Z88.5 Allergy status to narcotic agent; Z91.010 Allergy to peanuts; Z91.013 Allergy to seafood; Z91.048 Other nonmedicinal substance allergy status; Z87.891 Personal history of nicotine dependence; Z90.49 Acquired absence of other specified parts of digestive tract; Z87.11 Personal history of peptic ulcer disease; Z96.652 Presence of left artificial knee joint; Z98.890 Other specified postprocedural states; Z71.3 Dietary counseling and surveillance; Z80.9 Family history of malignant neoplasm, unspecified
CPT/HCPCS: 27447; 96372 ×3; 94640 ×4; 94760 ×2; 97116 ×2; 97161; 64999; 64448; 85025 ×2; 73560; G0378 ×3; C1776; C1713 ×2; C1751; J2250; J1100; J0690 ×2; J2405 ×2; J3010; J1650 ×3; J2916 ×2; J1170 ×4; J2704; J2795

== ENCOUNTER → 2023-05-15 | Outpatient (CLI) | payer BC ==
--- NOTE | 2023-05-15 12:10 | FL ---
EXAMINATION TYPE: FL UGI air w esophagus DATE OF EXAM: 05/15/2023 COMPARISON: NONE HISTORY: 58-year-old female with reflux and nausea. Patient reports hiatal hernia repair approximatel y 1.5 years ago. TECHNIQUE: A double contrast esophagram and UGI study is performed. A total of 2 minutes 17 seconds of fluoroscopic time was utilized during procedure and 59 images obta ined. Total dose area product (DAP) in uGy*m?, mGy*cm? (or similar): 531.7. FINDINGS: The swallowing mechanism is normal and hypopharyngeal anatomy is preserved. The cervical and thoracic portions have a normal normal course, caliber, and motility. No mucosal abnormality is seen within the esophagus. There is no fixed narrowing or abnormal filling defect. Changes likely relating to previous hiatal hernia repair. However, there appears to be a tiny hiatal hernia along with mild gastroesophageal reflux visualized. Moderate fold thickening along the gastric fundus and proximal body with suggestion of small, less th an 1 cm smooth round filling defects suggesting hyperplastic polyps. Some questionable minimal erosio ns are also noted. Otherwise, no additional filling defect or large ulcer is seen. The duodenal bulb, sweep, and proximal small bowel loops are unremarkable. IMPRESSION: 1. The patient reports previous hiatal hernia repair. There is a residual/recurrent tiny hiatal herni a with mild gastroesophageal reflux visualized. 2. Moderate fold thickening along the gastric fundus and proximal body with suggestion of small hyper plastic polyps and some questionable minimal erosions. Correlate for underlying gastritis. Endoscopy for further detailed mucosal assessment.
== END | disposition home or self-care (01) ==
LOC: RADUSWWP 10:54
PROVIDERS: ATTEND Family Medicine
DX: K44.9 Diaphragmatic hernia without obstruction or gangrene (principal); K31.89 Other diseases of stomach and duodenum; K21.9 Gastro-esophageal reflux disease without esophagitis; Z98.890 Other specified postprocedural states
CPT/HCPCS: 74246

== ENCOUNTER → 2023-05-30 | Outpatient (CLI) | payer BC ==
--- NOTE | 2023-05-30 11:24 | US ---
EXAMINATION TYPE: US abdomen complete DATE OF EXAM: 05/30/2023 COMPARISON: CT abdomen and pelvis on 08/25/2022. CLINICAL INDICATION: Female, 58 years old with history of R10.9 UNSPECIFIED ABDOMINAL PAIN; pain TECHNIQUE: Multiple sonographic images of the abdomen are obtained. FINDINGS: EXAM MEASUREMENTS: Liver Length: 16.5 cm Gallbladder Wall: Surgically absent CBD: .4 cm Spleen: 10.5 cm Right Kidney: 10.8 x 4.2 x 5.1 cm Left Kidney: 10.2 x 5.0 x 4.2 cm GEOPHYSICAL PARTY CHIEF NOTES: Pancreas: Obscured by bowel gas Liver: Increased attenuation Gallbladder: Surgically absent Evidence for sonographic Salomon's sign: No CBD: wnl Spleen: wnl Right Kidney: wnl Left Kidney: Echogenic area seen lower pole 8 mm. Upper IVC: wnl Abd Aorta: wnl IMPRESSION: 1. Hepatic steatosis. 2. Echogenic area in the lower pole of the left kidney may represent an angiomyolipoma as was seen on the CT abdomen and pelvis of 08/25/2022.
== END | disposition home or self-care (01) ==
LOC: RADUSWWP 10:31
PROVIDERS: ATTEND Family Medicine
DX: K76.0 Fatty (change of) liver, not elsewhere classified (principal); N28.89 Other specified disorders of kidney and ureter
CPT/HCPCS: 76700

== ENCOUNTER 2023-06-03 05:32 | Day surgery (SDC) | payer BC ==
[2023-06-02 09:25] VITALS: BMI 34.8
[2023-06-03] MEDS: LACTATED RINGERS 1,000 ML IV SCH (06:48)
[2023-06-03 06:51] LABS: Glucose,Whole Blood 123 mg/dL (70-110)
[2023-06-03 06:57] VITALS: RESP 16; TEMP 98.1
[2023-06-03] MEDS ORDERED: PROPOFOL 10 MG/ML 20 ML VIAL IV ONE (06:59)
[2023-06-03] MEDS ORDERED: LIDOCAINE 2% (PF) 20 MG/ML 5 ML VIAL ONE (06:59)
--- NOTE | 2023-06-03 07:27 | P.PCN ---
Date of Procedure: 06/03/23 Procedure(s) Performed: Brief history: Patient is a pleasant 58-year-old white female scheduled for an elective upper endoscopy as well as colonoscopy as a part of evaluation of long-standing history of GERD and prior history of colon polyps. She also has been complaining of alternating diarrhea and constipation. Procedure performed: Esophagogastroduodenoscopy with biopsy Colonoscopy with snare polypectomy Preoperative diagnosis: GERD Change in bowel habits and history of colon polyps Anesthesia: MAC Procedure: After informed consent was obtained from the patient was brought into the endoscopy unit and IV sedation was administered by anesthesia under continuous monitoring. Initially upper endoscopy was done. The Olympus GF 160 video endoscope was inserted inserted into the mouth and esophagus intubated without any difficulty and was gradually advanced into the stomach and duodenum and c arefully examined. The bulb and second part of the duodenum appeared normal. Biopsies were done from the duodenum to rule out celiac disease. The scope was then withdrawn into the stomach adequately insufflated with air and upon careful examination the antrum had mild antral gastritis and biopsies were done from this area. Mucosa of the body, cardia and fundus appeared normal. The scope was then withdrawn into the esophagus. The GE junction was located at 40 cm to the incisors. It appeared regular with no erythema erosions or ulcerations. Rest of the esophagus appeared normal. Patient tolerated the procedure well. At this time the patient continued to remain sedation. Initial digital rectal examination was normal. Olympus CF 160 video colonoscope was then inserted into the rectum and gradually advanced to the cecum without any difficulty. Careful examination was performed as the scope was gradually being withdrawn. The prep was excellent. The cecum, appeared normal. The sigmoid: There was a 1.5 cm broad-based polyp removed by snare polypectomy. Rest of the ascending colon, transverse colon, descending colon, sigmoid colon and rectum appeared normal. Retroflexion was performed in the rectum and no lesions were noted. Patient tolerated the procedure well. Impression: 1. Upper endoscopy revealed mild antral gastritis 2. Colonoscopy revealed 1.5 broad-based ascending colon polyp status post polypectomy Recommendations: Findings of this examination were discussed with the patient as well as her family. She was advised to follow with the biopsy results. If the biopsy result adenoma she can have a repeat colonoscopy in 3 years.
[2023-06-03 07:38] LABS: Glucose,Whole Blood 109 mg/dL (70-110)
[2023-06-03 08:09] VITALS: BP 121/85; PULSE 68
== END 2023-06-03 08:35 | disposition home or self-care (01) ==
LOC: ORWHC2ENDO 05:32
PROVIDERS: ATTEND Internal Medicine Gastroenterology
DX: D12.2 Benign neoplasm of ascending colon (principal); K29.50 Unspecified chronic gastritis without bleeding; D72.820 Lymphocytosis (symptomatic); K21.9 Gastro-esophageal reflux disease without esophagitis; J45.909 Unspecified asthma, uncomplicated; F32.A Depression, unspecified; M19.90 Unspecified osteoarthritis, unspecified site; E11.9 Type 2 diabetes mellitus without complications; Z86.010 Personal history of colon polyps; Z91.010 Allergy to peanuts; Z91.013 Allergy to seafood; Z91.048 Other nonmedicinal substance allergy status; Z88.8 Allergy status to other drugs, medicaments and biological substances; Z79.82 Long term (current) use of aspirin; Z79.899 Other long term (current) drug therapy; Z90.49 Acquired absence of other specified parts of digestive tract; Z79.51 Long term (current) use of inhaled steroids; Z98.890 Other specified postprocedural states
CPT/HCPCS: 88305; 45385; 43239; J2704; J2001

== ENCOUNTER → 2023-09-24 | Outpatient (CLI) | payer BC ==
[2023-09-24 10:58] LABS: Basophils % (A) 1 %; Eosinophils # (A) 0.2 k/uL (0-0.7); Eosinophils % (A) 3 %; HCT 41.5 % (34.0-46.0); HGB 12.8 gm/dL (11.4-16.0); Lymphocytes # (A) 2.6 k/uL (1.0-4.8); Lymphocytes % (A) 30 %; MCH 28.8 pg (25.0-35.0); MCHC 30.8 g/dL (31.0-37.0); MCV 93.5 fL (80.0-100.0); Mean Platelet Volume 9.7; Monocytes # (A) 0.3 k/uL (0-1.0); Monocytes % (A) 3 %; Neutrophils # (A) 5.5 k/uL (1.3-7.7); Neutrophils % (A) 63 %; Platelet Count 254 k/uL (150-450); RBC 4.44 m/uL (3.80-5.40); RDW 14.1 % (11.5-15.5); WBC 8.7 k/uL (3.8-10.6)
[2023-09-24 16:58] LABS: BUN/Creat Ratio 13.88 Ratio (12.00-20.00); Blood Urea Nitrogen 11.1 mg/dL (9.0-27.0); Chloride 105 mmol/L (96-109); Chol/HDL Ratio 4.01 Ratio; Glucose 109 mg/dL (70-110); LDL Cholesterol,Calculated 101.2 mg/dL (0.0-131.0); Potassium 4.3 mmol/L (3.5-5.5); Sodium 140 mmol/L (135-145)
[2023-09-24 16:59] LABS: ALT 15 U/L (8-44); AST 18 U/L (13-35); Albumin 4.3 g/dL (3.8-4.9); Albumin/Globulin Ratio 1.54 Ratio (1.60-3.17); Alkaline Phosphatase 102 U/L (41-126); Calcium 9.7 mg/dL (8.7-10.3); Carbon Dioxide 23.8 mmol/L (21.6-31.8); Globulin 2.8 g/dL (1.6-3.3); Total Bilirubin 0.5 mg/dL (0.3-1.2); Total Protein 7.1 g/dL (6.2-8.2)
== END | disposition home or self-care (01) ==
LOC: LABWHC1 09:51
PROVIDERS: ATTEND Family Medicine
DX: E11.9 Type 2 diabetes mellitus without complications (principal); E78.5 Hyperlipidemia, unspecified; E55.9 Vitamin D deficiency, unspecified; R25.1 Tremor, unspecified
CPT/HCPCS: 36415; 80053; 80061; 82306; 83036; 84439; 84443; 85025

== ENCOUNTER 2023-12-29 08:39 | Observation (INO) | payer BC ==
[2023-12-29] MEDS: SODIUM CHLORIDE 0.9% 1,000 ML IV STA ×2 (09:34→12:48)
[2023-12-29] MEDS: PANTOPRAZOLE 40 MG/10 ML VIAL IVP STA (09:37)
[2023-12-29] MEDS: MORPHINE SULFATE 4 MG/ML SYRINGE IVP STA ×2 (09:37→12:48)
[2023-12-29] MEDS: ONDANSETRON 4 MG/2 ML VIAL IVP STA (09:37)
[2023-12-29 09:55] LABS: Basophils % (A) 0 %; Eosinophils # (A) 0.2 k/uL (0-0.7); Eosinophils % (A) 2 %; HCT 41.1 % (34.0-46.0); HGB 13.3 gm/dL (11.4-16.0); Lymphocytes # (A) 2.7 k/uL (1.0-4.8); Lymphocytes % (A) 35 %; MCH 29.6 pg (25.0-35.0); MCHC 32.4 g/dL (31.0-37.0); MCV 91.5 fL (80.0-100.0); Mean Platelet Volume 9.5; Monocytes # (A) 0.3 k/uL (0-1.0); Monocytes % (A) 3 %; Neutrophils # (A) 4.4 k/uL (1.3-7.7); Neutrophils % (A) 57 %; Platelet Count 248 k/uL (150-450); RDW 13.8 % (11.5-15.5); WBC 7.7 k/uL (3.8-10.6)
[2023-12-29 10:04] LABS: Partial Thromboplastin Time 24.7 sec (22.0-30.0); Prothrombin Time 10.9 sec (10.0-12.5)
[2023-12-29 10:05] LABS: ALT 16 U/L (4-34); AST 19 U/L (14-36); African American GFR (CKD) >90 (>60 ml/min/1.73 sqM); Albumin 4.2 g/dL (3.5-5.0); Alkaline Phosphatase 82 U/L (38-126); Amylase 41 U/L (30-110); Anion Gap 9 mmol/L; Blood Urea Nitrogen 10 mg/dL (7-17); Calcium 9.4 mg/dL (8.4-10.2); Carbon Dioxide 27 mmol/L (22-30); Chloride 103 mmol/L (98-107); Glucose 101 mg/dL (74-99); Lipase 99 U/L (23-300); Non-African American GFR(CKD) 81 (>60 ml/min/1.73 sqM); Potassium 3.6 mmol/L (3.5-5.1); Sodium 139 mmol/L (137-145); Total Bilirubin 0.8 mg/dL (0.2-1.3); Total Protein 7.2 g/dL (6.3-8.2)
--- NOTE | 2023-12-29 11:41 | CT ---
EXAMINATION TYPE: CT abdomen pelvis w con CT DLP: 1196.5 mGycm, Automated exposure control for dose reduction was used. DATE OF EXAM: 12/29/2023 11:11 AM COMPARISON: CT abdomen and pelvis 08/25/2022, abdominal ultrasound 05/30/2023 CLINICAL INDICATION:Female, 58 years old with history of abdominal pain; Abdominal pain TECHNIQUE: Standard CT of the abdomen and pelvis following the administration of 100 cc of Isovue 3 00 IV contrast material. Coronal and sagittal reformats were performed. FINDINGS: LOWER CHEST: Unremarkable ABDOMEN LIVER: Unremarkable GALLBLADDER AND BILE DUCTS: The gallbladder is surgically absent. No biliary ductal dilatation. PANCREAS: Unremarkable. SPLEEN: Unremarkable. ADRENAL GLANDS: Unremarkable. KIDNEYS AND URETERS: No evidence of hydronephrosis or renal calculus. The seen symmetrically. Right r enal upper pole cyst measuring 1.6 cm. Additional subcentimeter hypodense foci within both kidneys wh ich are too small to characterize but likely represent cysts. Contrast material within both collectin g systems on the delayed phase. PELVIS BLADDER: Unremarkable REPRODUCTIVE: Unremarkable. ABDOMEN & PELVIS STOMACH AND BOWEL: Stomach and duodenum are unremarkable. No focal bowel wall thickening or surroundi ng inflammatory changes. The appendix is not identified however no significant inflammatory changes w ithin the right lower quadrant. No evidence of bowel obstruction. PERITONEUM: No evidence of pneumoperitoneum or free fluid. VASCULATURE: No evidence of aortic aneurysm. MUSCULOSKELETAL: No acute osseous abnormalities LYMPH NODES: No evidence for lymphadenopathy. SOFT TISSUE/ABDOMINAL WALL: Postsurgical changes of the anterior midline abdominal wall in the epigas tric region from suspected hernia repair. IMPRESSION: No CT evidence of an acute abdominal/pelvic process. [facility], , 12/29/2023 11:38 AM
--- NOTE | 2023-12-29 12:50 | ED ---
General Adult HPI - General Chief complaint: Abdominal Pain Stated complaint: Abd pain Time Seen by Provider: 12/29/23 09:05 Source: patient, RN notes reviewed, old records reviewed Mode of arrival: ambulatory Limitations: no limitations - History of Present Illness Initial comments: Patient is a 58-year-old female with past medical history remarkable for asthma, GERD, IBS, history of abdominal mesh repair presents emergency department compl aining of abdominal pain for the last 5 days. Has some nausea and intermittent vomiting however it is not persistent. Denies constipation or diarrhea. Denies any other acute complaints. Describes the pain as achy and located in the bilateral lower quadrants. No chest pain or shortness of breath. No fevers or chills or cough. No dysuria hematuria. No vaginal lesion or discharge. Presents for further evaluation at this time. - Related Data Home Medications Medication Instructions Recorded Confirmed Pregabalin [Lyrica] 200 mg PO BID 05/21/21 12/29/23 Budesonide-Formot 160-4.5 Mcg 2 puff INHALATION RT-HS 01/16/23 12/29/23 [Symbicort 160-4.5 Mcg Inhaler] Linaclotide [Linzess] 72 mcg PO DAILY 01/16/23 12/29/23 Zolpidem [Ambien] 10 mg PO HS PRN 01/16/23 12/29/23 Atorvastatin [Lipitor] 40 mg PO HS 01/17/23 12/29/23 Esomeprazole Magnesium [NexIUM] 40 mg PO BID 06/03/23 12/29/23 Albuterol Nebulized [Ventolin 2.5 mg INHALATION RT-QID PRN 12/29/23 12/29/23 Nebulized] Dicyclomine [Bentyl] 10 mg PO TID 12/29/23 12/29/23 Meclizine [Antivert] 25 mg PO TID PRN 12/29/23 12/29/23 Semaglutide [Ozempic] 1 mg SQ SANCHEZ 12/29/23 12/29/23 Venlafaxine HCl [Effexor XR] 150 mg PO DAILY 12/29/23 12/29/23 Verapamil HCl [Verapamil ER] 240 mg PO DAILY 12/29/23 12/29/23 Previous Rx's Medication Instructions Recorded Ferrous Sulfate [Feosol] 325 mg PO DAILY #30 tab 01/22/23 Allergies Allergy/AdvReac Type Severity Reaction Status Date / Time cobalt Allergy POSITIVE Verified 12/29/23 13:05 ON ALLERGY TEST nickel Allergy POSITIVE Verified 12/29/23 13:05 ON ALLERGY TEST oxycodone HCl [From Percocet] Allergy Rash/Hives Verified 12/29/23 13:05 peanut Allergy Wheezing Verified 12/29/23 13:05 pollen extracts Allergy Dyspnea Verified 12/29/23 13:05 shellfish derived [Lobster] Allergy POSITIVE Verified 12/29/23 13:05 ON ALLERGY TEST tree and shrub pollen Allergy Dyspnea Verified 12/29/23 13:05 DUST MITES Allergy Rash/Hives Uncoded 12/29/23 13:05 Review of Systems ROS Statement: Those systems with pertinent positive or pertinent negative responses have been documented in the HPI. Review of Systems: CONST: Denies fever EYES: Denies blurry vision ENT: Denies nasal congestion C/V: Denies Chest pain RESP: Denies shortness of breath GI: Endorses abdominal pain : Denies dysuria SKIN: Denies rash. MSK: Denies joint pain. NEURO: Denies headache ROS Other: All systems not noted in ROS Statement are negative. Past Medical History Past Medical History: Asthma, GERD/Reflux, Musculoskeletal Disorder, Osteoarthritis (OA) Additional Past Medical History / Comment(s): , hx of migraine, HX STOMACH ULCERS, DDD, VERTIGO, right neck mass, lymph node rt cervical History of Any Multi-Drug Resistant Organisms: None Reported Past Surgical History: Adenoidectomy, Appendectomy, Breast Surgery, Stacey cystectomy, Joint Replacement, Orthopedic Surgery, Tonsillectomy Additional Past Surgical History / Comment(s): LEFT KNEE ARTHROSCOPY, left knee replacement, LEFT FOOT SURGERY, SINUS SX-REMOVED POLYPS, COLONOSCOPY, EGD, BACK INJECTIONS, biopsy BILATERAL SIDES OF NECK, BILATERAL BREAST REDUCTION. surgery rt arm for fx 03/02/20, neck mass/lymph node removed, HERNIA REPAIR AT [place] IN JULY 2022, Past Anesthesia/Blood Transfusion Reactions: Previous Problems w/ Anesthesia Additional Past Anesthesia/Blood Transfusion Reaction / Comment(s): "Woke up during a foot surgery, they gave her more medication and then she took a long time to wake up after." Past Psychological History: Depression Smoking Status: Former smoker Past Alcohol Use History: Occasional Past Drug Use History: None Reported - Past Family History Mother Family Medical History: Cancer General Exam - General Exam Comments Initial Comments: General: Appears in mild to moderate distress secondary to abdominal discomfort. HEAD: Normal with no signs of head trauma. EYES: PERRLA, EOMI, conjunctiva normal, no discharge. ENT: Hearing grossly intact, normal oropharynx. RESPIRATORY: Clear breath sounds bilaterally. No wheezes, rales, or rhonchi. C/V: Regular rate and rhythm. S1 and S2 auscultated, no edema, peripheral pulses 2+ and intact throughout ABD: Abd is soft, nontender, nondistended EXT: Normal range of motion, no obvious deformity SKIN: No rashes or lesions observed on exposed skin. NEURO: Alert and oriented x 4. Limitations: no limitations Course Vital Signs 12/29/23 12/29/23 08:41 11:51 Temperature 97.9 F Pulse Rate 79 70 Respiratory 20 16 Rate Blood Pressure 96/64 92/61 O2 Sat by Pulse 96 96 Oximetry Medical Decision Making - Medical Decision Making Was pt. sent in by a medical professional or institution (, PA, RN CLINICAL DOCUMENTATION SPECIALIST, urgent care, hospital, or penitentiary...) When possible be specific @ -No Did you speak to anyone other than the patient for history (EMS, parent, family, police, friend...)? What history was obtained from this source @ -No Did you review nursing and triage notes (agree or disagree)? Why? @ -I reviewed and agree with nursing and triage notes Were old charts reviewed (outside hosp., previous admission, EMS record, old EKG, old radiological studies, urgent care reports/EKG's, penitentiary records)? Report findings @ -No old charts were reviewed Differential Diagnosis (chest pain, altered mental status, abdominal pain women, abdominal pain men, vaginal bleeding, weakness, fever, dyspnea, syncope, headache, dizziness, GI bleed, back pain, seizure, CVA, palpatations, mental health, musculoskeletal)? @ -differential Abdominal Pain Women: Appendicitis, Cholecystitis, diverticulosis, ischemic bowel, pancreatitis, hepatitis, UTI, gastroenteritis, AAA, incarcerated hernia, bowel obstruction, constipation, inflammatory bowel, hepatitis, peptic ulcer disease, splenic infarction, perforated viscus, vulvitis, ovarian torsion, PID, kidney stone, placenta abruption, this is not meant to be an all-inclusive list EKG interpreted by me (3pts min.). @ -As above X-rays interpreted by me (1pt min.). @ -None done CT interpreted by me (1pt min.). @ -CT and pelvis reveals no obvious acute intra-abdominal process. U/S interpreted by me (1pt. min.). @ -None done What testing was considered but not performed or refused? (CT, X-rays, U/S, labs)? Why? @ -None What meds were considered but not given or refused? Why? @ -None Did you discuss the management of the patient with other professionals (professionals i.e. Dr., PA, RN CLINICAL DOCUMENTATION SPECIALIST, lab, RT, psych nurse, social service assistant, iphone developer, teacher, police patrol officer, shelter case manager)? Give summary @ -Discussed with the admitting provider, Dr. Ivan. Initially he discussed with the patient and patient's that if it is a mesh issue, recommended transfer to [place] where patient's surgeon is located who performed the surgery. I discussed with the family as well as the patient, they would like the patient to remain here for GI evaluation initially and then later on if symptoms persist and they are worried about the mesh, would like to be transfe rred at that time. I did discuss this with Dr. Ivan who did accept the admission and requested GI and surgery consult which was completed. Was smoking cessation discussed for >3mins.? @ -No Was critical care preformed (if so, how long)? @ -No Were there social determinants of health that impacted care today? How? (Homelessness, low income, unemployed, alcoholism, drug addiction, transportati on, low edu. Level, literacy, decrease access to med. care, detention, rehab)? @ -No Was there de-escalation of care discussed even if they declined (Discuss DNR or withdrawal of care, Hospice)? DNR status @ -No What co-morbidities impacted this encounter? (DM, HTN, Smoking, COPD, CAD, Cancer, CVA, ARF, Chemo, Hep., AIDS, mental health diagnosis, sleep apnea, morbid obesity)? @ -IBS Was patient admitted / discharged? Hospital course, mention meds given and route, prescriptions, significant lab abnormalities, going to OR and other pertinent info. @ -Patient presents emergency department complaining of abdominal pain. Has been ongoing for 5 days. We will obtain abdominal pain workup. She will be given IV morphine, fluids, Zofran, Protonix. Patient was in agreement this plan. Vital signs within acceptable limits. Screening EKG shows no signs of acute ischemia. CT abdomen pelvis shows no obvious acute process. Laboratory studies are unremarkable. I discussed the workup with the patient. She still having pain. She will be given additional analgesia medications. Did recommend admission to observation for pain control as we do have GI available at our facility. She was in agre ement this plan. Discussed with the admitting provider, Dr. Ivan. Initially he discussed with the patient and patient's that if it is a mesh issue, recommended transfer to [place] where patient's surgeon is located who performed the surgery. I discussed with the family as well as the patient, they would like the patient to remain here for GI evaluation initially and then later on if symptoms persist and they are worried about the mesh, would like to be transferred at that time. I did discuss this with Dr. Ivan who did accept the admission and requested GI and surgery consult which was completed. Undiagnosed new problem with uncertain prognosis? @ -No Drug Therapy requiring intensive monitoring for toxicity (Heparin, Nitro, Insulin, Cardizem)? @ -No Were any procedures done? @ -No Diagnosis/symptom? @ -Abdominal pain of unknown etiology, intractable abdominal pain Acute, or Chronic, or Acute on Chronic? @ -Acute Uncomplicated (without systemic symptoms) or Complicated (systemic symptoms)? @ -Complicated Side effects of treatment? @ -No Exacerbation, Progression, or Severe Exacerbation? @ -No Poses a threat to life or bodily function? How? (Chest pain, [place], [place], pneumonia, PE, COPD, DKA, ARF, appy, cholecystitis, CVA, Diverticulitis, Homicidal, Suicidal, threat to staff... and all critical care pts) @ -Yes - Lab Data Result diagrams: 12/29/23 09:41 12/29/23 09:41 Lab Results 12/29/23 12/29/23 12/29/23 Range/Units 09:41 09:41 09:41 WBC 7.7 (3.8-10.6) k/uL RBC 4.50 (3.80-5.40) m/uL Hgb 13.3 (11.4-16.0) gm/dL Hct 41.1 (34.0-46.0) % MCV 91.5 (80.0-100.0) fL MCH 29.6 (25.0-35.0) pg MCHC 32.4 (31.0-37.0) g/dL RDW 13.8 (11.5-15.5) % Plt Count 248 (150-450) k/uL MPV 9.5 Neutrophils % 57 % Lymphocytes % 35 % Monocytes % 3 % Eosinophils % 2 % Basophils % 0 % Neutrophils # 4.4 (1.3-7.7) k/uL Lymphocytes # 2.7 (1.0-4.8) k/uL Monocytes # 0.3 (0-1.0) k/uL Eosinophils # 0.2 (0-0.7) k/uL Basophils # 0.0 (0-0.2) k/uL PT 10.9 (10.0-12.5) sec INR 1.0 (<1.2) APTT 24.7 (22.0-30.0) sec Sodium 139 (137-145) mmol/L Potassium 3.6 (3.5-5.1) mmol/L Chloride 103 (98-107) mmol/L Carbon Dioxide 27 (22-30) mmol/L Anion Gap 9 mmol/L BUN 10 (7-17) mg/dL Creatinine 0.81 (0.52-1.04) mg/dL Est GFR (CKD-EPI)AfAm >90 (>60 ml/min/1.73 sqM) Est GFR (CKD-EPI)NonAf 81 (>60 ml/min/1.73 sqM) Glucose 101 H (74-99) mg/dL Plasma Lactic Acid Yeyo (0.7-2.0) mmol/L Calcium 9.4 (8.4-10.2) mg/dL Total Bilirubin 0.8 (0.2-1.3) mg/dL AST 19 (14-36) U/L ALT 16 (4-34) U/L Alkaline Phosphatase 82 (38-126) U/L Total Protein 7.2 (6.3-8.2) g/dL Albumin 4.2 (3.5-5.0) g/dL Amylase 41 (30-110) U/L Lipase 99 (23-300) U/L 12/29/23 Range/Units 09:41 WBC (3.8-10.6) k/uL RBC (3.80-5.40) m/uL Hgb (11.4-16.0) gm/dL Hct (34.0-46.0) % MCV (80.0-100.0) fL MCH (25.0-35.0) pg MCHC (31.0-37.0) g/dL RDW (11.5-15.5) % Plt Count (150-450) k/uL MPV Neutrophils % % Lymphocytes % % Monocytes % % Eosinophils % % Basophils % % Neutrophils # (1.3-7.7) k/uL Lymphocytes # (1.0-4.8) k/uL Monocytes # (0-1.0) k/uL Eosinophils # (0-0.7) k/uL Basophils # (0-0.2) k/uL PT (10.0-12.5) sec INR (<1.2) APTT (22.0-30.0) sec Sodium (137-145) mmol/L Potassium (3.5-5.1) mmol/L Chloride (98-107) mmol/L Carbon Dioxide (22-30) mmol/L Anion Gap mmol/L BUN (7-17) mg/dL Creatinine (0.52-1.04) mg/dL Est GFR (CKD-EPI)AfAm (>60 ml/min/1.73 sqM) Est GFR (CKD-EPI)NonAf (>60 ml/min/1.73 sqM) Glucose (74-99) mg/dL Plasma Lactic Acid Yeyo 1.0 (0.7-2.0) mmol/L Calcium (8.4-10.2) mg/dL Total Bilirubin (0.2-1.3) mg/dL AST (14-36) U/L ALT (4-34) U/L Alkaline Phosphatase (38-126) U/L Total Protein (6.3-8.2) g/dL Albumin (3.5-5.0) g/dL Amylase (30-110) U/L Lipase (23-300) U/L - EKG Data -: EKG Interpreted by Me EKG Comments: 12-lead Electrocardiogram Interpretation Note EKG was reviewed and interpreted by myself. 12-lead ECG performed at 0929 is interpreted by me as revealing normal sinus rhythm at a rate of 68 beats per minute. [place] is normal. Patient has first-degree AV block with VA interval of 226 ms, QRS duration is 97 ms, QTc is 4 than 13 ms.. There were no ST or T wave abnormalities to suggest myocardial ischemia or injury. R wave progression across the precordium was satisfactory. By my interpretation this EKG is non- diagnostic for acute ischemia. Disposition Clinical Impression: Abdominal pain of unknown etiology, Intractable abdominal pain Disposition: ADMITTED IP TO THIS HOSP Condition: Stable Referrals: Jerad Alvarez DO [Primary Care Provider] - 1-2 days Time of Disposition: 13:40
[2023-12-29] MEDS ORDERED: NALOXONE 0.4 MG/ML 1 ML VIAL IV PRN (13:46)
[2023-12-29] MEDS: SODIUM CHLORIDE 0.9% 1,000 ML IV SCH (13:49)
[2023-12-29 14:12] LABS: Appearance,Urine Clear (Clear); Bilirubin,Urine Negative (Negative); Blood,Urine Negative (Negative); Color,Urine Colorless; Glucose,Urine (UA) Negative (Negative); Ketones,Urine 1+ (Negative); Leukocyte Esterase,Urine Negative (Negative); Nitrite,Urine Negative (Negative); PH, Urine 5.5 (5.0-8.0); Protein,Urine Negative (Negative); Urobilinogen,Urine <2.0 mg/dL (<2.0)
[2023-12-29 14:21] LABS: Specific Gravity,Urine >1.050 (1.001-1.035)
--- NOTE | 2023-12-29 15:14 | P.GSCN ---
History of Present Illness Consult date: 12/29/23 History of present illness: CHIEF COMPLAINT: Abdominal pain HISTORY OF PRESENT ILLNESS: This is a 58-year-old female who presents the hospital with complaints of lower abdominal pain just above her panniculectomy scar for the past 5 days. She does report the pain does move up into the upper abdomen. She has felt nauseous. Denies any vomiting. Her bowel movements have been normal for her. She does report that food does increase the abdominal pain. She has a known history of IBS. Her surgical history does include a panniculectomy, cholecystectomy, appendectomy and hiatal hernia repair with mesh in [address] Alan out of [facility]. Patient denies any fevers. She does feel feel warm at times but contributes that to menopause. CT scan abdomen pelvis was negative. White count normal. PAST MEDICAL HISTORY: Asthma, GERD/Reflux, Musculoskeletal Disorder, Osteoarthritis (OA), migraine, stomach ulcers, degenerative disease, vertigo PAST SURGICAL HISTORY: Cholecystectomy, appendectomy, panniculectomy, hiatal hernia repair with mesh in Jul, 2022 MEDICATIONS: See below ALLERGIES: See below SOCIAL HISTORY: No illicit drug use. REVIEW OF SYSTEMS: CONSTITUTIONAL: Denies fever or chills. HEENT: Denies blurred vision, vision changes, or eye pain. Denies hemoptysis CARDIOVASCULAR: Denies chest pain or pressure. RESPIRATORY: No shortness of breath. GASTROINTESTINAL: See HPI for pertinent findings HEMATOLOGIC: Denies bleeding disorders. GENITOURINARY: Denies any blood in urine or increased urinary frequency. SKIN: Denies pruitis. Denies rash. PHYSICAL EXAM: VITAL SIGNS: Reviewed GENERAL: Well-developed in no acute distress. HEENT: No sclera icterus. Extraocular movements grossly intact. Moist buccal mucosa. Head is atraumatic, normocephalic. No nasal drainage. ABDOMEN: Soft. Nondistended. Obese. Tenderness with palpation across the lower abdomen just above the panniculectomy scar. Scar is healed no evidence of infection. NEUROLOGIC: Alert and oriented. Cranial nerves II through XII grossly intact. LABORATORY DATA: WBC 7.7 Hgb 13.3 platelets 248 Sodium 139 potassium 3.6 creatinine 0.81 Lactic acid 1.0 LFTs normal IMAGING: CT scan abdomen pelvis reports no evidence of acute abdominal pelvic process ASSESSMENT: 1. Lower abdominal pain above panniculectomy scar 2. History of hiatal hernia repair with mesh in July 2022 out of [facility] PLAN: -Agree with clear liquid diet -Continue IV fluids -Continue supportive care -Follow-up on labs in a.m. Physician Director Report note has been reviewed by physician. Signing provider agrees with the documented findings, assessment, and plan of care. Past Medical History Past Medical History: Asthma, GERD/Reflux, Musculoskeletal Disorder, Osteoarthritis (OA) Additional Past Medical History / Comment(s): , hx of migraine, HX STOMACH ULCERS, DDD, VERTIGO, right neck mass, lymph node rt cervical History of Any Multi-Drug Resistant Organisms: None Reported Past Surgical History: Adenoidectomy, Appendectomy, Breast Surgery, Cholec ystectomy, Joint Replacement, Orthopedic Surgery, Tonsillectomy Additional Past Surgical History / Comment(s): LEFT KNEE ARTHROSCOPY, left knee replacement, LEFT FOOT SURGERY, SINUS SX-REMOVED POLYPS, COLONOSCOPY, EGD, BACK INJECTIONS, biopsy BILATERAL SIDES OF NECK, BILATERAL BREAST REDUCTION. surgery rt arm for fx 03/02/20, neck mass/lymph node removed, HERNIA REPAIR AT [place] IN JULY 2022, Past Anesthesia/Blood Transfusion Reactions: Previous Problems w/ Anesthesia Additional Past Anesthesia/Blood Transfusion Reaction / Comm: "Woke up during a foot surgery, they gave her more medication and then she took a long time to wake up after." Past Psychological History: Depression Smoking Status: Former smoker Past Alcohol Use History: Occasional Past Drug Use History: None Reported - Past Family History Mother Family Medical History: Cancer Medications and Allergies Home Medications Medication Instructions Recorded Confirmed Type Pregabalin [Lyrica] 200 mg PO BID 05/21/21 12/29/23 History Budesonide-Formot 160-4.5 Mcg 2 puff INHALATION RT-HS 01/16/23 12/29/23 History [Symbicort 160-4.5 Mcg Inhaler] Linaclotide [Linzess] 72 mcg PO DAILY 01/16/23 12/29/23 History Zolpidem [Ambien] 10 mg PO HS PRN 01/16/23 12/29/23 History Atorvastatin [Lipitor] 40 mg PO HS 01/17/23 12/29/23 History Ferrous Sulfate [Feosol] 325 mg PO DAILY #30 tab 01/22/23 12/29/23 Rx Esomeprazole Magnesium [NexIUM] 40 mg PO BID 06/03/23 12/29/23 History Albuterol Nebulized [Ventolin 2.5 mg INHALATION RT-QID PRN 12/29/23 12/29/23 History Nebulized] Dicyclomine [Bentyl] 10 mg PO TID 12/29/23 12/29/23 History Meclizine [Antivert] 25 mg PO TID PRN 12/29/23 12/29/23 History Semaglutide [Ozempic] 1 mg SQ SANCHEZ 12/29/23 12/29/23 History Venlafaxine HCl [Effexor XR] 150 mg PO DAILY 12/29/23 12/29/23 History Verapamil HCl [Verapamil ER] 240 mg PO DAILY 12/29/23 12/29/23 History Allergies Allergy/AdvReac Type Severity Reaction Status Date / Time cobalt Allergy POSITIVE Verified 12/29/23 13:05 ON ALLERGY TEST nickel Allergy POSITIVE Verified 12/29/23 13:05 ON ALLERGY TEST oxycodone HCl [From Percocet] Allergy Rash/Hives Verified 12/29/23 13:05 peanut Allergy Wheezing Verified 12/29/23 13:05 pollen extracts Allergy Dyspnea Verified 12/29/23 13:05 shellfish derived [Lobster] Allergy POSITIVE Verified 12/29/23 13:05 ON ALLERGY TEST tree and shrub pollen Allergy Dyspnea Verified 12/29/23 13:05 DUST MITES Allergy Rash/Hives Uncoded 12/29/23 13:05 Surgical - Exam Vital Signs Temp Pulse Resp BP Pulse Ox 97.9 F 79 20 96/64 96 12/29/23 08:41 12/29/23 08:41 12/29/23 08:41 12/29/23 08:41 12/29/23 08:41 Results - Labs 12/29/23 09:41 12/29/23 09:41 Abnormal Lab Results - Last 24 Hours (Table) 12/29/23 12/29/23 Range/Units 09:41 13:40 Glucose 101 H (74-99) mg/dL Ur Specific [place] >1.050 H (1.001-1.035) Urine Ketones 1+ H (Negative) Diabetes panel 12/29/23 Range/Units 09:41 Sodium 139 (137-145) mmol/L Potassium 3.6 (3.5-5.1) mmol/L Chloride 103 (98-107) mmol/L Carbon Dioxide 27 (22-30) mmol/L BUN 10 (7-17) mg/dL Creatinine 0.81 (0.52-1.04) mg/dL Glucose 101 H (74-99) mg/dL Calcium 9.4 (8.4-10.2) mg/dL AST 19 (14-36) U/L ALT 16 (4-34) U/L Alkaline Phosphatase 82 (38-126) U/L Total Protein 7.2 (6.3-8.2) g/dL Albumin 4.2 (3.5-5.0) g/dL Calcium panel 12/29/23 Range/Units 09:41 Calcium 9.4 (8.4-10.2) mg/dL Albumin 4.2 (3.5-5.0) g/dL Pituitary panel 12/29/23 Range/Units 09:41 Sodium 139 (137-145) mmol/L Potassium 3.6 (3.5-5.1) mmol/L Chloride 103 (98-107) mmol/L Carbon Dioxide 27 (22-30) mmol/L BUN 10 (7-17) mg/dL Creatinine 0.81 (0.52-1.04) mg/dL Glucose 101 H (74-99) mg/dL Calcium 9.4 (8.4-10.2) mg/dL Adrenal panel 12/29/23 Range/Units 09:41 Sodium 139 (137-145) mmol/L Potassium 3.6 (3.5-5.1) mmol/L Chloride 103 (98-107) mmol/L Carbon Dioxide 27 (22-30) mmol/L BUN 10 (7-17) mg/dL Creatinine 0.81 (0.52-1.04) mg/dL Glucose 101 H (74-99) mg/dL Calcium 9.4 (8.4-10.2) mg/dL Total Bilirubin 0.8 (0.2-1.3) mg/dL AST 19 (14-36) U/L ALT 16 (4-34) U/L Alkaline Phosphatase 82 (38-126) U/L Total Protein 7.2 (6.3-8.2) g/dL Albumin 4.2 (3.5-5.0) g/dL
[2023-12-29] MEDS: HEPARIN SODIUM,PORCINE 5,000 UNIT/ML 1 ML VIAL SQ SCH (15:58)
[2023-12-29] MEDS ORDERED: MECLIZINE 25 MG TAB PO PRN (16:20)
[2023-12-29] MEDS ORDERED: ALBUTEROL NEBULIZED 2.5 MG/3 ML INHALATION PRN (16:20)
[2023-12-29] MEDS ORDERED: ZOLPIDEM 5 MG TAB PO PRN (16:20)
[2023-12-29] MEDS ORDERED: ENOXAPARIN 40 MG/0.4 ML SYRINGE SQ SCH (16:30)
--- NOTE | 2023-12-29 16:31 | P.HPIM ---
History of Present Illness H&P Date: 12/29/23 Chief Complaint: Abdominal pain This is a pleasant 58-year-old patient of Dr. Alvarez. Chronic stable medical condition include asthma, GERD, osteoarthritis, has had previous stomach ulcers that have healed, depression. Patient has a large hiatal hernia and had a mesh placed at [facility] about a year and a half ago. Patient also has chronic back pain for which she has been prescribed Lyrica and verapamil. At the baseline patient has a bowel movement every 2 to 3 weeks. For 5 days patient been having mid abdominal pain. No nausea vomiting. Decreased appetite. Patient did have a bowel movement yesterday. Pain is rather significant. She has not had a further follow-up with the surgeon at [facility] to put the mesh inside. CT scan in the ER was just showing some postsurgical changes. I did inform the patient and that I will get a consultation with general surgery but I would rather have a her go to [facility] to follow-up with her surgeon if that is an issue. Patient has been decided to stay here and see what GI has to say. Surgery is also being consulted. Review of systems: GEN.: Tired EYES: None HEENT: None NECK: None RESPIRATORY: None CARDIOVASCULAR: None GASTROINTESTINAL: As above GENITOURINARY: None MUSCULOSKELETAL: Chronic back pain LYMPHATICS: None HEMATOLOGICAL: None PSYCHIATRY: None NEUROLOGICAL: None Social history: . Smoked for 28 years stopped in 2011. 1 pack a week. Alcohol occasionally. Physical examination: VITAL SIGNS: 97.9, 68, 16, 103 x 65, 96% room air GENERAL: BMI 34.5, reclining bed awake slightly uncomfortable. EYES: Pupils equal. Conjunctiva mery l. HEENT: External appearance of nose and ears normal, oral cavity grossly normal. NECK: JVD not raised; masses not palpable. HEART: First and second heart sounds are normal; no edema. LUNGS: Respiratory rate normal; clear to auscultation. ABDOMEN: Soft, epigastric tenderness, no guarding rigidity, liver spleen not palpable, no masses palpable. PSYCH: Alert and oriented x3; mood and affect anxious l. MUSCULOSKELETAL:No Clubbing/cyanosis;muscles-grossly intact NEUROLOGICAL: Cranial nerves grossly intact; no facial asymmetry, power and sensation grossly intact. LYMPHATICS: No lymph nodes palpable in the axilla and neck INVESTIGATIONS, reviewed in the clinical context: December 29, 2023: White count 7.7 hemoglobin 13.3 platelets 248 sodium 139 potassium 3.6 creatinine 0.81 amylase 41 lipase 99 UA: Ketones 1+ CT abdomen pelvis with contrast:: Unremarkable except for postsurgical changes of the anterior midline abdominal wall in the epigastric region. Assessment plan: -Acute abdominal pain of 5 days duration. Patient normally has a bowel movement every 2 to 3 weeks. Had a bowel movement yesterday. She has tenderness in epigastric area. No nausea vomiting. No fever no white count. Abdomen is soft. With no guarding rigidity. My concern if this is a slow complication of hiatal mesh. Patient has a prior history of peptic ulcer disease but that since has resolved. Patient was offered in the ER transferred to [facility] where her surgeon is. Patient did tell Dr. Simmons from the ER they prefer to stay here. Consult GI, consult general surgery on-call. Liquid diet -Chronic arthritis of the lumbar spine Patient states she gets Lyrica and prescribed verapamil for a back pain. [After I tried to clarify the same] -Chronic insomnia Ambien as needed -Depression Effexor XR 150 mg a day -Diabetes mellitus type 2 Ozempic -GERD Nexium 40 mg twice daily -Moderate persistent asthma Symbicort 160/4.52 puffs nightly. Albuterol as needed -Hyperlipidemia Lipitor 40 mg nightly -Full code Care was discussed with patient and at the bedside. Dr. Simmons will call me back that patient requesting admission here to be seen by our local GI physician see her opinion. Past Medical History Past Medical History: Asthma, GERD/Reflux, Musculoskeletal Disorder, Osteoarthritis (OA) Additional Past Medical History / Comment(s): , hx of migraine, HX STOMACH ULCERS, DDD, VERTIGO, right neck mass, lymph node rt cervical History of Any Multi-Drug Resistant Organisms: None Reported Past Surgical History: Adenoidectomy, Appendectomy, Breast Surgery, Cholecystectomy, Joint Replacement, Orthopedic Surgery, Tonsillectomy Additional Past Surgical History / Comment(s): LEFT KNEE ARTHROSCOPY, left knee replacement, LEFT FOOT SURGERY, SINUS SX-REMOVED POLYPS, COLONOSCOPY, EGD, BACK INJECTIONS, biopsy BILATERAL SIDES OF NECK, BILATERAL BREAST REDUCTION. surgery rt arm for fx 03/02/20, neck mass/lymph node removed, HERNIA REPAIR AT [facility] IN JULY 2022, Past Anesthesia/Blood Transfusion Reactions: Previous Problems w/ Anesthesia Additional Past Anesthesia/Blood Transfusion Reaction / Comment(s): "Woke up during a foot surgery, they gave her more medication and then she took a long time to wake up after." Past Psychological History: Depression Smoking Status: Former smoker Past Alcohol Use History: Occasional Past Drug Use History: None Reported - Past Family History Mother Family Medical History: Cancer Medications and Allergies Home Medications Medication Instructions Recorded Confirmed Type Pregabalin [Lyrica] 200 mg PO BID 05/21/21 12/29/23 History Budesonide-Formot 160-4.5 Mcg 2 puff INHALATION RT-HS 01/16/23 12/29/23 History [Symbicort 160-4.5 Mcg Inhaler] Linaclotide [Linzess] 72 mcg PO DAILY 01/16/23 12/29/23 History Zolpidem [Ambien] 10 mg PO HS PRN 01/16/23 12/29/23 History Atorvastatin [Lipitor] 40 mg PO HS 01/17/23 12/29/23 History Ferrous Sulfate [Feosol] 325 mg PO DAILY #30 tab 01/22/23 12/29/23 Rx Esomeprazole Magnesium [NexIUM] 40 mg PO BID 06/03/23 12/29/23 History Albuterol Nebulized [Ventolin 2.5 mg INHALATION RT-QID PRN 12/29/23 12/29/23 History Nebulized] Dicyclomine [Bentyl] 10 mg PO TID 12/29/23 12/29/23 History Meclizine [Antivert] 25 mg PO TID PRN 12/29/23 12/29/23 History Semaglutide [Ozempic] 1 mg SQ SANCHEZ 12/29/23 12/29/23 History Venlafaxine HCl [Effexor XR] 150 mg PO DAILY 12/29/23 12/29/23 History Verapamil HCl [Verapamil ER] 240 mg PO DAILY 12/29/23 12/29/23 History Allergies Allergy/AdvReac Type Severity Reaction Status Date / Time cobalt Allergy POSITIVE Verified 12/29/23 13:05 ON ALLERGY TEST nickel Allergy POSITIVE Verified 12/29/23 13:05 ON ALLERGY TEST oxycodone HCl [From Percocet] Allergy Rash/Hives Verified 12/29/23 13:05 peanut Allergy Wheezing Verified 12/29/23 13:05 pollen extracts Allergy Dyspnea Verified 12/29/23 13:05 shellfish derived [Lobster] Allergy POSITIVE Verified 12/29/23 13:05 ON ALLERGY TEST tree and shrub pollen Allergy Dyspnea Verified 12/29/23 13:05 DUST MITES Allergy Rash/Hives Uncoded 12/29/23 13:05 Physical Exam Vitals: Vital Signs Temp Pulse Resp BP Pulse Ox 12/29/23 15:57 68 16 103/65 96 12/29/23 11:51 70 16 92/61 96 12/29/23 08:41 97.9 F 79 20 96/64 96 Intake and Output 12/29/23 12/29/23 12/29/23 06:59 14:59 22:59 Other: Weight 97.069 kg Results CBC & Chem 7: 12/29/23 09:41 12/29/23 09:41 Labs: Abnormal Lab Results - Last 24 Hours (Table) 12/29/23 12/29/23 Range/Units 09:41 13:40 Glucose 101 H (74-99) mg/dL Ur Specific [place] >1.050 H (1.001-1.035) Urine Ketones 1+ H (Negative)
--- NOTE | 2023-12-29 17:37 | XR ---
EXAMINATION TYPE: XR abdomen acute w cxr DATE OF EXAM: 12/29/2023 5:09 PM CLINICAL INDICATION: Female, 58 years old with history of 5 days acute abdominal pain-epigastric; [facility] COMPARISON: None. TECHNIQUE: Two radiographic views of the abdomen (upright and supine) and a frontal chest radiograph were obtained. FINDINGS CHEST: Lungs/Pleura: Increased airspace opacities within the right lower lung. eThere is no evidence of pleu ral effusion, focal consolidation or pneumothorax. Mediastinum: Unremarkable. Vasculature: Normal. Heart: Normal in size. Musculoskeletal: The osseous structures are intact. Other findings: No significant. FINDINGS ABDOMEN: Bowel gas pattern: Normal without dilated loops of small or large bowel. Fecal material and gas are d emonstrated throughout the colon and rectum. Abnormal calcifications: None. Musculoskeletal: Normal. Other: Excreted IV contrast is seen within the urinary bladder and within the collecting systems bila terally. IMPRESSION: 1. No radiographic evidence for acute abdominal process. 2. Increased haziness to the right lower lung correlate for airspace disease. [facility], , 12/29/2023 5:34 PM
[2023-12-29] MEDS: PANTOPRAZOLE 40 MG TABLET PO SCH (18:49)
[2023-12-29] MEDS: VENLAFAXINE HCL ER 150 MG CAP PO SCH (18:49)
[2023-12-29] MEDS: DICYCLOMINE 10 MG CAP PO SCH (18:49)
[2023-12-29] MEDS: SYMBICORT 160-4.5 MCG INHALER INHALATION SCH (20:03)
[2023-12-29] MEDS: ATORVASTATIN 40 MG TAB PO SCH (20:30)
[2023-12-29] MEDS: PREGABALIN 100 MG CAP PO SCH (20:30)
[2023-12-29] MEDS: ENOXAPARIN 40 MG/0.4 ML SYRINGE SQ SCH (20:30)
[2023-12-29] MEDS: MORPHINE SULFATE 4 MG/ML SYRINGE IV PRN (22:40)
[2023-12-30 01:24] LABS: Basophils % (A) 0 %; Eosinophils # (A) 0.2 k/uL (0-0.7); Eosinophils % (A) 2 %; HCT 37.7 % (34.0-46.0); HGB 12.4 gm/dL (11.4-16.0); Lymphocytes # (A) 2.7 k/uL (1.0-4.8); Lymphocytes % (A) 33 %; MCH 29.8 pg (25.0-35.0); MCHC 32.9 g/dL (31.0-37.0); MCV 90.8 fL (80.0-100.0); Mean Platelet Volume 9.8; Monocytes # (A) 0.3 k/uL (0-1.0); Monocytes % (A) 4 %; Neutrophils # (A) 4.8 k/uL (1.3-7.7); Neutrophils % (A) 59 %; Platelet Count 230 k/uL (150-450); RBC 4.15 m/uL (3.80-5.40); WBC 8.2 k/uL (3.8-10.6)
[2023-12-30 02:21] LABS: ALT 15 U/L (4-34); AST 19 U/L (14-36); African American GFR (CKD) >90 (>60 ml/min/1.73 sqM); Albumin 4.1 g/dL (3.5-5.0); Alkaline Phosphatase 81 U/L (38-126); Anion Gap 6 mmol/L; Blood Urea Nitrogen 9 mg/dL (7-17); Calcium 9.2 mg/dL (8.4-10.2); Carbon Dioxide 23 mmol/L (22-30); Chloride 109 mmol/L (98-107); Glucose 98 mg/dL (74-99); Non-African American GFR(CKD) >90 (>60 ml/min/1.73 sqM); Potassium 3.5 mmol/L (3.5-5.1); Sodium 138 mmol/L (137-145); Total Bilirubin 0.7 mg/dL (0.2-1.3); Total Protein 6.8 g/dL (6.3-8.2)
[2023-12-30] MEDS: VERAPAMIL SR 240 MG TABLET.ER PO SCH (08:06)
[2023-12-30] MEDS ORDERED: PANTOPRAZOLE 40 MG/10 ML VIAL IV SCH (09:00)
[2023-12-30] MEDS: polyethylene glycoL 3350 17 GM POWD.PACK PO SCH (09:55)
[2023-12-30] MEDS: MAGNESIUM CITRATE 296 ML BOTTLE PO ONE (10:00)
--- NOTE | 2023-12-30 12:28 | P.CONS ---
History of Present Illness - Reason for Consult Consult date: 12/30/23 Intractable abdominal pain Requesting physician: Marcio Simmons - Chief Complaint Abdominal pain - History of Present Illness This is a pleasant 58-year-old female who presented to the emergency department yesterday with complaints of abdominal pain. Abdominal pain has been ongoing for several months where it comes and goes. States she has been having pain for the last 5 days duration or so. She has a history of IBS with chronic constipation. She has followed with gastroenterology for quite some time and has seen Priya Zelaya in the past. She recently underwent EGD and colonoscopy on 06/03/[address] Vizcaino. EGD with findings of mild gastritis and colonoscopy status post polypectomy. Patient states she did not follow-up with Dr. Zarate as directed for biopsy results. Also states that she has not been following with Priya Donohue regularly for some time. She was on Linzess for quite some time however her insurance stopped covering it so she has not been taking it. She gets occasional free samples from Priya however has not been on anything regular ly. She has chronic constipation for years, states that she can go weeks at a time without a decent bowel movement. Last good bowel movement was on Friday before coming into the hospital. She states it was a good sized bowel movement. Otherwise she usually just has jaime. She has no associated nausea or vomiting. She had a CT of the abdomen and pelvis as well as abdominal x-rays with no acute findings. Labs are all unremarkable. Review of Systems REVIEW OF SYSTEMS: CARDIOPULMONARY: No chest pain or shortness of breath. Gastrointestinal: Abdominal pain. No nausea or vomiting. No hematemesis, coffee-ground emesis. No rectal bleeding, or melena. Chronic constipation. GENITOURINARY: No dysuria or hematuria. MUSCULOSKELETAL: Reports normal range of motion., Joint pain. SKIN: No rashes. No jaundice. ENDOCRINE: No chills, fevers. No excessive weight gain or loss. No polydipsia or polyuria. PSYCHIATRIC: Unremarkable. NEUROLOGY: No change in mental status. Denies dizziness, headache. ENT: Vision unremarkable. CONSTITUTIONAL: No recent weight loss. No fever, chills, night sweats. Past Medical History Past Medical History: Asthma, GERD/Reflux, Musculoskeletal Disorder, Osteoarthritis (OA) Additional Past Medical History / Comment(s): , hx of migraine, HX STOMACH ULCERS, DDD, VERTIGO, right neck mass, lymph node rt cervical History of Any Multi-Drug Resistant Organisms: None Reported Past Surgical History: Adenoidectomy, Appendectomy, Breast Surgery, Cholecystectomy, Joint Replacement, Orthopedic Surgery, Tonsillectomy Additional Past Surgical History / Comment(s): LEFT KNEE ARTHROSCOPY, left knee replacement, LEFT FOOT SURGERY, SINUS SX-REMOVED POLYPS, COLONOSCOPY, EGD, BACK INJECTIONS, biopsy BILATERAL SIDES OF NECK, BILATERAL BREAST REDUCTION. surgery rt arm for fx 03/02/20, neck mass/lymph node removed, HERNIA REPAIR AT [place] IN JULY 2022, Past Anesthesia/Blood Transfusion Reactions: Previous Problems w/ Anesthesia Additional Past Anesthesia/Blood Transfusion Reaction / Comm: "Woke up during a foot surgery, they gave her more medication and then she took a long time to wake up after." Past Psychological History: Depression Smoking Status: Former smoker Past Alcohol Use History: Occasional Additional Past Alcohol Use History / Comment(s): STARTED SMOKING AT 17 QUIT SMOKING 2011 SMOKED 1 PACK A WEEK Past Drug Use History: None Reported - Past Family History Mother Family Medical History: Cancer Medications and Allergies Home Medications Medication Instructions Recorded Confirmed Type Pregabalin [Lyrica] 200 mg PO BID 05/21/21 12/29/23 History Budesonide-Formot 160-4.5 Mcg 2 puff INHALATION RT-HS 01/16/23 12/29/23 History [Symbicort 160-4.5 Mcg Inhaler] Linaclotide [Linzess] 72 mcg PO DAILY 01/16/23 12/29/23 History Zolpidem [Ambien] 10 mg PO HS PRN 01/16/23 12/29/23 History Atorvastatin [Lipitor] 40 mg PO HS 01/17/23 12/29/23 History Ferrous Sulfate [Feosol] 325 mg PO DAILY #30 tab 01/22/23 12/29/23 Rx Esomeprazole Magnesium [NexIUM] 40 mg PO BID 06/03/23 12/29/23 History Albuterol Nebulized [Ventolin 2.5 mg INHALATION RT-QID PRN 12/29/23 12/29/23 History Nebulized] Dicyclomine [Bentyl] 10 mg PO TID 12/29/23 12/29/23 History Meclizine [Antivert] 25 mg PO TID PRN 12/29/23 12/29/23 History Semaglutide [Ozempic] 1 mg SQ SANCHEZ 12/29/23 12/29/23 History Venlafaxine HCl [Effexor XR] 150 mg PO DAILY 12/29/23 12/29/23 History Verapamil HCl [Verapamil ER] 240 mg PO DAILY 12/29/23 12/29/23 History Allergies Allergy/AdvReac Type Severity Reaction Status Date / Time cobalt Allergy POSITIVE Verified 12/29/23 13:05 ON ALLERGY TEST nickel Allergy POSITIVE Verified 12/29/23 13:05 ON ALLERGY TEST oxycodone HCl [From Percocet] Allergy Rash/Hives Verified 12/29/23 13:05 peanut Allergy Wheezing Verified 12/29/23 13:05 pollen extracts Allergy Dyspnea Verified 12/29/23 13:05 shellfish derived [Lobster] Allergy POSITIVE Verified 12/29/23 13:05 ON ALLERGY TEST tree and shrub pollen Allergy Dyspnea Verified 12/29/23 13:05 DUST MITES Allergy Rash/Hives Uncoded 12/29/23 13:05 Physical Exam Vitals: Vital Signs Temp Pulse Pulse Resp BP BP Pulse Ox 12/30/23 08:00 98.0 F 69 17 127/82 97 12/30/23 02:00 98.2 F 73 14 125/76 95 12/29/23 20:05 74 16 103/56 94 L 12/29/23 20:00 98 F 65 14 109/71 95 12/29/23 15:57 68 16 103/65 96 12/29/23 11:51 70 16 92/61 96 Intake and Output 12/29/23 12/30/23 12/30/23 22:59 06:59 14:59 Intake Total 850 Balance 850 Intake: Intake, IV Titration 600 Amount Sodium Chloride 0.9% 1, 600 000 ml @ 75 mls/hr IV . [id number] [facility] Rx#:[id number] Oral 250 Other: # Voids 1 Weight 97.069 kg General appearance: The patient is alert, oriented, appears in no acute distress. Obese. HET: Head is normocephalic and atraumatic. Conjunctiva pink. Sclera anicteric. Neck: Supple without lymphadenopathy. Trachea midline. Heart: Regular. Lungs: Equal expansion, normal respiratory effort. Abdomen: Soft, diffuse abdominal pain, greatest in right lower quadrant. Nondistended. Skin: No rashes. No jaundice. Extremities: Normal skin color and turgor. No pedal edema. Neurological: No focal deficits. Alert and oriented x3. Results CBC & Chem 7: 12/30/23 00:42 12/30/23 00:42 Labs: Abnormal Lab Results - Last 24 Hours (Table) 12/29/23 12/29/23 12/30/23 Range/Units 09:41 13:40 00:42 Chloride 109 H (98-107) mmol/L Glucose 101 H (74-99) mg/dL Ur Specific [place] >1.050 H (1.001-1.035) Urine Ketones 1+ H (Negative) Comments: CT abdomen pelvis with contrast reports no CT evidence of an acute abdominal/pelvic process Acute abdominal series reports no radiographic evidence for acute abdominal process. Increased haziness to the right lower lung correlate for airspace disease. Does report fecal material and gas demonstrated throughout the colon and rectum Assessment and Plan (1) Abdominal pain Narrative/Plan: 58-year-old female with history of chronic abdominal pain, IBS with constipation presents to the emergency department with complaints of abdominal pain. States she had a bowel movement on Friday but prior to that she goes weeks without bowel movements. She is followed with gastroenterology for quite some time and has follow-up with Carmenza Zelaya for the last few years duration. He has been on Linzess in the past which did help her with her constipation however insurance has not covered it. Likely abdominal pain is all secondary to constipation and gas pain. Discussed with patient importance to actually follow-up with gastroenterology and get on a regular bowel regimen which she states she has not been on anything. Had recent upper and lower endoscopy in May of this year. Upper endoscopy biopsy did report 9 small bowel mucosa with erosion and mild intra epithelial lymphocytosis. Correlation with celiac disease serology suggested. Celiac panel was ordered. Will start patient on MiraLAX twice a day, recommended magnesium citrate x 1 and fleets enema. Patient agreeable. Discontinued Linzess as patient has not been on this medication and cannot afford it. Recommend outpatient follow-up with gastroenterology. No plans on endoscopic evaluation. Current Visit: Yes Status: Acute Code(s): R10.9 - UNSPECIFIED ABDOMINAL PAIN SNOMED Code(s): 56874349 (2) Chronic constipation Current Visit: Yes Status: Acute Code(s): K59.09 - OTHER CONSTIPATION SNOMED Code(s): 751458007 (3) IBS (irritable colon syndrome) Current Visit: Yes Status: Acute Code(s): K58.9 - IRRITABLE BOWEL SYNDROME, UNSPECIFIED SNOMED Code(s): 66226627 Plan: 1. Continue symptomatic and supportive care 2. Encourage ambulation 3. Patient started on bowel regimen with MiraLAX twice daily 3. Magnesium citrate x 1, fleets enema x 1 4. Advance diet as tolerated 5. No plans on endoscopic evaluation, patient had recent upper and lower endoscopy in May of this year 6. Celiac panel ordered 7. Patient is cleared from gastroenterology for discharge if able to have bowel movement and abdominal pain improved, recommend follow-up with Dr. Zarate or [facility] Zelaya Thank you for this consultation. Dr. Radha Zarate I agree with the dictator's note, documented as a scribe by Alka Lane.
--- NOTE | 2023-12-30 13:11 | P.PN ---
Subjective Progress Note Date: 12/30/23 CHIEF COMPLAINT: Abdominal pain HISTORY OF PRESENT ILLNESS: Patient reports that her pain is less today. She reports decrease in her nausea. She is now stating that it has been several days since her last bowel movement. In the last stool she has had where hard pills. She is seen by GI service. And they have ordered a citrate of mag and MiraLAX. Patient does report the feels similar to her irritable bowel syndrome. She also reports besides lower abdominal pains of epigastric pain as well. Abd ominal x-ray from this morning was negative. WBC is 8.2. She is tolerating clear liquids. PHYSICAL EXAM: VITAL SIGNS: Reviewed. GENERAL: Well-developed in no acute distress. HEENT: No sclera icterus. Extraocular movements grossly intact. Moist buccal mucosa. Head is atraumatic, normocephalic. ABDOMEN: Soft. Obese nondistended. Tenderness palpation of the epigastric area and across the lower abdomen. No rebound or guarding noted. NEUROLOGIC: Alert and oriented. Cranial nerves II through XII grossly intact. ASSESSMENT: 1. Epigastric abdominal pain and pain across the lower abdomen with constipation. Patient reports this is similar to her IBS. PLAN: -Continue GI workup. 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 Signing provider agrees with the documented findings, assessment, and plan of care. Objective - Vital Signs Vital signs: Vital Signs Temp 98.0 F 12/30/23 08:00 Pulse 70 12/30/23 08:00 Resp 18 12/30/23 08:00 BP 127/82 12/30/23 08:00 Pulse Ox 97 12/30/23 08:00 FiO2 Intake & Output 12/29/23 12/30/23 12/30/23 18:59 06:59 18:59 Intake Total 850 236 Balance 850 236 Weight 97.069 kg 97.069 kg Intake: Intake, IV Titration 600 Amount Sodium Chloride 0.9% 1, 600 000 ml @ 75 mls/hr IV . [id number] [facility] Rx#:[id number] Oral 250 236 Other: Voiding Method Toilet # Voids 1 - Labs CBC & Chem 7: 12/30/23 00:42 12/30/23 00:42 Labs: Abnormal Lab Results - Last 24 Hours (Table) 12/29/23 12/30/23 Range/Units 13:40 00:42 Chloride 109 H (98-107) mmol/L Ur Specific [place] >1.050 H (1.001-1.035) Urine Ketones 1+ H (Negative)
[2023-12-30 14:53] LABS: Gliadin AB IgA, Deaminated POSITIVE; Gliadin AB IgA, Unit 33.5 U/mL; Gliadin AB IgG, Deaminated Negative (Negative); Gliadin AB IgG, Unit <0.4 U/mL
[2023-12-30 14:54] VITALS: RESP 16
[2023-12-30] MEDS: NA PHOS,M-B/NA PHOS,DI-BA 133 ML ENEMA RECTAL STA (15:06)
--- NOTE | 2023-12-30 16:51 | P.PN ---
Progress Note - Text Progress Note Date: 12/30/23 Chief Complaint: Abdominal pain This is a pleasant 58-year-old patient of Dr. Alvarez. Chronic stable medical condition include asthma, GERD, osteoarthritis, has had previous stomach ulcers that have healed, depression. Patient has a large hiatal hernia and had a mesh placed at [facility] about a year and a half ago. Patient also has chronic back pain for which she has been prescribed Lyrica and verapamil. At the baseline patient has a bowel movement every 2 to 3 weeks. For 5 days patient been having mid abdominal pain. No nausea vomiting. Decreased appetite. Patient did have a bowel movement yesterday. Pain is rather significant. She has not had a further follow-up with the surgeon at [place] to put the mesh inside. CT scan in the ER was just showing some postsurgical changes. I did inform the patient and that I will get a consultation with general surgery but I would rather have a her go to [place] to follow-up with her surgeon if that is an issue. Patient has been decided to stay here and see what GI has to say. Surgery is also being consulted. December 29: Patient was seen this afternoon. Still having abdominal pain. Sitting up in bed. Having popsicles. Unclear liquid diet. Seen by surgery. No further intervention per them. Per GI patient started on a bowel regimen. Discussed with patient and the . Will order CT angio of the abdomen to rule out any mesenteric ischemia, as there is no guarding rigidity which is out of proportion to the pain she is complained of. Active Medications Albuterol Sulfate (Albuterol Nebulized 2.5 Mg/3 Ml) 2.5 mg INHALATION RT-QID PRN PRN Reason: Shortness Of Breath Atorvastatin Calcium (Atorvastatin 40 Mg Tab) 40 mg PO HS [facility] Last Admin: 12/29/23 20:30 Dose: 40 mg Budesonide/Formoterol Fumarate (Symbicort 160-4.5 Mcg Inhaler) 2 puff INHALATION RT-HS [facility] Last Admin: 12/29/23 20:03 Dose: 2 puff Dicyclomine HCl (Dicyclomine 10 Mg Cap) 10 mg PO AC-TID [facility] Last Admin: 12/30/23 12:45 Dose: 10 mg Enoxaparin Sodium (Enoxaparin 40 Mg/0.4 Ml Syringe) 40 mg SQ HS [facility] Last Admin: 12/29/23 20:30 Dose: 40 mg Sodium Chloride (Saline 0.9%) 1,000 mls @ 75 mls/hr IV .[id number] [facility] Last Admin: 12/30/23 08:04 Dose: Not Given Meclizine HCl (Meclizine 25 Mg Tab) 25 mg PO TID PRN PRN Reason: dizziness Morphine Sulfate (Morphine Sulfate 4 Mg/Ml Syringe) 4 mg IV Q4HR PRN PRN Reason: Severe Pain (Scale 7 to 10) Last Admin: 12/30/23 09:57 Dose: 4 mg Naloxone HCl (Naloxone 0.4 Mg/Ml 1 Ml Vial) 0.2 mg IV Q2M PRN PRN Reason: Opioid Reversal Ondansetron HCl (Ondansetron 4 Mg/2 Ml Vial) 4 mg IVP Q8HR PRN PRN Reason: Nausea And Vomiting Pantoprazole Sodium (Pantoprazole 40 Mg Tablet) 40 mg PO AC-BID [facility] Last Admin: 12/30/23 06:19 Dose: 40 mg Polyethylene Glycol (Polyethylene Glycol 3350 17 Gm Powd.Pack) 17 gm PO BID [facility] Last Admin: 12/30/23 09:55 Dose: 17 gm Pregabalin (Pregabalin 100 Mg Cap) 200 mg PO BID [facility] Last Admin: 12/30/23 08:06 Dose: 200 mg Venlafaxine HCl (Venlafaxine Hcl Er 150 Mg Cap) 150 mg PO DAILY [facility] Last Admin: 12/30/23 08:05 Dose: 150 mg Verapamil HCl (Verapamil Sr 240 Mg Tablet.Er) 240 mg PO DAILY [facility] Last Admin: 12/30/23 08:06 Dose: 240 mg Zolpidem Tartrate (Zolpidem 5 Mg Tab) 10 mg PO HS PRN PRN Reason: Insomnia Social history: . Smoked for 28 years stopped in 2011. 1 pack a week. Alcohol occasionally. Physical examination: VITAL SIGNS: 98, 68, 16, 110 x 72, 92% room air GENERAL: Sitting up in bed, eating popsicle EYES: Pupils equal. Conjunctiva mery l. HEENT: External appearance of nose and ears normal, oral cavity grossly normal. NECK: JVD not raised; masses not palpable. HEART: First and second heart sounds are normal; no edema. LUNGS: Respiratory rate normal; clear to auscultation. ABDOMEN: Soft, epigastric tenderness, no guarding rigidity, liver spleen not palpable, no masses palpable. PSYCH: Alert and oriented x3; mood and affect anxious l. MUSCULOSKELETAL:No Clubbing/cyanosis;muscles-grossly intact INVESTIGATIONS, reviewed in the clinical context: December 29: White count 8.2 hemoglobin 12.4 platelets 230 potassium 3.5 creatinine 0.66 Acute abdominal series: Nonspecific December 29, 2023: White count 7.7 hemoglobin 13.3 platelets 248 sodium 139 potassium 3.6 creatinine 0.81 amylase 41 lipase 99. Lactic acid 1.0 UA: Ketones 1+ CT abdomen pelvis with contrast:: Unremarkable except for postsurgical changes of the anterior midline abdominal wall in the epigastric region. Assessment plan: -Acute abdominal pain of 5 days duration. Patient normally has a bowel movement every 2 to 3 weeks. Had a bowel movement yesterday. She has tenderness in epigastric area. No nausea vomiting. No fever no white count. Abdomen is soft. With no guarding rigidity. My concern if this is a slow complication of hiatal mesh. Patient has a prior history of peptic ulcer disease but that since has resolved. Patient was offered in the ER transferred to [facility] where her surgeon is. Patient did tell Dr. Simmons from the ER they prefer to stay here. Seen by general surgery. Not for any further intervention Seen by GI: Bowel regime Order CT angiogram abdomen to rule out mesenteric ischemia -Chronic arthritis of the lumbar spine Patient states she gets Lyrica and prescribed verapamil for a back pain. [After I tried to clarify the same] -Chronic insomnia Ambien as needed -Depression Effexor XR 150 mg a day -Diabetes mellitus type 2 Ozempic -GERD Nexium 40 mg twice daily -Moderate persistent asthma Symbicort 160/4.52 puffs nightly. Albuterol as needed -Hyperlipidemia Lipitor 40 mg nightly -Full code Bowel regimen per GI. CT angio abdomen. Past Medical History Past Medical History: Asthma, GERD/Reflux, Musculoskeletal Disorder, Osteoarthritis (OA) Additional Past Medical History / Comment(s): , hx of migraine, HX STOMACH ULCERS, DDD, VERTIGO, right neck mass, lymph node rt cervical History of Any Multi-Drug Resistant Organisms: None Reported Past Surgical History: Adenoidectomy, Appendectomy, Breast Surgery, Cholecystectomy, Joint Replacement, Orthopedic Surgery, Tonsillectomy Additional Past Surgical History / Comment(s): LEFT KNEE ARTHROSCOPY, left knee replacement, LEFT FOOT SURGERY, SINUS SX-REMOVED POLYPS, COLONOSCOPY, EGD, BACK INJECTIONS, biopsy BILATERAL SIDES OF NECK, BILATERAL BREAST REDUCTION. surgery rt arm for fx 03/02/20, neck mass/lymph node removed, HERNIA REPAIR AT [facility] IN JULY 2022, Past Anesthesia/Blood Transfusion Reactions: Previous Problems w/ Anesthesia Additional Past Anesthesia/Blood Transfusion Reaction / Comment(s): "Woke up during a foot surgery, they gave her more medication and then she took a long time to wake up after." Past Psychological History: Depression Smoking Status: Former smoker Past Alcohol Use History: Occasional Past Drug Use History: None Reported
[2023-12-30] MEDS: ONDANSETRON 4 MG/2 ML VIAL IVP PRN (17:16)
--- NOTE | 2023-12-30 22:13 | CT ---
EXAMINATION TYPE: CT angio abdomen DATE OF EXAM: 12/30/2023 10:04 PM COMPARISON: CT abdomen and pelvis one day earlier HISTORY: Upper, abdominal pain. Mesenteric Ischemia differential. CT DLP: 1023 mGycm Automated exposure control for dose reduction was used. TECHNIQUE: Performed without and with IV Contrast, patient injected with 100ml mL of Isovue 370. 3D reconstructed images are created on an independent workstation and reviewed.. LOWER CHEST: Unremarkable Vascular: Patent celiac artery and SMA along with bilateral single renal arteries and ESTHELA. No signifi cant plaque or stenosis. No AAA. Patent Common iliac arteries bilaterally without significant stenosi s. ABDOMEN LIVER: Unremarkable GALLBLADDER AND BILE DUCTS: The gallbladder is surgically absent. No biliary ductal dilatation. PANCREAS: Unremarkable. SPLEEN: Unremarkable. ADRENAL GLANDS: Unremarkable. KIDNEYS AND URETERS: No evidence of hydronephrosis or renal calculus. The seen symmetrically. Right r enal thin-walled cyst measuring 1.6 cm. ABDOMEN STOMACH AND BOWEL: No evidence of bowel obstruction. PERITONEUM: No evidence of pneumoperitoneum or free fluid. MUSCULOSKELETAL: No acute osseous abnormalities LYMPH NODES: No evidence for lymphadenopathy. SOFT TISSUE/ABDOMINAL WALL: Postsurgical changes of the anterior midline abdominal wall in the epigas tric region from suspected ventral wall hernia repair. IMPRESSION: No CT evidence of an acute abdominal/pelvic process. No significant vascular stenosis. [facility], , 12/30/2023 10:11 PM
[2023-12-31 08:28] VITALS: BP 118/74; PULSE 74; TEMP 98.3
--- NOTE | 2023-12-31 11:43 | P.PN ---
Subjective Progress Note Date: 12/31/23 Principal diagnosis: Abdominal pain This is a pleasant 58-year-old female who presented to the emergency department yesterday with complaints of abdominal pain. Abdominal pain has been ongoing for several months where it comes and goes. States she has been having pain for the last 5 days duration or so. She has a history of IBS with chronic constipation. She has followed with gastroenterology for quite some time and has seen Priya Zelaya in the past. She recently underwent EGD and colonoscopy on 06/03/[address] Vizcaino. EGD with findings of mild gastritis and colonoscopy status post polypectomy. Patient states she did not follow-up with Dr. Zarate as directed for biopsy results. Also states that she has not been following with Priya Donohue regularly for some time. She was on Linzess for quite some time however her insurance stopped covering it so she has not been taking it. She gets occasional free samples from [facility] however has not been on anything regula rly. She has chronic constipation for years, states that she can go weeks at a time without a decent bowel movement. Last good bowel movement was on Friday before coming into the hospital. She states it was a good sized bowel movement. Otherwise she usually just has jaime. She has no associated nausea or vomiting. She had a CT of the abdomen and pelvis as well as abdominal x-rays with no acute findings. Labs are all unremarkable. 12/31/2023 Patient seen and examined today as a follow-up. She had her magnesium citrate yesterday and fleets enema. She states she has had multiple bowel movements yesterday through today. Abdominal pain significantly improved according to the patient. She did undergo a CTA of the abdomen and pelvis again with no acute findings. Patient's is at the bedside and said patient's Linzess is apparently getting covered by the insurance and believes it is on its way. Celiac panel negative she is tolerating regular diet states she pancakes this morning without any nausea vomiting or abdominal pain. Objective - Vital Signs Vital signs: Vital Signs Temp 98.3 F 12/31/23 07:25 Pulse 74 12/31/23 07:25 Resp 16 12/31/23 07:25 BP 118/74 12/31/23 07:25 Pulse Ox 95 12/31/23 07:25 FiO2 Intake & Output 1012/31/23 12/31/23 18:59 06:59 18:59 Intake Total 236 358 Balance 236 358 Intake: Oral 236 358 Other: Voiding Method Toilet # Voids 2 3 - Exam General appearance: The patient is alert, oriented, appears in no acute distress. HET: Head is normocephalic and atraumatic. Conjunctiva pink. Sclera anicteric. Neck: Supple without lymphadenopathy. Abdomen: Soft, mild tenderness, nondistended. Extremities: Normal skin color and turgor. No pedal edema Skin: No rashes, no jaundice Neurological: No focal deficits. Alert and oriented. - Labs CBC & Chem 7: 12/30/23 00:42 12/30/23 00:42 Assessment and Plan (1) Abdominal pain Narrative/Plan: 58-year-old female with history of chronic abdominal pain, IBS with constipation presents to the emergency department with complaints of abdominal pain. States she had a bowel movement on Friday but prior to that she goes weeks without bowel movements. She is followed with gastroenterology for quite some time and has follow-up with Carmenza Zelaya for the last few years duration. He has been on Linzess in the past which did help her with her constipation however insurance has not covered it. Likely abdominal pain is all secondary to constipation and gas pain. Discussed with patient importance to actually follow-up with gastroenterology and get on a regular bowel regimen which she states she has not been on anything. Had recent upper and lower endoscopy in May of this year. Upper endoscopy biopsy did report 9 small bowel mucosa with erosion and mild intra epithelial lymphocytosis. Correlation with celiac disease serology suggested. Celiac panel was ordered. Will start patient on MiraLAX twice a day, recommended magnesium citrate x 1 and fleets enema. Patient agreeable. Discontinued Linzess as patient has not been on this medication and cannot afford it. Recommend outpatient follow-up with gastroenterology. No plans on endoscopic evaluation. Bowel regimen started. Abdominal pain improved. Likely all secondary to constipation. CTA with abdomen and pelvis with no acute findings. Current Visit: Yes Status: Acute Code(s): R10.9 - UNSPECIFIED ABDOMINAL PAIN SNOMED Code(s): 98530146 (2) Chronic constipation Current Visit: Yes Status: Acute Code(s): K59.09 - OTHER CONSTIPATION SNOMED Code(s): 888928271 (3) IBS (irritable colon syndrome) Current Visit: Yes Status: Acute Code(s): K58.9 - IRRITABLE BOWEL SYNDROME, UNSPECIFIED SNOMED Code(s): 71164203 Plan: 1. Continue symptomatic and supportive care 2. Encourage ambulation 3. Patient started on bowel regimen with MiraLAX twice daily 3. Magnesium citrate x 1, fleets enema x 1 4. Advance diet as tolerated 5. No plans on endoscopic evaluation, patient had recent upper and lower endoscopy in May of this year 6. Celiac panel ordered, negative 7. Patient is cleared from gastroenterology for discharge and will follow-up with Gabriela Mckinney in 1 to 2 weeks. Thank you for this consultation. Dr. Radha Zarate I agree with the dictator's note, documented as a scribe by Alka Lane.
--- NOTE | 2023-12-31 12:45 | P.PN ---
Subjective Progress Note Date: 12/31/23 CHIEF COMPLAINT: Abdominal pain HISTORY OF PRESENT ILLNESS: Patient did have multiple bowel movements last night with the mag citrate and MiraLAX. She is followed by GI service. She reports her pain is less and she is feeling better. She did note some discomfort after eating. Patient's abdominal discomfort changes each day. Today pain is more on the left side. Patient reports going about 7 days without a bowel movement. And when she has a bowel movement it is a large amount of hard stool. She reports pain initially with the bowel movement due to how large the stool is. CTA of abdomen negative Patient seen and examined with Dr. Tyler PHYSICAL EXAM: VITAL SIGNS: Reviewed. GENERAL: Well-developed in no acute distress. ABDOMEN: Soft. Obese nondistended. Mild discomfort with palpation left-sided abdomen NEUROLOGIC: Alert and oriented. Cranial nerves II through XII grossly intact. ASSESSMENT: 1. Chronic constipation 2. History of IBS PLAN: -Patient requesting resection of bowel to help with constipation. Dr. Tyler recommended medication management for the constipation first. He will follow-up with her in the office to discuss further if surgery would be beneficial. -Continue a good bowel regimen -No surgical intervention planned during this admission Physician Top Spotter note has been reviewed by physician. Signing provider agrees with the documented findings, assessment, and plan of care. Objective - Vital Signs Vital signs: Vital Signs Temp 98.3 F 12/31/23 07:25 Pulse 74 12/31/23 07:25 Resp 16 12/31/23 07:25 BP 118/74 12/31/23 07:25 Pulse Ox 95 12/31/23 07:25 FiO2 Intake & Output 12/30/23 12/31/23 12/31/23 18:59 06:59 18:59 Intake Total 236 358 Balance 236 358 Intake: Oral 236 358 Other: Voiding Method Toilet # Voids 2 3 - Labs CBC & Chem 7: 12/30/23 00:42 12/30/23 00:42
--- NOTE | 2023-12-31 17:27 | P.DS ---
Providers Date of admission: 12/29/23 13:46 Expected date of discharge: 12/31/23 Attending physician: Sammy Ivan Consults: 12/29/23 13:46 Consult Physician Routine Consulting Provider: Jaiden Tyler Consult Reason/Comments: intractable abd pain, history of mesh repair Do you want consulting provider notified?: Yes Consult Physician Routine Consulting Provider: Miranda Zarate Consult Reason/Comments: intractable abd pain Do you want consulting provider notified?: Yes Primary care physician: Jer[facility] Course: Chief Complaint: Abdominal pain This is a pleasant 58-year-old patient of Dr. Alvarez. Chronic stable medical condition include asthma, GERD, osteoarthritis, has had previous stomach ulcers that have healed, depression. Patient has a large hiatal hernia and had a mesh placed at about a year and a half ago. Patient also has chronic back pain for which she has been prescribed Lyrica and verapamil. At the baseline patient has a bowel movement every 2 to 3 weeks. For 5 days patient been having mid abdominal pain. No nausea vomiting. Decreased appetite. Patient did have a bowel movement yesterday. Pain is rather significant. She has not had a further follow-up with the surgeon at [place] to put the mesh inside. CT scan in the ER was just showing some postsurgical changes. I did inform the patient and that I will get a consultation with general surgery but I would rather have a her go to [place] to follow-up with her surgeon if that is an issue. Patient has been decided to stay here and see what GI has to say. Surgery is also being consulted. December 29: Patient was seen this afternoon. Still having abdominal pain. Sitting up in bed. Having popsicles. Unclear liquid diet. Seen by surgery. No further intervention per them. Per GI patient started on a bowel regimen. Discussed with patient and the . Will order CT angio of the abdomen to rule out any mesenteric ischemia, as there is no guarding rigidity which is out of proportion to the pain she is complained of. December 30: Patient tolerated breakfast well. Cleared by surgery and GI. Spoke to the patient . Patient has multiple bowel movements overnight. Possible cause of her presentation. Total narcotics not indicated. Told also to follow-up with her doctor at [place] who replaced the admission to make sure that is working fine. Not contributing to her belly pain. High-fiber diet. CT angiogram abdomen for mesenteric ischemia: Negative Social history: . Smoked for 28 years stopped in 2011. 1 pack a week. Alcohol occasionally. Physical examination: VITAL SIGNS: 98.3, 74, 16, 118 x 74, 95% room air GENERAL: In bed, more comfortable EYES: Pupils equal. Conjunctiva mery l. HEENT: External appearance of nose and ears normal, oral cavity grossly normal. NECK: JVD not raised; masses not palpable. HEART: First and second heart sounds are normal; no edema. LUNGS: Respiratory rate normal; clear to auscultation. ABDOMEN: Soft, mild epigastric tenderness, no guarding rigidity, liver spleen not palpable, no masses palpable. PSYCH: Alert and oriented x3; mood and affect anxious l. MUSCULOSKELETAL:No Clubbing/cyanosis;muscles-grossly intact INVESTIGATIONS, reviewed in the clinical context: CT angiogram abdomen: Negative for mesenteric ischemia December 29: White count 8.2 hemoglobin 12.4 platelets 230 potassium 3.5 creatinine 0.66 Acute abdominal series: Nonspecific December 29, 2023: White count 7.7 hemoglobin 13.3 platelets 248 sodium 139 potassium 3.6 creatinine 0.81 amylase 41 lipase 99. Lactic acid 1.0 UA: Ketones 1+ CT abdomen pelvis with contrast:: Unremarkable except for postsurgical changes of the anterior midline abdominal wall in the epigastric region. Assessment plan: -Acute abdominal pain of 5 days duration. Patient normally has a bowel movement every 2 to 3 weeks. Had a bowel movement yesterday. She has tenderness in epigastric area. No nausea vomiting. No fever no white count. Abdomen is soft. With no guarding rigidity. My concern if this is a slow complication of hiatal mesh. Patient has a prior history of peptic ulcer disease but that since has resolved. Patient was offered in the ER transferred to where her surgeon is. Patient did tell Dr. Simmons from the ER they prefer to stay here. Seen by general surgery. Not for any further intervention Received bowel regimen by GI: Had multiple bowel movements CT angiogram abdomen for mesenteric ischemia: Negative Follow-up with Dr. Radha Zarate outpatient Follow-up with her surgeon who put her hernia mesh outpatient -Chronic arthritis of the lumbar spine Patient states she gets Lyrica and prescribed verapamil for a back pain. [After I tried to clarify the same] -Chronic insomnia Ambien as needed -Depression Effexor XR 150 mg a day -Diabetes mellitus type 2 Ozempic -GERD Nexium 40 mg twice daily -Moderate persistent asthma Symbicort 160/4.52 puffs nightly. Albuterol as needed -Hyperlipidemia Lipitor 40 mg nightly -Full code Disposition: Home Past Medical History Past Medical History: Asthma, GERD/Reflux, Musculoskeletal Disorder, Osteoarthritis (OA) Additional Past Medical History / Comment(s): , hx of migraine, HX STOMACH ULCERS, DDD, VERTIGO, right neck mass, lymph node rt cervical History of Any Multi-Drug Resistant Organisms: None Reported Past Surgical History: Adenoidectomy, Appendectomy, Breast Surgery, Cholecystectomy, Joint Replacement, Orthopedic Surgery, Tonsillectomy Additional Past Surgical History / Comment(s): LEFT KNEE ARTHROSCOPY, left knee replacement, LEFT FOOT SURGERY, SINUS SX-REMOVED POLYPS, COLONOSCOPY, EGD, BACK INJECTIONS, biopsy BILATERAL SIDES OF NECK, BILATERAL BREAST REDUCTION. surgery rt arm for fx 03/02/20, neck mass/lymph node removed, HERNIA REPAIR AT [facility] IN JULY 2022, Past Anesthesia/Blood Transfusion Reactions: Previous Problems w/ Anesthesia Additional Past Anesthesia/Blood Transfusion Reaction / Comment(s): "Woke up during a foot surgery, they gave her more medication and then she took a long time to wake up after." Past Psychological History: Depression Smoking Status: Former smoker Past Alcohol Use History: Occasional Past Drug Use History: None Reported Plan - Discharge Summary New Discharge Prescriptions: New polyethylene glycoL 3350 [Miralax] 17 gm PO BID packet Continue Budesonide-Formot 160-4.5 Mcg [Symbicort 160-4.5 Mcg Inhaler] 2 puff INHALATION RT-HS Linaclotide [Linzess] 72 mcg PO DAILY Ferrous Sulfate [Feosol] 325 mg PO DAILY #30 tab Albuterol Nebulized [Ventolin Nebulized] 2.5 mg INHALATION RT-QID PRN PRN Reason: Shortness Of Breath Venlafaxine HCl [Effexor XR] 150 mg PO DAILY Pregabalin [Lyrica] 200 mg PO BID Zolpidem [Ambien] 10 mg PO HS PRN PRN Reason: Insomnia Atorvastatin [Lipitor] 40 mg PO HS Esomeprazole Magnesium [NexIUM] 40 mg PO BID Verapamil HCl [Verapamil ER] 240 mg PO DAILY Meclizine [Antivert] 25 mg PO TID PRN PRN Reason: dizziness Semaglutide [Ozempic] 1 mg SQ SANCHEZ Dicyclomine [Bentyl] 10 mg PO TID Discharge Medication List Pregabalin [Lyrica] 200 mg PO BID 05/21/21 [History] Budesonide-Formot 160-4.5 Mcg [Symbicort 160-4.5 Mcg Inhaler] 2 puff INHALATION RT-HS 01/16/23 [History] Linaclotide [Linzess] 72 mcg PO DAILY 01/16/23 [History] Zolpidem [Ambien] 10 mg PO HS PRN 01/16/23 [History] Atorvastatin [Lipitor] 40 mg PO HS 01/17/23 [History] Ferrous Sulfate [Feosol] 325 mg PO DAILY #30 tab 01/22/23 [Rx] Esomeprazole Magnesium [NexIUM] 40 mg PO BID 06/03/23 [History] Albuterol Nebulized [Ventolin Nebulized] 2.5 mg INHALATION RT-QID PRN 12/29/23 [History] Dicyclomine [Bentyl] 10 mg PO TID 12/29/23 [History] Meclizine [Antivert] 25 mg PO TID PRN 12/29/23 [History] Semaglutide [Ozempic] 1 mg SQ SANCHEZ 12/29/23 [History] Venlafaxine HCl [Effexor XR] 150 mg PO DAILY 12/29/23 [History] Verapamil HCl [Verapamil ER] 240 mg PO DAILY 12/29/23 [History] polyethylene glycoL 3350 [Miralax] 17 gm PO BID packet 12/31/23 [Rx] Follow up Appointment(s)/Referral(s): Jerad Alvarez DO [Primary Care Provider] - 1-2 days Katelyn Mckinney NPC [REFERRING] - 1 Week (Schedule appointment for hospital follow- up for constipation, IBS with [facility] KELLY) Jaiden Tyler MD [STAFF PHYSICIAN] - 1 Week Patient Instructions/Handouts: Irritable Bowel Syndrome (DC), Constipation (DC) Discharge Disposition: HOME SELF-CARE
[2024-01-04] MEDS ORDERED: NON FORMULARY DRUG (Semaglutide [Ozempic] 1 MG/0.75 ML Each) SQ SCH (16:20)
== END 2023-12-31 13:11 | disposition home or self-care (01) ==
LOC: EC 08:39 → 6NMEDSUR 13:46 → 1SOBS 16:48 → 6NMEDSUR 12-30 18:33
PROVIDERS: ADMIT Hospitalist; ATTEND Hospitalist
DX: R10.13 Epigastric pain (principal); R10.30 Lower abdominal pain, unspecified; K58.1 Irritable bowel syndrome with constipation; K21.9 Gastro-esophageal reflux disease without esophagitis; F32.A Depression, unspecified; J45.40 Moderate persistent asthma, uncomplicated; M47.816 Spondylosis without myelopathy or radiculopathy, lumbar region; G89.29 Other chronic pain; M19.90 Unspecified osteoarthritis, unspecified site; G47.00 Insomnia, unspecified; E11.9 Type 2 diabetes mellitus without complications; E78.5 Hyperlipidemia, unspecified; Z87.891 Personal history of nicotine dependence; Z79.899 Other long term (current) drug therapy; Z87.11 Personal history of peptic ulcer disease; Z79.52 Long term (current) use of systemic steroids; Z88.5 Allergy status to narcotic agent; Z87.19 Personal history of other diseases of the digestive system; Z79.51 Long term (current) use of inhaled steroids; Z79.85 Long-term (current) use of injectable non-insulin antidiabetic drugs
CPT/HCPCS: 96376 ×3; 96372 ×3; 96361; 96374; 96375; 99285; 36415; 94640 ×2; 93005; 80053 ×2; 82150; 83605; 83690; 85025 ×2; 85610; 85730; 81003; 83516 ×4; 74022; 74175; 74177; G0378 ×3; J2270 ×2; J1644; J2405 ×2; J1650 ×2; Q9967 ×2; J2470

== ENCOUNTER → 2024-06-10 | Outpatient (CLI) | payer BC ==
[2024-06-10 16:18] LABS: Gliadin AB IgA, Deaminated Positive (Negative); Gliadin AB IgA, Unit 40.1 U/mL; Gliadin AB IgG, Deaminated Negative (Negative); Gliadin AB IgG, Unit <0.4 U/mL
== END | disposition home or self-care (01) ==
LOC: LABWHC1 09:51
PROVIDERS: ATTEND Nurse Practitioner Family
DX: K58.9 Irritable bowel syndrome, unspecified (principal)
CPT/HCPCS: 36415; 83516

== ENCOUNTER → 2024-10-15 | Outpatient (CLI) | payer BC ==
[2024-10-15 16:49] LABS: ALT 13 U/L (8-44); AST 11 U/L (13-35); Albumin 4.2 g/dL (3.8-4.9); Albumin/Globulin Ratio 1.83 Ratio (1.60-3.17); Alkaline Phosphatase 82 U/L (41-126); Anion Gap 12.10 mmol/L (4.00-12.00); BUN/Creat Ratio 18.25 Ratio (12.00-20.00); Blood Urea Nitrogen 14.6 mg/dL (9.0-27.0); Calcium 9.4 mg/dL (8.7-10.3); Carbon Dioxide 24.9 mmol/L (21.6-31.8); Chloride 105 mmol/L (96-109); Cholesterol 240.00 mg/dL (0.00-200.00); Globulin 2.3 g/dL (1.6-3.3); Glucose 89 mg/dL (70-110); HDL Cholesterol 45.70 mg/dL (40.00-60.00); LDL Cholesterol,Calculated 151.9 mg/dL (0.0-131.0); Potassium 3.8 mmol/L (3.5-5.5); Sodium 142 mmol/L (135-145); T4, Free (Free Thyroxine) 1.15 ng/dL (0.80-1.80); Total Protein 6.5 g/dL (6.2-8.2); Triglycerides 212.00 mg/dL (0.00-149.00); VLDL Calculation 42.40 mg/dL (5.00-40.00)
== END | disposition home or self-care (01) ==
LOC: LABWHC1 09:58
PROVIDERS: ATTEND Family Medicine
DX: E11.9 Type 2 diabetes mellitus without complications (principal); E03.9 Hypothyroidism, unspecified; E55.9 Vitamin D deficiency, unspecified; E78.2 Mixed hyperlipidemia
CPT/HCPCS: 36415; 80053; 80061; 82306; 83036; 84439; 84443